=== PATIENT | female | born 1965 | race African-American/Black ===

== ENCOUNTER 2020-03-11 16:15 | Emergency (ER) | payer MEDICAID, SELFPAY ==
--- NOTE | 2020-03-11 | ECG_ITS ---
Test Reason : SEIZURE Blood Pressure : / mmHG Vent. Rate : 116 BPM Atrial Rate : 116 BPM P-R Int : 186 ms QRS Dur : 074 ms QT Int : 324 ms P-R-T Axes : 053 032 042 degrees QTc Int : 450 ms Sinus tachycardia Otherwise normal ECG No previous ECGs available Referred By: Sowmya Ahuja Electronically Signed By:Benjamin Connolly
[2020-03-11 16:01] VITALS: BP 124/98; BP 175/96; PULSE 110; PULSE 124; RESP 16; TEMP 36.9; O2SAT 94; O2SAT 98; BMI 19.6
--- NOTE | 2020-03-11 16:06 | ED_ITS ---
HPI - General Adult General Chief complaint: Seizure Stated complaint: SAKINA NICOLE,POST ICTAL @ THIS TIME Time Seen by Provider: 03/11/20 17:17 Source: EMS Mode of arrival: EMS Limitations: other History of Present Illness HPI narrative: Patient comes to the emergency room via EMS. Patient is a resident at [facility], this afternoon patient had an appointment with her neurologist at [facility]. Patient was returning home via ambulance when she had a seizure in the ambulance, patient was brought to the ER. This occurred in the ambulance, it was a witnessed seizure, according to EMS the patient is postictal. At this time, patient is awake and alert, unclear what the patient's baseline is, possibly postictal. Patient states she has no medical problems, denies ever having seizures, although it is documented that she has history of seizures and is on 2 medications for this. Patient states that she feels well, no pain, has no complaints. MD complaint: Seizure Related Data Allergies Allergy/AdvReac Type Severity Reaction Status Date / Time No Known Allergies Allergy Verified 03/11/20 16:03 Review of Systems Review of Systems: Constitutional : No Weight loss, No Fever, No Chills, No Night Sweats, No Fatigue, No Malaise ENT/Mouth : No Hearing loss, No Ear Pain, No Nasal Congestion, No Sinus Pain, No Hoarseness, No sore throat, No Rhinorrhea, No Swallowing Difficulty Eyes: No Eye Pain, No Swelling, No Redness, No Foreign Body, No Discharge, No Vision Changes Cardiovascular : No Chest Pain, No SOB, No Dyspnea on Exertion, No Orthopnea, No Edema, No Palpitations Respiratory : No Cough, No Sputum, No Wheezing, No Smoke Exposure, No Dyspnea Gastrointestinal : No Nausea, No Vomiting, No Diarrhea, No Constipation, No abdominal Pain, No Hematochezia, No Melena Genitourinary : no irregular bleeding, No Dysuria, No Urinary Frequency, No Hematuria, No Urinary Incontinence, No Urgency, No Flank Pain, No Urinary Flow Changes, No Hesitancy Musculoskeletal : No joint pain, No Myalgias, No Joint Swelling Skin : No Skin Lesions, No rash Neuro : No Weakness, No Numbness, No Paresthesias, No Loss of Consciousness, No Dizziness, No Headache, patient had a witnessed seizure Psych : No Anxiety/Panic, No Depression, No SI/HI/AH/VH, No Social Issues, Heme/Lymph: No Bruising, No Bleeding,No Lymphadenopathy Endocrine : No Polyuria, No Polydipsia, No Temperature Intolerance [facility] Past Medical History Medical History CVA (cerebral vascular accident) Seizure Social History Social History Alcohol intake: never Smoked in Last 30 Days: No Use of substances other than those prescribed or required for medical reasons: No Advance Directives: No Advance Directives Information Provided: No Physical Exam Vital Signs: Vital Signs: Last Vital Signs Temp 98.5 F 03/11/20 16:01 Pulse 107 H 03/11/20 16:29 Resp 16 03/11/20 16:01 BP 124/98 H 03/11/20 16:01 Pulse Ox 98 03/11/20 16:01 Body Mass Index 19.6 Constitutional : No Weight loss, No Fever, No Chills, No Night Sweats, No Fati walter, No Malaise ENT/Mouth : No Hearing loss, No Ear Pain, No Nasal Congestion, No Sinus Pain, No Hoarseness, No sore throat, No Rhinorrhea, No Swallowing Difficulty Eyes: No Eye Pain, No Swelling, No Redness, No Foreign Body, No Discharge, No Vision Changes Cardiovascular : No Chest Pain, No SOB, No Dyspnea on Exertion, No Orthopnea, No Edema, No Palpitations Respiratory : No Cough, No Sputum, No Wheezing, No Smoke Exposure, No Dyspnea Gastrointestinal : No Nausea, No Vomiting, No Diarrhea, No Constipation, No abdominal Pain, No Hematochezia, No Melena Genitourinary : no irregular bleeding, No Dysuria, No Urinary Frequency, No Hematuria, No Urinary Incontinence, No Urgency, No Flank Pain, No Urinary Flow Changes, No Hesitancy Musculoskeletal : No joint pain, No Myalgias, No Joint Swelling, seems weak, having trouble sitting up by herself Skin : No Skin Lesions, No rash Neuro : No Weakness, No Numbness, No Paresthesias, No Loss of Consciousness, No Dizziness, No Headache. Patient unable to move right arm on right leg, which is residual from a previous CVA Psych : No Anxiety/Panic, No Depression, No SI/HI/AH/VH, No Social Issues, Heme/Lymph: No Bruising, No Bleeding,No Lymphadenopathy Endocrine : No Polyuria, No Polydipsia, No Temperature Intolerance Course Course Course Narrative: I discussed with the patient that her labs are within normal limits, valproic acid within normal limits, therapeutic. Keppra will be pending. Patient was given an additional dose of Keppra. Patient instructed to call her neurologist tomorrow. Patient has not had any seizures since she has been in the emergency room. Medical Decision Making Lab Data Result diagrams: 03/11/20 16:40 03/11/20 16:40 Labs: Lab Results 03/11/20 03/11/20 03/11/20 Range/Units 16:40 16:40 16:40 WBC 7.0 (4.8-10.8) X10*3/uL RBC 4.92 (4.20-5.50) X10*6/uL Hgb 13.1 (12.0-16.0) g/dl Hct 42.5 (37-47) % MCV 86.4 (80-98) fL MCH 26.6 L (27.0-33.0) pg MCHC 30.8 L (31.0-35.0) g/dl RDW 20.6 H (11.0-16.0) % Plt Count 258 (160-400) X10*3/uL MPV 10.1 (9.4-12.3) fL Immature Gran % (Auto) 0.3 (0.0-0.4) % Neut % (Auto) 75.3 H (45-73) % Lymph % (Auto) 14.7 L (20-40) % [place] % (Auto) 8.0 (2-11) % Eos % (Auto) 1.4 (0-4) % Baso % (Auto) 0.3 (0-2) % Lymph # (Auto) 1.0 L (1.2-4.9) X10*3/uL [place] # (Auto) 0.6 (0.1-1.2) X10*3/uL Eos # (Auto) 0.1 (0.0-0.4) X10*3/uL Baso # (Auto) 0.0 (0.0-0.2) X10*3/uL Abs Immat Gran (auto) 0.02 (0.00-0.03) X10*3/uL Absolute Neuts (auto) 5.3 (2.0-8.3) X10*3/uL Absolute Nucleated RBC 0.000 (0.0-0.012) X10*3/uL Nucleated RBC % (auto) 0.0 (0.0-0.2) /100WBC Sodium 142 (135-145) mmol/L Potassium 4.3 (3.3-5.1) mmol/l Chloride 105 (96-108) mmol/L Carbon Dioxide 23 (22-29) mmol/L Anion Gap 18 (12-20) BUN 15 (9-16) mg/dL Creatinine 0.72 (0.5-1.4) mg/dL Estim Creat Clear Calc 75.0 Estimated GFR > 60 Random Glucose 92 (60-115) mg/dL Lactic Acid 1.7 (0.5-2.0) mmol/L Calcium 9.1 (8.4-10.2) mg/dL Total Bilirubin 0.2 (0.0-1.0) mg/dL Direct Bilirubin < 0.2 (0.0-0.5) mg/dL AST 12 (5-31) U/L ALT < 6 (0-31) U/L Alkaline Phosphatase 66 (39-117) U/L Total Protein 7.6 (6.5-8.0) g/dL Albumin 3.3 L (3.5-5.0) g/dL Urine Color Urine Appearance Urine pH (5.0-8.0) Ur Specific Sp[place] (1.005-1.025) Urine Protein (NEG-TRACE) MG/DL Urine Glucose (UA) (NEG) MG/DL Urine Ketones (NEG) MG/DL Urine Blood (NEG) Urine Nitrite (NEG) Ur Leukocyte Esterase (NEG) Valproic Acid (50.0-100.0) mcg/mL 03/11/20 03/11/20 Range/Units 16:40 17:46 WBC (4.8-10.8) X10*3/uL RBC (4.20-5.50) X10*6/uL Hgb (12.0-16.0) g/dl Hct (37-47) % MCV (80-98) fL MCH (27.0-33.0) pg MCHC (31.0-35.0) g/dl RDW (11.0-16.0) % Plt Count (160-400) X10*3/uL MPV (9.4-12.3) fL Immature Gran % (Auto) (0.0-0.4) % Neut % (Auto) (45-73) % Lymph % (Auto) (20-40) % [place] % (Auto) (2-11) % Eos % (Auto) (0-4) % Baso % (Auto) (0-2) % Lymph # (Auto) (1.2-4.9) X10*3/uL [place] # (Auto) (0.1-1.2) X10*3/uL Eos # (Auto) (0.0-0.4) X10*3/uL Baso # (Auto) (0.0-0.2) X10*3/uL Abs Immat Gran (auto) (0.00-0.03) X10*3/uL Absolute Neuts (auto) (2.0-8.3) X10*3/uL Absolute Nucleated RBC (0.0-0.012) X10*3/uL Nucleated RBC % (auto) (0.0-0.2) /100WBC Sodium (135-145) mmol/L Potassium (3.3-5.1) mmol/l Chloride (96-108) mmol/L Carbon Dioxide (22-29) mmol/L Anion Gap (12-20) BUN (9-16) mg/dL Creatinine (0.5-1.4) mg/dL Estim Creat Clear Calc Estimated GFR Random Glucose (60-115) mg/dL Lactic Acid (0.5-2.0) mmol/L Calcium (8.4-10.2) mg/dL Total Bilirubin (0.0-1.0) mg/dL Direct Bilirubin (0.0-0.5) mg/dL AST (5-31) U/L ALT (0-31) U/L Alkaline Phosphatase (39-117) U/L Total Protein (6.5-8.0) g/dL Albumin (3.5-5.0) g/dL Urine Color YELLOW Urine Appearance CLOUDY Urine pH 6.0 (5.0-8.0) Ur Specific [place] 1.025 (1.005-1.025) Urine Protein TRACE (NEG-TRACE) MG/DL Urine Glucose (UA) NEG (NEG) MG/DL Urine Ketones >=80 (NEG) MG/DL Urine Blood 3+ H (NEG) Urine Nitrite NEG (NEG) Ur Leukocyte Esterase 2+ H (NEG) Valproic Acid 54.3 (50.0-100.0) mcg/mL ECG Data Attestation: I personally reviewed and interpreted this ECG as follows: (Sinus tachycardia, heart rate 116, this segment depressions or elevations, no T-wave inversions) Discharge Plan Discharge Clinical Impression: Generalized seizure Patient Disposition: Xfer Other Instructions: Recurrent Seizures in Adults (ED) Additional Instructions: Please call your neurologist tomorrow. Please follow-up with your primary care physician tomorrow. If you have any worsening or new symptoms, please return to the emergency room or call 911
[2020-03-11 16:29] VITALS: PULSE 107
[2020-03-11 16:48] LABS: Basophils Percent Auto 0.3 % (0-2); Eosinophils Absolute Auto 0.1 X10*3/uL (0.0-0.4); Eosinophils Percent Auto 1.4 % (0-4); Hematocrit 42.5 % (37-47); Hemoglobin 13.1 g/dl (12.0-16.0); Imm Gran Abs Auto 0.02 X10*3/uL (0.00-0.03); Imm Gran Pct Auto 0.3 % (0.0-0.4); Lymphocytes Percent Auto 14.7 % (20-40); MANUAL DIFF FLAG NO; Mean Corpuscular HGB Conc 30.8 g/dl (31.0-35.0); Mean Corpuscular Hemoglobin 26.6 pg (27.0-33.0); Mean Corpuscular Volume 86.4 fL (80-98); Mean Platelet Volume 10.1 fL (9.4-12.3); Monocytes Absolute Auto 0.6 X10*3/uL (0.1-1.2); Neutrophils Absolute Auto 5.3 X10*3/uL (2.0-8.3); Neutrophils Percent Auto 75.3 % (45-73); Platelet Count 258 X10*3/uL (160-400); Red Blood Count 4.92 X10*6/uL (4.20-5.50); Red Cell Distribution Width 20.6 % (11.0-16.0)
[2020-03-11 17:21] LABS: Lactic Acid 1.7 mmol/L (0.5-2.0)
[2020-03-11 17:31] LABS: Alanine Aminotransferase < 6 U/L (0-31); Albumin Level 3.3 g/dL (3.5-5.0); Alkaline Phosphatase 66 U/L (39-117); Anion Gap 18 (12-20); Aspartate Amino Transferase 12 U/L (5-31); Bilirubin Direct < 0.2 mg/dL (0.0-0.5); Bilirubin Total 0.2 mg/dL (0.0-1.0); Blood Urea Nitrogen 15 mg/dL (9-16); Calcium 9.1 mg/dL (8.4-10.2); Carbon Dioxide 23 mmol/L (22-29); Chloride 105 mmol/L (96-108); Estimated Glomerular Filt Rate > 60; Glucose Random 92 mg/dL (60-115); Potassium 4.3 mmol/l (3.3-5.1); Sodium 142 mmol/L (135-145); Total Protein 7.6 g/dL (6.5-8.0)
[2020-03-11 17:34] LABS: Valproate 54.3 mcg/mL (50.0-100.0)
[2020-03-11 17:56] LABS: Glucose Urine UA NEG (NEG); Leukocyte Esterase Urine 2+ (NEG); Nitrite Urine NEG (NEG); Specific Gravity - Urine 1.025 (1.005-1.025); Urine Blood 3+ (NEG); Urine Ketones >=80 MG/DL (NEG); Urine Protein TRACE MG/DL (NEG-TRACE)
[2020-03-11 17:58] LABS: Appearance Urine CLOUDY; Color Urine YELLOW
[2020-03-11 18:04] LABS: Bacteria Urine 3+ /LPF; Mucus Urine 2+ /LPF; RBC Urine 50-75 /HPF (0); Squamous Epithelial Cell Urine 1+ /LPF
[2020-03-11 18:12] VITALS: BP 115/81; PULSE 97; RESP 18; TEMP 37.2; O2SAT 97
--- NOTE | 2020-03-11 18:16 | PC.NURSE ---
Awaiting transport at this time
--- NOTE | 2020-03-11 19:05 | PC.NURSE ---
Report given to LAYTON at [facility].
[2020-03-11] MEDS: Acetaminophen 325 MG TABLET 650 MG PO (20:27)
--- NOTE | 2020-03-11 20:34 | PC.NURSE ---
pt still is refusing her keppra due to the taste of the pill. pt chews her meds. multiple drinks and food offered to help with the taste and pt still refusing, dr. berry is aware.
[2020-03-16 15:46] LABS: Levetiracetam Keppra <1.0 mcg/mL (12.0-46.0)
== END 2020-03-11 20:55 | disposition other institution (70) ==
PROVIDERS: Emergency Provider Emergency Medicine
DX: G40.409 Other generalized epilepsy and epileptic syndromes, not intractable, without status epilepticus (principal); Z86.73 Personal history of transient ischemic attack (TIA), and cerebral infarction without residual deficits
CPT/HCPCS: 36415; 80048; 80076; 80164; 80177; 81001; 83605; 85025; 87086; 87088; 87186; 93005; 99283; 99284

== ENCOUNTER 2020-04-26 22:31 | Inpatient (IN) | payer MEDICAID, SELFPAY ==
[2020-04-26] VITALS (7 sets, daily range): BP systolic 43–151; BP diastolic 30–120; PULSE 115–160; RESP 20–52; O2SAT 65–100; BMI 23.4
--- NOTE | ~2020-04-26 | XR_ITS ---
EXAMINATION: XR CHEST CLINICAL INFORMATION: Tube placement. Central line placement. COMPARISON: None TECHNIQUE: Frontal view of the chest was obtained. FINDINGS: The endotracheal tube terminates approximately 3.5 cm above the marylou. Enteric tube extends into the stomach. Left internal jugular central venous catheter terminates over the mid SVC. Shunt tubing overlies the right hemithorax. Cardiac leads overlie the chest. The lungs are well expanded. Small right pleural effusion. Airspace opacity throughout the right lung, greatest at the base. The left lung is clear. No pneumothorax. The cardiomediastinal silhouette is not well assessed on this study due to patient rotation. Degenerative changes of the spine. XR/XR chest 1V IMPRESSION: Small right pleural effusion. Associated airspace opacity of the right lung, greatest at the base. This could represent atelectasis or pneumonia. Endotracheal tube terminates 3.5 cm above the marylou.
--- NOTE | ~2020-04-26 | XR_ITS ---
EXAMINATION: XR CHEST CLINICAL INFORMATION: Endotracheal tube placement. TLC and orogastric tube. COMPARISON: 04/28/2020 TECHNIQUE: Frontal view of the chest was obtained. FINDINGS: Endotracheal tube terminates. This is near the lateral and. Right internal jugular central venous catheter terminates over the lower SVC. Cardiac leads overlie the chest. Shunt tubing overlies the right hemithorax. Elevated left hemidiaphragm. Underlying gas filled stomach. Left basilar hazy opacity. No pneumothorax. No dense consolidation. The cardiomediastinal silhouette is within normal limits. Degenerative changes of the spine. XR/XR chest 1V IMPRESSION: Hazy opacity at the left lung base. This could represent a combination of small pleural effusion with airspace opacity. This could be atelectasis or pneumonia.
--- NOTE | ~2020-04-26 | XR_ITS ---
EXAMINATION: XR CHEST CLINICAL INFORMATION: Hypoxia. COMPARISON: 05/06/2020 TECHNIQUE: Frontal view of the chest was obtained. FINDINGS: Compared with yesterday's study there has been little significant interval change. Once again noted are bilateral pleural effusions, right greater than left and bibasilar atelectasis. A Lap-Band remains in place as does shunt tubing. XR/XR chest 1V IMPRESSION: No interval change from yesterday's study. Bilateral small effusions and bibasilar atelectasis.
--- NOTE | ~2020-04-26 | XR_ITS ---
EXAMINATION: XR CHEST CLINICAL INFORMATION: Dyspnea COMPARISON: 05/04/2020 TECHNIQUE: Frontal view of the chest was obtained. FINDINGS: Redemonstrated catheter tubing overlying the medial right chest. The lungs are hypoinflated, with persistent bibasilar haziness and likely small pleural effusions, similar to prior. Upper lungs remain well-aerated. No evidence of pneumothorax or overt pulmonary edema. The cardiomediastinal contour is unremarkable. No acute osseous findings are seen. Gastric band overlies the upper abdomen. XR/XR chest 1V IMPRESSION: Persistent small pleural effusions and bibasilar haziness, similar to 05/04/2020.
--- NOTE | ~2020-04-26 | XR_ITS ---
EXAMINATION: XR CHEST CLINICAL INFORMATION: Orogastric tube placement COMPARISON: 04/29/2020 at 12:58 AM TECHNIQUE: Frontal view of the chest was obtained 1:29 PM. FINDINGS: Endotracheal tube seen with tip 4 cm above the marylou. Orogastric tube descends the esophagus into the stomach. A ventriculoperitoneal shunt catheter descends the right medial chest. Lung volumes are low. There is hazy opacity at the right lung base, likely atelectasis. No focal consolidation or mass.. No definite pleural effusion. No pneumothorax. XR/XR chest 1V IMPRESSION: Orogastric tube has been advanced with the tip in the body of the stomach. Proximal side-port is in the proximal stomach as well. Endotracheal tube seen with tip 4 cm above the marylou. Lung volumes are low but improved in the left chest.
--- NOTE | ~2020-04-26 | CT_ITS ---
EXAMINATION: CT ANGIOGRAM OF THE CHEST WITH AND WITHOUT CONTRAST (CT PULMONARY ANGIOGRAM FOR PE) CLINICAL INFORMATION: Reason for Exam r/o PE COMPARISON: Chest CT from earlier today. TECHNIQUE: Prior to contrast administration, noncontrast localization images were obtained. Subsequently, multidetector volumetric imaging was performed from the thoracic inlet to below the diaphragms following the administration of 65 mL Omnipaque 350 intravenous contrast. No contrast reaction reported Sagittal, coronal, and MIP oblique sagittal reformatted images were obtained on the CT workstation, uploaded to PACS, and reviewed. This CT examination was performed using dose optimization techniques as appropriate, variously including the following: *Automated exposure control *Adjustment of mA and/or kV according to patient size (this includes techniques or standardized protocols for targeted exams where dose is matched to indication/reason for exam; i.e. extremities or head) *Use of iterative reconstruction technique Total exam dose-length product 159 mGy-cm FINDINGS: QUALITY OF STUDY/CONTRAST BOLUS: Satisfactory. PULMONARY ARTERIES: No central or segmental pulmonary emboli. THORACIC AORTA: No aneurysm or dissection. LUNG: The endotracheal tube terminates 2.5 cm above the marylou. Persistent occlusion of the right lower lobe and right middle lobe bronchi with associated dense consolidation suggestive of atelectasis of both lobes. Patchy groundglass opacities of the right upper lobe with mild septal thickening. The left lung is clear. PLEURA: No pleural effusion or pneumothorax. MEDIASTINUM: Normal heart size. Small anterior pericardial effusion. No hilar or mediastinal lymphadenopathy. No evidence of septal bowing or right heart strain. CHEST WALL/AXILLA: No axillary or internal mammary lymphadenopathy. OSSEOUS STRUCTURES: No acute or suspicious osseous abnormality. Degenerative changes noted in the spine. UPPER ABDOMEN: There is a lap band noted. Enteric tube extends into the stomach. No reflux of contrast into the hepatic veins to suggest elevated right heart pressures. CT/CT angio chest PE protocol IMPRESSION: No pulmonary embolism. Persistent occlusion of the right lower lobe and right middle lobe bronchi with associated atelectasis, unchanged from recent prior. Groundglass opacities with septal thickening in the right upper lobe may be associated with edema or infectious process. VTE: negative
--- NOTE | ~2020-04-26 | XR_ITS ---
EXAMINATION: PORTABLE CHEST 1 VIEW CLINICAL INFORMATION: sob . COMPARISON: 04/26/2020. TECHNIQUE: Portable frontal view of the chest was obtained. FINDINGS: Lungs are hypoexpanded. Blunting of the costophrenic angles could represent tiny layering effusions with associated bibasilar consolidation/atelectasis. Basilar markings have worsened from the prior study. No overt edema or pneumothorax. Cardiac silhouette within normal limits for size. Right-sided MANAGER PRODUCT MANAGEMENT shunt tubing noted. Lap band partially visualized in the upper abdomen. XR/XR chest 1V IMPRESSION: Hypoexpanded with increased bibasilar markings likely reflecting a component of layering effusions and associated basilar consolidation/atelectasis. These have increased on the left from the 04/26/2020 study
--- NOTE | ~2020-04-26 | CT_ITS ---
EXAMINATION: CT CHEST WITHOUT CONTRAST CLINICAL INFORMATION: Severe hypoxia COMPARISON: Chest radiograph from today TECHNIQUE: Multidetector volumetric CT imaging of the chest was done. Axial MIP volume rendering provided. Sagittal and coronal reformatted images were obtained. This CT examination was performed using dose optimization techniques as appropriate, variously including the following: *Automated exposure control *Adjustment of mA and/or kV according to patient size (this includes techniques or standardized protocols for targeted exams where dose is matched to indication/reason for exam; i.e. extremities or head) *Use of iterative reconstruction technique DLP: 194 mGy-cm FINDINGS: INSPECTION ENGINEER: Opacity at the right base. LUNGS: Endotracheal tube terminates approximately 2.5 cm above the marylou. There is occlusion of the right lower lobe bronchus. There is also occlusion of the right middle lobe bronchus. Dense consolidation of the right lower lobe and right middle lobe. Ground glass opacities of the right upper lobe with dependent opacity. Septal thickening. The left lung is clear. No pleural effusion. No pneumothorax. MEDIASTINUM: Left internal jugular central venous catheter terminates at the mid SVC. Normal heart size. No mediastinal lymphadenopathy. Small anterior pericardial effusion. AXILLA: No lymphadenopathy. UPPER ABDOMEN: Gastric lap band noted. Enteric tube extends into the stomach. Prominent cyst at the upper pole of the left kidney. NUTRITION SPECIALIST shunt tubing extends into the abdomen. OSSEOUS STRUCTURES: No acute osseous abnormality. Degenerative changes in the spine. CT/CT chest wo con IMPRESSION: Endotracheal tube terminating 2.5 cm above the marylou. Occlusion of the right lower lobe and right middle lobe bronchi, possibly mucous plugging. Associated dense consolidation of the right middle lobe and right lower lobe. Groundglass opacities with septal thickening in the right upper lobe. This could represent asymmetric edema.
--- NOTE | ~2020-04-26 | XR_ITS ---
EXAMINATION: XR CHEST CLINICAL INFORMATION: Rule out pneumonia. COMPARISON: 04/30/2020. TECHNIQUE: Frontal view of the chest was obtained. FINDINGS: Right IJ CVC, tip projected over the cavoatrial junction. There is tubing projecting along the right side of the chest and abdomen. Monitoring leads overlie the chest. Rotated positioning. Stable cardiac and mediastinal silhouette allowing for positioning. Opacification in bilateral mid to lower lungs, more confluent in the lower lungs. Suspected effusions, right greater than left. No pneumothorax. XR/XR chest 1V IMPRESSION: Bibasilar opacities, could be related to atelectasis, pneumonia or aspiration. Suspected small bilateral effusions.
--- NOTE | 2020-04-26 22:45 | PC.NURSE ---
Dr. urban at bedside w/ RT, this rn and Ivett RN. Plan to intubate pt r/t poor respiratory status.
--- NOTE | 2020-04-26 22:46 | PC.NURSE ---
20mg etomidate, 80 mg rocuronium given ivp.
--- NOTE | 2020-04-26 22:49 | PC.NURSE ---
7.5 ET tube placed, 25 cm at lip, + color change
--- NOTE | 2020-04-26 23:03 | PC.NURSE ---
v/o per Dr. urban levophed started at 0.05mcg/kg/min
[2020-04-26] MEDS: fentaNYL citrate/NS 1,000 MCG/100 ML PLAST..BAG 2.5 MCG IVCONT (23:11)
--- NOTE | 2020-04-26 23:12 | PC.NURSE ---
Dr. urban at bedside to place central line
--- NOTE | 2020-04-26 23:19 | PC.NURSE ---
Per Dr. Leigha lovell to admin levophed and fent. through peripheral IV.
--- NOTE | 2020-04-26 23:36 | ED_ITS ---
HPI - General Adult General Chief complaint: Dyspnea Stated complaint: pulmonary edema Time Seen by Provider: 04/26/20 23:36 Source: EMS Mode of arrival: EMS Limitations: altered mental status History of Present Illness HPI narrative: Patient is brought by EMS from the [facility]. EMS called reporting that the patient was in pulmonary edema, 40 mg of Lasix were given prior to arrival. Patient does not have history of CHF. However, patient was discharged on April 22 from [facility] for pneumonia. The staff reports that the patient was doing well, within an hour she decompensated. Patient had significant shortness of breath, severe respiratory distress. When EMS arrived, the patient had frothy sputum, oxygen saturation 60% on room air. Patient was started on CPAP. On arrival, patient's oxygen saturation remained at 70% on BiPAP, patient was intubated. MD complaint: Dyspnea, respiratory failure Related Data Allergies Allergy/AdvReac Type Severity Reaction Status Date / Time No Known Allergies Allergy Verified 03/11/20 16:03 Review of Systems Review of Systems: Yes all other systems are reviewed and are negative [facility] Past Medical History Medical History CVA (cerebral vascular accident) Diabetes Dysphagia Hypernatremia Hypokalemia Metabolic encephalopathy Nephrolithiasis Pneumonia Seizure Sepsis Subarachnoid hemorrhage VRE (vancomycin-resistant Enterococci) Surgical History S/P clamping of cerebral aneurysm Social History Social History Alcohol intake: unknown Smoking Status: Unknown if ever smoked Use of substances other than those prescribed or required for medical reasons: Unknown Advance Directives: No Advance Directives Information Provided: No Physical Exam Vital Signs: Vital Signs: Last Vital Signs Temp 99.5 F 04/27/20 01:20 Pulse 136 H 04/27/20 01:20 Resp 20 04/27/20 01:20 BP 97/68 04/27/20 01:20 Pulse Ox 87 L 04/27/20 01:20 Body Mass Index 23.4 Appearance: Alert. In severe distress Eyes: Pupils equal, round and reactive to light. ENT: Pharynx normal. Neck: Normal inspection. Neck supple. No lymph nodes noted. No crepitus CVS: Normal heart rate and rhythm. Tachycardic Respiratory: Severe respiratory distress, now intubated, no wheezing, bilateral crackles Abdomen: Soft and nontender. No rigidity. No distention. good BS x4 Skin: Skin warm and dry. Extremities: No lower extremity edema. Neuro: Prior to intubation no deficit, now patient is sedated Course Course Course Narrative: Patient was intubated within a few minutes of arrival. Patient has now a central line. At this time, all the labs and imaging are pending. Patient's troponin is 60.6, likely secondary to demand ischemia Dr. Hines accepted the patient to the ICU Patient remained tachycardic, patient already had a chest CT, however, the patient may have a pulmonary embolism. Patient will get as chest CTA on the way from her room to the intensive care unit, I discussed the above mention with nurse practitioner Ronal from the ICU Procedures Central Line Placement Left IJ: Time Out Performed: Yes Patient Placed on Monitor/Pulse Ox: Yes MD Prep: mask, gown and gloves Central Line Prep: Chlorhexidine scrub Ultrasound Used for Placement: Yes Central Line Lumen Inserted: triple Post Procedure: sutured in place, good blood return, all ports aspirated, flushed, capped and sterile dressing applied Post Procedure X-Ray: no pneumothorax seen Patient Tolerated Procedure: well Complications: none Intubation sedative: Etomidate Mg Given: 20 paralytic: Rocuronium Mg Given: 80 Assist Device Used: other (GlideScope) ET Tube Size: 7.5 Tube Secured Depth (cm): 25 Tube Secured Location: lips Tube Placement Confirmation: visualized tube passing through cords, equal breath sounds bilaterally and no breath sounds over epigastrium Patient Tolerated Procedure: well Intubation Complications: none Medical Decision Making Lab Data Result diagrams: 04/27/20 Unknown 04/27/20 Unknown Labs: Lab Results 04/26/20 04/27/20 04/27/20 Range/Units Unknown 01:00 01:00 VBG pH 7.47 H (7.32-7.43) VBG pCO2 31 mmHg VBG pO2 61 mmHg VBG HCO3 23 mmol/L VBG O2 Saturation 89.0 % VBG Base Excess 0.3 mmol/L Urine Color YELLOW Urine Appearance HAZY Urine pH 6.5 (5.0-8.0) Ur Specific [place] 1.015 (1.005-1.025) Urine Protein NEG (NEG-TRACE) MG/DL Urine Glucose (UA) NEG (NEG) MG/DL Urine Ketones NEG (NEG) MG/DL Urine Blood 1+ H (NEG) Urine Nitrite NEG (NEG) Ur Leukocyte Esterase 2+ H (NEG) Urine RBC 10-14 H (0) /HPF Urine WBC 30-49 H (0-4) /HPF Ur Squamous Epith Cells 2+ /LPF Urine Bacteria 2+ /LPF Urine Mucus 2+ /LPF Coronavirus (PCR) NEGATIVE (Negative) Influenza Type A (PCR) NEGATIVE (Negative) Influenza Type B (PCR) NEGATIVE (Negative) RSV RNA Qual (PCR) NEGATIVE (Negative) Imaging Data CT scan - chest: Radiologist's impression: LUNGS: Endotracheal tube terminates approximately 2.5 cm above the marylou. There is occlusion of the right lower lobe bronchus. There is also occlusion of the right middle lobe bronchus. Dense consolidation of the right lower lobe and right middle lobe. Ground glass opacities of the right upper lobe with dependent opacity. Septal thickening. The left lung is clear. No pleural effusion. No pneumothorax. MEDIASTINUM: Left internal jugular central venous catheter terminates at the mid SVC. Normal heart size. No mediastinal lymphadenopathy. Small anterior pericardial effusion. AXILLA: No lymphadenopathy. UPPER ABDOMEN: Gastric lap band noted. Enteric tube extends into the stomach. Prominent cyst at the upper pole of the left kidney. [employer] shunt tubing extends into the abdomen. OSSEOUS STRUCTURES: No acute osseous abnormality. Degenerative changes in the spine. CT/CT chest wo con IMPRESSION: Endotracheal tube terminating 2.5 cm above the marylou. Occlusion of the right lower lobe and right middle lobe bronchi, possibly mucous plugging. Associated dense consolidation of the right middle lobe and right lower lobe. Groundglass opacities with septal thickening in the right upper lobe. This could represent asymmetric edema. ECG Data Attestation: I personally reviewed and interpreted this ECG as follows: (Sinus tachycardia, heart rate 140, no ST segment depressions or elevations, no T-wave inversions) Discharge Plan Discharge Clinical Impression: Demand ischemia Respiratory failure Qualifiers: Chronicity: acute Respiratory failure complication: unspecified whether with hypoxia or hypercapnia Qualified Code(s): J96.00 - Acute respiratory failure, unspecified whether with hypoxia or hypercapnia Pneumonia Qualifiers: Pneumonia type: due to unspecified organism Laterality: unspecified laterality Lung location: unspecified part of lung Qualified Code(s): J18.9 - Pneumonia, unspecified organism Patient Disposition: Admitted As Inpatient
--- NOTE | 2020-04-26 23:42 | ECG_ITS ---
Test Reason : TACHYCARDIA Blood Pressure : / mmHG Vent. Rate : 140 BPM Atrial Rate : 140 BPM P-R Int : 134 ms QRS Dur : 054 ms QT Int : 286 ms P-R-T Axes : 058 064 076 degrees QTc Int : 436 ms Sinus tachycardia Otherwise normal ECG When compared with ECG of 11-MAR-2020 16:12, No significant change was found Referred By: Sowmya Ahuja Electronically Signed By:Benjamin Connolly
[2020-04-27] VITALS (31 sets, daily range): BP systolic 61–162; BP diastolic 37–104; PULSE 63–158; RESP 12–26; TEMP 37.3–38.5; O2SAT 84–100; BMI 22.8
[2020-04-27 00:43] LABS: Basophils Percent Auto 0.2 % (0-2); Eosinophils Percent Auto 0.2 % (0-4); Hematocrit 40.3 % (37-47); Hemoglobin 12.9 g/dl (12.0-16.0); Imm Gran Abs Auto 0.74 X10*3/uL (0.00-0.03); Imm Gran Pct Auto 5.9 % (0.0-0.4); Lymphocytes Absolute Auto 0.8 X10*3/uL (1.2-4.9); Lymphocytes Percent Auto 6.4 % (20-40); Mean Corpuscular Hemoglobin 28.4 pg (27.0-33.0); Mean Corpuscular Volume 88.8 fL (80-98); Mean Platelet Volume 9.6 fL (9.4-12.3); Monocytes Absolute Auto 0.8 X10*3/uL (0.1-1.2); Monocytes Percent Auto 6.2 % (2-11); NRBC Pct Auto 0.2 /100WBC (0.0-0.2); Neutrophils Absolute Auto 10.3 X10*3/uL (2.0-8.3); Neutrophils Percent Auto 81.1 % (45-73); Platelet Count 419 X10*3/uL (160-400); Red Blood Count 4.54 X10*6/uL (4.20-5.50); Red Cell Distribution Width 19.9 % (11.0-16.0); SCAN SMEAR FLAG 1; White Blood Count 12.6 X10*3/uL (4.8-10.8)
[2020-04-27 00:57] LABS: Glucose Urine UA NEG (NEG); Leukocyte Esterase Urine 2+ (NEG); Nitrite Urine NEG (NEG); PH 6.5 (5.0-8.0); Specific Gravity - Urine 1.015 (1.005-1.025); UACC Culture Trigger YES; Urine Blood 1+ (NEG); Urine Ketones NEG (NEG); Urine Protein NEG (NEG-TRACE)
[2020-04-27 01:03] LABS: Appearance Urine HAZY; Bacteria Urine 2+ /LPF; Color Urine YELLOW; Mucus Urine 2+ /LPF; Squamous Epithelial Cell Urine 2+ /LPF; WBC Urine 30-49 /HPF (0-4)
[2020-04-27 01:08] LABS: Lipase 16 U/L (8-78)
[2020-04-27 01:12] LABS: Alanine Aminotransferase < 6 U/L (0-31); Albumin Level 2.7 g/dL (3.5-5.0); Alkaline Phosphatase 59 U/L (39-117); Anion Gap 16 (12-20); Aspartate Amino Transferase 13 U/L (5-31); Bilirubin Direct 0.2 mg/dL (0.0-0.5); Bilirubin Total 0.6 mg/dL (0.0-1.0); Blood Urea Nitrogen 10 mg/dL (9-16); Calcium 8.5 mg/dL (8.4-10.2); Carbon Dioxide 25 mmol/L (22-29); Chloride 106 mmol/L (96-108); Creatinine Clr Calc Pharmacy 81.4; Estimated Glomerular Filt Rate > 60; Glucose Random 184 mg/dL (60-115); Lactic Acid 3.4 mmol/L (0.5-2.0); Sodium 144 mmol/L (135-145); Total Protein 6.5 g/dL (6.5-8.0)
[2020-04-27 01:13] LABS: HCO3 VBG 23 mmol/L; PCO2 VBG 31 mmHg; PO2 VBG 61 mmHg; pH VBG 7.47 (7.32-7.43)
[2020-04-27 01:14] LABS: Base Excess VBG 0.3 mmol/L
[2020-04-27 01:18] LABS: B Type Natriuretic Peptide 145 pg/mL (<100); Troponin-I High Sensitivity 60.6 ng/L (<3.5-17.0)
[2020-04-27 01:20] LABS: MANUAL DIFF FLAG NO
[2020-04-27] MEDS: 0.9 % Sodium Chloride 1,000 ML 999 ML IVCONT (01:44)
[2020-04-27 01:53] LABS: Influenza A PCR NEGATIVE (Negative); Influenza B PCR NEGATIVE (Negative); Resp Syncy Virus RNA Qual PCR NEGATIVE (Negative); SARS COV2 PCR INHOUSE NEGATIVE (Negative)
--- NOTE | 2020-04-27 01:58 | PM.CCHP ---
History of Present Illness Date of Service: 04/27/20 Chief Complaint: Dyspnea Review of Systems Review of Systems: Unable to do, patient on a ventilator PMFSH Past Medical History Medical History CVA (cerebral vascular accident) Diabetes Dysphagia Hypernatremia Hypokalemia Metabolic encephalopathy Nephrolithiasis Pneumonia Seizure Sepsis Subarachnoid hemorrhage VRE (vancomycin-resistant Enterococci) Surgical History Surgical History S/P clamping of cerebral aneurysm Social History Social History (Updated 04/27/20 @ 03:24 by Gale Olvera) Housing: [facility] Alcohol intake: unknown Smoking Status: Unknown if ever smoked Use of substances other than those prescribed or required for medical reasons: Unknown Advance Directives: No Advance Directives Information Provided: No Meds Allergies Allergy/AdvReac Type Severity Reaction Status Date / Time No Known Allergies Allergy Verified 03/11/20 16:03 Active Medications: Current Medications Generic Name Dose Route Start Last Admin Trade Name Freq PRN Reason Stop Dose Admin Chlorhexidine Gluconate 15 ml 04/27/20 01:30 Chlorhexidine Gluc Oral Rinse 15 Ml Mouthwash BUCCAL Q8H ROSALINE Enoxaparin Sodium 40 mg 04/27/20 02:00 Enoxaparin Sodium 40 Mg/0.4 Ml Syringe SUBCUT BEDTIME ROSALINE Norepinephrine Bitartrate 8 mg in 250 mls @ 0 mls/hr 04/26/20 23:15 04/26/20 23:14 Levophed IVCONT 0 mcg/kg/min .Q0M ROSALINE 0 mls/hr Titration Protocol Per Protocol Fentanyl 1,000 mcg in 100 mls @ 0 mls/hr 04/26/20 23:15 04/26/20 23:11 Sublimaze/Ns IVCONT 25 mcg/hr .Q0M ROSALINE 2.5 mls/hr Administration Protocol Per Protocol Ampicillin Sodium/Sulbactam 100 mls @ 200 mls/hr 04/27/20 02:00 Sodium 1.5 gm/ Sodium Chloride IV Q6H ROSALINE Naloxone HCl 0.2 mg 04/26/20 23:07 Naloxone Hcl 0.4 Mg/Ml Vial IVPUSH Q2M PRN Excessive sedation or RR < 8 Pantoprazole Sodium 40 mg 04/27/20 06:30 Pantoprazole Sodium 40 Mg/10 Ml Vial IVPUSH DAILY@0630 [facility] Physical Exam Vital Signs: Vital Signs: Last Vital Signs Pulse 144 H 04/27/20 00:00 Resp 20 04/27/20 00:00 BP 111/84 04/27/20 00:00 Pulse Ox 85 L 04/27/20 00:00 Body Mass Index 23.4 Constitutional: Patient sedated on ventilator, in no apparent distress HEENT: Normocephalic, atraumatic, PERRLA, oropharynx clear, dry mucus membranes Respiratory: Lungs with rhonchi primarily on the right, no wheezes. On AC settings: 20/450/5/100% Cardiac: Tachycardic to 140s. RRR, +S1/S2, no murmurs/rubs, pulses palpable and equal in all extremities, no extremity edema. Gastrointestinal: +BS, non-tender to palpation, non-distended Neurologic: Sedated move them spontaneously Musculoskeletal: No gross deformities, back non-tender to palpation Skin: Skin very dry throughout, coccyx wound present Psych: Mood appropriate to situation Results Labs CBC and Chem 7: 04/27/20 Unknown 04/27/20 Unknown Labs: Laboratory Results - last 24 hr 04/26/20 04/27/20 04/27/20 Unknown 01:00 01:00 MCV MCH MCHC RDW Plt Count MPV Immature Gran % (Auto) Neut % (Auto) Lymph % (Auto) [place] % (Auto) Eos % (Auto) Baso % (Auto) Lymph # (Auto) [place] # (Auto) Eos # (Auto) Baso # (Auto) Abs Immat Gran (auto) Absolute Neuts (auto) Absolute Nucleated RBC Nucleated RBC % (auto) VBG pH 7.47 H VBG pCO2 31 VBG pO2 61 VBG HCO3 23 VBG O2 Saturation 89.0 VBG Base Excess 0.3 Anion Gap Estim Creat Clear Calc Estimated GFR Random Glucose Lactic Acid Calcium Total Bilirubin Direct Bilirubin AST ALT Alkaline Phosphatase Troponin I High Sens B-Natriuretic Peptide Total Protein Albumin Lipase Urine Color YELLOW Urine Appearance HAZY Urine pH 6.5 Ur Specific [place] 1.015 Urine Protein NEG Urine Glucose (UA) NEG Urine Ketones NEG Urine Blood 1+ H Urine Nitrite NEG Ur Leukocyte Esterase 2+ H Urine RBC 10-14 H Urine WBC 30-49 H Ur Squamous Epith Cells 2+ Urine Bacteria 2+ Urine Mucus 2+ Coronavirus (PCR) NEGATIVE Influenza Type A (PCR) NEGATIVE Influenza Type B (PCR) NEGATIVE RSV RNA Qual (PCR) NEGATIVE 04/27/20 04/27/20 04/27/20 Unknown Unknown Unknown MCV 88.8 MCH 28.4 MCHC 32.0 RDW 19.9 H Plt Count 419 H D MPV 9.6 Immature Gran % (Auto) 5.9 H Neut % (Auto) 81.1 H Lymph % (Auto) 6.4 L [place] % (Auto) 6.2 Eos % (Auto) 0.2 Baso % (Auto) 0.2 Lymph # (Auto) 0.8 L [place] # (Auto) 0.8 Eos # (Auto) 0.0 Baso # (Auto) 0.0 Abs Immat Gran (auto) 0.74 H Absolute Neuts (auto) 10.3 H Absolute Nucleated RBC 0.020 H Nucleated RBC % (auto) 0.2 VBG pH VBG pCO2 VBG pO2 VBG HCO3 VBG O2 Saturation VBG Base Excess Anion Gap 16 Estim Creat Clear Calc 81.4 Estimated GFR > 60 Random Glucose 184 H D Lactic Acid 3.4 H* Calcium 8.5 D Total Bilirubin 0.6 Direct Bilirubin 0.2 AST 13 ALT < 6 Alkaline Phosphatase 59 Troponin I High Sens B-Natriuretic Peptide Total Protein 6.5 Albumin 2.7 L Lipase Urine Color Urine Appearance Urine pH Ur Specific [place] Urine Protein Urine Glucose (UA) Urine Ketones Urine Blood Urine Nitrite Ur Leukocyte Esterase Urine RBC Urine WBC Ur Squamous Epith Cells Urine Bacteria Urine Mucus Coronavirus (PCR) Influenza Type A (PCR) Influenza Type B (PCR) RSV RNA Qual (PCR) 04/27/20 04/27/20 Unknown Unknown MCV MCH MCHC RDW Plt Count MPV Immature Gran % (Auto) Neut % (Auto) Lymph % (Auto) [place] % (Auto) Eos % (Auto) Baso % (Auto) Lymph # (Auto) [place] # (Auto) Eos # (Auto) Baso # (Auto) Abs Immat Gran (auto) Absolute Neuts (auto) Absolute Nucleated RBC Nucleated RBC % (auto) VBG pH VBG pCO2 VBG pO2 VBG HCO3 VBG O2 Saturation VBG Base Excess Anion Gap Estim Creat Clear Calc Estimated GFR Random Glucose Lactic Acid Calcium Total Bilirubin Direct Bilirubin AST ALT Alkaline Phosphatase Troponin I High Sens 60.6 H B-Natriuretic Peptide 145 H Total Protein Albumin Lipase 16 Urine Color Urine Appearance Urine pH Ur Specific [place] Urine Protein Urine Glucose (UA) Urine Ketones Urine Blood Urine Nitrite Ur Leukocyte Esterase Urine RBC Urine WBC Ur Squamous Epith Cells Urine Bacteria Urine Mucus Coronavirus (PCR) Influenza Type A (PCR) Influenza Type B (PCR) RSV RNA Qual (PCR) Imaging Radiologist's Impressions: Impressions Chest X-Ray 04/27/20 00:07 IMPRESSION: Small right pleural effusion. Associated airspace opacity of the right lung, greatest at the base. This could represent atelectasis or pneumonia. Endotracheal tube terminates 3.5 cm above the marylou. Chest CT 04/27/20 00:08 IMPRESSION: Endotracheal tube terminating 2.5 cm above the marylou. Occlusion of the right lower lobe and right middle lobe bronchi, possibly mucous plugging. Associated dense consolidation of the right middle lobe and right lower lobe. Groundglass opacities with septal thickening in the right upper lobe. This could represent asymmetric edema. Assessment and Plan (1) Septic shock: Status: Acute Neuro: no acute issues Cardiac: Septic shock- elevated lactic acid, tachycardia, fever, source likely from aspiration pneumonia source. Received fluids in the ED. Continue antibiotic Treat with Unasyn. Hypotension: this is likely due to sedation for intubation. Currently on Levophed. Will wean off pressors when appropriate Pulmonary: Acute hypoxic respiratory failure requiring endotracheal intubation- due to the sudden and acute decompensation in patient condition this is a likely aspiration event. She has negative COVID. Imaging also concurrent with symptoms. Due to tachycardia, will rule out PE. Awaiting for CTA. cont antibiotics. Will wean off vent when appropriate. Renal: No acute issues GI: Hypokalemia- will replace with IV K Endo: No acute issues ID: Aspiration pneumonia- Cont unasyn. Heme/Onc: No acute issues. Psych: No acute issues. Miscellaneous: No acute issues Prophylaxis: lovenox, PPI Diet: NPO CODE: FULL Critical care time: X90 Minutes of critical care time Case review with attending Dr Hines (2) Acute respiratory failure with hypoxia: Status: Acute (3) Aspiration pneumonia: Status: Acute (4) Hypotension: Status: Acute (5) Elevated lactic acid level: Status: Acute (6) Demand ischemia: Status: Acute
[2020-04-27] MEDS: Piperacillin Sodium/Tazobactam 3.375 GM in 0.9 % Sodium Chloride 50 ML IV (02:01)
[2020-04-27] MEDS: iohexoL 350 MG/ML 100 ML INFUS..BTL 65 ML IV (02:32)
[2020-04-27 02:34] LABS: Reflex Lactate? Lactic Acid Added
--- NOTE | 2020-04-27 03:34 | PC.NURSE ---
Addendum entered by Ivett Chinchilla 05/10/20 03:04: LATE ENTRY- PATIENT WAS MEDICATED AT 2355 WITH 750 OF NORMAL SALINE IN ER NOTED ON EMAR Addendum entered by Ivett Chinchilla 05/02/20 02:24: LATE ENTRY- PATIENT RECEIVED 750 OR NORMAL SALINE WHILE IN THE ER PER EMAR NOTED. Original Note: Patient was medicated with 20 mg of Etomidate injection and Rocuronium [place] 80 mg prior to intubation.
[2020-04-27 03:41] LABS: ~Lactic Acid-LAB USE ONLY 5.9 mmol/L (0.5-2.0)
[2020-04-27] MEDS: propofoL 1,000 MG/100 ML VIAL 3.27 MG IVCONT ×2 (03:48→16:15)
[2020-04-27] MEDS: Ampicillin Sodium/Sulbactam Na 1.5 GM in 0.9 % Sodium Chloride 100 ML IV ×4 (04:05→19:48)
[2020-04-27] MEDS: Potassium Chloride/H20 40 MEQ/100 ML PIGGYBACK 100 MEQ IV (04:16)
[2020-04-27] MEDS: Albumin Human 25 % 100 ML IV (04:19)
[2020-04-27] MEDS: Enoxaparin Sodium 40 MG/0.4 ML SYRINGE SUBCUT ×2 (04:22→19:48)
[2020-04-27 05:20] LABS: Reflex Lactate? 2 Y
[2020-04-27 05:30] LABS: Base Excess VBG -0.7 mmol/L; HCO3 VBG 22 mmol/L; PCO2 VBG 33 mmHg; PO2 VBG 42 mmHg; pH VBG 7.44 (7.32-7.43)
[2020-04-27 05:32] LABS: Hematocrit 29.7 % (37-47); Hemoglobin 9.5 g/dl (12.0-16.0); Mean Corpuscular Hemoglobin 28.6 pg (27.0-33.0); Mean Corpuscular Volume 89.5 fL (80-98); Mean Platelet Volume 9.7 fL (9.4-12.3); Platelet Count 279 X10*3/uL (160-400); Red Blood Count 3.32 X10*6/uL (4.20-5.50); Red Cell Distribution Width 19.4 % (11.0-16.0); White Blood Count 12.6 X10*3/uL (4.8-10.8)
[2020-04-27 05:55] LABS: ~Lactic Acid-LAB USE ONLY 2.6 mmol/L (0.5-2.0)
[2020-04-27 05:58] LABS: Albumin Level 2.9 g/dL (3.5-5.0); Anion Gap 12 (12-20); Blood Urea Nitrogen 9 mg/dL (9-16); Calcium 7.5 mg/dL (8.4-10.2); Carbon Dioxide 25 mmol/L (22-29); Chloride 112 mmol/L (96-108); Creatinine Clr Calc Pharmacy 87.5; Estimated Glomerular Filt Rate > 60; Glucose Random 99 mg/dL (60-115); Magnesium 1.6 mg/dL (1.6-2.6); Phosphorus 1.8 mg/dL (2.7-4.5); Potassium 4.4 mmol/L (3.3-5.1); Sodium 145 mmol/L (135-145)
[2020-04-27 05:59] LABS: Troponin-I High Sensitivity 137.6 ng/L (<3.5-17.0)
[2020-04-27 06:03] LABS: Band Neutrophils Percent 12 % (3-5); Lymphocytes Absolute Manual 1.1 X10*3/uL (0.6-4.8); Lymphocytes Percent Manual 9 % (20-40); Monocytes Absolute Manual 1.3 X10*3/uL (0.0-1.2); Monocytes Percent Manual 10 % (2-11); Neutrophils Absolute Manual 10.2 X10*3/uL (2.2-7.9); Neutrophils Percent Manual 69 % (45-73)
[2020-04-27 06:05] LABS: Macrocytosis 1+; Ovalocytes 1+; Polychromasia 1+; RBC Morphology NOTED; Toxic Vacuolation PRESENT
[2020-04-27 06:06] LABS: Platelet Estimate NORMAL (NORMAL); Platelet Morphology Comment NORMAL
[2020-04-27] MEDS: Pantoprazole Sodium 40 MG/10 ML VIAL IVPUSH (06:15)
[2020-04-27] MEDS: Chlorhexidine Gluc Oral Rinse 15 ML MOUTHWASH BUCCAL ×2 (09:15→16:15)
[2020-04-27] MEDS: Acetaminophen Oral Liquid 650 MG/20.3 ML SOLUTION PO (13:18)
[2020-04-27 14:24] LABS: Base Excess VBG 1.3 mmol/L; HCO3 VBG 23 mmol/L; PCO2 VBG 30 mmHg; PO2 VBG 48 mmHg
--- NOTE | 2020-04-27 14:47 | MHC.CM.PN ---
pt is in the icu; sedated, intubated and on mech. vent. dc planning deferred to a future time. cm to cont. to follow.
--- NOTE | 2020-04-27 15:40 | PM.CCPN ---
Subjective Subjective Date of Service: 04/27/20 Interval History: Mrs. Medina was admitted to ICU this morning with acute respiratory failure and septic shock 2? to what appears to be straighfwd aspiration pneumonia. Full chart reviewed. D/W GUZMAN Olvera. CT shows her RLL socked in with pneumonia. No evidence of pulmonary edema. Albumin 2.7. Been hypotensive in the ICU. BP 120/80 on Levophed 0.2ug. ECHOCARDIOGRAM: My bedside echo for hemodynamic monitoring: Image quality: Good. Findings: 1. At least mild, more likely moderate LVH. 2. LV cavity size is normal, with hyperdynamic LV fxn, EF 70+%, no RWMA. 3. RV size normal or small. 4. Both atria prob normal sized. 5. AoV morphologically normal. Unable to Doppler. 6. MV morphologically normal with trace MR by color chris. 7. TV morphologically normal with 1+ TR by color chris, with CWD jet measuring 1.2 m/sec, or calculated gradient 6mm. 8. IVC normal size (1.4 cm). Minimally inspiratory collapse on PPV. Estimated CVP 5-8cm. IMPRESSION: 1. Acute resp failure 2? aspiration pneumonia. 2. Septic shock. 3. Possibly still mildly hypovolemic, altho renal indices OK. No imperative to get her off the Levophed. We?ll gently hydrate with albumin and hypotonic crystalloid. Critical care time: 40 min. Physical Exam Vital Signs: Vital Signs: Last Vital Signs Temp 100 F 04/27/20 15:00 Pulse 105 H 04/27/20 15:00 Resp 14 04/27/20 15:00 BP 118/85 04/27/20 15:00 Pulse Ox 99 04/27/20 15:00 Body Mass Index 22.8 Objective Data Labs CBC & Chem 7: 04/27/20 Unknown 04/27/20 Unknown Labs: Laboratory Results - last 24 hr 04/26/20 04/27/20 04/27/20 Unknown 01:00 01:00 WBC RBC Hgb Hct MCV MCH MCHC RDW Plt Count MPV Immature Gran % (Auto) Neut % (Auto) Lymph % (Auto) [place] % (Auto) Eos % (Auto) Baso % (Auto) Lymph # (Auto) [place] # (Auto) Eos # (Auto) Baso # (Auto) Abs Immat Gran (auto) Absolute Neuts (auto) Absolute Nucleated RBC Nucleated RBC % (auto) Neutrophils % (Manual) Band Neutrophils % Lymphocytes % (Manual) Monocytes % (Manual) Abs Neuts (Manual) Lymphocytes # (Manual) Monocytes # (Manual) Toxic Vacuolation Platelet Estimate Plt Morphology Comment RBC Morphology Polychromasia Macrocytosis Ovalocytes VBG pH 7.47 H VBG pCO2 31 VBG pO2 61 VBG HCO3 23 VBG O2 Saturation 89.0 VBG Base Excess 0.3 Sodium Potassium Chloride Carbon Dioxide Anion Gap BUN Creatinine Estim Creat Clear Calc Estimated GFR Random Glucose Lactic Acid Lactic Acid Fup @ 2Hr Lactic Acid Fup @ 4Hr Calcium Phosphorus Magnesium Total Bilirubin Direct Bilirubin AST ALT Alkaline Phosphatase Troponin I High Sens B-Natriuretic Peptide Total Protein Albumin Lipase Urine Color YELLOW Urine Appearance HAZY Urine pH 6.5 Ur Specific [place] 1.015 Urine Protein NEG Urine Glucose (UA) NEG Urine Ketones NEG Urine Blood 1+ H Urine Nitrite NEG Ur Leukocyte Esterase 2+ H Urine RBC 10-14 H Urine WBC 30-49 H Ur Squamous Epith Cells 2+ Urine Bacteria 2+ Urine Mucus 2+ Coronavirus (PCR) NEGATIVE Influenza Type A (PCR) NEGATIVE Influenza Type B (PCR) NEGATIVE RSV RNA Qual (PCR) NEGATIVE 04/27/20 04/27/20 04/27/20 03:15 05:14 05:14 WBC 12.6 H RBC 3.32 L D Hgb 9.5 L D Hct 29.7 L D MCV 89.5 MCH 28.6 MCHC 32.0 RDW 19.4 H Plt Count 279 D MPV 9.7 Immature Gran % (Auto) Cancelled Neut % (Auto) Cancelled Lymph % (Auto) Cancelled [place] % (Auto) Cancelled Eos % (Auto) Cancelled Baso % (Auto) Cancelled Lymph # (Auto) Cancelled [place] # (Auto) Cancelled Eos # (Auto) Cancelled Baso # (Auto) Cancelled Abs Immat Gran (auto) Cancelled Absolute Neuts (auto) Cancelled Absolute Nucleated RBC 0.000 Nucleated RBC % (auto) 0.0 Neutrophils % (Manual) 69 Band Neutrophils % 12 H Lymphocytes % (Manual) 9 L Monocytes % (Manual) 10 Abs Neuts (Manual) 10.2 H Lymphocytes # (Manual) 1.1 Monocytes # (Manual) 1.3 H Toxic Vacuolation PRESENT Platelet Estimate NORMAL Plt Morphology Comment NORMAL RBC Morphology NOTED Polychromasia 1+ Macrocytosis 1+ Ovalocytes 1+ VBG pH VBG pCO2 VBG pO2 VBG HCO3 VBG O2 Saturation VBG Base Excess Sodium 145 Potassium 4.4 D Chloride 112 H Carbon Dioxide 25 Anion Gap 12 BUN 9 Creatinine 0.54 Estim Creat Clear Calc 87.5 Estimated GFR > 60 Random Glucose 99 D Lactic Acid Lactic Acid Fup @ 2Hr 5.9 H* Lactic Acid Fup @ 4Hr Calcium 7.5 L D Phosphorus 1.8 L Magnesium 1.6 Total Bilirubin Direct Bilirubin AST ALT Alkaline Phosphatase Troponin I High Sens B-Natriuretic Peptide Total Protein Albumin 2.9 L Lipase Urine Color Urine Appearance Urine pH Ur Specific [place] Urine Protein Urine Glucose (UA) Urine Ketones Urine Blood Urine Nitrite Ur Leukocyte Esterase Urine RBC Urine WBC Ur Squamous Epith Cells Urine Bacteria Urine Mucus Coronavirus (PCR) Influenza Type A (PCR) Influenza Type B (PCR) RSV RNA Qual (PCR) 04/27/20 04/27/20 04/27/20 05:14 05:14 05:14 WBC RBC Hgb Hct MCV MCH MCHC RDW Plt Count MPV Immature Gran % (Auto) Neut % (Auto) Lymph % (Auto) [place] % (Auto) Eos % (Auto) Baso % (Auto) Lymph # (Auto) [place] # (Auto) Eos # (Auto) Baso # (Auto) Abs Immat Gran (auto) Absolute Neuts (auto) Absolute Nucleated RBC Nucleated RBC % (auto) Neutrophils % (Manual) Band Neutrophils % Lymphocytes % (Manual) Monocytes % (Manual) Abs Neuts (Manual) Lymphocytes # (Manual) Monocytes # (Manual) Toxic Vacuolation Platelet Estimate Plt Morphology Comment RBC Morphology Polychromasia Macrocytosis Ovalocytes VBG pH 7.44 H VBG pCO2 33 VBG pO2 42 VBG HCO3 22 VBG O2 Saturation 70.0 VBG Base Excess -0.7 Sodium Potassium Chloride Carbon Dioxide Anion Gap BUN Creatinine Estim Creat Clear Calc Estimated GFR Random Glucose Lactic Acid Lactic Acid Fup @ 2Hr Lactic Acid Fup @ 4Hr 2.6 H* Calcium Phosphorus Magnesium Total Bilirubin Direct Bilirubin AST ALT Alkaline Phosphatase Troponin I High Sens 137.6 H D B-Natriuretic Peptide Total Protein Albumin Lipase Urine Color Urine Appearance Urine pH Ur Specific [place] Urine Protein Urine Glucose (UA) Urine Ketones Urine Blood Urine Nitrite Ur Leukocyte Esterase Urine RBC Urine WBC Ur Squamous Epith Cells Urine Bacteria Urine Mucus Coronavirus (PCR) Influenza Type A (PCR) Influenza Type B (PCR) RSV RNA Qual (PCR) 04/27/20 04/27/20 04/27/20 14:15 Unknown Unknown WBC 12.6 H RBC 4.54 Hgb 12.9 Hct 40.3 MCV 88.8 MCH 28.4 MCHC 32.0 RDW 19.9 H Plt Count 419 H D MPV 9.6 Immature Gran % (Auto) 5.9 H Neut % (Auto) 81.1 H Lymph % (Auto) 6.4 L [place] % (Auto) 6.2 Eos % (Auto) 0.2 Baso % (Auto) 0.2 Lymph # (Auto) 0.8 L [place] # (Auto) 0.8 Eos # (Auto) 0.0 Baso # (Auto) 0.0 Abs Immat Gran (auto) 0.74 H Absolute Neuts (auto) 10.3 H Absolute Nucleated RBC 0.020 H Nucleated RBC % (auto) 0.2 Neutrophils % (Manual) Band Neutrophils % Lymphocytes % (Manual) Monocytes % (Manual) Abs Neuts (Manual) Lymphocytes # (Manual) Monocytes # (Manual) Toxic Vacuolation Platelet Estimate Plt Morphology Comment RBC Morphology Polychromasia Macrocytosis Ovalocytes VBG pH 7.50 H VBG pCO2 30 VBG pO2 48 VBG HCO3 23 VBG O2 Saturation 80.0 VBG Base Excess 1.3 Sodium 144 Potassium 3.0 L Chloride 106 Carbon Dioxide 25 Anion Gap 16 BUN 10 Creatinine 0.58 Estim Creat Clear Calc 81.4 Estimated GFR > 60 Random Glucose 184 H D Lactic Acid Lactic Acid Fup @ 2Hr Lactic Acid Fup @ 4Hr Calcium 8.5 D Phosphorus Magnesium Total Bilirubin 0.6 Direct Bilirubin 0.2 AST 13 ALT < 6 Alkaline Phosphatase 59 Troponin I High Sens B-Natriuretic Peptide Total Protein 6.5 Albumin 2.7 L Lipase Urine Color Urine Appearance Urine pH Ur Specific [place] Urine Protein Urine Glucose (UA) Urine Ketones Urine Blood Urine Nitrite Ur Leukocyte Esterase Urine RBC Urine WBC Ur Squamous Epith Cells Urine Bacteria Urine Mucus Coronavirus (PCR) Influenza Type A (PCR) Influenza Type B (PCR) RSV RNA Qual (PCR) 04/27/20 04/27/20 04/27/20 Unknown Unknown Unknown WBC RBC Hgb Hct MCV MCH MCHC RDW Plt Count MPV Immature Gran % (Auto) Neut % (Auto) Lymph % (Auto) [place] % (Auto) Eos % (Auto) Baso % (Auto) Lymph # (Auto) [place] # (Auto) Eos # (Auto) Baso # (Auto) Abs Immat Gran (auto) Absolute Neuts (auto) Absolute Nucleated RBC Nucleated RBC % (auto) Neutrophils % (Manual) Band Neutrophils % Lymphocytes % (Manual) Monocytes % (Manual) Abs Neuts (Manual) Lymphocytes # (Manual) Monocytes # (Manual) Toxic Vacuolation Platelet Estimate Plt Morphology Comment RBC Morphology Polychromasia Macrocytosis Ovalocytes VBG pH VBG pCO2 VBG pO2 VBG HCO3 VBG O2 Saturation VBG Base Excess Sodium Potassium Chloride Carbon Dioxide Anion Gap BUN Creatinine Estim Creat Clear Calc Estimated GFR Random Glucose Lactic Acid 3.4 H* Lactic Acid Fup @ 2Hr Lactic Acid Fup @ 4Hr Calcium Phosphorus Magnesium Total Bilirubin Direct Bilirubin AST ALT Alkaline Phosphatase Troponin I High Sens 60.6 H B-Natriuretic Peptide 145 H Total Protein Albumin Lipase 16 Urine Color Urine Appearance Urine pH Ur Specific [place] Urine Protein Urine Glucose (UA) Urine Ketones Urine Blood Urine Nitrite Ur Leukocyte Esterase Urine RBC Urine WBC Ur Squamous Epith Cells Urine Bacteria Urine Mucus Coronavirus (PCR) Influenza Type A (PCR) Influenza Type B (PCR) RSV RNA Qual (PCR) Microbiology Microbiology Results: Microbiology 04/27/20 05:52 Sputum - Suctioned Gram Stain - Final Progress Note: A&P Time Spent With Patient Time: Total time spent is greater than 50% in coordination of care (as documented) at patient's floor/unit and/or counseling patient: Total time spent with greater than 50% in coordination of care (as documented) at patient's floor/unit and/or counseling patient:: 0 Critical Care Time Critical Care Time (minutes): 30 40 minutes [id number]
[2020-04-27] MEDS: Albumin Human 25 % 100 ML 200 ML IV ×2 (16:14→16:52)
--- NOTE | 2020-04-27 17:52 | PC.NURSE ---
S/E Temp max 101.1 - PRN Tylenol administered - temp down to 99.7 Sedated on Propofol gtt - Fentanyl turned off on prior shift Positive cough & gag, positive pain response Pupils 3mm, PERRLA Hx seizures - on Valporic acid TID SR HR 70's ? Twave inversions - Dr Brown notified Continuing to require pressor support Bedside Echo done by Dr Brown Albumin 100cc x2 & 500cc 1/2NS @ 250cc/hr ordered and administered Exp rhonchi upper bases, dim lower bases End tidal high 20's - Dr Brown notified Vent setting changed by Dr Brown -AC /08/03 Post vent change VBGs obtained - 7.08/03/ Clear inline secretions OGT clamped, NPO, no BM Urine output 25-40cc/hr, yellow Old healed pressure injury to coccyx, barrier cream, air loss mattress Bathed, repo q2hr [place] updated
[2020-04-28] VITALS (29 sets, daily range): BP systolic 90–166; BP diastolic 61–107; PULSE 55–116; RESP 10–35; TEMP 37.1–37.6; O2SAT 87–100; BMI 22.8
[2020-04-28] MEDS: Chlorhexidine Gluc Oral Rinse 15 ML MOUTHWASH BUCCAL ×3 (02:55→18:03)
[2020-04-28] MEDS: Ampicillin Sodium/Sulbactam Na 1.5 GM in 0.9 % Sodium Chloride 100 ML IV ×4 (02:58→21:36)
[2020-04-28 05:46] LABS: Base Excess VBG 5.8 mmol/L; HCO3 VBG 27 mmol/L; PCO2 VBG 28 mmHg; PO2 VBG 137 mmHg; pH VBG 7.58 (7.32-7.43)
[2020-04-28 05:53] LABS: D Dimer 522 NG/ML
[2020-04-28 06:02] LABS: Lactic Acid 1.1 mmol/L (0.5-2.0)
[2020-04-28] MEDS: Pantoprazole Sodium 40 MG/10 ML VIAL IVPUSH (06:04)
[2020-04-28 06:09] LABS: Anion Gap 11 (12-20); Blood Urea Nitrogen 6 mg/dL (9-16); Calcium 7.8 mg/dL (8.4-10.2); Carbon Dioxide 24 mmol/L (22-29); Chloride 113 mmol/L (96-108); Creatinine Clr Calc Pharmacy 109.9; Estimated Glomerular Filt Rate > 60; Glucose Random 67 mg/dL (60-115); Magnesium 1.9 mg/dL (1.6-2.6); Phosphorus 1.7 mg/dL (2.7-4.5); Potassium 3.4 mmol/L (3.3-5.1); Sodium 145 mmol/L (135-145)
[2020-04-28 06:10] LABS: MANUAL DIFF FLAG NO
[2020-04-28 06:38] LABS: Basophils Absolute Auto 0.1 X10*3/uL (0.0-0.2); Basophils Percent Auto 0.9 % (0-2); Eosinophils Absolute Auto 0.1 X10*3/uL (0.0-0.4); Eosinophils Percent Auto 1.2 % (0-4); Hematocrit 25.3 % (37-47); Hemoglobin 8.3 g/dl (12.0-16.0); Imm Gran Abs Auto 0.18 X10*3/uL (0.00-0.03); Imm Gran Pct Auto 2.1 % (0.0-0.4); Lymphocytes Absolute Auto 1.4 X10*3/uL (1.2-4.9); Lymphocytes Percent Auto 15.8 % (20-40); Mean Corpuscular HGB Conc 32.8 g/dl (31.0-35.0); Mean Corpuscular Volume 88.5 fL (80-98); Mean Platelet Volume 10.3 fL (9.4-12.3); Monocytes Absolute Auto 0.8 X10*3/uL (0.1-1.2); Monocytes Percent Auto 9.7 % (2-11); NRBC Pct Auto 0.8 /100WBC (0.0-0.2); Neutrophils Percent Auto 70.3 % (45-73); Platelet Count 191 X10*3/uL (160-400); Red Blood Count 2.86 X10*6/uL (4.20-5.50); Red Cell Distribution Width 20.1 % (11.0-16.0); White Blood Count 8.6 X10*3/uL (4.8-10.8)
[2020-04-28 07:12] LABS: Ferritin 106 ng/mL (10-250)
--- NOTE | 2020-04-28 07:45 | CA_ITS ---
Transthoracic Echocardiogram Patient (Last, First, Middle): Asha Medina, Gender: Female Date of : 1965 Age: 54 Procedure Date: 04/28/2020 Procedure Type: Transthoracic Echocardiogram Location: ICU Height: 152.4 cm Weight: 53.07 kg BSA: 1.49 m2 Heart Rate: bpm BP: 108 / 71 mmHg Elementary Librarian: Referring MD: Gale Olvera [employer] Teacher: Good Henderson MD Symptoms: acute resp failure Study Quality: Technically Difficult ECG Rhythm: Sinus Conclusions: - 1. Technically limited study with only subcostal views could be obtained 2. Normal biventricular function on this study 3. Limited evaluation of cardiac valves with normal cardiac valvular Doppler 4. No gross pericardial effusion Findings Left Ventricle Normal left ventricular cavity size. The left ventricular systolic function is normal. The visually estimated ejection fraction is between 60-65%. Diastolic function is indeterminate on the basis of available data. Right Ventricle Normal right ventricular cavity size and systolic function. Atria The left atrium was not well visualized. Interatrial shunt cannot be excluded. The right atrium was not well visualized. Aortic Valve The aortic valve was not well visualized. There is no aortic valve stenosis. Mitral Valve The mitral valve was not well visualized. There is no mitral valve regurgitation. Pulmonic Valve The pulmonic valve was not well visualized. Tricuspid Valve The tricuspid valve was not well visualized. Great Vessels The aorta was not well visualized. The pulmonary artery was not well visualized. Venous The inferior vena cava was not well visualized. Pericardium/Pleural There is no evidence of pericardial effusion. Prior Study Comparison No prior study available for comparison. Measurements 2D Linear Measurements IVSd: 1.23 0.6-0.9/0.6-1.0 cm LVIDd: 3.21 3.9-5.3/4.2-5.9 cm LVIDd Index: 2.15 2.4-3.2/2.2-3.1 cm/m2 LVIDs: 2.24 2.0-3.6 cm LVPWd: 1.27 0.7-1.1 cm Ao Root: 3.10 2.1-3.5 cm LA Diam: 2.70 2.7-3.8/3.0-4.0 cm LAIDs Index: 1.81 1.5-2.3 cm/m2 LV Mass: 159.22 67-162/88-224 g LV Mass Index: 106.86 43-95/49-115 g/m2 LVOT Diam: 2.20 3.0+(-)1.3 cm Mitral Valve MV Pk E: 0.39 MV PK A: 0.53 MV Decel Time: 141.00 E/A: 0.70 E'Lateral: 4.35 E'Medial: 4.35 E/E' Med: 9.00 E/E' Lat: 9.00 PHT: 41.00 MVA PHT: 5.37 Decel [place]: 2.79 Aortic Valve AoV Pk Juma: 1.49 AoV Mn Juma: 0.92 AoV VTI: 0.29 AoV Pk Grad: 9.00 Aov Mn Grad: 4.00 KATHRIN Cont.VTI: 3.01 LVOT LVOT Pk Juma: 1.21 LVOT Mn Juma: 0.76 LVOT VTI: 0.23 LVOT Pk Grad: 6.00 LVOT Mn Grad: 3.00 LVOT Diam: 2.20 LVOT Area: 3.80 Diastolic Function MV Pk E: 0.39 MV Pk A: 0.53 E/A: 0.70 E'Medial: 4.35 E/E' Med: 9.00 E' Laterial: 4.35 E/E' Lat: 9.00 Tricuspid Valve TR Pk Juma: 1.45 TR Pk Grad: 8.00 Great Vessels Aorta Ao Root-2D: 3.10 2.0-3.7 cm Pulmonary Valve PV Pk Juma: 1.07 Peak PV Grad: 5.00 Updated in Other Vendor System with Status of Final Good Henderson MD electronically signed on 04/28/2020 12:27:12 PM with status of Final
[2020-04-28 07:52] LABS: Delay - Chemistry DELAY
--- NOTE | 2020-04-28 10:06 | MHC.CM.PN ---
Pt remains in ICU unable to participate in d/c planning: Call placed to pt's dtr Yvrose Yvrose states she is her mother's conservator and legal guardian. Pt has been at [facility] since November 2019 and dtr would like to move pt to another facility that can offer a higher star rating, better room, updated and renovated facility, and more staff availability Informed Yvrose that I would place broad referrals to better her mother's chances of finding a LTC bed and that she could research the ones that are able to follow her mother for placement and make her final selection at that time. Yvrose states her mother requires assistance for all ADL's but isn't certain to the extent of her limitations. Will request copies of pt's legal guardian/conservator forms from [facility] and will refer to other SNF's as well as [facility] where pt has bed hold. Dtr aware of plan. CM to follow.
[2020-04-28] MEDS: Sodium,Potassium Phosphates POWD.PACK 2 PACKET G-TUBE (11:12)
[2020-04-28] MEDS: Potassium Chloride Packet 20 MEQ PACKET 40 MEQ G-TUBE (11:13)
--- NOTE | 2020-04-28 14:01 | PM.CCPN ---
Subjective Subjective Date of Service: 04/28/20 Interval History: Mrs. Medina was admitted to ICU yesterday morning Apr 27 with acute respiratory failure and septic shock 2? to what appears to be straighfwd aspiration pneumonia. The patient is a 54 yo woman who is a resident of [facility]. 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 Her PMHx, by report, is as follows: Subarachnoid hemorrhage Metabolic encephalopathy Seizure Dysphagia Pneumonia Sepsis VRE (vancomycin-resistant Enterococci) Diabetes Hypernatremia Hypokalemia Nephrolithiasis s/p Lap band surgery (for morbid obesity) about ten years ago (? at [facility]) I spoke with the patient's daughter at length this afternoon - Yvrose Medina ([phone]). She told me that in December of 2018, the patient suffered a ruptured aneurysm. She was taken to [facility]. Because the aneurysm was too big, she was flown to [facility] that same day, where she underwent what sounds like a decompressive craniectomy. She was in [facility] from December to February,, and had a tracheostomy and PEG during that time. From [facility] she went to [facility] in [place] [facility]. She was decannulated after approximately 1 month and her PEG was pulled at some point. She was at [facility] until Jul, 2019. When she left [facility], she went home and was walking and talking. According to the daughter, the part of her skull that was removed got spoiled so was unable to be replaced, and she was wearing a helmet. In October, she went back to [facility] for an implant to replace the cranial portion removed. Unfortunately she bled postoperatively and suffered neurologic deterioration. Ultimately she was discharged to rehab for a month, and then from there to [facility]. Since that surgery, she has not been able to walk, and her speech has been significantly impaired. The staff at [facility] says that she talks a little, but gets winded from long conversation. The patient?s daughter says that she has full conversations with her mother on the telephone. From what the daughter tells me, it also sounds like since the surgery, the patient exhibits echolalia. (The patient grew up speaking Cambodian. She?ll respond to an Cambodian speaker in Finnish, and respond to a Finnish speaker in Cambodian.) The daughter also indicated to me that her mother has lost about 30 lbs since October. HISTORY OF PRESENT ILLNESS: The patient was reportedly recently hospitalized at [facility] for pneumonia and was just discharged back to [facility] on Tuesday, Apr 26. The patient was BIBA from [facility] yest morning (04/27) bec of fairly rapid onset of resp distress. On EMS arrival there, the patient had frothy sputum, Sat 60% on room air. She was thought to be in pulmon edema. She was given Lasix and CPAP and tx to the ED. On arrival to the ED, Saturation was still low on BiPAP and she was therefore intubated. She required pressors (? 2? intubation) so a CVL was placed and she was started on Levophed, along with abx. CT scan showed that her right lower lobe was socked in with pneumonia. There was no evidence of pulmonary edema. She was admitted to ICU, where she was put on Unasyn. In the ICU she was initially hypotensive, despite for fluids. Echo showed: 1. At least mild, if not moderate LVH. 2. LV cavity size is normal, with hyperdynamic LV fxn, EF 70+%, no RWMA. 3. RV size normal or small. 4. Both atria prob normal sized. 5. AoV morphologically normal. Unable to Doppler. 6. MV morphologically normal with trace MR by color chris. 7. TV morphologically normal with 1+ TR by color chris, with CWD jet measuring 1.2 m/sec, or calculated gradient 6mm. 8. IVC normal size (1.4 cm). Minimally inspiratory collapse on PPV. Estimated CVP 5-8cm. She was given more colloid and crystalloid and her BP came up. She came off the Levophed. Early this morning, her central venous line somehow got pulled out. Intravenous access was established in her left hand. The propofol was discontinued at 05:00. She was awake all morning, but not really interactive. By 11am, she was clearly fully awake and starting to be more interactive and exhibit consistent tracking. She responded to simple commands. She was therefore extubated without incident. On room air, she?s been maintaining a Sat in the mid 90s. Over the subsequent hours, she?s gotten to the point where she can verbally answer simple questions with a yes or no. On exam, her airway is clear. She?s breathing easy. See vital signs below. She?s been afebrile since yesterday. Tracheal sounds are clear. She has no jugular venous distention at 30-40?. Chest is clear to auscultation on the left; she is rhonchorous on the right. Heart rate and rhythm are regular, with normal-sounding S1 and S2, with no murmur or gallops. Her abdomen is benign. She has no peripheral edema. Her right hand is somewhat clawed. She does not move her right side at all to command; she appears to be hemiplegic. LABORATORY DATA: As below. Notably, her hemoglobin dropped to 8.6 (not clear what the baseline is); I?m assuming that is dilutional, given that there?s been no evidence or suggestion of GI bleeding. IMPRESSION: 1. Acute resp failure 2? aspiration pneumonia. 2. Septic shock. Resolved. 3. Hypovolemia. Resolved. 4. ID: Continue w Unasyn. WBC and fever responded nicely. Continue or 5- or 7-day course of abx. 5. Hypophosphatemia. Replaced. 6. S/p massive aneurysmal bleed. Made a miraculous recovery, but then had catastrophic complications from the attempt to close her craniectomy. 7. Wt loss 30 lbs. My suspicion is that she has dysphagia and is unable to swallow the food bulk necessary to get enough calories. She may well need a PEG. 7. S/p lap band surgery ten years ago. Since she has no further need for this, and it may impact her caloric ingestion. The band should be reversed (fully deflated). I discussed this at length with Dr. Jones. She suggested that after the patient is discharged, she can come and see her in the obesity clinic and Dr. Jones will then evaluate the situation and take the appropriate action. Furthermore, if she needs a PEG, the lap band will complicate the procedure. Dr. Jones can address this too. My suspicion is that she?s having dysphagia to the point that she will need a group home/permanent PEG. We will do a swallow eval tomorrow. If she passes, she could be discharged back to [facility] and see Dr. Jones as an outpatient. If she fails, I would try again the next day or 2 days later. If she fails a second time, she?d need a PEG prior to discharge back to [facility]. In that case, Dr. Jones should be consulted while she?s here. Time (including two extended conversations with the patient?s daughter, and extended telephone consultations w Dr. Jones and with Sharifayolanda Carrillo from case management: 120 min. ([phone]) Physical Exam Vital Signs: Vital Signs: Last Vital Signs Temp 99.0 F 04/28/20 12:00 Pulse 94 04/28/20 13:00 Resp 20 04/28/20 13:00 BP 142/91 H 04/28/20 13:00 Pulse Ox 96 04/28/20 13:00 Body Mass Index 22.8 Objective Data Labs CBC & Chem 7: 04/28/20 06:05 04/28/20 05:35 Labs: Laboratory Results - last 24 hr 04/27/20 04/28/20 04/28/20 14:15 05:35 05:35 WBC Cancelled RBC Cancelled Hgb Cancelled Hct Cancelled MCV Cancelled MCH Cancelled MCHC Cancelled RDW Cancelled Plt Count Cancelled MPV Cancelled Immature Gran % (Auto) Neut % (Auto) Lymph % (Auto) Kaufman % (Auto) Eos % (Auto) Baso % (Auto) Lymph # (Auto) Kaufman # (Auto) Eos # (Auto) Baso # (Auto) Abs Immat Gran (auto) Absolute Neuts (auto) Absolute Nucleated RBC Cancelled Nucleated RBC % (auto) Cancelled D-Dimer VBG pH 7.50 H VBG pCO2 30 VBG pO2 48 VBG HCO3 23 VBG O2 Saturation 80.0 VBG Base Excess 1.3 Sodium 145 Potassium 3.4 D Chloride 113 H Carbon Dioxide 24 Anion Gap 11 L BUN 6 L Creatinine 0.43 L Estim Creat Clear Calc 109.9 Estimated GFR > 60 Random Glucose 67 Lactic Acid Calcium 7.8 L Phosphorus 1.7 L Magnesium 1.9 Ferritin Specimen Comment 04/28/20 04/28/20 04/28/20 05:35 05:35 05:35 WBC RBC Hgb Hct MCV MCH MCHC RDW Plt Count MPV Immature Gran % (Auto) Neut % (Auto) Lymph % (Auto) Kaufman % (Auto) Eos % (Auto) Baso % (Auto) Lymph # (Auto) Kaufman # (Auto) Eos # (Auto) Baso # (Auto) Abs Immat Gran (auto) Absolute Neuts (auto) Absolute Nucleated RBC Nucleated RBC % (auto) D-Dimer 522 VBG pH VBG pCO2 VBG pO2 VBG HCO3 VBG O2 Saturation VBG Base Excess Sodium Potassium Chloride Carbon Dioxide Anion Gap BUN Creatinine Estim Creat Clear Calc Estimated GFR Random Glucose Lactic Acid 1.1 Calcium Phosphorus Magnesium Ferritin 106 Specimen Comment 04/28/20 04/28/20 04/28/20 05:35 05:35 06:05 WBC 8.6 RBC 2.86 L Hgb 8.3 L Hct 25.3 L MCV 88.5 MCH 29.0 MCHC 32.8 RDW 20.1 H Plt Count 191 D MPV 10.3 Immature Gran % (Auto) 2.1 H Neut % (Auto) 70.3 Lymph % (Auto) 15.8 L Kaufman % (Auto) 9.7 Eos % (Auto) 1.2 Baso % (Auto) 0.9 Lymph # (Auto) 1.4 Kaufman # (Auto) 0.8 Eos # (Auto) 0.1 Baso # (Auto) 0.1 Abs Immat Gran (auto) 0.18 H Absolute Neuts (auto) 6.0 Absolute Nucleated RBC 0.070 H Nucleated RBC % (auto) 0.8 H D-Dimer VBG pH 7.58 H VBG pCO2 28 VBG pO2 137 VBG HCO3 27 VBG O2 Saturation 99.0 VBG Base Excess 5.8 Sodium Potassium Chloride Carbon Dioxide Anion Gap BUN Creatinine Estim Creat Clear Calc Estimated GFR Random Glucose Lactic Acid Calcium Phosphorus Magnesium Ferritin Specimen Comment DELAY Microbiology Microbiology Results: Microbiology 04/27/20 Unknown Urine Catheterized - Straight Catheter Urine Culture - Preliminary Culture in progress. 04/27/20 Unknown Blood - Venous Blood Culture - Preliminary 04/27/20 Unknown Blood - Venous Blood Culture - Preliminary 04/27/20 05:52 Sputum - Suctioned Gram Stain - Final 04/27/20 05:52 Sputum - Suctioned Sputum Culture - Preliminary Normal so far. Progress Note: A&P Time Spent With Patient Time: Total time spent is greater than 50% in coordination of care (as documented) at patient's floor/unit and/or counseling patient: Total time spent with greater than 50% in coordination of care (as documented) at patient's floor/unit and/or counseling patient:: 0
[2020-04-28 14:20] LABS: Procalcitonin 1.92 ng/mL
--- NOTE | 2020-04-28 15:22 | PC.NURSE ---
Pt remains off propofol, drowsy but opens eyes with stimulation, able to squeeze left hand on command, no movement with right hand, nodding with encouragement to yes/no questions/ md at bedside along with interpretor, remains drowsy but opens eyes with encouragement, order received to extubate patient/ rt at bedside along with this RN, pt extubated at 1200 to nasal cannula, o2 sats trending 95-96%, restraints released pt remains drowsy throughout shift, remains npo, unable to give afternoon md galina aware daughter (teresa) updated by this RN
--- NOTE | 2020-04-28 16:51 | MHC.SLORD ---
Order for bedside dysphagia evaluation received. Patient was extubated at 12pm today per MD notes. Per speech policy/best practice, bedside dysphagia evaluation pending 24-48 hours post-extubation. Plan for evaluation tomorrow. Name: Asha Medina Date of : 1965 Age: 54 Date of Registration: 04/27/20 Speech Language Pathology Order Status:
[2020-04-28] MEDS: Valproic Acid (as Sodium Salt) 250 MG in Dextrose 5 % 50 ML 52.5 MG IV (18:03)
--- NOTE | 2020-04-28 18:20 | PC.NURSE ---
S/E [id number]: ELVIRA. BM X 1. FAMILY UPDATED. Q2H REPO.
[2020-04-28] MEDS: Enoxaparin Sodium 40 MG/0.4 ML SYRINGE SUBCUT (21:38)
[2020-04-28 23:05] LABS: Pt Ventilation O2% 100%
[2020-04-28 23:10] LABS: ABG PCO2 35 mmHg (32-45)
[2020-04-28 23:11] LABS: Base Excess ABG 5.1; HCO3 ABG 28 mmol/L (22-26); PO2 ABG 75 mmHg (83-108)
[2020-04-28 23:39] LABS: B Type Natriuretic Peptide 335 pg/mL (<100)
[2020-04-29] VITALS (32 sets, daily range): BP systolic 71–150; BP diastolic 46–112; PULSE 56–142; RESP 10–36; TEMP 36.7–37.7; O2SAT 63–100; BMI 23.3
--- NOTE | 2020-04-29 00:37 | PC.NURSE ---
Summary of deterioration of resp status-pt found to be listless at 1999 with decreased sao2 in the 80's on RA. she has immediately placed on supplemental o2 at 3lpm with sao2 rising into to low 90s. dr garcia called notified 1. decreased loc 2. lungs congested with rhonchi 3. supplemental o2 added with sao2 rising into the low 90s 4. pt demonstrates ineffective cough and nasopharyngeal suctioning performed with cream colored sputum cleared from upper airway 5. pt tachycardic with hr increased to 120-130 bpm. 6. tachypneic rr 26-30 bpm. 7. pt has received septic protocol with initial boluses of 2000 ml ns given ? volume overload. 8. she has been placed in high fowlers position-plan 1. stat pcxr 2. stat abgs. 3. stat bnp
--- NOTE | 2020-04-29 01:00 | W.PM.CCHP ---
Procedures Date of Service Date of Service: 04/29/20 Central Line Placement Right IJ: Central Line Comments: IV access needed Consent for Procedure: Emergent-no informed consent obtained Time out performed: Yes Sterile Technique Used: Yes Patient placed on monitor/pulse ox: Yes MD prep: mask, gown and gloves Central line prep: Chlorhexidine scrub Ultrasound used for placement: Yes Central line lumen inserted: triple Post procedure: sutured in place, good blood return, all ports aspirated, flushed, capped and sterile dressing applied Post procedure x-ray: tip of catheter in good position and no pneumothorax seen Patient tolerated procedure: well and no complications Complications: none
--- NOTE | 2020-04-29 01:01 | W.PM.CCHP ---
Procedures Date of Service Date of Service: 04/29/20 Intubation Intubation Comments: Pt desatting to 60-70's, unable to handle her secretions, emergent intubation performed with Dr. Parekh (ED doc) at the bedside. Sedative: etomidate Mg given: 20 Paralytic: rocuronium Mg given: 50 Laryngoscope: fiber optic video scope Assist device used: Bougie ET tube size: 7.5 Tube placement confirmation: visualized tube passing through cords, equal breath sounds bilaterally, no breath sounds over epigastrium and confirmation by capnometry Patient tolerated procedure: well and no complications Intubation complications: none
[2020-04-29] MEDS: Furosemide 40 MG/4 ML VIAL IVPUSH (01:16)
[2020-04-29] MEDS: Rocuronium Bromide 50 MG/5 ML VIAL IVPUSH (01:27)
[2020-04-29] MEDS: Etomidate 20 MG/10 ML VIAL IVPUSH (01:27)
[2020-04-29] MEDS: Esmolol HCl/NaCl Iso 2,500 MG/250 ML IV.SOLN 7.97 MG IVCONT (01:28)
[2020-04-29] MEDS: fentaNYL citrate/NS 1,000 MCG/100 ML PLAST..BAG 10 MCG IVCONT (01:44)
[2020-04-29 02:07] LABS: Base Excess VBG 4.8 mmol/L; HCO3 VBG 28 mmol/L; PCO2 VBG 39 mmHg; PO2 VBG 38 mmHg; pH VBG 7.46 (7.32-7.43)
[2020-04-29 02:12] LABS: Pt Ventilation O2% 100%
[2020-04-29 02:17] LABS: ABG PCO2 29 mmHg (32-45); Base Excess ABG 1.2; HCO3 ABG 23 mmol/L (22-26); PO2 ABG > 450 mmHg (83-108)
[2020-04-29 02:31] LABS: Lactic Acid 3.3 mmol/L (0.5-2.0)
[2020-04-29] MEDS: propofoL 1,000 MG/100 ML VIAL 15.93 MG IVCONT (02:33)
[2020-04-29] MEDS: Albuterol Sulfate (0.083%) 2.5 MG/3 ML VIAL.NEB 10 MG INHALE (02:45)
[2020-04-29] MEDS: Albumin Human 25 % 100 ML IV ×2 (02:51→07:40)
[2020-04-29] MEDS: Lactated Ringers 1,000 ML 999 ML IVCONT ×2 (02:52→04:04)
[2020-04-29] MEDS: Ampicillin Sodium/Sulbactam Na 1.5 GM in 0.9 % Sodium Chloride 100 ML IV ×2 (02:55→07:39)
[2020-04-29] MEDS: Chlorhexidine Gluc Oral Rinse 15 ML MOUTHWASH BUCCAL ×3 (02:56→18:04)
--- NOTE | 2020-04-29 03:20 | PM.CCN ---
Critical Care Event Note Summary Date of Service: 04/29/20 Code activated: No Narrative: This case had a high probability of a clinically significant, sudden, or life threatening deterioration of this patient's condition which required my full and direct attention, intervention and personal management. Pt was satting in the 90's on room air early in the evening after being extubated earlier in the day. From 7pm-9pm, she had multiple episode of desaturation into the 70s and 80s. The nurse spoke with the hospitalist, Dr Heller, who instructed him to start giving oxygen and eventually the pt was on a non-rebreather at 100% 15L. The hospitalist also instructed the nurse to give 40 mg of Lasix as the patient was under the care of the hospitalist during this time. Patient put out about 1L of urine after the Lasix but still continued to desaturate. The patient was then transferred back to ICU care. The patient was tachycardic in the 150s so an esmolol drip was started but we stopped it shortly after as her heart rate came down nicely. The patient was unable to cough, could not handle her secretions, was desatting in to 60s. I spoke with Dr. Brown, he agreed we needed to emergently intubate the patient. Dr. Parekh from the emergency room was at the bedside for the intubation. I then placed a central line for venous access. The patient was on AC settings TV 400, respiratory rate of 18, FiO2 starting at 100% and PEEP 5. The patient was stable and saturating fine for short while. But again, the patient had multiple episodes of desaturation, going from the 90s to 60s. We were having difficulty oxygenating the patient, she was also tachycardic and hypertensive. Respiratory therapist Paradise Lara bagged the patient, lavaged and suctioned the pt and we were able to get her oxygen saturation up to the 90s. At the same time, the patient suddenly became hypotensive. We started Levophed and gave 1L LR. At this time we were unable to get a reading on the O2 sat. The RT bagged the patient again, we went through several rounds of bagging the patient then gaining and O2 sat reading, then losing it. ABG and VBG were ordered. I then called on the phone, he suggested giving a total of 2L LR, 100mg albumin and getting a lactic acid level. Vent settings were changed to PC RR16, FiO2 100%, PEEP 10, patient satting 100% and VSS. Lactic acid was elevated at 3.3 however this is probably due to the low O2 saturation and hypovolemia and is not due to sepsis. I will repeat a lactic acid at the 2 hour earline and if it is still elevated, I will get blood cultures and give the antibiotic. Critical Care Time (minutes): 120
[2020-04-29 03:37] LABS: Base Excess VBG 0.4 mmol/L; HCO3 VBG 25 mmol/L; PCO2 VBG 42 mmHg; PO2 VBG 69 mmHg; pH VBG 7.38 (7.32-7.43)
[2020-04-29 04:11] LABS: Reflex Lactate? Lactic Acid Added
[2020-04-29 04:44] LABS: ~Lactic Acid-LAB USE ONLY 3.7 mmol/L (0.5-2.0)
[2020-04-29] MEDS: Valproic Acid (as Sodium Salt) 250 MG in Dextrose 5 % 50 ML 52.5 MG IV (05:10)
[2020-04-29] MEDS: Lactated Ringers 1,000 ML 100 ML IVCONT (05:14)
[2020-04-29] MEDS: propofoL 1,000 MG/100 ML VIAL 7.97 MG IVCONT (05:16)
[2020-04-29] MEDS: levoFLOXacin/D5W 750 MG/150 ML PIGGYBACK 100 MG IV (05:46)
[2020-04-29 06:02] LABS: PCO2 VBG 45 mmHg; pH VBG 7.37 (7.32-7.43)
[2020-04-29 06:03] LABS: HCO3 VBG 26 mmol/L; PO2 VBG 35 mmHg
[2020-04-29 06:05] LABS: Baso%MD 0.2 %; Eos%MD 0.3 %; Hematocrit 27.1 % (37-47); Hemoglobin 8.7 g/dl (12.0-16.0); IG%MD 0.9 %; Lymph%MD 8.5 %; Mean Corpuscular HGB Conc 32.1 g/dl (31.0-35.0); Mean Corpuscular Hemoglobin 28.8 pg (27.0-33.0); Mean Corpuscular Volume 89.7 fL (80-98); Mean Platelet Volume 9.3 fL (9.4-12.3); Mono%MD 9.2 %; NRBC Pct Auto 0.3 /100WBC (0.0-0.2); Neut%MD 80.9 %; Platelet Count 404 X10*3/uL (160-400); Red Blood Count 3.02 X10*6/uL (4.20-5.50); Red Cell Distribution Width 20.5 % (11.0-16.0); White Blood Count 17.6 X10*3/uL (4.8-10.8)
[2020-04-29 06:22] LABS: Reflex Lactate? 2 Y
--- NOTE | 2020-04-29 06:32 | PC.NURSE ---
CARE ASSUMED 23:15...PATIENT SOMNOLENT AT HS..AROUSES TO VERBAL STIMULI..WEAKLY NODS YES/NO TO SIMPLE QUESTIONS...100% NRB MASK IN PLACE..SAO2 DECLINING TO 91-93%...RR 36-38...LUNGS WITH SCATTERED RHONCHI AND CRACKLES...SBP 140'S-150'S...S.TACH HR 120'S -140'S...DR AVERY UPDATED...LASIX 40MG IV GIVEN PER MD...HOSPITALIST PAGED TO BEDSIDE....ICU PA AT BEDSIDE...DIURESING PALE YELLOW URINE W/O IMPROVEMENT IN STATUS...ER MD AND ICU PA PRESENT..INTUBATED #7.5 ETT 24-25CM...INITIALLY PLACED ON VCV/AC SETTINGS WITH IMPROVED SAO2 SAO2 96-97% ON 100% FIO2...TLC PLACED BY PA TO RIGHT IJ SITE..OG-TUBE PLACED...CXR DONE....PROPOFOL DRIP FOLLOWED BY FENTANYL DRIP FOR VENT SYNCHRONY...ESMOLOL DRIP BRIEFLY 25 MCG/KG/MIN FOR HTN/TACHYCARDIA...HYPOTENSIVE...ESMOLOL D/C'D....DECREASED SAO2 AND BP....SAO2 50'S-60'S...RT PRESENT...BAGGED/LAVAGED FOR CREAN SECRETIONS...LEVOPHED 0.3 MCG/KG/MIN WITHOUT IMPROVED BP...LR 2000ml BOLUS INFUSED WITH IMPROVED BP AND SAO2...VENT TO PCV/AV MODE...LR 100 CC/HR...LACTIC REMAINS ELEVATED...BLOOD CULTURES DRAWN...LEVOQUIN 750MG IV INFUSING....PROPOFOL WEANED FROM 50 MCG TO 25 MCG/KG/MIN & FENTANYL 100 MCG TO 25 MCG/HR..LEVOPHED REMAINS 0.3 MCG/KG/MIN...CURRENTLY S.MELECIO-NSR HR 56-68....FLUID BALANCE APPROX NEUTRAL THIS 8 HOUR SHIFT AFTER LASIX/IV FLUIDS
[2020-04-29 06:38] LABS: Albumin Level 3.5 g/dL (3.5-5.0); Anion Gap 18 (12-20); Blood Urea Nitrogen 5 mg/dL (9-16); Calcium 8.6 mg/dL (8.4-10.2); Carbon Dioxide 24 mmol/L (22-29); Chloride 104 mmol/L (96-108); Creatinine Clr Calc Pharmacy 81.4; Estimated Glomerular Filt Rate > 60; Glucose Random 108 mg/dL (60-115); Sodium 143 mmol/L (135-145)
[2020-04-29 06:55] LABS: Band Neutrophils Percent 6 % (3-5); Lymphocytes Absolute Manual 1.1 X10*3/uL (0.6-4.8); Lymphocytes Percent Manual 6 % (20-40); Microcytosis 1+; Monocytes Absolute Manual 2.3 X10*3/uL (0.0-1.2); Monocytes Percent Manual 13 % (2-11); Neutrophils Absolute Manual 14.3 X10*3/uL (2.2-7.9); Neutrophils Percent Manual 75 % (45-73); RBC Morphology NOTED
[2020-04-29 06:56] LABS: Large Platelet PRESENT; Ovalocytes 1+; Platelet Estimate SLIGHTLY INCREASED (NORMAL); Platelet Morphology Comment NOTED; Polychromasia 1+; Target Cells 1+
[2020-04-29 06:57] LABS: Toxic Granulation PRESENT; Toxic Vacuolation PRESENT
--- NOTE | 2020-04-29 07:29 | EEG_ITS ---
The waking background activity consists of moderate voltage 3 to 4 hertz diffuse delta with slower 2 to 3 hertz delta in the frontal region and sharp and slow wave discharges seen from the frontal region with the left-sided predominance. Photic stimulation is without activation. Hyperventilation was omitted. IMPRESSION: This EEG is considered markedly abnormal due to severe diffuse background slowing as well as bifrontal, left greater than right sharp and slow wave discharges that may be indicative of a seizure focus in the frontal region. Clinical correlation is suggested. MD PRACHI Ocampo/CIPRIANO / [id number]
--- NOTE | 2020-04-29 07:32 | MHC.SLORD ---
Order received for bedside swallow evaluation yesterday. Pt was extubated around 12pm on 04/28 and required emergent reintubation. Per speech policy/best practice bedside dysphagia evaluation to be completed 24-48 hours post extubation. HEAVY EQUIPMENT MECHANIC will continue to follow. Name: Asha Medina Date of : 1965 Age: 54 Date of Registration: 04/27/20 Speech Language Pathology Order Status:
[2020-04-29] MEDS: Potassium Chloride Packet 20 MEQ PACKET 40 MEQ OG-TUBE (07:39)
[2020-04-29 10:00] LABS: Cancel Lactic Acid Canceled
--- NOTE | 2020-04-29 10:15 | MHC.CM.PN ---
Per discussion with MD in ICU rounds: pt was extubated yesterday but overnight developed respiratory decompensation necessitating re-intubation. MD states pt will now need a Peg and trach to prevents recurrent aspiration pna. MD to call pts dtr/guardianYvrose to explain above. Pt will need to have gastric band removed prior to Peg. Unsure of time frame for surgical procedures. Pt will now need an LTAC level of care or will need to remain at [facility] until her trach is matured 30 days which would not be in pt's best interests medically. Will refer to CHARLE[facility]E in anticipation of Peg/Trach placement this week. CM to update dtr on 04/30 once a surgical date has been decided upon.
[2020-04-29 11:01] LABS: Base Excess VBG 4.4 mmol/L; HCO3 VBG 28 mmol/L; PCO2 VBG 37 mmHg; PO2 VBG 69 mmHg; pH VBG 7.48 (7.32-7.43)
[2020-04-29] MEDS: Potassium Chloride Packet 20 MEQ PACKET 40 MEQ G-TUBE (11:18)
[2020-04-29] MEDS: Dextrose 5 % and 0.45 % NaCl 1,000 ML 50 ML IVCONT (11:19)
--- NOTE | 2020-04-29 11:28 | MHC.CLN ---
F/U PT CURRENTLY INTUBATED RECOMMEND TF GLUCERNA AT MAX GOAL RATE 55CC/HR WITH 120CC FREE WATER FLUSHES Q 4 HRS TO PROVIDE 1320KCALS (1404KCALS WITH SEDATION), 55G PROTEIN, 1606CC TOTAL WATER FROM FORMULA AND FLUSHES (30CC/KG) MONITOR TOLERANCE, RESIDUALS AND LYTES
[2020-04-29] MEDS: Ampicillin Sodium/Sulbactam Na 3 GM in 0.9 % Sodium Chloride 100 ML IV ×2 (14:34→20:26)
--- NOTE | 2020-04-29 14:35 | P.PNCC_ITS ---
Subjective Subjective Date of Service: 04/29/20 Interval History: Mrs. Medina was admitted to ICU Apr 27 with acute respiratory failure and septic shock 2? to what appears to be straighfwd aspiration pneumonia. The patient is a 54 yo woman who is a resident of [facility]. 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 Her PMHx, by report, is as follows: Subarachnoid hemorrhage Metabolic encephalopathy Seizure Dysphagia Pneumonia Sepsis VRE (vancomycin-resistant Enterococci) Diabetes Hypernatremia Hypokalemia Nephrolithiasis s/p Lap band surgery (for morbid obesity) about ten years ago (? at [facility]) I spoke with the patient's daughter at length this afternoon - Yvrose Medina ([phone]). Altho I don?t have the medical records, from what the daughter told me, it sounds like in December,, the patient suffered a ruptured cerebral aneurysm. She was taken to [facility] and then transferred to [facility] that same day, where she underwent what sounds like a decompressive craniectomy. She was in [facility] from December to February,, and during that stay had a tracheostomy, PEG, and SECTION HAND HELPER shunt placed. The daughter was also told that she has a second aneurysm that was not addressed. (Again, this all what I surmise from my conversation with the daughter, I can?t be certain without the medical records.) From [facility] she went to [facility] in [facility]. She was decannulated after approximately 1 month, and her PEG was pulled at some point. She was at [facility] until Jul, 2019, at which time she was discharged home, and was walking and talking. According to the daughter, the part of her skull that was removed got spoiled so was unable to be replaced, and she was wearing a helmet. In October, she went back to [facility] for an implant to replace the cranial portion removed. Unfortunately she bled postoperatively and suffered neurologic deterioration. Ultimately she was discharged to rehab for a month, and then from there to [facility]. Since that surgery, she has not been able to walk, and her speech has been significantly impaired. The staff at [facility] says that she talks a little, but gets winded from long conversation. The patient?s daughter says that she has full conversations with her mother on the telephone. From what the daughter tells me, it also sounds like since the surgery, the patient exhibits echolalia. (The patient grew up speaking Bolivian. She?ll respond to an Bolivian speaker in Congolese, and respond to a Congolese speaker in [place]ian.) The daughter also indicated to me that her mother has lost about 30 lbs since October. HISTORY OF PRESENT ILLNESS: The patient was reportedly recently hospitalized at [facility] for pneumonia and was just discharged back to [facility] on Tuesday, Apr 26. The patient was BIBA from [facility] yest morning (04/27) bec of fairly rapid onset of resp distress. On EMS arrival there, the patient had frothy sputum, Sat 60% on room air. She was thought to be in pulmon edema. She was given Lasix and CPAP and tx to the ED. On arrival to the ED, Saturation was still low on BiPAP and she was therefore intubated. She required pressors (? 2? intubation) so a CVL was placed and she was started on Levophed, along with abx. CT scan showed that her right lower lobe was socked in with pneumonia. There was no evidence of pulmonary edema. She was admitted to ICU, where she was put on Unasyn. In the ICU she was initially hypotensive, despite for fluids. My bedside echo showed: 1. At least mild, if not moderate LVH. 2. LV cavity size is normal, with hyperdynamic LV fxn, EF 70+%, no RWMA. 3. RV size normal or small. 4. Both atria prob normal sized. 5. AoV morphologically normal. Unable to Doppler. 6. MV morphologically normal with trace MR by color chris. 7. TV morphologically normal with 1+ TR by color chris, with CWD jet measuring 1.2 m/sec, or calculated gradient 6mm. 8. IVC normal size (1.4 cm). Minimally inspiratory collapse on PPV. Estimated CVP 5-8cm. She was given more colloid and crystalloid, her BP came up, and she came off the Levophed. The propofol was turned off early yesterday morning and it took a few hours for her to come around but by about 11am she was clearly fully awake and starting to be more interactive and exhibit consistent tracking. She responded to simple commands. She was therefore extubated without incident. On room air, she was maintaining a Sat in the mid 90s all day into the early evening. Over the day, she got to the point where she was able to verbally answer simple questions with a yes or no. About 21:00 last night, she had what appears to have been sudden on set of tachypnea, hypoxemia, and tachycardia and hypertension, the significance of which seems to have been missed. She was treated for acute pulmonary edema, but undoubtedly, probably had recurrent aspiration. Ultimately just past midnight, she required re-intubation. Post intubation, she dropped her blood pressure, same thing that happened originally in the emergency department, and had to go back on Levophed. Her blood pressure came back up following volume resuscitation. On exam this morning, she?s lightly sedated on propofol. She awakens easily. She tracks, but does not respond to questions or commands. See Vital Signs below . She?s breathing easy on the ventilator on AC 10/360/25%/+5, with RR 14, Ve 4.5L, PIP 21cm, Sat 100%. CVBG on that setting showed 7.48/37/+4. With Levophed off, BP is 97/70. She remaniins afebrile. She has no jugular venous distention at 30-40?. Chest auscultation shows bilat light dry rhonchi. Heart rate and rhythm are regular, with normal-sounding S1 and S2, with no murmur or gallops. Her abdomen is benign. She has no peripheral edema. Her right hand is somewhat clawed. She does not move her right side at all to command; she appears to be hemiplegic. 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 It sounds to me like she was shivering. I saw her doing that Tuesday morning 04/27. She does have a h/o seizures, however. She?s on valproate 375mg tid. LABORATORY DATA: As below. CXR: New RLL opacity? The stomach bubble is high, I wonder if she has a HH, or whether that?s related to her lap band. MICROBIOLOGY: 06/08 blood culture bottles drawn in the ED on admission are growing coag-negative staph. Urine is growing 2 organisms in insufficient numbers. IMPRESSION: 1. Acute resp failure 2? recurrent aspiration. It?s clear now, as I surmised yesterday, that she is unable to control her airway. She?ll need a tracheostomy and a PEG. 2. Septic shock. Resolved. Hypotension and hyperlactatemia overnite were likel y acute phase reactants with hypovolemia. 3. Hypovolemia (again). Resolved (again). 4. ID: I am guessing that the blood cultures are contaminant. There is no clinical indication to reason that she was bacteremic. Furthermore, she had an excellent antibiotic response of her fever and white count to the Unasyn. Nonetheless, the Unasyn that she is on might well cover coagulase negative Staph, especially if we increased the dose to 3 g, which we?ve done. The leukocytosis this morning is probably acute phase response. Continue the Unasyn another 2 days. 5. Hypokalemia. Replaced. 6. S/p massive aneurysmal bleed. Made a miraculous recovery, but then had catastrophic complications from the attempt to close her craniectomy. 7. Wt loss 30 lbs. My suspicion is that she has dysphagia and is unable to swallow the food bulk necessary to get enough calories. Overnite events prove that she needs a PEG. 8. S/p lap band surgery ten years ago. Since she has no further need for the lap band, and it may impact her caloric ingestion, the band should be reversed (fully deflated), if not removed. 9. ?Seizures. We?ll get an EEG. I discussed her situation again at length with Dr. Jones today. We?ll first assess if she needs deflation or removal of her lap band. That will be assessed via EGD tomorrow. If she needs removal, that can be done in the OR laparoscopically, immediately prior to her trach and PEG. If she doesn?t need the lap band removed, it could be just deflated. After speaking with Dr. Ordonez, I then called the patient?s daughter Yvrose, and we had another long telephone conversation. I told her that her mother was going to need a tracheostomy and PEG, which might well be permanent. Much to my surprise, she expressed that her mother might not want to have that. So we then had a long discussion about her mother?s end of life wishes. It sounds to me like Yvrose and her mother never had explicit conversations about this. I expressed to Yvrose that she will have to make substituted decisions for her mother, and I explained what that is and how to do that. I suggested she talk with trusted friends or her chief engineer about whether her mother might wish to proceed with comfort measures. I indicated to her that given her mother's condition, we would feel that comfort measures would be eminently justified, and that many, if not most people, would choose that route for themselves if they were in her mother's condition. Yvrose agreed to let us proceed with the EGD tomorrow and then we will talk further about the end of life issues. Also discussed at length with Sharifa Carrillo from [facility]. Critical care time: 110+ min. Physical Exam Vital Signs: Vital Signs: Last Vital Signs Temp 99.7 F 04/29/20 14:00 Pulse 94 04/29/20 14:00 Resp 12 04/29/20 14:00 BP 113/81 04/29/20 14:00 Pulse Ox 100 04/29/20 14:00 Body Mass Index 22.1 Objective Data Labs CBC & Chem 7: 04/29/20 05:52 04/29/20 05:52 Labs: Laboratory Results - last 24 hr 04/28/20 04/28/20 04/29/20 22:58 23:06 01:58 WBC RBC Hgb Hct MCV MCH MCHC RDW Plt Count MPV Absolute Nucleated RBC Nucleated RBC % (auto) Neutrophils % (Manual) Band Neutrophils % Lymphocytes % (Manual) Monocytes % (Manual) Abs Neuts (Manual) Lymphocytes # (Manual) Monocytes # (Manual) Toxic Granulation Toxic Vacuolation Platelet Estimate Large Platelets Plt Morphology Comment RBC Morphology Polychromasia Microcytosis Target Cells Ovalocytes ABG pH 7.50 H ABG pCO2 35 ABG pO2 75 L ABG HCO3 28 H ABG O2 Saturation 96.0 ABG Base Excess 5.1 VBG pH 7.46 H VBG pCO2 39 VBG pO2 38 VBG HCO3 28 VBG O2 Saturation 62.0 VBG Base Excess 4.8 Oxygen Given 100% Sodium Potassium Chloride Carbon Dioxide Anion Gap BUN Creatinine Estim Creat Clear Calc Estimated GFR Random Glucose Lactic Acid Lactic Acid Fup @ 2Hr Calcium B-Natriuretic Peptide 335 H Albumin 04/29/20 04/29/20 04/29/20 02:07 02:08 03:27 WBC RBC Hgb Hct MCV MCH MCHC RDW Plt Count MPV Absolute Nucleated RBC Nucleated RBC % (auto) Neutrophils % (Manual) Band Neutrophils % Lymphocytes % (Manual) Monocytes % (Manual) Abs Neuts (Manual) Lymphocytes # (Manual) Monocytes # (Manual) Toxic Granulation Toxic Vacuolation Platelet Estimate Large Platelets Plt Morphology Comment RBC Morphology Polychromasia Microcytosis Target Cells Ovalocytes ABG pH 7.50 H ABG pCO2 29 L ABG pO2 > 450 H ABG HCO3 23 ABG O2 Saturation 99.0 ABG Base Excess 1.2 VBG pH 7.38 VBG pCO2 42 VBG pO2 69 VBG HCO3 25 VBG O2 Saturation 92.0 VBG Base Excess 0.4 Oxygen Given 100% Sodium Potassium Chloride Carbon Dioxide Anion Gap BUN Creatinine Estim Creat Clear Calc Estimated GFR Random Glucose Lactic Acid 3.3 H* Lactic Acid Fup @ 2Hr Calcium B-Natriuretic Peptide Albumin 04/29/20 04/29/20 04/29/20 04:17 05:52 05:52 WBC 17.6 H RBC 3.02 L Hgb 8.7 L Hct 27.1 L MCV 89.7 MCH 28.8 MCHC 32.1 RDW 20.5 H Plt Count 404 H D MPV 9.3 L Absolute Nucleated RBC 0.050 H Nucleated RBC % (auto) 0.3 H Neutrophils % (Manual) 75 H Band Neutrophils % 6 H Lymphocytes % (Manual) 6 L Monocytes % (Manual) 13 H Abs Neuts (Manual) 14.3 H Lymphocytes # (Manual) 1.1 Monocytes # (Manual) 2.3 H Toxic Granulation PRESENT Toxic Vacuolation PRESENT Platelet Estimate SLIGHTLY INCREASED Large Platelets PRESENT Plt Morphology Comment NOTED RBC Morphology NOTED Polychromasia 1+ Microcytosis 1+ Target Cells 1+ Ovalocytes 1+ ABG pH ABG pCO2 ABG pO2 ABG HCO3 ABG O2 Saturation ABG Base Excess VBG pH VBG pCO2 VBG pO2 VBG HCO3 VBG O2 Saturation VBG Base Excess Oxygen Given Sodium 143 Potassium 3.0 L Chloride 104 Carbon Dioxide 24 Anion Gap 18 BUN 5 L Creatinine 0.58 Estim Creat Clear Calc 81.4 Estimated GFR > 60 Random Glucose 108 D Lactic Acid Lactic Acid Fup @ 2Hr 3.7 H* Calcium 8.6 D B-Natriuretic Peptide Albumin 3.5 D 04/29/20 04/29/20 05:52 10:47 WBC RBC Hgb Hct MCV MCH MCHC RDW Plt Count MPV Absolute Nucleated RBC Nucleated RBC % (auto) Neutrophils % (Manual) Band Neutrophils % Lymphocytes % (Manual) Monocytes % (Manual) Abs Neuts (Manual) Lymphocytes # (Manual) Monocytes # (Manual) Toxic Granulation Toxic Vacuolation Platelet Estimate Large Platelets Plt Morphology Comment RBC Morphology Polychromasia Microcytosis Target Cells Ovalocytes ABG pH ABG pCO2 ABG pO2 ABG HCO3 ABG O2 Saturation ABG Base Excess VBG pH 7.37 7.48 H VBG pCO2 45 37 VBG pO2 35 69 VBG HCO3 26 28 VBG O2 Saturation 53.0 94.0 VBG Base Excess 1.0 4.4 Oxygen Given Sodium Potassium Chloride Carbon Dioxide Anion Gap BUN Creatinine Estim Creat Clear Calc Estimated GFR Random Glucose Lactic Acid Lactic Acid Fup @ 2Hr Calcium B-Natriuretic Peptide Albumin Microbiology Microbiology Results: Microbiology 04/27/20 Unknown Blood - Venous Blood Culture - Preliminary Coag negative Staphylococcus 04/27/20 Unknown Blood - Venous Blood Culture - Preliminary Coag negative Staphylococcus 04/27/20 Unknown Urine Catheterized - Straight Catheter Urine Culture - Preliminary Enterococcus/Streptococcus sp Gram negative carlos 04/27/20 05:52 Sputum - Suctioned Gram Stain - Final 04/27/20 05:52 Sputum - Suctioned Sputum Culture - Final Progress Note: A&P Time Spent With Patient Time: Total time spent is greater than 50% in coordination of care (as documented) at patient's floor/unit and/or counseling patient: Total time spent with greater than 50% in coordination of care (as documented) at patient's floor/unit and/or counseling patient:: 0 Critical Care Time Critical Care Time (minutes): 120
--- NOTE | 2020-04-29 18:37 | PC.NURSE ---
Pt intubated/sedated, propfol decreased to 10mcg/kg/min, pt arouses to light pain/verbal stim, makes breif eye contact. Follows command to squeeze fingers, left hand only, right hemiplegia. Intermittently throughout shift found to have left sided shakiness/spasticity MD aware, pt able to still follow hand grasp command during these episodes. Pupils PERRLA 4mm. Positive cough. Propofol was turned off from 2153-2334 for EEG without issue. At 1000 vent settings changed to AC rate 10 Tv 360, PEEP 5, FiO2 25%, #7.5 ET tube 25cm lip. VBG repeated 1100. Breathing over the vent at times, occasional cough, fine crackles bases, thick white secretions from inline ET tube. Fluids switched to D51/2NS at 50ml/hr. Pt sbrad 50s, stach 120 when shaking, mostly NSR 80-90, LEVOphed titrated off since 1130 BP low of 89-66 MAP 75. No JVD or edema. BS positive, no BM this shift, LLQ hard, mid epigastric area hard. ECHO done today. K+ serum 3.0, 80mEq replaced OG tube. OG tube advanced 3 inches per EMILIA ROJAS. Restraints in place, bed locked and in lowest position, semi fowlers.
[2020-04-29] MEDS: Enoxaparin Sodium 40 MG/0.4 ML SYRINGE SUBCUT (20:31)
[2020-04-29] MEDS: propofoL 1,000 MG/100 ML VIAL 3.19 MG IVCONT (20:42)
[2020-04-30] VITALS (28 sets, daily range): BP systolic 81–135; BP diastolic 50–90; PULSE 59–106; RESP 10–18; TEMP 36.5–37.6; O2SAT 91–100; BMI 23.3
[2020-04-30] MEDS: Ampicillin Sodium/Sulbactam Na 3 GM in 0.9 % Sodium Chloride 100 ML IV ×4 (03:01→20:56)
[2020-04-30] MEDS: Chlorhexidine Gluc Oral Rinse 15 ML MOUTHWASH BUCCAL ×3 (03:08→18:19)
[2020-04-30 05:43] LABS: Base Excess VBG 6.5 mmol/L; HCO3 VBG 30 mmol/L; MANUAL DIFF FLAG NO; PCO2 VBG 40 mmHg; PO2 VBG 48 mmHg; pH VBG 7.48 (7.32-7.43)
[2020-04-30 05:46] LABS: Basophils Percent Auto 0.1 % (0-2); Eosinophils Absolute Auto 0.2 X10*3/uL (0.0-0.4); Eosinophils Percent Auto 2.6 % (0-4); Hematocrit 22.8 % (37-47); Hemoglobin 7.2 g/dl (12.0-16.0); Imm Gran Abs Auto 0.05 X10*3/uL (0.00-0.03); Imm Gran Pct Auto 0.6 % (0.0-0.4); Lymphocytes Absolute Auto 1.5 X10*3/uL (1.2-4.9); Lymphocytes Percent Auto 16.7 % (20-40); Mean Corpuscular HGB Conc 31.6 g/dl (31.0-35.0); Mean Corpuscular Hemoglobin 28.2 pg (27.0-33.0); Mean Corpuscular Volume 89.4 fL (80-98); Mean Platelet Volume 9.2 fL (9.4-12.3); Monocytes Absolute Auto 0.5 X10*3/uL (0.1-1.2); Monocytes Percent Auto 5.1 % (2-11); Neutrophils Absolute Auto 6.6 X10*3/uL (2.0-8.3); Neutrophils Percent Auto 74.9 % (45-73); Platelet Count 220 X10*3/uL (160-400); Red Blood Count 2.55 X10*6/uL (4.20-5.50); White Blood Count 8.8 X10*3/uL (4.8-10.8)
[2020-04-30 06:38] LABS: Anion Gap 9 (12-20); Blood Urea Nitrogen 4 mg/dL (9-16); Calcium 8.3 mg/dL (8.4-10.2); Carbon Dioxide 31 mmol/L (22-29); Chloride 105 mmol/L (96-108); Estimated Glomerular Filt Rate > 60; Glucose Random 73 mg/dL (60-115); Magnesium 1.5 mg/dL (1.6-2.6); Phosphorus 1.9 mg/dL (2.7-4.5); Potassium 3.5 mmol/L (3.3-5.1); Sodium 141 mmol/L (135-145)
[2020-04-30 06:43] LABS: Procalcitonin 2.03 ng/mL
[2020-04-30] MEDS: Dextrose 5 % and 0.45 % NaCl 1,000 ML 50 ML IVCONT (07:53)
[2020-04-30] MEDS: propofoL 1,000 MG/100 ML VIAL 4.78 MG IVCONT (08:44)
[2020-04-30] MEDS: Sodium,Potassium Phosphates POWD.PACK 2 PACKET PO (08:48)
--- NOTE | 2020-04-30 09:53 | PM.CNGS ---
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 Patient had the cranium removed for about 7 months and went back for surgery to have the cranium replaced October of 2019. Patient had significant seizures postoperatively and had of very significant decline in her function as well as her mentation inability to speak. Patient became bed-bound after that last procedure. Patient has been in a nursing facility since that time. About a week ago she was admitted to [facility] for aspiration pneumonia to the right lung and then was discharged back to the alf facility called [facility]. The alf noted that she still had significant shortness of breath and center back to the hospital here at [facility] about 4 days ago where she was evaluated and found to have a left-sided pneumonia likely from aspiration as well. Patient has been admitted to the ICU and required intubation over the past couple of days secondary to aspiration pneumonia. The plan is to perform a tracheostomy and a percutaneous endoscopic gastrostomy 2 placement for feedings. Of note the patient did have a laparoscopic gastric band placed in about 2008 for weight loss. Her daughter notes that she has lost about 40 lb since September of 2019 while she has been in this alf. Patient has at least 2 episodes of aspiration pneumonia in the past couple of weeks and the flooring professional is concerned that the gastric band may be contributing to the aspiration. The flooring professional consulted me regarding possibly removing her gastric band at the time of the tracheostomy and gastrostomy tube placement. All history was given to me by the patient's daughter Yvrose Medina by phone. Review of Systems Review of Systems: Yes unobtainable due to endotracheal tube PMFSH Past Medical History Medical History (Updated 04/30/20 @ 09:59 by Emma Jones MD) Asthma CVA (cerebral vascular accident) Diabetes Dysphagia History of gastrostomy tube placement Hypernatremia Hypokalemia Metabolic encephalopathy Nephrolithiasis Pneumonia Seizure Sepsis Subarachnoid hemorrhage VRE (vancomycin-resistant Enterococci) Family History Family History (Updated 04/30/20 @ 09:59 by Emma Jones MD) Mother Stroke Father No problems noted. Brother No problems noted. Sister No problems noted. Daughter No problems noted. Daughter No problems noted. Surgical History Surgical History (Updated 04/30/20 @ 10:03 by Emma Jones MD) History of bunionectomy of both great toes History of hysterectomy History of laparoscopic adjustable gastric banding History of tracheostomy S/P clamping of cerebral aneurysm Social History Social History Household Members: Unknown / Unable to assess Housing: Long-Term Unable to assess alcohol history related to: Unable to respond Alcohol intake: unknown Smoking Status: Unknown if ever smoked Use of substances other than those prescribed or required for medical reasons: Unable to respond Currently Displaying Signs/Symptoms of Drug Intoxication Withdrawal: No Advance Directives: No Advance Directives Information Provided: No Do you have thoughts of harming others: None Do you have a plan to hurt others: No Plan service: No Current occupational status: employed Meds Allergies Allergy/AdvReac Type Severity Reaction Status Date / Time No Known Allergies Allergy Verified 04/30/20 10:00 Active Medications: Current Medications Generic Name Dose Route Start Last Admin Trade Name Michael PRN Reason Stop Dose Admin Chlorhexidine Gluconate 15 ml 04/27/20 01:30 04/30/20 07:53 Chlorhexidine Gluc Oral Rinse 15 Ml Mouthwash BUCCAL 15 ml Q8H ROSALINE Administration Enoxaparin Sodium 40 mg 04/27/20 02:00 04/29/20 20:31 Enoxaparin Sodium 40 Mg/0.4 Ml Syringe SUBCUT 40 mg BEDTIME ROSALINE Administration Propofol 1,000 mg in 100 mls @ 0 mls/hr 04/29/20 01:00 04/30/20 08:44 Diprivan IVCONT 15 mcg/kg/min .Q0M ROSALINE 4.78 mls/hr Administration Protocol Per Protocol Norepinephrine Bitartrate 8 mg in 250 mls @ 0 mls/hr 04/29/20 01:15 04/30/20 08:56 Levophed IVCONT 0.07 mcg/kg/min .Q0M ROSALINE 6.97 mls/hr Titration Protocol Per Protocol Dextrose/Sodium Chloride 1,000 mls @ 50 mls/hr 04/29/20 10:45 04/30/20 07:53 D51/2ns IVCONT 50 mls/hr .Q20H ROSALINE Administration Ampicillin Sodium/Sulbactam 100 mls @ 200 mls/hr 04/29/20 14:00 04/30/20 08:28 Sodium 3 gm/ Sodium Chloride IV Infused Q6H [facility] Infusion Potassium Chloride 40 meq 04/30/20 12:00 Potassium Chloride Packet 20 Meq Packet PO ONCE ROSALINE Valproic Acid 375 mg 04/29/20 15:00 04/30/20 07:53 Valproic Acid (As Sodium Salt) 250 Mg/5 Ml Solution G-TUBE 375 mg TID [facility] Administration Home Medications Medication Instructions Recorded Confirmed Last Taken Type albuterol sulfate [ProAir HFA] 2 puff INHALATION Q4H PRN 04/28/20 04/28/20 Unknown History amlodipine 5 mg PO DAILY 04/28/20 04/28/20 Unknown History carboxymethylcellulose sodium 1 drp OPHTHALMIC (EYE) TID PRN 04/28/20 04/28/20 Unknown History [Refresh Celluvisc] divalproex [Depakote Sprinkles] 375 mg PO TID 04/28/20 04/28/20 Unknown History dronabinol [Marinol] 2.5 mg PO BIDAC 04/28/20 04/28/20 Unknown History heparin (porcine) 5,000 unit SUBCUT Q8H 04/28/20 04/28/20 Unknown History hypromellose [Gonak] 1 drp OPHTHALMIC (EYE) BID 04/28/20 04/28/20 Unknown History mirtazapine 15 mg PO BEDTIME 04/28/20 04/28/20 Unknown History multivitamin 1 tab PO DAILY 04/28/20 04/28/20 Unknown History polyvinyl alcohol-povidone 1 drp OPHTHALMIC (EYE) TID PRN 04/28/20 04/28/20 Unknown History Physical Exam Vital Signs: Vital Signs: Last Vital Signs Temp 98.8 F 04/30/20 08:55 Pulse 72 04/30/20 08:55 Resp 10 L 04/30/20 08:55 BP 88/60 L 04/30/20 08:55 Pulse Ox 95 04/30/20 08:55 Body Mass Index 23.3 Const: Other: Intubated but awake and comfortable. Patient is moving the right upper extremity but does not follow any commands. She is blinking her eyes. HENMT: Head: Yes normal to inspection Eyes: General: appearance normal, both eyes and all related structures EOM: EOMs intact bilaterally Neck: Other: Well-healed anterior transverse surgical scar consistent with previous tracheostomy Neck: Yes lymphadenopathy Thyroid: Thyroid normal Resp: Other: Diffuse rhonchi bilaterally Cardio: Other: Tachycardic to 119 Heart sounds: S1 normal heart sound present and S2 normal heart sound present GI: Other: Soft nondistended nontender. Well-healed midline surgical scar without evidence of hernia. Subcutaneous gastric band port palpated to the right of the umbilicus and superior to the umbilicus. Extrem: Other: Bilateral lower extremities flaccid. No edema. There appears to be footdrop bilaterally. Results Labs Result diagrams: 04/30/20 05:30 04/30/20 05:30 Labs: Abnormal lab results 04/29/20 04/30/20 04/30/20 Range/Units 10:47 05:30 05:30 RBC 2.55 L (4.20-5.50) X10*6/uL Hgb 7.2 L (12.0-16.0) g/dl Hct 22.8 L (37-47) % RDW 21.0 H (11.0-16.0) % MPV 9.2 L (9.4-12.3) fL Immature Gran % (Auto) 0.6 H (0.0-0.4) % Neut % (Auto) 74.9 H (45-73) % Lymph % (Auto) 16.7 L (20-40) % Abs Immat Gran (auto) 0.05 H (0.00-0.03) X10*3/uL VBG pH 7.48 H (7.32-7.43) Carbon Dioxide 31 H (22-29) mmol/L Anion Gap 9 L (12-20) BUN 4 L (9-16) mg/dL Creatinine 0.45 L (0.5-1.4) mg/dL Calcium 8.3 L (8.4-10.2) mg/dL Phosphorus 1.9 L (2.7-4.5) mg/dL Magnesium 1.5 L (1.6-2.6) mg/dL 04/30/20 Range/Units 05:30 RBC (4.20-5.50) X10*6/uL Hgb (12.0-16.0) g/dl Hct (37-47) % RDW (11.0-16.0) % MPV (9.4-12.3) fL Immature Gran % (Auto) (0.0-0.4) % Neut % (Auto) (45-73) % Lymph % (Auto) (20-40) % Abs Immat Gran (auto) (0.00-0.03) X10*3/uL VBG pH 7.48 H (7.32-7.43) Carbon Dioxide (22-29) mmol/L Anion Gap (12-20) BUN (9-16) mg/dL Creatinine (0.5-1.4) mg/dL Calcium (8.4-10.2) mg/dL Phosphorus (2.7-4.5) mg/dL Magnesium (1.6-2.6) mg/dL Short CBC 04/30/20 Range/Units 05:30 WBC 8.8 (4.8-10.8) X10*3/uL Hgb 7.2 L (12.0-16.0) g/dl Hct 22.8 L (37-47) % Plt Count 220 D (160-400) X10*3/uL BMP 04/30/20 05:30 Sodium 141 Potassium 3.5 Chloride 105 Carbon Dioxide 31 H BUN 4 L Creatinine 0.45 L Calcium 8.3 L Urine 04/26/20 Range/Units Unknown Urine Color YELLOW Urine Appearance HAZY Urine pH 6.5 (5.0-8.0) Ur Specific [place] 1.015 (1.005-1.025) Urine Protein NEG (NEG-TRACE) MG/DL Urine Glucose (UA) NEG (NEG) MG/DL All other labs normal. 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 Patient has been admitted recently 2 times in the past couple of weeks for aspiration pneumonia 1st of the right long and now of the left long. This has required recent intubation. The patient will likely need to undergo tracheostomy and percutaneous endoscopic gastrostomy tube placement for feedings. Given the patient's history of previous laparoscopic gastric banding there is a high likelihood that aspiration pneumonia may have been incited from the presence of gastric band. We are planning to remove the gastric band at the time of the tracheostomy and percutaneous endoscopic gastrostomy tube placement. Prior to removing the gastric band we have to evaluate the stomach to rule make sure that there is no evidence of gastric band erosion. If there is erosion the gastric band must be removed and drains must be left in placed. I have discussed all the risks benefits and alternatives with the patient's daughter in detail. I do believe the patient would benefit from removal of her gastric band as I do believe that there is a possibility that the aspiration pneumonia has been incited by the presence of the gastric band. There is also a possibility the patient may have had gastric band slippage which means that the proximal portion of the stomach has slipped above the gastric band and access as a reservoir for extra fluid from the stomach and food which may definitely increase the risk of aspiration. Today we plan to evaluate the stomach with an endoscopy. The patient's daughter has consented to endoscopy and to the eventual removal of the gastric band. All questions were answered satisfactorily to the patient. This entire history was witnessed by the nurse and it was documented on the consent form for the endoscopy. (2) History of laparoscopic adjustable gastric banding: Status: Acute Procedures Date of Service Date of Service: 04/30/20
[2020-04-30] MEDS: Atropine Sulfate 1 MG/ML VIAL 0.5 MG IVPUSH (10:02)
--- NOTE | 2020-04-30 10:07 | MHC.SHP ---
Pre-Procedural Eval Section B Chief Complaint: aspiration pneumonia Allergies: Allergies Allergy/AdvReac Type Severity Reaction Status Date / Time No Known Allergies Allergy Verified 04/30/20 10:00 Plan I have reviewed the history and physical and performed a pertinent physical examination on my patient. No changes have occurred unless specified.
--- NOTE | 2020-04-30 11:09 | MHC.CLN ---
F/U PT POSSIBLY PENDING CHIEF ACCOUNTING OFFICER IF TF NEEDED; RECOMMEND TF GLUCERNA AT MAX GOAL RATE 55CC/HR WITH 120CC FREE WATER FLUSHES Q 4 HRS TO PROVIDE 1320KCALS (1404KCALS WITH SEDATION), 55G PROTEIN, 1606CC TOTAL WATER FROM FORMULA AND FLUSHES (30CC/KG) WILL FOLLOW WITH CARE TEAM AND PROVIDE SUPPORT NEEDED
--- NOTE | 2020-04-30 11:51 | P.CONAN_ITS ---
HPI - Anesthesia Eval Consult details Narrative: 54 yo female patient for EGD PMFSH Active Problems Active Problems: All Active Problems (Updated 04/30/20 @ 09:59 by Emma Jones MD) History of laparoscopic adjustable gastric banding (Acute) Septic shock (Acute) Elevated lactic acid level (Acute) Hypotension (Acute) Aspiration pneumonia (Acute) Acute respiratory failure with hypoxia (Acute) Respiratory failure (Acute) Pneumonia (Acute) Demand ischemia (Acute) Past Medical History Medical History Asthma CVA (cerebral vascular accident) Diabetes Dysphagia History of gastrostomy tube placement Hypernatremia Hypokalemia Metabolic encephalopathy Nephrolithiasis Pneumonia Seizure Sepsis Subarachnoid hemorrhage VRE (vancomycin-resistant Enterococci) Family History Family History Mother Stroke Father No problems noted. Brother No problems noted. Sister No problems noted. Daughter No problems noted. Daughter No problems noted. Surgical History Surgical History (Updated 04/30/20 @ 12:05 by Stefany Hinojosa) History of bunionectomy of both great toes History of hysterectomy History of laparoscopic adjustable gastric banding History of tracheostomy S/P clamping of cerebral aneurysm Social History Social History Household Members: Unknown / Unable to assess Housing: [place]way Unable to assess alcohol history related to: Unable to respond Alcohol intake: unknown Smoking Status: Unknown if ever smoked Use of substances other than those prescribed or required for medical reasons: Unable to respond Currently Displaying Signs/Symptoms of Drug Intoxication Withdrawal: No Advance Directives: No Advance Directives Information Provided: No Do you have thoughts of harming others: None Do you have a plan to hurt others: No Plan service: No Current occupational status: employed Meds Allergies Allergy/AdvReac Type Severity Reaction Status Date / Time No Known Allergies Allergy Verified 04/30/20 10:00 Active Medications: Current Medications Generic Name Dose Route Start Last Admin Trade Name Freq PRN Reason Stop Dose Admin Chlorhexidine Gluconate 15 ml 04/27/20 01:30 04/30/20 07:53 Chlorhexidine Gluc Oral Rinse 15 Ml Mouthwash BUCCAL 15 ml Q8H ROSALINE Administration Enoxaparin Sodium 40 mg 04/27/20 02:00 04/29/20 20:31 Enoxaparin Sodium 40 Mg/0.4 Ml Syringe SUBCUT 40 mg BEDTIME ROSALINE Administration Propofol 1,000 mg in 100 mls @ 0 mls/hr 04/29/20 01:00 04/30/20 10:31 Diprivan IVCONT 25 mcg/kg/min .Q0M ROSALINE 7.97 mls/hr Titration Protocol Per Protocol Norepinephrine Bitartrate 8 mg in 250 mls @ 0 mls/hr 04/29/20 01:15 04/30/20 11:33 Levophed IVCONT 0.07 mcg/kg/min .Q0M ROSALINE 6.97 mls/hr Titration Protocol Per Protocol Dextrose/Sodium Chloride 1,000 mls @ 50 mls/hr 04/29/20 10:45 04/30/20 07:53 D51/2ns IVCONT 50 mls/hr .Q20H ROSALINE Administration Ampicillin Sodium/Sulbactam 100 mls @ 200 mls/hr 04/29/20 14:00 04/30/20 08:28 Sodium 3 gm/ Sodium Chloride IV Infused Q6H ROSALINE Infusion Potassium Chloride 40 meq 04/30/20 12:00 Potassium Chloride Packet 20 Meq Packet PO ONCE ROSALINE Valproic Acid 375 mg 04/29/20 15:00 04/30/20 07:53 Valproic Acid (As Sodium Salt) 250 Mg/5 Ml Solution G-TUBE 375 mg TID ROSALINE Administration Home Medications Medication Instructions Recorded Confirmed Last Taken Type albuterol sulfate [ProAir HFA] 2 puff INHALATION Q4H PRN 04/28/20 04/28/20 Unknown History amlodipine 5 mg PO DAILY 04/28/20 04/28/20 Unknown History carboxymethylcellulose sodium 1 drp OPHTHALMIC (EYE) TID PRN 04/28/20 04/28/20 Unknown History [Refresh Celluvisc] divalproex [Depakote Sprinkles] 375 mg PO TID 04/28/20 04/28/20 Unknown History dronabinol [Marinol] 2.5 mg PO BIDAC 04/28/20 04/28/20 Unknown History heparin (porcine) 5,000 unit SUBCUT Q8H 04/28/20 04/28/20 Unknown History hypromellose [Gonak] 1 drp OPHTHALMIC (EYE) BID 04/28/20 04/28/20 Unknown History mirtazapine 15 mg PO BEDTIME 04/28/20 04/28/20 Unknown History multivitamin 1 tab PO DAILY 04/28/20 04/28/20 Unknown History polyvinyl alcohol-povidone 1 drp OPHTHALMIC (EYE) TID PRN 04/28/20 04/28/20 Unkn own History Exam Exam Date and Time: April 30, 2020 1151 Height,Weight and Vital Signs: Height 5 ft Weight 54.2 kg Last Vital Signs Temp 97.7 F 04/30/20 11:00 Pulse 83 04/30/20 11:00 Resp 10 L 04/30/20 11:00 BP 83/54 L 04/30/20 11:00 Pulse Ox 96 04/30/20 11:00 Pertinent Lab Results Pertinent Lab Results: Lab Results 04/26/20 04/27/20 04/27/20 Range/Units Unknown 01:00 01:00 WBC (4.8-10.8) X10*3/uL RBC (4.20-5.50) X10*6/uL Hgb (12.0-16.0) g/dl Hct (37-47) % MCV (80-98) fL MCH (27.0-33.0) pg MCHC (31.0-35.0) g/dl RDW (11.0-16.0) % Plt Count (160-400) X10*3/uL MPV (9.4-12.3) fL Immature Gran % (Auto) Neut % (Auto) Lymph % (Auto) Patrick % (Auto) Eos % (Auto) Baso % (Auto) Lymph # (Auto) Patrick # (Auto) Eos # (Auto) Baso # (Auto) Abs Immat Gran (auto) Absolute Neuts (auto) Absolute Nucleated RBC (0.0-0.012) X10*3/uL Nucleated RBC % (auto) (0.0-0.2) /100WBC Neutrophils % (Manual) (45-73) % Band Neutrophils % (3-5) % Lymphocytes % (Manual) (20-40) % Monocytes % (Manual) (2-11) % Abs Neuts (Manual) (2.2-7.9) X10*3/uL Lymphocytes # (Manual) (0.6-4.8) X10*3/uL Monocytes # (Manual) (0.0-1.2) X10*3/uL Toxic Granulation Toxic Vacuolation Platelet Estimate (NORMAL) Large Platelets Plt Morphology Comment RBC Morphology Polychromasia Microcytosis Macrocytosis Target Cells Ovalocytes D-Dimer NG/ML ABG pH (7.35-7.45) ABG pCO2 (32-45) mmHg ABG pO2 (83-108) mmHg ABG HCO3 (22-26) mmol/L ABG O2 Saturation % ABG Base Excess VBG pH 7.47 H (7.32-7.43) VBG pCO2 31 mmHg VBG pO2 61 mmHg VBG HCO3 23 mmol/L VBG O2 Saturation 89.0 % VBG Base Excess 0.3 mmol/L Oxygen Given Sodium (135-145) mmol/L Potassium (3.3-5.1) mmol/L Chloride (96-108) mmol/L Carbon Dioxide (22-29) mmol/L Anion Gap (12-20) BUN (9-16) mg/dL Creatinine (0.5-1.4) mg/dL Estim Creat Clear Calc Estimated GFR Random Glucose (60-115) mg/dL Lactic Acid (0.5-2.0) mmol/L Lactic Acid Fup @ 2Hr (0.5-2.0) mmol/L Lactic Acid Fup @ 4Hr (0.5-2.0) mmol/L Calcium (8.4-10.2) mg/dL Phosphorus (2.7-4.5) mg/dL Magnesium (1.6-2.6) mg/dL Ferritin (10-250) ng/mL Total Bilirubin (0.0-1.0) mg/dL Direct Bilirubin (0.0-0.5) mg/dL AST (5-31) U/L ALT (0-31) U/L Alkaline Phosphatase (39-117) U/L Troponin I High Sens (<3.5-17.0) ng/L B-Natriuretic Peptide (<100) pg/mL Total Protein (6.5-8.0) g/dL Albumin (3.5-5.0) g/dL Lipase (8-78) U/L Procalcitonin ng/mL Specimen Comment Urine Color YELLOW Urine Appearance HAZY Urine pH 6.5 (5.0-8.0) Ur Specific [place] 1.015 (1.005-1.025) Urine Protein NEG (NEG-TRACE) MG/DL Urine Glucose (UA) NEG (NEG) MG/DL Urine Ketones NEG (NEG) MG/DL Urine Blood 1+ H (NEG) Urine Nitrite NEG (NEG) Ur Leukocyte Esterase 2+ H (NEG) Urine RBC 10-14 H (0) /HPF Urine WBC 30-49 H (0-4) /HPF Ur Squamous Epith Cells 2+ /LPF Urine Bacteria 2+ /LPF Urine Mucus 2+ /LPF Ur Random Sodium mmol/L Coronavirus (PCR) NEGATIVE (Negative) Influenza Type A (PCR) NEGATIVE (Negative) Influenza Type B (PCR) NEGATIVE (Negative) RSV RNA Qual (PCR) NEGATIVE (Negative) 04/27/20 04/27/20 04/27/20 Range/Units 03:15 05:14 05:14 WBC 12.6 H (4.8-10.8) X10*3/uL RBC 3.32 L D (4.20-5.50) X10*6/uL Hgb 9.5 L D (12.0-16.0) g/dl Hct 29.7 L D (37-47) % MCV 89.5 (80-98) fL MCH 28.6 (27.0-33.0) pg MCHC 32.0 (31.0-35.0) g/dl RDW 19.4 H (11.0-16.0) % Plt Count 279 D (160-400) X10*3/uL MPV 9.7 (9.4-12.3) fL Immature Gran % (Auto) Cancelled Neut % (Auto) Cancelled Lymph % (Auto) Cancelled Patrick % (Auto) Cancelled Eos % (Auto) Cancelled Baso % (Auto) Cancelled Lymph # (Auto) Cancelled Patrick # (Auto) Cancelled Eos # (Auto) Cancelled Baso # (Auto) Cancelled Abs Immat Gran (auto) Cancelled Absolute Neuts (auto) Cancelled Absolute Nucleated RBC 0.000 (0.0-0.012) X10*3/uL Nucleated RBC % (auto) 0.0 (0.0-0.2) /100WBC Neutrophils % (Manual) 69 (45-73) % Band Neutrophils % 12 H (3-5) % Lymphocytes % (Manual) 9 L (20-40) % Monocytes % (Manual) 10 (2-11) % Abs Neuts (Manual) 10.2 H (2.2-7.9) X10*3/uL Lymphocytes # (Manual) 1.1 (0.6-4.8) X10*3/uL Monocytes # (Manual) 1.3 H (0.0-1.2) X10*3/uL Toxic Granulation Toxic Vacuolation PRESENT Platelet Estimate NORMAL (NORMAL) Large Platelets Plt Morphology Comment NORMAL RBC Morphology NOTED Polychromasia 1+ Microcytosis Macrocytosis 1+ Target Cells Ovalocytes 1+ D-Dimer NG/ML ABG pH (7.35-7.45) ABG pCO2 (32-45) mmHg ABG pO2 (83-108) mmHg ABG HCO3 (22-26) mmol/L ABG O2 Saturation % ABG Base Excess VBG pH (7.32-7.43) VBG pCO2 mmHg VBG pO2 mmHg VBG HCO3 mmol/L VBG O2 Saturation % VBG Base Excess mmol/L Oxygen Given Sodium 145 (135-145) mmol/L Potassium 4.4 D (3.3-5.1) mmol/L Chloride 112 H (96-108) mmol/L Carbon Dioxide 25 (22-29) mmol/L Anion Gap 12 (12-20) BUN 9 (9-16) mg/dL Creatinine 0.54 (0.5-1.4) mg/dL Estim Creat Clear Calc 87.5 Estimated GFR > 60 Random Glucose 99 D (60-115) mg/dL Lactic Acid (0.5-2.0) mmol/L Lactic Acid Fup @ 2Hr 5.9 H* (0.5-2.0) mmol/L Lactic Acid Fup @ 4Hr (0.5-2.0) mmol/L Calcium 7.5 L D (8.4-10.2) mg/dL Phosphorus 1.8 L (2.7-4.5) mg/dL Magnesium 1.6 (1.6-2.6) mg/dL Ferritin (10-250) ng/mL Total Bilirubin (0.0-1.0) mg/dL Direct Bilirubin (0.0-0.5) mg/dL AST (5-31) U/L ALT (0-31) U/L Alkaline Phosphatase (39-117) U/L Troponin I High Sens (<3.5-17.0) ng/L B-Natriuretic Peptide (<100) pg/mL Total Protein (6.5-8.0) g/dL Albumin 2.9 L (3.5-5.0) g/dL Lipase (8-78) U/L Procalcitonin ng/mL Specimen Comment Urine Color Urine Appearance Urine pH (5.0-8.0) Ur Specific [place] (1.005-1.025) Urine Protein (NEG-TRACE) MG/DL Urine Glucose (UA) (NEG) MG/DL Urine Ketones (NEG) MG/DL Urine Blood (NEG) Urine Nitrite (NEG) Ur Leukocyte Esterase (NEG) Urine RBC (0) /HPF Urine WBC (0-4) /HPF Ur Squamous Epith Cells /LPF Urine Bacteria /LPF Urine Mucus /LPF Ur Random Sodium mmol/L Coronavirus (PCR) (Negative) Influenza Type A (PCR) (Negative) Influenza Type B (PCR) (Negative) RSV RNA Qual (PCR) (Negative) 04/27/20 04/27/20 04/27/20 Range/Units 05:14 05:14 05:14 WBC (4.8-10.8) X10*3/uL RBC (4.20-5.50) X10*6/uL Hgb (12.0-16.0) g/dl Hct (37-47) % MCV (80-98) fL MCH (27.0-33.0) pg MCHC (31.0-35.0) g/dl RDW (11.0-16.0) % Plt Count (160-400) X10*3/uL MPV (9.4-12.3) fL Immature Gran % (Auto) Neut % (Auto) Lymph % (Auto) Patrick % (Auto) Eos % (Auto) Baso % (Auto) Lymph # (Auto) Patrick # (Auto) Eos # (Auto) Baso # (Auto) Abs Immat Gran (auto) Absolute Neuts (auto) Absolute Nucleated RBC (0.0-0.012) X10*3/uL Nucleated RBC % (auto) (0.0-0.2) /100WBC Neutrophils % (Manual) (45-73) % Band Neutrophils % (3-5) % Lymphocytes % (Manual) (20-40) % Monocytes % (Manual) (2-11) % Abs Neuts (Manual) (2.2-7.9) X10*3/uL Lymphocytes # (Manual) (0.6-4.8) X10*3/uL Monocytes # (Manual) (0.0-1.2) X10*3/uL Toxic Granulation Toxic Vacuolation Platelet Estimate (NORMAL) Large Platelets Plt Morphology Comment RBC Morphology Polychromasia Microcytosis Macrocytosis Target Cells Ovalocytes D-Dimer NG/ML ABG pH (7.35-7.45) ABG pCO2 (32-45) mmHg ABG pO2 (83-108) mmHg ABG HCO3 (22-26) mmol/L ABG O2 Saturation % ABG Base Excess VBG pH 7.44 H (7.32-7.43) VBG pCO2 33 mmHg VBG pO2 42 mmHg VBG HCO3 22 mmol/L VBG O2 Saturation 70.0 % VBG Base Excess -0.7 mmol/L Oxygen Given Sodium (135-145) mmol/L Potassium (3.3-5.1) mmol/L Chloride (96-108) mmol/L Carbon Dioxide (22-29) mmol/L Anion Gap (12-20) BUN (9-16) mg/dL Creatinine (0.5-1.4) mg/dL Estim Creat Clear Calc Estimated GFR Random Glucose (60-115) mg/dL Lactic Acid (0.5-2.0) mmol/L Lactic Acid Fup @ 2Hr (0.5-2.0) mmol/L Lactic Acid Fup @ 4Hr 2.6 H* (0.5-2.0) mmol/L Calcium (8.4-10.2) mg/dL Phosphorus (2.7-4.5) mg/dL Magnesium (1.6-2.6) mg/dL Ferritin (10-250) ng/mL Total Bilirubin (0.0-1.0) mg/dL Direct Bilirubin (0.0-0.5) mg/dL AST (5-31) U/L ALT (0-31) U/L Alkaline Phosphatase (39-117) U/L Troponin I High Sens 137.6 H D (<3.5-17.0) ng/L B-Natriuretic Peptide (<100) pg/mL Total Protein (6.5-8.0) g/dL Albumin (3.5-5.0) g/dL Lipase (8-78) U/L Procalcitonin ng/mL Specimen Comment Urine Color Urine Appearance Urine pH (5.0-8.0) Ur Specific [place] (1.005-1.025) Urine Protein (NEG-TRACE) MG/DL Urine Glucose (UA) (NEG) MG/DL Urine Ketones (NEG) MG/DL Urine Blood (NEG) Urine Nitrite (NEG) Ur Leukocyte Esterase (NEG) Urine RBC (0) /HPF Urine WBC (0-4) /HPF Ur Squamous Epith Cells /LPF Urine Bacteria /LPF Urine Mucus /LPF Ur Random Sodium mmol/L Coronavirus (PCR) (Negative) Influenza Type A (PCR) (Negative) Influenza Type B (PCR) (Negative) RSV RNA Qual (PCR) (Negative) 04/27/20 04/27/20 04/27/20 Range/Units 14:15 Unknown Unknown WBC 12.6 H (4.8-10.8) X10*3/uL RBC 4.54 (4.20-5.50) X10*6/uL Hgb 12.9 (12.0-16.0) g/dl Hct 40.3 (37-47) % MCV 88.8 (80-98) fL MCH 28.4 (27.0-33.0) pg MCHC 32.0 (31.0-35.0) g/dl RDW 19.9 H (11.0-16.0) % Plt Count 419 H D (160-400) X10*3/uL MPV 9.6 (9.4-12.3) fL Immature Gran % (Auto) 5.9 H Neut % (Auto) 81.1 H Lymph % (Auto) 6.4 L Patrick % (Auto) 6.2 Eos % (Auto) 0.2 Baso % (Auto) 0.2 Lymph # (Auto) 0.8 L Patrick # (Auto) 0.8 Eos # (Auto) 0.0 Baso # (Auto) 0.0 Abs Immat Gran (auto) 0.74 H Absolute Neuts (auto) 10.3 H Absolute Nucleated RBC 0.020 H (0.0-0.012) X10*3/uL Nucleated RBC % (auto) 0.2 (0.0-0.2) /100WBC Neutrophils % (Manual) (45-73) % Band Neutrophils % (3-5) % Lymphocytes % (Manual) (20-40) % Monocytes % (Manual) (2-11) % Abs Neuts (Manual) (2.2-7.9) X10*3/uL Lymphocytes # (Manual) (0.6-4.8) X10*3/uL Monocytes # (Manual) (0.0-1.2) X10*3/uL Toxic Granulation Toxic Vacuolation Platelet Estimate (NORMAL) Large Platelets Plt Morphology Comment RBC Morphology Polychromasia Microcytosis Macrocytosis Target Cells Ovalocytes D-Dimer NG/ML ABG pH (7.35-7.45) ABG pCO2 (32-45) mmHg ABG pO2 (83-108) mmHg ABG HCO3 (22-26) mmol/L ABG O2 Saturation % ABG Base Excess VBG pH 7.50 H (7.32-7.43) VBG pCO2 30 mmHg VBG pO2 48 mmHg VBG HCO3 23 mmol/L VBG O2 Saturation 80.0 % VBG Base Excess 1.3 mmol/L Oxygen Given Sodium 144 (135-145) mmol/L Potassium 3.0 L (3.3-5.1) mmol/L Chloride 106 (96-108) mmol/L Carbon Dioxide 25 (22-29) mmol/L Anion Gap 16 (12-20) BUN 10 (9-16) mg/dL Creatinine 0.58 (0.5-1.4) mg/dL Estim Creat Clear Calc 81.4 Estimated GFR > 60 Random Glucose 184 H D (60-115) mg/dL Lactic Acid (0.5-2.0) mmol/L Lactic Acid Fup @ 2Hr (0.5-2.0) mmol/L Lactic Acid Fup @ 4Hr (0.5-2.0) mmol/L Calcium 8.5 D (8.4-10.2) mg/dL Phosphorus (2.7-4.5) mg/dL Magnesium (1.6-2.6) mg/dL Ferritin (10-250) ng/mL Total Bilirubin 0.6 (0.0-1.0) mg/dL Direct Bilirubin 0.2 (0.0-0.5) mg/dL AST 13 (5-31) U/L ALT < 6 (0-31) U/L Alkaline Phosphatase 59 (39-117) U/L Troponin I High Sens (<3.5-17.0) ng/L B-Natriuretic Peptide (<100) pg/mL Total Protein 6.5 (6.5-8.0) g/dL Albumin 2.7 L (3.5-5.0) g/dL Lipase (8-78) U/L Procalcitonin ng/mL Specimen Comment Urine Color Urine Appearance Urine pH (5.0-8.0) Ur Specific [place] (1.005-1.025) Urine Protein (NEG-TRACE) MG/DL Urine Glucose (UA) (NEG) MG/DL Urine Ketones (NEG) MG/DL Urine Blood (NEG) Urine Nitrite (NEG) Ur Leukocyte Esterase (NEG) Urine RBC (0) /HPF Urine WBC (0-4) /HPF Ur Squamous Epith Cells /LPF Urine Bacteria /LPF Urine Mucus /LPF Ur Random Sodium mmol/L Coronavirus (PCR) (Negative) Influenza Type A (PCR) (Negative) Influenza Type B (PCR) (Negative) RSV RNA Qual (PCR) (Negative) 04/27/20 04/27/20 04/27/20 Range/Units Unknown Unknown Unknown WBC (4.8-10.8) X10*3/uL RBC (4.20-5.50) X10*6/uL Hgb (12.0-16.0) g/dl Hct (37-47) % MCV (80-98) fL MCH (27.0-33.0) pg MCHC (31.0-35.0) g/dl RDW (11.0-16.0) % Plt Count (160-400) X10*3/uL MPV (9.4-12.3) fL Immature Gran % (Auto) Neut % (Auto) Lymph % (Auto) Patrick % (Auto) Eos % (Auto) Baso % (Auto) Lymph # (Auto) Patrick # (Auto) Eos # (Auto) Baso # (Auto) Abs Immat Gran (auto) Absolute Neuts (auto) Absolute Nucleated RBC (0.0-0.012) X10*3/uL Nucleated RBC % (auto) (0.0-0.2) /100WBC Neutrophils % (Manual) (45-73) % Band Neutrophils % (3-5) % Lymphocytes % (Manual) (20-40) % Monocytes % (Manual) (2-11) % Abs Neuts (Manual) (2.2-7.9) X10*3/uL Lymphocytes # (Manual) (0.6-4.8) X10*3/uL Monocytes # (Manual) (0.0-1.2) X10*3/uL Toxic Granulation Toxic Vacuolation Platelet Estimate (NORMAL) Large Platelets Plt Morphology Comment RBC Morphology Polychromasia Microcytosis Macrocytosis Target Cells Ovalocytes D-Dimer NG/ML ABG pH (7.35-7.45) ABG pCO2 (32-45) mmHg ABG pO2 (83-108) mmHg ABG HCO3 (22-26) mmol/L ABG O2 Saturation % ABG Base Excess VBG pH (7.32-7.43) VBG pCO2 mmHg VBG pO2 mmHg VBG HCO3 mmol/L VBG O2 Saturation % VBG Base Excess mmol/L Oxygen Given Sodium (135-145) mmol/L Potassium (3.3-5.1) mmol/L Chloride (96-108) mmol/L Carbon Dioxide (22-29) mmol/L Anion Gap (12-20) BUN (9-16) mg/dL Creatinine (0.5-1.4) mg/dL Estim Creat Clear Calc Estimated GFR Random Glucose (60-115) mg/dL Lactic Acid 3.4 H* (0.5-2.0) mmol/L Lactic Acid Fup @ 2Hr (0.5-2.0) mmol/L Lactic Acid Fup @ 4Hr (0.5-2.0) mmol/L Calcium (8.4-10.2) mg/dL Phosphorus (2.7-4.5) mg/dL Magnesium (1.6-2.6) mg/dL Ferritin (10-250) ng/mL Total Bilirubin (0.0-1.0) mg/dL Direct Bilirubin (0.0-0.5) mg/dL AST (5-31) U/L ALT (0-31) U/L Alkaline Phosphatase (39-117) U/L Troponin I High Sens 60.6 H (<3.5-17.0) ng/L B-Natriuretic Peptide 145 H (<100) pg/mL Total Protein (6.5-8.0) g/dL Albumin (3.5-5.0) g/dL Lipase 16 (8-78) U/L Procalcitonin ng/mL Specimen Comment Urine Color Urine Appearance Urine pH (5.0-8.0) Ur Specific [place] (1.005-1.025) Urine Protein (NEG-TRACE) MG/DL Urine Glucose (UA) (NEG) MG/DL Urine Ketones (NEG) MG/DL Urine Blood (NEG) Urine Nitrite (NEG) Ur Leukocyte Esterase (NEG) Urine RBC (0) /HPF Urine WBC (0-4) /HPF Ur Squamous Epith Cells /LPF Urine Bacteria /LPF Urine Mucus /LPF Ur Random Sodium mmol/L Coronavirus (PCR) (Negative) Influenza Type A (PCR) (Negative) Influenza Type B (PCR) (Negative) RSV RNA Qual (PCR) (Negative) 04/28/20 04/28/20 04/28/20 Range/Units 05:35 05:35 05:35 WBC Cancelled (4.8-10.8) X10*3/uL RBC Cancelled (4.20-5.50) X10*6/uL Hgb Cancelled (12.0-16.0) g/dl Hct Cancelled (37-47) % MCV Cancelled (80-98) fL MCH Cancelled (27.0-33.0) pg MCHC Cancelled (31.0-35.0) g/dl RDW Cancelled (11.0-16.0) % Plt Count Cancelled (160-400) X10*3/uL MPV Cancelled (9.4-12.3) fL Immature Gran % (Auto) Neut % (Auto) Lymph % (Auto) Patrick % (Auto) Eos % (Auto) Baso % (Auto) Lymph # (Auto) Patrick # (Auto) Eos # (Auto) Baso # (Auto) Abs Immat Gran (auto) Absolute Neuts (auto) Absolute Nucleated RBC Cancelled (0.0-0.012) X10*3/uL Nucleated RBC % (auto) Cancelled (0.0-0.2) /100WBC Neutrophils % (Manual) (45-73) % Band Neutrophils % (3-5) % Lymphocytes % (Manual) (20-40) % Monocytes % (Manual) (2-11) % Abs Neuts (Manual) (2.2-7.9) X10*3/uL Lymphocytes # (Manual) (0.6-4.8) X10*3/uL Monocytes # (Manual) (0.0-1.2) X10*3/uL Toxic Granulation Toxic Vacuolation Platelet Estimate (NORMAL) Large Platelets Plt Morphology Comment RBC Morphology Polychromasia Microcytosis Macrocytosis Target Cells Ovalocytes D-Dimer NG/ML ABG pH (7.35-7.45) ABG pCO2 (32-45) mmHg ABG pO2 (83-108) mmHg ABG HCO3 (22-26) mmol/L ABG O2 Saturation % ABG Base Excess VBG pH (7.32-7.43) VBG pCO2 mmHg VBG pO2 mmHg VBG HCO3 mmol/L VBG O2 Saturation % VBG Base Excess mmol/L Oxygen Given Sodium 145 (135-145) mmol/L Potassium 3.4 D (3.3-5.1) mmol/L Chloride 113 H (96-108) mmol/L Carbon Dioxide 24 (22-29) mmol/L Anion Gap 11 L (12-20) BUN 6 L (9-16) mg/dL Creatinine 0.43 L (0.5-1.4) mg/dL Estim Creat Clear Calc 109.9 Estimated GFR > 60 Random Glucose 67 (60-115) mg/dL Lactic Acid 1.1 (0.5-2.0) mmol/L Lactic Acid Fup @ 2Hr (0.5-2.0) mmol/L Lactic Acid Fup @ 4Hr (0.5-2.0) mmol/L Calcium 7.8 L (8.4-10.2) mg/dL Phosphorus 1.7 L (2.7-4.5) mg/dL Magnesium 1.9 (1.6-2.6) mg/dL Ferritin (10-250) ng/mL Total Bilirubin (0.0-1.0) mg/dL Direct Bilirubin (0.0-0.5) mg/dL AST (5-31) U/L ALT (0-31) U/L Alkaline Phosphatase (39-117) U/L Troponin I High Sens (<3.5-17.0) ng/L B-Natriuretic Peptide (<100) pg/mL Total Protein (6.5-8.0) g/dL Albumin (3.5-5.0) g/dL Lipase (8-78) U/L Procalcitonin ng/mL Specimen Comment Urine Color Urine Appearance Urine pH (5.0-8.0) Ur Specific [place] (1.005-1.025) Urine Protein (NEG-TRACE) MG/DL Urine Glucose (UA) (NEG) MG/DL Urine Ketones (NEG) MG/DL Urine Blood (NEG) Urine Nitrite (NEG) Ur Leukocyte Esterase (NEG) Urine RBC (0) /HPF Urine WBC (0-4) /HPF Ur Squamous Epith Cells /LPF Urine Bacteria /LPF Urine Mucus /LPF Ur Random Sodium mmol/L Coronavirus (PCR) (Negative) Influenza Type A (PCR) (Negative) Influenza Type B (PCR) (Negative) RSV RNA Qual (PCR) (Negative) 04/28/20 04/28/20 04/28/20 Range/Units 05:35 05:35 05:35 WBC (4.8-10.8) X10*3/uL RBC (4.20-5.50) X10*6/uL Hgb (12.0-16.0) g/dl Hct (37-47) % MCV (80-98) fL MCH (27.0-33.0) pg MCHC (31.0-35.0) g/dl RDW (11.0-16.0) % Plt Count (160-400) X10*3/uL MPV (9.4-12.3) fL Immature Gran % (Auto) Neut % (Auto) Lymph % (Auto) Patrick % (Auto) Eos % (Auto) Baso % (Auto) Lymph # (Auto) Patrick # (Auto) Eos # (Auto) Baso # (Auto) Abs Immat Gran (auto) Absolute Neuts (auto) Absolute Nucleated RBC (0.0-0.012) X10*3/uL Nucleated RBC % (auto) (0.0-0.2) /100WBC Neutrophils % (Manual) (45-73) % Band Neutrophils % (3-5) % Lymphocytes % (Manual) (20-40) % Monocytes % (Manual) (2-11) % Abs Neuts (Manual) (2.2-7.9) X10*3/uL Lymphocytes # (Manual) (0.6-4.8) X10*3/uL Monocytes # (Manual) (0.0-1.2) X10*3/uL Toxic Granulation Toxic Vacuolation Platelet Estimate (NORMAL) Large Platelets Plt Morphology Comment RBC Morphology Polychromasia Microcytosis Macrocytosis Target Cells Ovalocytes D-Dimer 522 NG/ML ABG pH (7.35-7.45) ABG pCO2 (32-45) mmHg ABG pO2 (83-108) mmHg ABG HCO3 (22-26) mmol/L ABG O2 Saturation % ABG Base Excess VBG pH (7.32-7.43) VBG pCO2 mmHg VBG pO2 mmHg VBG HCO3 mmol/L VBG O2 Saturation % VBG Base Excess mmol/L Oxygen Given Sodium (135-145) mmol/L Potassium (3.3-5.1) mmol/L Chloride (96-108) mmol/L Carbon Dioxide (22-29) mmol/L Anion Gap (12-20) BUN (9-16) mg/dL Creatinine (0.5-1.4) mg/dL Estim Creat Clear Calc Estimated GFR Random Glucose (60-115) mg/dL Lactic Acid (0.5-2.0) mmol/L Lactic Acid Fup @ 2Hr (0.5-2.0) mmol/L Lactic Acid Fup @ 4Hr (0.5-2.0) mmol/L Calcium (8.4-10.2) mg/dL Phosphorus (2.7-4.5) mg/dL Magnesium (1.6-2.6) mg/dL Ferritin 106 (10-250) ng/mL Total Bilirubin (0.0-1.0) mg/dL Direct Bilirubin (0.0-0.5) mg/dL AST (5-31) U/L ALT (0-31) U/L Alkaline Phosphatase (39-117) U/L Troponin I High Sens (<3.5-17.0) ng/L B-Natriuretic Peptide (<100) pg/mL Total Protein (6.5-8.0) g/dL Albumin (3.5-5.0) g/dL Lipase (8-78) U/L Procalcitonin 1.92 ng/mL Specimen Comment Urine Color Urine Appearance Urine pH (5.0-8.0) Ur Specific [place] (1.005-1.025) Urine Protein (NEG-TRACE) MG/DL Urine Glucose (UA) (NEG) MG/DL Urine Ketones (NEG) MG/DL Urine Blood (NEG) Urine Nitrite (NEG) Ur Leukocyte Esterase (NEG) Urine RBC (0) /HPF Urine WBC (0-4) /HPF Ur Squamous Epith Cells /LPF Urine Bacteria /LPF Urine Mucus /LPF Ur Random Sodium mmol/L Coronavirus (PCR) (Negative) Influenza Type A (PCR) (Negative) Influenza Type B (PCR) (Negative) RSV RNA Qual (PCR) (Negative) 04/28/20 04/28/20 04/28/20 Range/Units 05:35 05:35 06:05 WBC 8.6 (4.8-10.8) X10*3/uL RBC 2.86 L (4.20-5.50) X10*6/uL Hgb 8.3 L (12.0-16.0) g/dl Hct 25.3 L (37-47) % MCV 88.5 (80-98) fL MCH 29.0 (27.0-33.0) pg MCHC 32.8 (31.0-35.0) g/dl RDW 20.1 H (11.0-16.0) % Plt Count 191 D (160-400) X10*3/uL MPV 10.3 (9.4-12.3) fL Immature Gran % (Auto) 2.1 H Neut % (Auto) 70.3 Lymph % (Auto) 15.8 L Patrick % (Auto) 9.7 Eos % (Auto) 1.2 Baso % (Auto) 0.9 Lymph # (Auto) 1.4 Patrick # (Auto) 0.8 Eos # (Auto) 0.1 Baso # (Auto) 0.1 Abs Immat Gran (auto) 0.18 H Absolute Neuts (auto) 6.0 Absolute Nucleated RBC 0.070 H (0.0-0.012) X10*3/uL Nucleated RBC % (auto) 0.8 H (0.0-0.2) /100WBC Neutrophils % (Manual) (45-73) % Band Neutrophils % (3-5) % Lymphocytes % (Manual) (20-40) % Monocytes % (Manual) (2-11) % Abs Neuts (Manual) (2.2-7.9) X10*3/uL Lymphocytes # (Manual) (0.6-4.8) X10*3/uL Monocytes # (Manual) (0.0-1.2) X10*3/uL Toxic Granulation Toxic Vacuolation Platelet Estimate (NORMAL) Large Platelets Plt Morphology Comment RBC Morphology Polychromasia Microcytosis Macrocytosis Target Cells Ovalocytes D-Dimer NG/ML ABG pH (7.35-7.45) ABG pCO2 (32-45) mmHg ABG pO2 (83-108) mmHg ABG HCO3 (22-26) mmol/L ABG O2 Saturation % ABG Base Excess VBG pH 7.58 H (7.32-7.43) VBG pCO2 28 mmHg VBG pO2 137 mmHg VBG HCO3 27 mmol/L VBG O2 Saturation 99.0 % VBG Base Excess 5.8 mmol/L Oxygen Given Sodium (135-145) mmol/L Potassium (3.3-5.1) mmol/L Chloride (96-108) mmol/L Carbon Dioxide (22-29) mmol/L Anion Gap (12-20) BUN (9-16) mg/dL Creatinine (0.5-1.4) mg/dL Estim Creat Clear Calc Estimated GFR Random Glucose (60-115) mg/dL Lactic Acid (0.5-2.0) mmol/L Lactic Acid Fup @ 2Hr (0.5-2.0) mmol/L Lactic Acid Fup @ 4Hr (0.5-2.0) mmol/L Calcium (8.4-10.2) mg/dL Phosphorus (2.7-4.5) mg/dL Magnesium (1.6-2.6) mg/dL Ferritin (10-250) ng/mL Total Bilirubin (0.0-1.0) mg/dL Direct Bilirubin (0.0-0.5) mg/dL AST (5-31) U/L ALT (0-31) U/L Alkaline Phosphatase (39-117) U/L Troponin I High Sens (<3.5-17.0) ng/L B-Natriuretic Peptide (<100) pg/mL Total Protein (6.5-8.0) g/dL Albumin (3.5-5.0) g/dL Lipase (8-78) U/L Procalcitonin ng/mL Specimen Comment DELAY Urine Color Urine Appearance Urine pH (5.0-8.0) Ur Specific [place] (1.005-1.025) Urine Protein (NEG-TRACE) MG/DL Urine Glucose (UA) (NEG) MG/DL Urine Ketones (NEG) MG/DL Urine Blood (NEG) Urine Nitrite (NEG) Ur Leukocyte Esterase (NEG) Urine RBC (0) /HPF Urine WBC (0-4) /HPF Ur Squamous Epith Cells /LPF Urine Bacteria /LPF Urine Mucus /LPF Ur Random Sodium mmol/L Coronavirus (PCR) (Negative) Influenza Type A (PCR) (Negative) Influenza Type B (PCR) (Negative) RSV RNA Qual (PCR) (Negative) 04/28/20 04/28/20 04/29/20 Range/Units 22:58 23:06 01:58 WBC (4.8-10.8) X10*3/uL RBC (4.20-5.50) X10*6/uL Hgb (12.0-16.0) g/dl Hct (37-47) % MCV (80-98) fL MCH (27.0-33.0) pg MCHC (31.0-35.0) g/dl RDW (11.0-16.0) % Plt Count (160-400) X10*3/uL MPV (9.4-12.3) fL Immature Gran % (Auto) Neut % (Auto) Lymph % (Auto) Patrick % (Auto) Eos % (Auto) Baso % (Auto) Lymph # (Auto) Patrick # (Auto) Eos # (Auto) Baso # (Auto) Abs Immat Gran (auto) Absolute Neuts (auto) Absolute Nucleated RBC (0.0-0.012) X10*3/uL Nucleated RBC % (auto) (0.0-0.2) /100WBC Neutrophils % (Manual) (45-73) % Band Neutrophils % (3-5) % Lymphocytes % (Manual) (20-40) % Monocytes % (Manual) (2-11) % Abs Neuts (Manual) (2.2-7.9) X10*3/uL Lymphocytes # (Manual) (0.6-4.8) X10*3/uL Monocytes # (Manual) (0.0-1.2) X10*3/uL Toxic Granulation Toxic Vacuolation Platelet Estimate (NORMAL) Large Platelets Plt Morphology Comment RBC Morphology Polychromasia Microcytosis Macrocytosis Target Cells Ovalocytes D-Dimer NG/ML ABG pH 7.50 H (7.35-7.45) ABG pCO2 35 (32-45) mmHg ABG pO2 75 L (83-108) mmHg ABG HCO3 28 H (22-26) mmol/L ABG O2 Saturation 96.0 % ABG Base Excess 5.1 VBG pH 7.46 H (7.32-7.43) VBG pCO2 39 mmHg VBG pO2 38 mmHg VBG HCO3 28 mmol/L VBG O2 Saturation 62.0 % VBG Base Excess 4.8 mmol/L Oxygen Given 100% Sodium (135-145) mmol/L Potassium (3.3-5.1) mmol/L Chloride (96-108) mmol/L Carbon Dioxide (22-29) mmol/L Anion Gap (12-20) BUN (9-16) mg/dL Creatinine (0.5-1.4) mg/dL Estim Creat Clear Calc Estimated GFR Random Glucose (60-115) mg/dL Lactic Acid (0.5-2.0) mmol/L Lactic Acid Fup @ 2Hr (0.5-2.0) mmol/L Lactic Acid Fup @ 4Hr (0.5-2.0) mmol/L Calcium (8.4-10.2) mg/dL Phosphorus (2.7-4.5) mg/dL Magnesium (1.6-2.6) mg/dL Ferritin (10-250) ng/mL Total Bilirubin (0.0-1.0) mg/dL Direct Bilirubin (0.0-0.5) mg/dL AST (5-31) U/L ALT (0-31) U/L Alkaline Phosphatase (39-117) U/L Troponin I High Sens (<3.5-17.0) ng/L B-Natriuretic Peptide 335 H (<100) pg/mL Total Protein (6.5-8.0) g/dL Albumin (3.5-5.0) g/dL Lipase (8-78) U/L Procalcitonin ng/mL Specimen Comment Urine Color Urine Appearance Urine pH (5.0-8.0) Ur Specific [place] (1.005-1.025) Urine Protein (NEG-TRACE) MG/DL Urine Glucose (UA) (NEG) MG/DL Urine Ketones (NEG) MG/DL Urine Blood (NEG) Urine Nitrite (NEG) Ur Leukocyte Esterase (NEG) Urine RBC (0) /HPF Urine WBC (0-4) /HPF Ur Squamous Epith Cells /LPF Urine Bacteria /LPF Urine Mucus /LPF Ur Random Sodium mmol/L Coronavirus (PCR) (Negative) Influenza Type A (PCR) (Negative) Influenza Type B (PCR) (Negative) RSV RNA Qual (PCR) (Negative) 04/29/20 04/29/20 04/29/20 Range/Units 02:07 02:08 03:27 WBC (4.8-10.8) X10*3/uL RBC (4.20-5.50) X10*6/uL Hgb (12.0-16.0) g/dl Hct (37-47) % MCV (80-98) fL MCH (27.0-33.0) pg MCHC (31.0-35.0) g/dl RDW (11.0-16.0) % Plt Count (160-400) X10*3/uL MPV (9.4-12.3) fL Immature Gran % (Auto) Neut % (Auto) Lymph % (Auto) Patrick % (Auto) Eos % (Auto) Baso % (Auto) Lymph # (Auto) Patrick # (Auto) Eos # (Auto) Baso # (Auto) Abs Immat Gran (auto) Absolute Neuts (auto) Absolute Nucleated RBC (0.0-0.012) X10*3/uL Nucleated RBC % (auto) (0.0-0.2) /100WBC Neutrophils % (Manual) (45-73) % Band Neutrophils % (3-5) % Lymphocytes % (Manual) (20-40) % Monocytes % (Manual) (2-11) % Abs Neuts (Manual) (2.2-7.9) X10*3/uL Lymphocytes # (Manual) (0.6-4.8) X10*3/uL Monocytes # (Manual) (0.0-1.2) X10*3/uL Toxic Granulation Toxic Vacuolation Platelet Estimate (NORMAL) Large Platelets Plt Morphology Comment RBC Morphology Polychromasia Microcytosis Macrocytosis Target Cells Ovalocytes D-Dimer NG/ML ABG pH 7.50 H (7.35-7.45) ABG pCO2 29 L (32-45) mmHg ABG pO2 > 450 H (83-108) mmHg ABG HCO3 23 (22-26) mmol/L ABG O2 Saturation 99.0 % ABG Base Excess 1.2 VBG pH 7.38 (7.32-7.43) VBG pCO2 42 mmHg VBG pO2 69 mmHg VBG HCO3 25 mmol/L VBG O2 Saturation 92.0 % VBG Base Excess 0.4 mmol/L Oxygen Given 100% Sodium (135-145) mmol/L Potassium (3.3-5.1) mmol/L Chloride (96-108) mmol/L Carbon Dioxide (22-29) mmol/L Anion Gap (12-20) BUN (9-16) mg/dL Creatinine (0.5-1.4) mg/dL Estim Creat Clear Calc Estimated GFR Random Glucose (60-115) mg/dL Lactic Acid 3.3 H* (0.5-2.0) mmol/L Lactic Acid Fup @ 2Hr (0.5-2.0) mmol/L Lactic Acid Fup @ 4Hr (0.5-2.0) mmol/L Calcium (8.4-10.2) mg/dL Phosphorus (2.7-4.5) mg/dL Magnesium (1.6-2.6) mg/dL Ferritin (10-250) ng/mL Total Bilirubin (0.0-1.0) mg/dL Direct Bilirubin (0.0-0.5) mg/dL AST (5-31) U/L ALT (0-31) U/L Alkaline Phosphatase (39-117) U/L Troponin I High Sens (<3.5-17.0) ng/L B-Natriuretic Peptide (<100) pg/mL Total Protein (6.5-8.0) g/dL Albumin (3.5-5.0) g/dL Lipase (8-78) U/L Procalcitonin ng/mL Specimen Comment Urine Color Urine Appearance Urine pH (5.0-8.0) Ur Specific [place] (1.005-1.025) Urine Protein (NEG-TRACE) MG/DL Urine Glucose (UA) (NEG) MG/DL Urine Ketones (NEG) MG/DL Urine Blood (NEG) Urine Nitrite (NEG) Ur Leukocyte Esterase (NEG) Urine RBC (0) /HPF Urine WBC (0-4) /HPF Ur Squamous Epith Cells /LPF Urine Bacteria /LPF Urine Mucus /LPF Ur Random Sodium mmol/L Coronavirus (PCR) (Negative) Influenza Type A (PCR) (Negative) Influenza Type B (PCR) (Negative) RSV RNA Qual (PCR) (Negative) 04/29/20 04/29/20 04/29/20 Range/Units 04:17 05:52 05:52 WBC 17.6 H (4.8-10.8) X10*3/uL RBC 3.02 L (4.20-5.50) X10*6/uL Hgb 8.7 L (12.0-16.0) g/dl Hct 27.1 L (37-47) % MCV 89.7 (80-98) fL MCH 28.8 (27.0-33.0) pg MCHC 32.1 (31.0-35.0) g/dl RDW 20.5 H (11.0-16.0) % Plt Count 404 H D (160-400) X10*3/uL MPV 9.3 L (9.4-12.3) fL Immature Gran % (Auto) Neut % (Auto) Lymph % (Auto) Patrick % (Auto) Eos % (Auto) Baso % (Auto) Lymph # (Auto) Patrick # (Auto) Eos # (Auto) Baso # (Auto) Abs Immat Gran (auto) Absolute Neuts (auto) Absolute Nucleated RBC 0.050 H (0.0-0.012) X10*3/uL Nucleated RBC % (auto) 0.3 H (0.0-0.2) /100WBC Neutrophils % (Manual) 75 H (45-73) % Band Neutrophils % 6 H (3-5) % Lymphocytes % (Manual) 6 L (20-40) % Monocytes % (Manual) 13 H (2-11) % Abs Neuts (Manual) 14.3 H (2.2-7.9) X10*3/uL Lymphocytes # (Manual) 1.1 (0.6-4.8) X10*3/uL Monocytes # (Manual) 2.3 H (0.0-1.2) X10*3/uL Toxic Granulation PRESENT Toxic Vacuolation PRESENT Platelet Estimate SLIGHTLY INCREASED (NORMAL) Large Platelets PRESENT Plt Morphology Comment NOTED RBC Morphology NOTED Polychromasia 1+ Microcytosis 1+ Macrocytosis Target Cells 1+ Ovalocytes 1+ D-Dimer NG/ML ABG pH (7.35-7.45) ABG pCO2 (32-45) mmHg ABG pO2 (83-108) mmHg ABG HCO3 (22-26) mmol/L ABG O2 Saturation % ABG Base Excess VBG pH (7.32-7.43) VBG pCO2 mmHg VBG pO2 mmHg VBG HCO3 mmol/L VBG O2 Saturation % VBG Base Excess mmol/L Oxygen Given Sodium 143 (135-145) mmol/L Potassium 3.0 L (3.3-5.1) mmol/L Chloride 104 (96-108) mmol/L Carbon Dioxide 24 (22-29) mmol/L Anion Gap 18 (12-20) BUN 5 L (9-16) mg/dL Creatinine 0.58 (0.5-1.4) mg/dL Estim Creat Clear Calc 81.4 Estimated GFR > 60 Random Glucose 108 D (60-115) mg/dL Lactic Acid (0.5-2.0) mmol/L Lactic Acid Fup @ 2Hr 3.7 H* (0.5-2.0) mmol/L Lactic Acid Fup @ 4Hr (0.5-2.0) mmol/L Calcium 8.6 D (8.4-10.2) mg/dL Phosphorus (2.7-4.5) mg/dL Magnesium (1.6-2.6) mg/dL Ferritin (10-250) ng/mL Total Bilirubin (0.0-1.0) mg/dL Direct Bilirubin (0.0-0.5) mg/dL AST (5-31) U/L ALT (0-31) U/L Alkaline Phosphatase (39-117) U/L Troponin I High Sens (<3.5-17.0) ng/L B-Natriuretic Peptide (<100) pg/mL Total Protein (6.5-8.0) g/dL Albumin 3.5 D (3.5-5.0) g/dL Lipase (8-78) U/L Procalcitonin ng/mL Specimen Comment Urine Color Urine Appearance Urine pH (5.0-8.0) Ur Specific [place] (1.005-1.025) Urine Protein (NEG-TRACE) MG/DL Urine Glucose (UA) (NEG) MG/DL Urine Ketones (NEG) MG/DL Urine Blood (NEG) Urine Nitrite (NEG) Ur Leukocyte Esterase (NEG) Urine RBC (0) /HPF Urine WBC (0-4) /HPF Ur Squamous Epith Cells /LPF Urine Bacteria /LPF Urine Mucus /LPF Ur Random Sodium mmol/L Coronavirus (PCR) (Negative) Influenza Type A (PCR) (Negative) Influenza Type B (PCR) (Negative) RSV RNA Qual (PCR) (Negative) 04/29/20 04/29/20 04/30/20 Range/Units 05:52 10:47 05:30 WBC 8.8 (4.8-10.8) X10*3/uL RBC 2.55 L (4.20-5.50) X10*6/uL Hgb 7.2 L (12.0-16.0) g/dl Hct 22.8 L (37-47) % MCV 89.4 (80-98) fL MCH 28.2 (27.0-33.0) pg MCHC 31.6 (31.0-35.0) g/dl RDW 21.0 H (11.0-16.0) % Plt Count 220 D (160-400) X10*3/uL MPV 9.2 L (9.4-12.3) fL Immature Gran % (Auto) 0.6 H Neut % (Auto) 74.9 H Lymph % (Auto) 16.7 L Patrick % (Auto) 5.1 Eos % (Auto) 2.6 Baso % (Auto) 0.1 Lymph # (Auto) 1.5 Patrick # (Auto) 0.5 Eos # (Auto) 0.2 Baso # (Auto) 0.0 Abs Immat Gran (auto) 0.05 H Absolute Neuts (auto) 6.6 Absolute Nucleated RBC 0.000 (0.0-0.012) X10*3/uL Nucleated RBC % (auto) 0.0 (0.0-0.2) /100WBC Neutrophils % (Manual) (45-73) % Band Neutrophils % (3-5) % Lymphocytes % (Manual) (20-40) % Monocytes % (Manual) (2-11) % Abs Neuts (Manual) (2.2-7.9) X10*3/uL Lymphocytes # (Manual) (0.6-4.8) X10*3/uL Monocytes # (Manual) (0.0-1.2) X10*3/uL Toxic Granulation Toxic Vacuolation Platelet Estimate (NORMAL) Large Platelets Plt Morphology Comment RBC Morphology Polychromasia Microcytosis Macrocytosis Target Cells Ovalocytes D-Dimer NG/ML ABG pH (7.35-7.45) ABG pCO2 (32-45) mmHg ABG pO2 (83-108) mmHg ABG HCO3 (22-26) mmol/L ABG O2 Saturation % ABG Base Excess VBG pH 7.37 7.48 H (7.32-7.43) VBG pCO2 45 37 mmHg VBG pO2 35 69 mmHg VBG HCO3 26 28 mmol/L VBG O2 Saturation 53.0 94.0 % VBG Base Excess 1.0 4.4 mmol/L Oxygen Given Sodium (135-145) mmol/L Potassium (3.3-5.1) mmol/L Chloride (96-108) mmol/L Carbon Dioxide (22-29) mmol/L Anion Gap (12-20) BUN (9-16) mg/dL Creatinine (0.5-1.4) mg/dL Estim Creat Clear Calc Estimated GFR Random Glucose (60-115) mg/dL Lactic Acid (0.5-2.0) mmol/L Lactic Acid Fup @ 2Hr (0.5-2.0) mmol/L Lactic Acid Fup @ 4Hr (0.5-2.0) mmol/L Calcium (8.4-10.2) mg/dL Phosphorus (2.7-4.5) mg/dL Magnesium (1.6-2.6) mg/dL Ferritin (10-250) ng/mL Total Bilirubin (0.0-1.0) mg/dL Direct Bilirubin (0.0-0.5) mg/dL AST (5-31) U/L ALT (0-31) U/L Alkaline Phosphatase (39-117) U/L Troponin I High Sens (<3.5-17.0) ng/L B-Natriuretic Peptide (<100) pg/mL Total Protein (6.5-8.0) g/dL Albumin (3.5-5.0) g/dL Lipase (8-78) U/L Procalcitonin ng/mL Specimen Comment Urine Color Urine Appearance Urine pH (5.0-8.0) Ur Specific [place] (1.005-1.025) Urine Protein (NEG-TRACE) MG/DL Urine Glucose (UA) (NEG) MG/DL Urine Ketones (NEG) MG/DL Urine Blood (NEG) Urine Nitrite (NEG) Ur Leukocyte Esterase (NEG) Urine RBC (0) /HPF Urine WBC (0-4) /HPF Ur Squamous Epith Cells /LPF Urine Bacteria /LPF Urine Mucus /LPF Ur Random Sodium mmol/L Coronavirus (PCR) (Negative) Influenza Type A (PCR) (Negative) Influenza Type B (PCR) (Negative) RSV RNA Qual (PCR) (Negative) 04/30/20 04/30/20 04/30/20 Range/Units 05:30 05:30 05:30 WBC (4.8-10.8) X10*3/uL RBC (4.20-5.50) X10*6/uL Hgb (12.0-16.0) g/dl Hct (37-47) % MCV (80-98) fL MCH (27.0-33.0) pg MCHC (31.0-35.0) g/dl RDW (11.0-16.0) % Plt Count (160-400) X10*3/uL MPV (9.4-12.3) fL Immature Gran % (Auto) Neut % (Auto) Lymph % (Auto) Patrick % (Auto) Eos % (Auto) Baso % (Auto) Lymph # (Auto) Patrick # (Auto) Eos # (Auto) Baso # (Auto) Abs Immat Gran (auto) Absolute Neuts (auto) Absolute Nucleated RBC (0.0-0.012) X10*3/uL Nucleated RBC % (auto) (0.0-0.2) /100WBC Neutrophils % (Manual) (45-73) % Band Neutrophils % (3-5) % Lymphocytes % (Manual) (20-40) % Monocytes % (Manual) (2-11) % Abs Neuts (Manual) (2.2-7.9) X10*3/uL Lymphocytes # (Manual) (0.6-4.8) X10*3/uL Monocytes # (Manual) (0.0-1.2) X10*3/uL Toxic Granulation Toxic Vacuolation Platelet Estimate (NORMAL) Large Platelets Plt Morphology Comment RBC Morphology Polychromasia Microcytosis Macrocytosis Target Cells Ovalocytes D-Dimer NG/ML ABG pH (7.35-7.45) ABG pCO2 (32-45) mmHg ABG pO2 (83-108) mmHg ABG HCO3 (22-26) mmol/L ABG O2 Saturation % ABG Base Excess VBG pH (7.32-7.43) VBG pCO2 mmHg VBG pO2 mmHg VBG HCO3 mmol/L VBG O2 Saturation % VBG Base Excess mmol/L Oxygen Given Sodium 141 (135-145) mmol/L Potassium 3.5 (3.3-5.1) mmol/L Chloride 105 (96-108) mmol/L Carbon Dioxide 31 H (22-29) mmol/L Anion Gap 9 L (12-20) BUN 4 L (9-16) mg/dL Creatinine 0.45 L (0.5-1.4) mg/dL Estim Creat Clear Calc 105.0 Estimated GFR > 60 Random Glucose 73 (60-115) mg/dL Lactic Acid 1.0 (0.5-2.0) mmol/L Lactic Acid Fup @ 2Hr (0.5-2.0) mmol/L Lactic Acid Fup @ 4Hr (0.5-2.0) mmol/L Calcium 8.3 L (8.4-10.2) mg/dL Phosphorus 1.9 L (2.7-4.5) mg/dL Magnesium 1.5 L (1.6-2.6) mg/dL Ferritin (10-250) ng/mL Total Bilirubin (0.0-1.0) mg/dL Direct Bilirubin (0.0-0.5) mg/dL AST (5-31) U/L ALT (0-31) U/L Alkaline Phosphatase (39-117) U/L Troponin I High Sens (<3.5-17.0) ng/L B-Natriuretic Peptide (<100) pg/mL Total Protein (6.5-8.0) g/dL Albumin (3.5-5.0) g/dL Lipase (8-78) U/L Procalcitonin 2.03 ng/mL Specimen Comment Urine Color Urine Appearance Urine pH (5.0-8.0) Ur Specific [place] (1.005-1.025) Urine Protein (NEG-TRACE) MG/DL Urine Glucose (UA) (NEG) MG/DL Urine Ketones (NEG) MG/DL Urine Blood (NEG) Urine Nitrite (NEG) Ur Leukocyte Esterase (NEG) Urine RBC (0) /HPF Urine WBC (0-4) /HPF Ur Squamous Epith Cells /LPF Urine Bacteria /LPF Urine Mucus /LPF Ur Random Sodium mmol/L Coronavirus (PCR) (Negative) Influenza Type A (PCR) (Negative) Influenza Type B (PCR) (Negative) RSV RNA Qual (PCR) (Negative) 04/30/20 04/30/20 Range/Units 05:30 10:21 WBC (4.8-10.8) X10*3/uL RBC (4.20-5.50) X10*6/uL Hgb (12.0-16.0) g/dl Hct (37-47) % MCV (80-98) fL MCH (27.0-33.0) pg MCHC (31.0-35.0) g/dl RDW (11.0-16.0) % Plt Count (160-400) X10*3/uL MPV (9.4-12.3) fL Immature Gran % (Auto) Neut % (Auto) Lymph % (Auto) Patrick % (Auto) Eos % (Auto) Baso % (Auto) Lymph # (Auto) Patrick # (Auto) Eos # (Auto) Baso # (Auto) Abs Immat Gran (auto) Absolute Neuts (auto) Absolute Nucleated RBC (0.0-0.012) X10*3/uL Nucleated RBC % (auto) (0.0-0.2) /100WBC Neutrophils % (Manual) (45-73) % Band Neutrophils % (3-5) % Lymphocytes % (Manual) (20-40) % Monocytes % (Manual) (2-11) % Abs Neuts (Manual) (2.2-7.9) X10*3/uL Lymphocytes # (Manual) (0.6-4.8) X10*3/uL Monocytes # (Manual) (0.0-1.2) X10*3/uL Toxic Granulation Toxic Vacuolation Platelet Estimate (NORMAL) Large Platelets Plt Morphology Comment RBC Morphology Polychromasia Microcytosis Macrocytosis Target Cells Ovalocytes D-Dimer NG/ML ABG pH (7.35-7.45) ABG pCO2 (32-45) mmHg ABG pO2 (83-108) mmHg ABG HCO3 (22-26) mmol/L ABG O2 Saturation % ABG Base Excess VBG pH 7.48 H (7.32-7.43) VBG pCO2 40 mmHg VBG pO2 48 mmHg VBG HCO3 30 mmol/L VBG O2 Saturation 80.0 % VBG Base Excess 6.5 mmol/L Oxygen Given Sodium (135-145) mmol/L Potassium (3.3-5.1) mmol/L Chloride (96-108) mmol/L Carbon Dioxide (22-29) mmol/L Anion Gap (12-20) BUN (9-16) mg/dL Creatinine (0.5-1.4) mg/dL Estim Creat Clear Calc Estimated GFR Random Glucose (60-115) mg/dL Lactic Acid (0.5-2.0) mmol/L Lactic Acid Fup @ 2Hr (0.5-2.0) mmol/L Lactic Acid Fup @ 4Hr (0.5-2.0) mmol/L Calcium (8.4-10.2) mg/dL Phosphorus (2.7-4.5) mg/dL Magnesium (1.6-2.6) mg/dL Ferritin (10-250) ng/mL Total Bilirubin (0.0-1.0) mg/dL Direct Bilirubin (0.0-0.5) mg/dL AST (5-31) U/L ALT (0-31) U/L Alkaline Phosphatase (39-117) U/L Troponin I High Sens (<3.5-17.0) ng/L B-Natriuretic Peptide (<100) pg/mL Total Protein (6.5-8.0) g/dL Albumin (3.5-5.0) g/dL Lipase (8-78) U/L Procalcitonin ng/mL Specimen Comment Urine Color Urine Appearance Urine pH (5.0-8.0) Ur Specific [place] (1.005-1.025) Urine Protein (NEG-TRACE) MG/DL Urine Glucose (UA) (NEG) MG/DL Urine Ketones (NEG) MG/DL Urine Blood (NEG) Urine Nitrite (NEG) Ur Leukocyte Esterase (NEG) Urine RBC (0) /HPF Urine WBC (0-4) /HPF Ur Squamous Epith Cells /LPF Urine Bacteria /LPF Urine Mucus /LPF Ur Random Sodium 77.0 mmol/L Coronavirus (PCR) (Negative) Influenza Type A (PCR) (Negative) Influenza Type B (PCR) (Negative) RSV RNA Qual (PCR) (Negative) Narrative Narrative: Intubated. Ventilated. On pressors Airway Other: Intubated Assessment and Plan Assessment Anesthesia Assessment: Anesthesia Plan Discussed (Plan discussed with patient's daughter(guardian)) and Chart Reviewed Final Anesthetic Review NPO: Yes ASA Class: IV Final Preanesthetic Review: No Changes in Pt Med Stat, Meds/Allgs Chart Reviewed, Consent Obtained/Reviewed and Anes Risks/Benef Reviewed Patient Risk: High Procedure Risk: Low Anesthetic Plan Anesthetic Plan: GA Disposition: Inp. Admit - ICU
[2020-04-30] MEDS: DOPamine HCL/D5W 400 MG/250 ML PLAST..BAG 6.1 MG IVCONT (12:00)
--- NOTE | 2020-04-30 12:28 | HO.ANESPROP2 ---
[facility] Active Problems Active Problems: All Active Problems (Updated 04/30/20 @ 09:59 by Emma Jones MD) History of laparoscopic adjustable gastric banding (Acute) Septic shock (Acute) Elevated lactic acid level (Acute) Hypotension (Acute) Aspiration pneumonia (Acute) Acute respiratory failure with hypoxia (Acute) Respiratory failure (Acute) Pneumonia (Acute) Demand ischemia (Acute) Past Medical History Medical History Asthma CVA (cerebral vascular accident) Diabetes Dysphagia History of gastrostomy tube placement Hypernatremia Hypokalemia Metabolic encephalopathy Nephrolithiasis Pneumonia Seizure Sepsis Subarachnoid hemorrhage VRE (vancomycin-resistant Enterococci) Family History Family History Mother Stroke Father No problems noted. Brother No problems noted. Sister No problems noted. Daughter No problems noted. Daughter No problems noted. Surgical History Surgical History History of bunionectomy of both great toes History of hysterectomy History of laparoscopic adjustable gastric banding History of tracheostomy S/P clamping of cerebral aneurysm Social History Social History Household Members: Unknown / Unable to assess Housing: [facility] Unable to assess alcohol history related to: Unable to respond Alcohol intake: unknown Smoking Status: Unknown if ever smoked Use of substances other than those prescribed or required for medical reasons: Unable to respond Currently Displaying Signs/Symptoms of Drug Intoxication Withdrawal: No Advance Directives: No Advance Directives Information Provided: No Do you have thoughts of harming others: None Do you have a plan to hurt others: No Plan service: No Current occupational status: employed Meds Allergies Allergy/AdvReac Type Severity Reaction Status Date / Time No Known Allergies Allergy Verified 04/30/20 10:00 Active Medications: Current Medications Generic Name Dose Route Start Last Admin Trade Name Freq PRN Reason Stop Dose Admin Chlorhexidine Gluconate 15 ml 04/27/20 01:30 04/30/20 07:53 Chlorhexidine Gluc Oral Rinse 15 Ml Mouthwash BUCCAL 15 ml Q8H ROSALINE Administration Enoxaparin Sodium 40 mg 04/27/20 02:00 04/29/20 20:31 Enoxaparin Sodium 40 Mg/0.4 Ml Syringe SUBCUT 40 mg BEDTIME ROSALINE Administration Propofol 1,000 mg in 100 mls @ 0 mls/hr 04/29/20 01:00 04/30/20 10:31 Diprivan IVCONT 25 mcg/kg/min .Q0M ROSALINE 7.97 mls/hr Titration Protocol Per Protocol Norepinephrine Bitartrate 8 mg in 250 mls @ 0 mls/hr 04/29/20 01:15 04/30/20 11:33 Levophed IVCONT 0.07 mcg/kg/min .Q0M ROSALINE 6.97 mls/hr Titration Protocol Per Protocol Dextrose/Sodium Chloride 1,000 mls @ 50 mls/hr 04/29/20 10:45 04/30/20 07:53 D51/2ns IVCONT 50 mls/hr .Q20H ROSALINE Administration Ampicillin Sodium/Sulbactam 100 mls @ 200 mls/hr 04/29/20 14:00 04/30/20 08:28 Sodium 3 gm/ Sodium Chloride IV Infused Q6H ROSALINE Infusion Potassium Chloride 40 meq 04/30/20 12:00 Potassium Chloride Packet 20 Meq Packet PO ONCE ROSALINE Valproic Acid 375 mg 04/29/20 15:00 04/30/20 07:53 Valproic Acid (As Sodium Salt) 250 Mg/5 Ml Solution G-TUBE 375 mg TID ROSALINE Administration Home Medications Medication Instructions Recorded Confirmed Last Taken Type albuterol sulfate [ProAir HFA] 2 puff INHALATION Q4H PRN 04/28/20 04/28/20 Unknown History amlodipine 5 mg PO DAILY 04/28/20 04/28/20 Unknown History carboxymethylcellulose sodium 1 drp OPHTHALMIC (EYE) TID PRN 04/28/20 04/28/20 Unknown History [Refresh Celluvisc] divalproex [Depakote Sprinkles] 375 mg PO TID 04/28/20 04/28/20 Unknown History dronabinol [Marinol] 2.5 mg PO BIDAC 04/28/20 04/28/20 Unknown History heparin (porcine) 5,000 unit SUBCUT Q8H 04/28/20 04/28/20 Unknown History hypromellose [[place]] 1 drp OPHTHALMIC (EYE) BID 04/28/20 04/28/20 Unknown History mirtazapine 15 mg PO BEDTIME 04/28/20 04/28/20 Unknown History multivitamin 1 tab PO DAILY 04/28/20 04/28/20 Unknown History polyvinyl alcohol-povidone 1 drp OPHTHALMIC (EYE) TID PRN 04/28/20 04/28/20 Unknown History Exam Exam Date and Time: April 30, 2020 1228 Height,Weight and Vital Signs: Height 5 ft Weight 54.2 kg Last Vital Signs Temp 97.7 F 04/30/20 11:00 Pulse 59 04/30/20 12:00 Resp 10 L 04/30/20 12:00 BP 108/65 04/30/20 12:00 Pulse Ox 98 04/30/20 12:00 Pertinent Lab Results Pertinent Lab Results: Laboratory Tests 04/26/20 04/27/20 04/27/20 Unknown 01:00 01:00 WBC RBC Hgb Hct MCV MCH MCHC RDW Plt Count MPV Immature Gran % (Auto) Neut % (Auto) Lymph % (Auto) [place] % (Auto) Eos % (Auto) Baso % (Auto) Lymph # (Auto) [place] # (Auto) Eos # (Auto) Baso # (Auto) Abs Immat Gran (auto) Absolute Neuts (auto) Absolute Nucleated RBC Nucleated RBC % (auto) Neutrophils % (Manual) Band Neutrophils % Lymphocytes % (Manual) Monocytes % (Manual) Abs Neuts (Manual) Lymphocytes # (Manual) Monocytes # (Manual) Toxic Granulation Toxic Vacuolation Platelet Estimate Large Platelets Plt Morphology Comment RBC Morphology Polychromasia Microcytosis Macrocytosis Target Cells Ovalocytes D-Dimer ABG pH ABG pCO2 ABG pO2 ABG HCO3 ABG O2 Saturation ABG Base Excess VBG pH 7.47 H VBG pCO2 31 VBG pO2 61 VBG HCO3 23 VBG O2 Saturation 89.0 VBG Base Excess 0.3 Oxygen Given Sodium Potassium Chloride Carbon Dioxide Anion Gap BUN Creatinine Estim Creat Clear Calc Estimated GFR Random Glucose Lactic Acid Lactic Acid Fup @ 2Hr Lactic Acid Fup @ 4Hr Calcium Phosphorus Magnesium Ferritin Total Bilirubin Direct Bilirubin AST ALT Alkaline Phosphatase Troponin I High Sens B-Natriuretic Peptide Total Protein Albumin Lipase Procalcitonin Specimen Comment Urine Color YELLOW Urine Appearance HAZY Urine pH 6.5 Ur Specific [place] 1.015 Urine Protein NEG Urine Glucose (UA) NEG Urine Ketones NEG Urine Blood 1+ H Urine Nitrite NEG Ur Leukocyte Esterase 2+ H Urine RBC 10-14 H Urine WBC 30-49 H Ur Squamous Epith Cells 2+ Urine Bacteria 2+ Urine Mucus 2+ Ur Random Sodium Coronavirus (PCR) NEGATIVE Influenza Type A (PCR) NEGATIVE Influenza Type B (PCR) NEGATIVE RSV RNA Qual (PCR) NEGATIVE 04/27/20 04/27/20 04/27/20 03:15 05:14 05:14 WBC 12.6 H RBC 3.32 L D Hgb 9.5 L D Hct 29.7 L D MCV 89.5 MCH 28.6 MCHC 32.0 RDW 19.4 H Plt Count 279 D MPV 9.7 Immature Gran % (Auto) Cancelled Neut % (Auto) Cancelled Lymph % (Auto) Cancelled [place] % (Auto) Cancelled Eos % (Auto) Cancelled Baso % (Auto) Cancelled Lymph # (Auto) Cancelled [place] # (Auto) Cancelled Eos # (Auto) Cancelled Baso # (Auto) Cancelled Abs Immat Gran (auto) Cancelled Absolute Neuts (auto) Cancelled Absolute Nucleated RBC 0.000 Nucleated RBC % (auto) 0.0 Neutrophils % (Manual) 69 Band Neutrophils % 12 H Lymphocytes % (Manual) 9 L Monocytes % (Manual) 10 Abs Neuts (Manual) 10.2 H Lymphocytes # (Manual) 1.1 Monocytes # (Manual) 1.3 H Toxic Granulation Toxic Vacuolation PRESENT Platelet Estimate NORMAL Large Platelets Plt Morphology Comment NORMAL RBC Morphology NOTED Polychromasia 1+ Microcytosis Macrocytosis 1+ Target Cells Ovalocytes 1+ D-Dimer ABG pH ABG pCO2 ABG pO2 ABG HCO3 ABG O2 Saturation ABG Base Excess VBG pH VBG pCO2 VBG pO2 VBG HCO3 VBG O2 Saturation VBG Base Excess Oxygen Given Sodium 145 Potassium 4.4 D Chloride 112 H Carbon Dioxide 25 Anion Gap 12 BUN 9 Creatinine 0.54 Estim Creat Clear Calc 87.5 Estimated GFR > 60 Random Glucose 99 D Lactic Acid Lactic Acid Fup @ 2Hr 5.9 H* Lactic Acid Fup @ 4Hr Calcium 7.5 L D Phosphorus 1.8 L Magnesium 1.6 Ferritin Total Bilirubin Direct Bilirubin AST ALT Alkaline Phosphatase Troponin I High Sens B-Natriuretic Peptide Total Protein Albumin 2.9 L Lipase Procalcitonin Specimen Comment Urine Color Urine Appearance Urine pH Ur Specific [place] Urine Protein Urine Glucose (UA) Urine Ketones Urine Blood Urine Nitrite Ur Leukocyte Esterase Urine RBC Urine WBC Ur Squamous Epith Cells Urine Bacteria Urine Mucus Ur Random Sodium Coronavirus (PCR) Influenza Type A (PCR) Influenza Type B (PCR) RSV RNA Qual (PCR) 04/27/20 04/27/20 04/27/20 05:14 05:14 05:14 WBC RBC Hgb Hct MCV MCH MCHC RDW Plt Count MPV Immature Gran % (Auto) Neut % (Auto) Lymph % (Auto) [place] % (Auto) Eos % (Auto) Baso % (Auto) Lymph # (Auto) [place] # (Auto) Eos # (Auto) Baso # (Auto) Abs Immat Gran (auto) Absolute Neuts (auto) Absolute Nucleated RBC Nucleated RBC % (auto) Neutrophils % (Manual) Band Neutrophils % Lymphocytes % (Manual) Monocytes % (Manual) Abs Neuts (Manual) Lymphocytes # (Manual) Monocytes # (Manual) Toxic Granulation Toxic Vacuolation Platelet Estimate Large Platelets Plt Morphology Comment RBC Morphology Polychromasia Microcytosis Macrocytosis Target Cells Ovalocytes D-Dimer ABG pH ABG pCO2 ABG pO2 ABG HCO3 ABG O2 Saturation ABG Base Excess VBG pH 7.44 H VBG pCO2 33 VBG pO2 42 VBG HCO3 22 VBG O2 Saturation 70.0 VBG Base Excess -0.7 Oxygen Given Sodium Potassium Chloride Carbon Dioxide Anion Gap BUN Creatinine Estim Creat Clear Calc Estimated GFR Random Glucose Lactic Acid Lactic Acid Fup @ 2Hr Lactic Acid Fup @ 4Hr 2.6 H* Calcium Phosphorus Magnesium Ferritin Total Bilirubin Direct Bilirubin AST ALT Alkaline Phosphatase Troponin I High Sens 137.6 H D B-Natriuretic Peptide Total Protein Albumin Lipase Procalcitonin Specimen Comment Urine Color Urine Appearance Urine pH Ur Specific [place] Urine Protein Urine Glucose (UA) Urine Ketones Urine Blood Urine Nitrite Ur Leukocyte Esterase Urine RBC Urine WBC Ur Squamous Epith Cells Urine Bacteria Urine Mucus Ur Random Sodium Coronavirus (PCR) Influenza Type A (PCR) Influenza Type B (PCR) RSV RNA Qual (PCR) 04/27/20 04/27/20 04/27/20 14:15 Unknown Unknown WBC 12.6 H RBC 4.54 Hgb 12.9 Hct 40.3 MCV 88.8 MCH 28.4 MCHC 32.0 RDW 19.9 H Plt Count 419 H D MPV 9.6 Immature Gran % (Auto) 5.9 H Neut % (Auto) 81.1 H Lymph % (Auto) 6.4 L [place] % (Auto) 6.2 Eos % (Auto) 0.2 Baso % (Auto) 0.2 Lymph # (Auto) 0.8 L [place] # (Auto) 0.8 Eos # (Auto) 0.0 Baso # (Auto) 0.0 Abs Immat Gran (auto) 0.74 H Absolute Neuts (auto) 10.3 H Absolute Nucleated RBC 0.020 H Nucleated RBC % (auto) 0.2 Neutrophils % (Manual) Band Neutrophils % Lymphocytes % (Manual) Monocytes % (Manual) Abs Neuts (Manual) Lymphocytes # (Manual) Monocytes # (Manual) Toxic Granulation Toxic Vacuolation Platelet Estimate Large Platelets Plt Morphology Comment RBC Morphology Polychromasia Microcytosis Macrocytosis Target Cells Ovalocytes D-Dimer ABG pH ABG pCO2 ABG pO2 ABG HCO3 ABG O2 Saturation ABG Base Excess VBG pH 7.50 H VBG pCO2 30 VBG pO2 48 VBG HCO3 23 VBG O2 Saturation 80.0 VBG Base Excess 1.3 Oxygen Given Sodium 144 Potassium 3.0 L Chloride 106 Carbon Dioxide 25 Anion Gap 16 BUN 10 Creatinine 0.58 Estim Creat Clear Calc 81.4 Estimated GFR > 60 Random Glucose 184 H D Lactic Acid Lactic Acid Fup @ 2Hr Lactic Acid Fup @ 4Hr Calcium 8.5 D Phosphorus Magnesium Ferritin Total Bilirubin 0.6 Direct Bilirubin 0.2 AST 13 ALT < 6 Alkaline Phosphatase 59 Troponin I High Sens B-Natriuretic Peptide Total Protein 6.5 Albumin 2.7 L Lipase Procalcitonin Specimen Comment Urine Color Urine Appearance Urine pH Ur Specific [place] Urine Protein Urine Glucose (UA) Urine Ketones Urine Blood Urine Nitrite Ur Leukocyte Esterase Urine RBC Urine WBC Ur Squamous Epith Cells Urine Bacteria Urine Mucus Ur Random Sodium Coronavirus (PCR) Influenza Type A (PCR) Influenza Type B (PCR) RSV RNA Qual (PCR) 04/27/20 04/27/20 04/27/20 Unknown Unknown Unknown WBC RBC Hgb Hct MCV MCH MCHC RDW Plt Count MPV Immature Gran % (Auto) Neut % (Auto) Lymph % (Auto) [place] % (Auto) Eos % (Auto) Baso % (Auto) Lymph # (Auto) [place] # (Auto) Eos # (Auto) Baso # (Auto) Abs Immat Gran (auto) Absolute Neuts (auto) Absolute Nucleated RBC Nucleated RBC % (auto) Neutrophils % (Manual) Band Neutrophils % Lymphocytes % (Manual) Monocytes % (Manual) Abs Neuts (Manual) Lymphocytes # (Manual) Monocytes # (Manual) Toxic Granulation Toxic Vacuolation Platelet Estimate Large Platelets Plt Morphology Comment RBC Morphology Polychromasia Microcytosis Macrocytosis Target Cells Ovalocytes D-Dimer ABG pH ABG pCO2 ABG pO2 ABG HCO3 ABG O2 Saturation ABG Base Excess VBG pH VBG pCO2 VBG pO2 VBG HCO3 VBG O2 Saturation VBG Base Excess Oxygen Given Sodium Potassium Chloride Carbon Dioxide Anion Gap BUN Creatinine Estim Creat Clear Calc Estimated GFR Random Glucose Lactic Acid 3.4 H* Lactic Acid Fup @ 2Hr Lactic Acid Fup @ 4Hr Calcium Phosphorus Magnesium Ferritin Total Bilirubin Direct Bilirubin AST ALT Alkaline Phosphatase Troponin I High Sens 60.6 H B-Natriuretic Peptide 145 H Total Protein Albumin Lipase 16 Procalcitonin Specimen Comment Urine Color Urine Appearance Urine pH Ur Specific [place] Urine Protein Urine Glucose (UA) Urine Ketones Urine Blood Urine Nitrite Ur Leukocyte Esterase Urine RBC Urine WBC Ur Squamous Epith Cells Urine Bacteria Urine Mucus Ur Random Sodium Coronavirus (PCR) Influenza Type A (PCR) Influenza Type B (PCR) RSV RNA Qual (PCR) 04/28/20 04/28/20 04/28/20 05:35 05:35 05:35 WBC Cancelled RBC Cancelled Hgb Cancelled Hct Cancelled MCV Cancelled MCH Cancelled MCHC Cancelled RDW Cancelled Plt Count Cancelled MPV Cancelled Immature Gran % (Auto) Neut % (Auto) Lymph % (Auto) [place] % (Auto) Eos % (Auto) Baso % (Auto) Lymph # (Auto) [place] # (Auto) Eos # (Auto) Baso # (Auto) Abs Immat Gran (auto) Absolute Neuts (auto) Absolute Nucleated RBC Cancelled Nucleated RBC % (auto) Cancelled Neutrophils % (Manual) Band Neutrophils % Lymphocytes % (Manual) Monocytes % (Manual) Abs Neuts (Manual) Lymphocytes # (Manual) Monocytes # (Manual) Toxic Granulation Toxic Vacuolation Platelet Estimate Large Platelets Plt Morphology Comment RBC Morphology Polychromasia Microcytosis Macrocytosis Target Cells Ovalocytes D-Dimer ABG pH ABG pCO2 ABG pO2 ABG HCO3 ABG O2 Saturation ABG Base Excess VBG pH VBG pCO2 VBG pO2 VBG HCO3 VBG O2 Saturation VBG Base Excess Oxygen Given Sodium 145 Potassium 3.4 D Chloride 113 H Carbon Dioxide 24 Anion Gap 11 L BUN 6 L Creatinine 0.43 L Estim Creat Clear Calc 109.9 Estimated GFR > 60 Random Glucose 67 Lactic Acid 1.1 Lactic Acid Fup @ 2Hr Lactic Acid Fup @ 4Hr Calcium 7.8 L Phosphorus 1.7 L Magnesium 1.9 Ferritin Total Bilirubin Direct Bilirubin AST ALT Alkaline Phosphatase Troponin I High Sens B-Natriuretic Peptide Total Protein Albumin Lipase Procalcitonin Specimen Comment Urine Color Urine Appearance Urine pH Ur Specific [place] Urine Protein Urine Glucose (UA) Urine Ketones Urine Blood Urine Nitrite Ur Leukocyte Esterase Urine RBC Urine WBC Ur Squamous Epith Cells Urine Bacteria Urine Mucus Ur Random Sodium Coronavirus (PCR) Influenza Type A (PCR) Influenza Type B (PCR) RSV RNA Qual (PCR) 04/28/20 04/28/20 04/28/20 05:35 05:35 05:35 WBC RBC Hgb Hct MCV MCH MCHC RDW Plt Count MPV Immature Gran % (Auto) Neut % (Auto) Lymph % (Auto) [place] % (Auto) Eos % (Auto) Baso % (Auto) Lymph # (Auto) [place] # (Auto) Eos # (Auto) Baso # (Auto) Abs Immat Gran (auto) Absolute Neuts (auto) Absolute Nucleated RBC Nucleated RBC % (auto) Neutrophils % (Manual) Band Neutrophils % Lymphocytes % (Manual) Monocytes % (Manual) Abs Neuts (Manual) Lymphocytes # (Manual) Monocytes # (Manual) Toxic Granulation Toxic Vacuolation Platelet Estimate Large Platelets Plt Morphology Comment RBC Morphology Polychromasia Microcytosis Macrocytosis Target Cells Ovalocytes D-Dimer 522 ABG pH ABG pCO2 ABG pO2 ABG HCO3 ABG O2 Saturation ABG Base Excess VBG pH VBG pCO2 VBG pO2 VBG HCO3 VBG O2 Saturation VBG Base Excess Oxygen Given Sodium Potassium Chloride Carbon Dioxide Anion Gap BUN Creatinine Estim Creat Clear Calc Estimated GFR Random Glucose Lactic Acid Lactic Acid Fup @ 2Hr Lactic Acid Fup @ 4Hr Calcium Phosphorus Magnesium Ferritin 106 Total Bilirubin Direct Bilirubin AST ALT Alkaline Phosphatase Troponin I High Sens B-Natriuretic Peptide Total Protein Albumin Lipase Procalcitonin 1.92 Specimen Comment Urine Color Urine Appearance Urine pH Ur Specific [place] Urine Protein Urine Glucose (UA) Urine Ketones Urine Blood Urine Nitrite Ur Leukocyte Esterase Urine RBC Urine WBC Ur Squamous Epith Cells Urine Bacteria Urine Mucus Ur Random Sodium Coronavirus (PCR) Influenza Type A (PCR) Influenza Type B (PCR) RSV RNA Qual (PCR) 04/28/20 04/28/20 04/28/20 05:35 05:35 06:05 WBC 8.6 RBC 2.86 L Hgb 8.3 L Hct 25.3 L MCV 88.5 MCH 29.0 MCHC 32.8 RDW 20.1 H Plt Count 191 D MPV 10.3 Immature Gran % (Auto) 2.1 H Neut % (Auto) 70.3 Lymph % (Auto) 15.8 L [place] % (Auto) 9.7 Eos % (Auto) 1.2 Baso % (Auto) 0.9 Lymph # (Auto) 1.4 [place] # (Auto) 0.8 Eos # (Auto) 0.1 Baso # (Auto) 0.1 Abs Immat Gran (auto) 0.18 H Absolute Neuts (auto) 6.0 Absolute Nucleated RBC 0.070 H Nucleated RBC % (auto) 0.8 H Neutrophils % (Manual) Band Neutrophils % Lymphocytes % (Manual) Monocytes % (Manual) Abs Neuts (Manual) Lymphocytes # (Manual) Monocytes # (Manual) Toxic Granulation Toxic Vacuolation Platelet Estimate Large Platelets Plt Morphology Comment RBC Morphology Polychromasia Microcytosis Macrocytosis Target Cells Ovalocytes D-Dimer ABG pH ABG pCO2 ABG pO2 ABG HCO3 ABG O2 Saturation ABG Base Excess VBG pH 7.58 H VBG pCO2 28 VBG pO2 137 VBG HCO3 27 VBG O2 Saturation 99.0 VBG Base Excess 5.8 Oxygen Given Sodium Potassium Chloride Carbon Dioxide Anion Gap BUN Creatinine Estim Creat Clear Calc Estimated GFR Random Glucose Lactic Acid Lactic Acid Fup @ 2Hr Lactic Acid Fup @ 4Hr Calcium Phosphorus Magnesium Ferritin Total Bilirubin Direct Bilirubin AST ALT Alkaline Phosphatase Troponin I High Sens B-Natriuretic Peptide Total Protein Albumin Lipase Procalcitonin Specimen Comment DELAY Urine Color Urine Appearance Urine pH Ur Specific [place] Urine Protein Urine Glucose (UA) Urine Ketones Urine Blood Urine Nitrite Ur Leukocyte Esterase Urine RBC Urine WBC Ur Squamous Epith Cells Urine Bacteria Urine Mucus Ur Random Sodium Coronavirus (PCR) Influenza Type A (PCR) Influenza Type B (PCR) RSV RNA Qual (PCR) 04/28/20 04/28/20 04/29/20 22:58 23:06 01:58 WBC RBC Hgb Hct MCV MCH MCHC RDW Plt Count MPV Immature Gran % (Auto) Neut % (Auto) Lymph % (Auto) [place] % (Auto) Eos % (Auto) Baso % (Auto) Lymph # (Auto) [place] # (Auto) Eos # (Auto) Baso # (Auto) Abs Immat Gran (auto) Absolute Neuts (auto) Absolute Nucleated RBC Nucleated RBC % (auto) Neutrophils % (Manual) Band Neutrophils % Lymphocytes % (Manual) Monocytes % (Manual) Abs Neuts (Manual) Lymphocytes # (Manual) Monocytes # (Manual) Toxic Granulation Toxic Vacuolation Platelet Estimate Large Platelets Plt Morphology Comment RBC Morphology Polychromasia Microcytosis Macrocytosis Target Cells Ovalocytes D-Dimer ABG pH 7.50 H ABG pCO2 35 ABG pO2 75 L ABG HCO3 28 H ABG O2 Saturation 96.0 ABG Base Excess 5.1 VBG pH 7.46 H VBG pCO2 39 VBG pO2 38 VBG HCO3 28 VBG O2 Saturation 62.0 VBG Base Excess 4.8 Oxygen Given 100% Sodium Potassium Chloride Carbon Dioxide Anion Gap BUN Creatinine Estim Creat Clear Calc Estimated GFR Random Glucose Lactic Acid Lactic Acid Fup @ 2Hr Lactic Acid Fup @ 4Hr Calcium Phosphorus Magnesium Ferritin Total Bilirubin Direct Bilirubin AST ALT Alkaline Phosphatase Troponin I High Sens B-Natriuretic Peptide 335 H Total Protein Albumin Lipase Procalcitonin Specimen Comment Urine Color Urine Appearance Urine pH Ur Specific [place] Urine Protein Urine Glucose (UA) Urine Ketones Urine Blood Urine Nitrite Ur Leukocyte Esterase Urine RBC Urine WBC Ur Squamous Epith Cells Urine Bacteria Urine Mucus Ur Random Sodium Coronavirus (PCR) Influenza Type A (PCR) Influenza Type B (PCR) RSV RNA Qual (PCR) 04/29/20 04/29/20 04/29/20 02:07 02:08 03:27 WBC RBC Hgb Hct MCV MCH MCHC RDW Plt Count MPV Immature Gran % (Auto) Neut % (Auto) Lymph % (Auto) [place] % (Auto) Eos % (Auto) Baso % (Auto) Lymph # (Auto) [place] # (Auto) Eos # (Auto) Baso # (Auto) Abs Immat Gran (auto) Absolute Neuts (auto) Absolute Nucleated RBC Nucleated RBC % (auto) Neutrophils % (Manual) Band Neutrophils % Lymphocytes % (Manual) Monocytes % (Manual) Abs Neuts (Manual) Lymphocytes # (Manual) Monocytes # (Manual) Toxic Granulation Toxic Vacuolation Platelet Estimate Large Platelets Plt Morphology Comment RBC Morphology Polychromasia Microcytosis Macrocytosis Target Cells Ovalocytes D-Dimer ABG pH 7.50 H ABG pCO2 29 L ABG pO2 > 450 H ABG HCO3 23 ABG O2 Saturation 99.0 ABG Base Excess 1.2 VBG pH 7.38 VBG pCO2 42 VBG pO2 69 VBG HCO3 25 VBG O2 Saturation 92.0 VBG Base Excess 0.4 Oxygen Given 100% Sodium Potassium Chloride Carbon Dioxide Anion Gap BUN Creatinine Estim Creat Clear Calc Estimated GFR Random Glucose Lactic Acid 3.3 H* Lactic Acid Fup @ 2Hr Lactic Acid Fup @ 4Hr Calcium Phosphorus Magnesium Ferritin Total Bilirubin Direct Bilirubin AST ALT Alkaline Phosphatase Troponin I High Sens B-Natriuretic Peptide Total Protein Albumin Lipase Procalcitonin Specimen Comment Urine Color Urine Appearance Urine pH Ur Specific [place] Urine Protein Urine Glucose (UA) Urine Ketones Urine Blood Urine Nitrite Ur Leukocyte Esterase Urine RBC Urine WBC Ur Squamous Epith Cells Urine Bacteria Urine Mucus Ur Random Sodium Coronavirus (PCR) Influenza Type A (PCR) Influenza Type B (PCR) RSV RNA Qual (PCR) 04/29/20 04/29/20 04/29/20 04:17 05:52 05:52 WBC 17.6 H RBC 3.02 L Hgb 8.7 L Hct 27.1 L MCV 89.7 MCH 28.8 MCHC 32.1 RDW 20.5 H Plt Count 404 H D MPV 9.3 L Immature Gran % (Auto) Neut % (Auto) Lymph % (Auto) [place] % (Auto) Eos % (Auto) Baso % (Auto) Lymph # (Auto) [place] # (Auto) Eos # (Auto) Baso # (Auto) Abs Immat Gran (auto) Absolute Neuts (auto) Absolute Nucleated RBC 0.050 H Nucleated RBC % (auto) 0.3 H Neutrophils % (Manual) 75 H Band Neutrophils % 6 H Lymphocytes % (Manual) 6 L Monocytes % (Manual) 13 H Abs Neuts (Manual) 14.3 H Lymphocytes # (Manual) 1.1 Monocytes # (Manual) 2.3 H Toxic Granulation PRESENT Toxic Vacuolation PRESENT Platelet Estimate SLIGHTLY INCREASED Large Platelets PRESENT Plt Morphology Comment NOTED RBC Morphology NOTED Polychromasia 1+ Microcytosis 1+ Macrocytosis Target Cells 1+ Ovalocytes 1+ D-Dimer ABG pH ABG pCO2 ABG pO2 ABG HCO3 ABG O2 Saturation ABG Base Excess VBG pH VBG pCO2 VBG pO2 VBG HCO3 VBG O2 Saturation VBG Base Excess Oxygen Given Sodium 143 Potassium 3.0 L Chloride 104 Carbon Dioxide 24 Anion Gap 18 BUN 5 L Creatinine 0.58 Estim Creat Clear Calc 81.4 Estimated GFR > 60 Random Glucose 108 D Lactic Acid Lactic Acid Fup @ 2Hr 3.7 H* Lactic Acid Fup @ 4Hr Calcium 8.6 D Phosphorus Magnesium Ferritin Total Bilirubin Direct Bilirubin AST ALT Alkaline Phosphatase Troponin I High Sens B-Natriuretic Peptide Total Protein Albumin 3.5 D Lipase Procalcitonin Specimen Comment Urine Color Urine Appearance Urine pH Ur Specific [place] Urine Protein Urine Glucose (UA) Urine Ketones Urine Blood Urine Nitrite Ur Leukocyte Esterase Urine RBC Urine WBC Ur Squamous Epith Cells Urine Bacteria Urine Mucus Ur Random Sodium Coronavirus (PCR) Influenza Type A (PCR) Influenza Type B (PCR) RSV RNA Qual (PCR) 04/29/20 04/29/20 04/30/20 05:52 10:47 05:30 WBC 8.8 RBC 2.55 L Hgb 7.2 L Hct 22.8 L MCV 89.4 MCH 28.2 MCHC 31.6 RDW 21.0 H Plt Count 220 D MPV 9.2 L Immature Gran % (Auto) 0.6 H Neut % (Auto) 74.9 H Lymph % (Auto) 16.7 L [place] % (Auto) 5.1 Eos % (Auto) 2.6 Baso % (Auto) 0.1 Lymph # (Auto) 1.5 [place] # (Auto) 0.5 Eos # (Auto) 0.2 Baso # (Auto) 0.0 Abs Immat Gran (auto) 0.05 H Absolute Neuts (auto) 6.6 Absolute Nucleated RBC 0.000 Nucleated RBC % (auto) 0.0 Neutrophils % (Manual) Band Neutrophils % Lymphocytes % (Manual) Monocytes % (Manual) Abs Neuts (Manual) Lymphocytes # (Manual) Monocytes # (Manual) Toxic Granulation Toxic Vacuolation Platelet Estimate Large Platelets Plt Morphology Comment RBC Morphology Polychromasia Microcytosis Macrocytosis Target Cells Ovalocytes D-Dimer ABG pH ABG pCO2 ABG pO2 ABG HCO3 ABG O2 Saturation ABG Base Excess VBG pH 7.37 7.48 H VBG pCO2 45 37 VBG pO2 35 69 VBG HCO3 26 28 VBG O2 Saturation 53.0 94.0 VBG Base Excess 1.0 4.4 Oxygen Given Sodium Potassium Chloride Carbon Dioxide Anion Gap BUN Creatinine Estim Creat Clear Calc Estimated GFR Random Glucose Lactic Acid Lactic Acid Fup @ 2Hr Lactic Acid Fup @ 4Hr Calcium Phosphorus Magnesium Ferritin Total Bilirubin Direct Bilirubin AST ALT Alkaline Phosphatase Troponin I High Sens B-Natriuretic Peptide Total Protein Albumin Lipase Procalcitonin Specimen Comment Urine Color Urine Appearance Urine pH Ur Specific [place] Urine Protein Urine Glucose (UA) Urine Ketones Urine Blood Urine Nitrite Ur Leukocyte Esterase Urine RBC Urine WBC Ur Squamous Epith Cells Urine Bacteria Urine Mucus Ur Random Sodium Coronavirus (PCR) Influenza Type A (PCR) Influenza Type B (PCR) RSV RNA Qual (PCR) 04/30/20 04/30/20 04/30/20 05:30 05:30 05:30 WBC RBC Hgb Hct MCV MCH MCHC RDW Plt Count MPV Immature Gran % (Auto) Neut % (Auto) Lymph % (Auto) [place] % (Auto) Eos % (Auto) Baso % (Auto) Lymph # (Auto) [place] # (Auto) Eos # (Auto) Baso # (Auto) Abs Immat Gran (auto) Absolute Neuts (auto) Absolute Nucleated RBC Nucleated RBC % (auto) Neutrophils % (Manual) Band Neutrophils % Lymphocytes % (Manual) Monocytes % (Manual) Abs Neuts (Manual) Lymphocytes # (Manual) Monocytes # (Manual) Toxic Granulation Toxic Vacuolation Platelet Estimate Large Platelets Plt Morphology Comment RBC Morphology Polychromasia Microcytosis Macrocytosis Target Cells Ovalocytes D-Dimer ABG pH ABG pCO2 ABG pO2 ABG HCO3 ABG O2 Saturation ABG Base Excess VBG pH VBG pCO2 VBG pO2 VBG HCO3 VBG O2 Saturation VBG Base Excess Oxygen Given Sodium 141 Potassium 3.5 Chloride 105 Carbon Dioxide 31 H Anion Gap 9 L BUN 4 L Creatinine 0.45 L Estim Creat Clear Calc 105.0 Estimated GFR > 60 Random Glucose 73 Lactic Acid 1.0 Lactic Acid Fup @ 2Hr Lactic Acid Fup @ 4Hr Calcium 8.3 L Phosphorus 1.9 L Magnesium 1.5 L Ferritin Total Bilirubin Direct Bilirubin AST ALT Alkaline Phosphatase Troponin I High Sens B-Natriuretic Peptide Total Protein Albumin Lipase Procalcitonin 2.03 Specimen Comment Urine Color Urine Appearance Urine pH Ur Specific [place] Urine Protein Urine Glucose (UA) Urine Ketones Urine Blood Urine Nitrite Ur Leukocyte Esterase Urine RBC Urine WBC Ur Squamous Epith Cells Urine Bacteria Urine Mucus Ur Random Sodium Coronavirus (PCR) Influenza Type A (PCR) Influenza Type B (PCR) RSV RNA Qual (PCR) 04/30/20 04/30/20 05:30 10:21 WBC RBC Hgb Hct MCV MCH MCHC RDW Plt Count MPV Immature Gran % (Auto) Neut % (Auto) Lymph % (Auto) [place] % (Auto) Eos % (Auto) Baso % (Auto) Lymph # (Auto) [place] # (Auto) Eos # (Auto) Baso # (Auto) Abs Immat Gran (auto) Absolute Neuts (auto) Absolute Nucleated RBC Nucleated RBC % (auto) Neutrophils % (Manual) Band Neutrophils % Lymphocytes % (Manual) Monocytes % (Manual) Abs Neuts (Manual) Lymphocytes # (Manual) Monocytes # (Manual) Toxic Granulation Toxic Vacuolation Platelet Estimate Large Platelets Plt Morphology Comment RBC Morphology Polychromasia Microcytosis Macrocytosis Target Cells Ovalocytes D-Dimer ABG pH ABG pCO2 ABG pO2 ABG HCO3 ABG O2 Saturation ABG Base Excess VBG pH 7.48 H VBG pCO2 40 VBG pO2 48 VBG HCO3 30 VBG O2 Saturation 80.0 VBG Base Excess 6.5 Oxygen Given Sodium Potassium Chloride Carbon Dioxide Anion Gap BUN Creatinine Estim Creat Clear Calc Estimated GFR Random Glucose Lactic Acid Lactic Acid Fup @ 2Hr Lactic Acid Fup @ 4Hr Calcium Phosphorus Magnesium Ferritin Total Bilirubin Direct Bilirubin AST ALT Alkaline Phosphatase Troponin I High Sens B-Natriuretic Peptide Total Protein Albumin Lipase Procalcitonin Specimen Comment Urine Color Urine Appearance Urine pH Ur Specific [place] Urine Protein Urine Glucose (UA) Urine Ketones Urine Blood Urine Nitrite Ur Leukocyte Esterase Urine RBC Urine WBC Ur Squamous Epith Cells Urine Bacteria Urine Mucus Ur Random Sodium 77.0 Coronavirus (PCR) Influenza Type A (PCR) Influenza Type B (PCR) RSV RNA Qual (PCR) Airway Other: intubated from ICU.
--- NOTE | 2020-04-30 13:04 | PM.OP ---
Brief Operative Note Date of Service: 04/30/20 Pre-op diagnosis: Aspiration pneumonia and history of laparoscopic gastric band a Post-op diagnosis: other (Small sliding hiatal hernia, normal gastric band, midbody gastritis) Procedure: 1. Esophagogastroduodenoscopy, 2. Mid body gastric biopsy x2, 3. deflation of gastric band Implants: None Surgeon: Emma Jones MD Anesthesia: GETA Estimated blood loss (mL): 0 Pathology: other (Mid body gastric biopsies) Condition: critical Disposition: ICU
--- NOTE | 2020-04-30 13:06 | P.OP_ITS ---
Operative Note Operative Note Date of Service: 04/30/20 Narrative: Patient was transferred from the ICU to the operating room on the ICU bed intubated and sedated. General anesthesia was induced. A safety time-out was performed. The subcutaneous port from the gastric band was palpated in the epigastrium on the patient's abdomen. An alcohol swab was used to clean the skin overlying the subcutaneous port. A Lyle needle along with a 10 mL syringe was used to access the subcutaneous port and a total of 13 mL of clear saline were removed from the lap band completely emptying it. Next we turned our attention to doing the endoscopy. A gastroscope was placed into the patient's mouth and passed into the posterior oropharynx down the esophagus evaluating the esophageal mucosa which was normal. There was some clear fluid within the esophagus which was suctioned. The GE junction was located at 41 cm from the incisors. The gastroscope was easily passed into the stomach. The gastric band which was widely patent was located at 43 cm from incisors. There was a small sliding hiatal hernia. The gastroscope was then retroflexed there was no evidence of gastric band erosion or gastric band slippage. The proximal stomach mucosa was normal. There was some granularity and cobblestoning of the mid body of the stomach on the greater curvature which had some erythema. This area was biopsied x2. The gastroscope was then passed to the pre-pyloric region through the pylorus down to the 3rd portion of duodenum all of which was normal. All of these portions of the upper endoscopy were document using photo documentation. The gastroscope was then retracted back into the stomach and the stomach was desufflated. The gastroscope was removed without difficulty. Patient tolerated procedure without complication. Patient was transferred back to the intensive care unit with the senior branch manager.
--- NOTE | 2020-04-30 14:29 | PC.NURSE ---
S/E Afebrile Sedated on Propofol - positive cough and gag, positive pain response Pupils 4mm, PERRLA SBP 70's - Levophed gtt restarted HR down to lowest 46 - Atropine 0.5mg IVP administered with effectiveness HR back down to high 40's - Levophed gtt stopped and started on Dopamine gtt HR 80's MAP >65 Dressing to R IJ TLC changed Phos 1.9 - NA phosphates ordered and administered On lovenox 40mg for DVT LS dim to coarse crackles RLB Vent settings unchanged - ETT 7.5 @ 25 cm AC10/360/5/25% Patient underwent upper endo in OR - new OGT placed and verified by XRay Faint bowel sounds - MD aware Last BM 04/29 Urine output increasing 200cc/hr, pale yellow - MD aware Stage II buttocks/coccyx - barrier cream applied Bathed, repo Q2hr Family to update Epic Ambulatory Analysts on decision of placing trach & peg
--- NOTE | 2020-04-30 14:44 | PM.CCPN ---
Subjective Subjective Date of Service: 04/30/20 Interval History: Mrs. Medina was admitted to ICU Apr 27 with acute respiratory failure and septic shock 2? to what appears to be straighfwd aspiration pneumonia. The patient is a 54 yo woman who is a resident of [facility]. 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 Her PMHx, by report, is as follows: Subarachnoid hemorrhage Metabolic encephalopathy Seizure Dysphagia Pneumonia Sepsis VRE (vancomycin-resistant Enterococci) Diabetes Hypernatremia Hypokalemia Nephrolithiasis s/p Lap band surgery (for morbid obesity) about ten years ago (? at [facility]) I spoke with the patient's daughter at length this afternoon - Yvrose Medina ([phone]). Altho I don?t have the medical records, from what the daughter told me, it sounds like in December,, the patient suffered a ruptured cerebral aneurysm. She was taken to [facility] and then transferred to [facility] that same day, where she underwent what sounds like a decompressive craniectomy. She was in [facility] from December to February,, and during that stay had a tracheostomy, PEG, and IT TRAINER shunt placed. The daughter was also told that she has a second aneurysm that was not addressed. (Again, this all what I surmise from my conversation with the daughter, I can?t be certain without the medical records.) From [facility] she went to [facility] in [facility]. She was decannulated after approximately 1 month, and her PEG was pulled at some point. She was at [facility] until Jul, 2019, at which time she was discharged home, and was walking and talking. According to the daughter, the part of her skull that was removed got spoiled so was unable to be replaced, and she was wearing a helmet. In October, she went back to [facility] for an implant to replace the cranial portion removed. Unfortunately she bled postoperatively and suffered neurologic deterioration. Ultimately she was discharged to rehab for a month, and then from there to [facility]. Since that surgery, she has not been able to walk, and her speech has been significantly impaired. The staff at [facility] says that she talks a little, but gets winded from long conversation. The patient?s daughter says that she has full conversations with her mother on the telephone. From what the daughter tells me, it also sounds like since the surgery, the patient exhibits echolalia. (The patient grew up speaking [place]. She?ll respond to an [place] African speaker in Russian, and respond to a Russian speaker in [place].) The daughter also indicated to me that her mother has lost about 30 lbs since October. HISTORY OF PRESENT ILLNESS: The patient was reportedly recently hospitalized at [facility] for pneumonia and was just discharged back to [facility] on Tuesday, Apr 26. The patient was BIBA from [facility] yest morning (04/27) bec of fairly rapid onset of resp distress. On EMS arrival there, the patient had frothy sputum, Sat 60% on room air. She was thought to be in pulmon edema. She was given Lasix and CPAP and tx to the ED. On arrival to the ED, Saturation was still low on BiPAP and she was therefore intubated. She required pressors (? 2? intubation) so a CVL was placed and she was started on Levophed, along with abx. CT scan showed that her right lower lobe was socked in with pneumonia. There was no evidence of pulmonary edema. She was admitted to ICU early Apr 27, where she was put on Unasyn. In the ICU she was initially hypotensive, despite for fluids. My bedside echo showed: 1. At least mild, if not moderate LVH. 2. LV cavity size is normal, with hyperdynamic LV fxn, EF 70+%, no RWMA. 3. RV size normal or small. 4. Both atria prob normal sized. 5. AoV morphologically normal. Unable to Doppler. 6. MV morphologically normal with trace MR by color chris. 7. TV morphologically normal with 1+ TR by color chris, with CWD jet measuring 1.2 m/sec, or calculated gradient 6mm. 8. IVC normal size (1.4 cm). Minimally inspiratory collapse on PPV. Estimated CVP 5-8cm. She was given more colloid and crystalloid, her BP came up, and she came off the Levophed. The propofol was turned off the next morning (Apr 28) and it took a few hours for her to come around but by about 11am she was clearly fully awake and starting to be more interactive and exhibit consistent tracking. She responded to simple commands. She was therefore extubated without incident. On room air, she was maintaining a Sat in the mid 90s all day into the early evening. Over the day, she got to the point where she was able to verbally answer simple questions with a yes or no. About 21:00 that night, she had what appears to have been sudden onset of tachypnea, hypoxemia, and tachycardia and hypertension. She was treated with Lasix, but undoubtedly, had recurrent aspiration. Ultimately just past midnight, she required re-intubation. Post intubation, she dropped her blood pressure, same thing that happened originally in the emergency department, and had to go back on Levophed. Her blood pressure came back up following volume resuscitation. On exam that (Apr 29) morning, she was lightly sedated on propofol. She awakened easily and was tracking, but did not respond to questions or commands. I spoke to Yvrose, her daughter, and told her of the events, and my opinion that it was now certain that her mother needed a tracheostomy and PEG. I also discussed that with Dr. Jones and we concluded that we should do an EGD to check the lap band before the tracheostomy and PEG. Yvrose agreed to let us do the EGD. We also did an EEG yesterday afternoon (Apr 29) bec of shivering, ? seizure activity. Today, she?s sedated lightly on propofol at 20ug. She opens her eyes to stimulation but is non interactive. Breathing easy on the ventilator on AC 10/360/25%/+5, with RR about 14, Sat 97% 100%. CVBG this morning on that setting showed 7.48/40/+6. She remains afebrile. HR dropped into the 60?s and she became hypotensive to the 80?s. A dose of atropine brought her HR into the 70?s and corrected the hypotension, so we started her on dopamine. She has no venous distention at 30-40?. Chest auscultation is clear on the left and shows tubular sounds on the right. Heart rate and rhythm are regular, with normal-sounding S1 and S2, with no murmur or gallops. Her abdomen is benign. She has no peripheral edema. Her right hand is somewhat clawed. She does not move her right side at all to command; she appears to be hemiplegic. There was a question by the nurses whether the patient had some seizures in the community services manager hours yesterday. Sounded to me like she was shivering. I saw her doing that Tuesday morning 04/27. She does have a h/o seizures, however. She?s on valproate 375mg tid. EEG done yesterday (while she was off propofol) and read by Dr. Rayo as follows: EEG is considered markedly abnormal due to severe diffuse background slowing as well as bifrontal, left greater than right sharp and slow wave discharges that may be indicative of a seizure focus in the frontal region. Clinical correlation is suggested. LABORATORY DATA: As below. WBC is back down. CXR today: Left side is clear. Right basilar opacity. MICROBIOLOGY: 06/08 blood culture bottles drawn in the ED on admission are growing staph epi. Urine is growing 2 organisms in insufficient numbers. EGD today in the OR by Dr. Jones: The position of the band was OK. She had a HH and gastritis. The lap band was deflated by Dr. Jones. IMPRESSION: 1. Acute resp failure 2? recurrent aspiration. It?s clear now that she is unable to control her airway. She?ll need a tracheostomy and a PEG. We?ve scheduled the procedure tomorrow with Dr. Merritt. 2. Septic shock. Resolved. 3. Hypotension today. 2? bradycardia. Resolved with atropine. Now on dopamine. 4. ID: I am guessing that the blood cultures are contaminant. There is no clinical reason to think that she was bacteremic. Furthermore, she had an excellent antibiotic response of her fever and white count to the Unasyn. Nonetheless, we bumped the Unasyn to 3G. Given that the WBC is down, her FiO2 is way down, and she?s afebrile, I will d/c the abx tonight. 5. Hypokalemia. Replaced. 6. S/p massive aneurysmal bleed. Made a miraculous recovery, but then had catastrophic complications from the attempt to close her craniectomy. 7. Wt loss 30 lbs. My suspicion is that she has dysphagia and is unable to swallow the food bulk necessary to get enough calories. Subsequent events reported above prove that she needs a PEG. 8. S/p lap band surgery ten years ago. She has no further need for the lap band. Dr. Robert deflated it today. It may be removed in the future if her situation warrants. 9. ?Seizures. Discussed with Dr. Rayo. In his opinion, the EEG does not show seizure activity. For now, she continues on valproate. We?ll check a level and make sure she?s therapeutic. I called the patient?s daughter Yvrose after the EGD. We had a discussion about her mother?s condition and end-of-life wishes. She?s decided to go ahead with the tracheostomy and PEG, with the option to d/c supportive care if her mother?s condition hasn?t improved within a few months. Critical care time (excluding procedures): 75+ min. Physical Exam Vital Signs: Vital Signs: Last Vital Signs Temp 98.2 F 04/30/20 14:00 Pulse 76 04/30/20 14:00 Resp 10 L 04/30/20 14:00 BP 93/62 04/30/20 14:00 Pulse Ox 100 04/30/20 14:00 Body Mass Index 23.3 Objective Data Labs CBC & Chem 7: 04/30/20 05:30 04/30/20 05:30 Labs: Laboratory Results - last 24 hr 04/30/20 04/30/20 04/30/20 05:30 05:30 05:30 WBC 8.8 RBC 2.55 L Hgb 7.2 L Hct 22.8 L MCV 89.4 MCH 28.2 MCHC 31.6 RDW 21.0 H Plt Count 220 D MPV 9.2 L Immature Gran % (Auto) 0.6 H Neut % (Auto) 74.9 H Lymph % (Auto) 16.7 L [place] % (Auto) 5.1 Eos % (Auto) 2.6 Baso % (Auto) 0.1 Lymph # (Auto) 1.5 [place] # (Auto) 0.5 Eos # (Auto) 0.2 Baso # (Auto) 0.0 Abs Immat Gran (auto) 0.05 H Absolute Neuts (auto) 6.6 Absolute Nucleated RBC 0.000 Nucleated RBC % (auto) 0.0 VBG pH VBG pCO2 VBG pO2 VBG HCO3 VBG O2 Saturation VBG Base Excess Sodium 141 Potassium 3.5 Chloride 105 Carbon Dioxide 31 H Anion Gap 9 L BUN 4 L Creatinine 0.45 L Estim Creat Clear Calc 105.0 Estimated GFR > 60 Random Glucose 73 Lactic Acid 1.0 Calcium 8.3 L Phosphorus 1.9 L Magnesium 1.5 L Procalcitonin Ur Random Sodium 04/30/20 04/30/20 04/30/20 05:30 05:30 10:21 WBC RBC Hgb Hct MCV MCH MCHC RDW Plt Count MPV Immature Gran % (Auto) Neut % (Auto) Lymph % (Auto) [place] % (Auto) Eos % (Auto) Baso % (Auto) Lymph # (Auto) [place] # (Auto) Eos # (Auto) Baso # (Auto) Abs Immat Gran (auto) Absolute Neuts (auto) Absolute Nucleated RBC Nucleated RBC % (auto) VBG pH 7.48 H VBG pCO2 40 VBG pO2 48 VBG HCO3 30 VBG O2 Saturation 80.0 VBG Base Excess 6.5 Sodium Potassium Chloride Carbon Dioxide Anion Gap BUN Creatinine Estim Creat Clear Calc Estimated GFR Random Glucose Lactic Acid Calcium Phosphorus Magnesium Procalcitonin 2.03 Ur Random Sodium 77.0 Microbiology Microbiology Results: Microbiology 04/27/20 Unknown Blood - Venous Blood Culture - Preliminary Staphylococcus epidermidis 04/27/20 Unknown Blood - Venous Blood Culture - Preliminary Staphylococcus epidermidis 04/29/20 06:07 Blood - Venous Blood Culture - Preliminary No growth after 24 hours. 04/29/20 05:52 Blood - Venous Blood Culture - Preliminary No growth after 24 hours. 04/27/20 Unknown Urine Catheterized - Straight Catheter Urine Culture - Final Enterococcus faecalis Pseudomonas aeruginosa 04/27/20 05:52 Sputum - Suctioned Gram Stain - Final 04/27/20 05:52 Sputum - Suctioned Sputum Culture - Final Progress Note: A&P Time Spent With Patient Time: Total time spent is greater than 50% in coordination of care (as documented) at patient's floor/unit and/or counseling patient: Total time spent with greater than 50% in coordination of care (as documented) at patient's floor/unit and/or counseling patient:: 0 Critical Care Time Critical Care Time (minutes): 90
--- NOTE | 2020-04-30 15:03 | MHC.SLORD ---
Pt remains intubated. Per MD note, pt's family to discuss LEARNING AND DEVELOPMENT ANALYST or peg/trach placement. CHIEF TELEPHONE OPERATOR will continue to follow. Name: Asha Medina Date of : 1965 Age: 54 Date of Registration: 04/27/20 Speech Language Pathology Order Status:
[2020-04-30] MEDS: propofoL 1,000 MG/100 ML VIAL 7.97 MG IVCONT (18:19)
--- NOTE | 2020-04-30 18:43 | PC.NURSE ---
Patient noted to have teixeira output between 250-350 ml/hr of pale yellow urine. notified. Urine study ordered.
[2020-04-30 20:33] LABS: Glucose Urine UA NEG (NEG); Leukocyte Esterase Urine NEG (NEG); Nitrite Urine NEG (NEG); PH 7.5 (5.0-8.0); Urine Blood NEG (NEG); Urine Ketones NEG (NEG); Urine Protein NEG (NEG-TRACE)
[2020-04-30 20:34] LABS: Appearance Urine CLEAR; Color Urine YELLOW
[2020-04-30 20:41] LABS: Valproate 90.4 mcg/mL (50.0-100.0)
[2020-04-30] MEDS: Enoxaparin Sodium 40 MG/0.4 ML SYRINGE SUBCUT (20:58)
[2020-05-01] VITALS (33 sets, daily range): BP systolic 75–137; BP diastolic 46–92; PULSE 50–114; RESP 10–14; TEMP 35.2–37.5; O2SAT 95–100; BMI 22.6
[2020-05-01] MEDS: propofoL 1,000 MG/100 ML VIAL 7.97 MG IVCONT ×2 (00:18→10:50)
[2020-05-01] MEDS: Chlorhexidine Gluc Oral Rinse 15 ML MOUTHWASH BUCCAL ×2 (00:19→08:11)
[2020-05-01] MEDS: Magnesium Sulfate/H2O 2 GM/50 ML PIGGYBACK IV (02:05)
[2020-05-01] MEDS: Sodium,Potassium Phosphates POWD.PACK 2 PACKET PO (02:05)
--- NOTE | 2020-05-01 03:29 | PC.NURSE ---
Dopamine gtt titrated as needed for heart rate and blood pressure, PA notified. PA also notified of patient's output throughout shift.
[2020-05-01] MEDS: DOPamine HCL/D5W 400 MG/250 ML PLAST..BAG 15.24 MG IVCONT (03:59)
[2020-05-01 05:47] LABS: Base Excess VBG 9.2 mmol/L; HCO3 VBG 33 mmol/L; PCO2 VBG 43 mmHg; PO2 VBG 50 mmHg; pH VBG 7.48 (7.32-7.43)
[2020-05-01 06:05] LABS: MANUAL DIFF FLAG NO
[2020-05-01 06:07] LABS: Basophils Percent Auto 0.5 % (0-2); Eosinophils Absolute Auto 0.2 X10*3/uL (0.0-0.4); Eosinophils Percent Auto 2.8 % (0-4); Hematocrit 25.2 % (37-47); Imm Gran Abs Auto 0.07 X10*3/uL (0.00-0.03); Imm Gran Pct Auto 1.1 % (0.0-0.4); Lymphocytes Absolute Auto 1.4 X10*3/uL (1.2-4.9); Lymphocytes Percent Auto 22.7 % (20-40); Mean Corpuscular HGB Conc 31.7 g/dl (31.0-35.0); Mean Corpuscular Hemoglobin 28.3 pg (27.0-33.0); Mean Platelet Volume 9.2 fL (9.4-12.3); Monocytes Absolute Auto 0.4 X10*3/uL (0.1-1.2); Neutrophils Absolute Auto 4.1 X10*3/uL (2.0-8.3); Neutrophils Percent Auto 66.9 % (45-73); Platelet Count 366 X10*3/uL (160-400); Red Blood Count 2.83 X10*6/uL (4.20-5.50); Red Cell Distribution Width 20.9 % (11.0-16.0); White Blood Count 6.2 X10*3/uL (4.8-10.8)
[2020-05-01 06:41] LABS: Anion Gap 11 (12-20); Blood Urea Nitrogen 3 mg/dL (9-16); Calcium 8.6 mg/dL (8.4-10.2); Carbon Dioxide 31 mmol/L (22-29); Chloride 108 mmol/L (96-108); Creatinine Clr Calc Pharmacy 112.5; Estimated Glomerular Filt Rate > 60; Glucose Random 97 mg/dL (60-115); Magnesium 2.5 mg/dL (1.6-2.6); Phosphorus 3.7 mg/dL (2.7-4.5); Potassium 3.4 mmol/L (3.3-5.1); Sodium 147 mmol/L (135-145)
--- NOTE | 2020-05-01 07:25 | ECG_ITS ---
Test Reason : ? RHYTHM Blood Pressure : / mmHG Vent. Rate : 134 BPM Atrial Rate : 134 BPM P-R Int : 124 ms QRS Dur : 062 ms QT Int : 314 ms P-R-T Axes : 090 064 064 degrees QTc Int : 468 ms Sinus tachycardia Otherwise normal ECG When compared with ECG of 27-APR-2020 01:35, Nonspecific T wave abnormality now evident in Inferior leads Referred By: Michael Brown Electronically Signed By:DELORIS HARRIS MD
--- NOTE | 2020-05-01 08:49 | HO.POSTANES ---
Post Anesthesia Evaluation Post Anesthesia Evaluation Vital Signs: Vital Signs Temp Pulse Resp BP Pulse Ox 05/01/20 07:54 97.5 F 114 H 14 90/67 96 05/01/20 07:00 97.9 F 61 10 L 99/60 98 05/01/20 06:16 65 10 L 87/52 L 97 05/01/20 04:58 68 10 L 90/53 L 97 05/01/20 04:06 98.8 F 74 10 L 108/63 96 05/01/20 03:12 99.0 F 75 11 L 97/63 95 05/01/20 01:52 99.5 F 110 H 12 99/70 98 05/01/20 00:58 99.5 F 97 12 91/59 L 99 05/01/20 00:00 99.5 F 64 11 L 87/57 L 97 04/30/20 23:10 99.7 F 86 11 L 81/50 L 98 04/30/20 22:00 99.1 F 106 H 12 88/61 L 100 04/30/20 21:00 99 F 70 12 104/65 97 Anesthesia: General Endotracheal-GETA Mental Status: Sedated (Intubated) Pain Control: Satisfactory (Unknown) Nausea/Vomiting: None Hydration: Adequate Anesthesia-Related Issues: No Anes. Related Issues
[2020-05-01] MEDS: Midodrine HCl 10 MG TABLET G-TUBE ×3 (10:50→22:05)
--- NOTE | 2020-05-01 12:25 | P.PNCC_ITS ---
Subjective Subjective Date of Service: 05/02/20 Interval History: Mrs. Medina was admitted to ICU Apr 27 with acute respiratory failure and septic shock 2? to what appears to be straighfwd aspiration pneumonia. The patient is a 54 yo woman who is a resident of [facility]. 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 Her PMHx, by report, is as follows: Subarachnoid hemorrhage Metabolic encephalopathy Seizure Dysphagia Pneumonia Sepsis VRE (vancomycin-resistant Enterococci) Diabetes Hypernatremia Hypokalemia Nephrolithiasis s/p Lap band surgery (for morbid obesity) about ten years ago (? at [facility]) I spoke with the patient's daughter at length this afternoon - Yvrose Medina ([phone]). Altho I don?t have the medical records, from what the daughter told me, it sounds like in December,, the patient suffered a ruptured cerebral aneurysm. She was taken to [facility] and then transferred to [facility] that same day, where she underwent what sounds like a decompressive craniectomy. She was in [facility] from December to February,, and during that stay had a tracheostomy, PEG, and INCIDENT RESPONSE ENGINEER shunt placed. The daughter was also told that she has a second aneurysm that was not addressed. (Again, this all what I surmise from my conversation with the daughter, I can?t be certain without the medical records.) From [facility] she went to [facility] in [facility]. She was decannulated after approximately 1 month, and her PEG was pulled at some point. She was at [facility] until Jul, 2019, at which time she was discharged home, and was walking and talking. According to the daughter, the part of her skull that was removed got spoiled so was unable to be replaced, and she was wearing a helmet. In October, she went back to [facility] for an implant to replace the cranial portion removed. Unfortunately she bled postoperatively and suffered neurologic deterioration. Ultimately she was discharged to rehab for a month, and then from there to [facility]. Since that surgery, she has not been able to walk, and her speech has been significantly impaired. The staff at [facility] says that she talks a little, but gets winded from long conversation. The patient?s daughter says that she has full conversations with her mother on the telephone. From what the daughter tells me, it also sounds like since the surgery, the patient exhibits echolalia. (The patient grew up speaking [place]. She?ll respond to an [place] speaker in [place], and respond to a [place] speaker in [place].) The daughter also indicated to me that her mother has lost about 30 lbs since October. HISTORY OF PRESENT ILLNESS: The patient was reportedly recently hospitalized at [facility] for pneumonia and was just discharged back to [facility] on Tuesday, Apr 26. The patient was BIBA from [facility] yest morning (04/27) bec of fairly rapid onset of resp distress. On EMS arrival there, the patient had frothy sputum, Sat 60% on room air. She was thought to be in pulmon edema. She was given Lasix and CPAP and tx to the ED. On arrival to the ED, Saturation was still low on BiPAP and she was therefore intubated. She required pressors (? 2? intubation) so a CVL was placed and she was started on Levophed, along with abx. CT scan showed that her right lower lobe was socked in with pneumonia. There was no evidence of pulmonary edema. She was admitted to ICU early Apr 27, where she was put on Unasyn. In the ICU she was initially hypotensive, despite for fluids. My bedside echo on Apr 27 showed: 1. At least mild, if not moderate LVH. 2. LV cavity size is normal, with hyperdynamic LV fxn, EF 70+%, no RWMA. 3. RV size normal or small. 4. Both atria prob normal sized. 5. AoV morphologically normal. Unable to Doppler. 6. MV morphologically normal with trace MR by color chris. 7. TV morphologically normal with 1+ TR by color chris, with CWD jet measuring 1.2 m/sec, or calculated gradient 6mm. 8. IVC normal size (1.4 cm). Minimally inspiratory collapse on PPV. Estimated CVP 5-8cm. She was given more colloid and crystalloid, her BP came up, and she came off the Levophed. The propofol was turned off the next morning (Apr 28) and it took a few hours for her to come around but by about 11am she was clearly fully awake and starting to be more interactive and exhibit consistent tracking. She responded to simple commands. She was therefore extubated without incident. On room air, she was maintaining a Sat in the mid 90s all day into the early evening. Over that day, she got to the point where she was able to verbally answer simple questions with a yes or no. About 21:00 that night, she had what appears to have been sudden onset of tachypnea, hypoxemia, and tachycardia and hypertension. She was treated with Lasix, but undoubtedly, had recurrent aspiration. Ultimately just past midnight, she required re-intubation. Post intubation, she dropped her blood pressure, same thing that happened originally in the emergency department, and had to go back on Levophed. Her blood pressure came back up following volume resuscitation. I spoke eric Frances, her daughter ([phone]) and we discussed that IMO it was now certain that her mother needed a tracheostomy and PEG. I also discussed that with Dr. Jones and we concluded that we should do an EGD to check the lap band before the tracheostomy and PEG. Yvrose agreed. We also did an EEG on Apr 29 bec of shivering/?seizures. The EEG was markedly abnormal due to severe diffuse background slowing as well as bifrontal, left greater than right sharp and slow wave discharges, that could be indicative of a seizure focus in the frontal region. Dr. Rayo said that there were no seizures, but we should optimize her valproate level. Yesterday (Apr 30) we did the EGD which showed the Lap band in good position. Dr. Jones deflated the lap band and indicated that there should be no problem doing the PEG. Today, she?s sedated lightly on propofol at 20ug. She opens her eyes to stimulation but is non interactive. Breathing easy on the ventilator on AC 10/360/25%/+5, with RR about 10, Ve 3.4L, PIP 23, Sat 100%. CVBG this morning on that setting showed 7.48/43/+9. She remains afebrile. HR is dropping into the 50?s, requiring dopamine. I discussed this with Dr. Henderson, it?s probably vagal tone. We added midodrine to keep her BP up. At HR 53, on dopamine at 3ug, BP is 93/58. She has no venous distention at 30?. Chest is clear to auscultation on both sides. Heart rate and rhythm are regular, with normal- sounding S1 and S2, with no murmur or gallops. Her abdomen is benign. She has no peripheral edema. Her right hand is somewhat clawed. She does not move her right side at all to command; she appears to be hemiplegic. LABORATORY DATA: As below. Na up to 147. Valproic acid level is 90. IMPRESSION: 1. Acute resp failure 2? recurrent aspiration. It?s clear now that she is unable to control her airway. She?ll need a tracheostomy and a PEG. The proced ure is sched for later today with Dr. Merritt. 2. Septic shock. Resolved. 3. Hypotension. 2? bradycardia. Resolved with dopamine and midodrine. The question is why she has increased vagal tone. If the problem persists, we?ll do a head CT. 4. ID: I am guessing that the blood cultures are contaminant. There is no clinical reason to think that she was bacteremic. Furthermore, she had an excellent antibiotic response of her fever and white count to the Unasyn, and f/u BCs were negative. I d/c?d the Unasyn last night. 5. Hypokalemia. Replaced. 6. S/p massive aneurysmal bleed in Dec, 2018. Made a miraculous recovery, but then had catastrophic complications from the attempt to close her craniectomy in Oct, 2019. 7. Wt loss 30 lbs. My suspicion is that she has dysphagia and is unable to swallow the food bulk necessary to get enough calories. Subsequent events reported above prove that she needs a PEG. 8. S/p lap band surgery ten years ago. She has no further need for the lap band. Dr. Jones deflated it yesterday. It may be removed in the future if her situation warrants. 9. ?Seizures. Discussed with Dr. Rayo. In his opinion, the EEG does not show seizure activity. For now, she continues on valproate at a good therapeutic level. 10. Hypernatremia. I will start D5W today, and add free water to her tube feeds tomorrow. 11. Metabolic alkalosis. We?ll give her a few doses of Diamox. I had a discussion yesterday with the patient's daughter Yvrose about her mothe r?s condition and end-of-life wishes. She?s decided to go ahead with the tracheostomy and PEG, with the option to d/c supportive care if her mother?s condition hasn?t improved within a few months. Critical care time: 50+ min. Physical Exam Vital Signs: Vital Signs: Last Vital Signs Temp 98.4 F 05/01/20 11:52 Pulse 53 05/01/20 11:52 Resp 10 L 05/01/20 11:52 BP 98/61 05/01/20 11:52 Pulse Ox 100 05/01/20 11:52 Body Mass Index 22.6 Objective Data Labs CBC & Chem 7: 05/02/20 05:25 05/02/20 05:25 Labs: Laboratory Results - last 24 hr 04/30/20 04/30/20 05/01/20 19:55 20:02 05:39 WBC 6.2 RBC 2.83 L Hgb 8.0 L Hct 25.2 L MCV 89.0 MCH 28.3 MCHC 31.7 RDW 20.9 H Plt Count 366 D MPV 9.2 L Immature Gran % (Auto) 1.1 H Neut % (Auto) 66.9 Lymph % (Auto) 22.7 [place] % (Auto) 6.0 Eos % (Auto) 2.8 Baso % (Auto) 0.5 Lymph # (Auto) 1.4 [place] # (Auto) 0.4 Eos # (Auto) 0.2 Baso # (Auto) 0.0 Abs Immat Gran (auto) 0.07 H Absolute Neuts (auto) 4.1 Absolute Nucleated RBC 0.000 Nucleated RBC % (auto) 0.0 VBG pH VBG pCO2 VBG pO2 VBG HCO3 VBG O2 Saturation VBG Base Excess Sodium Potassium Chloride Carbon Dioxide Anion Gap BUN Creatinine Estim Creat Clear Calc Estimated GFR Random Glucose Calcium Phosphorus Magnesium Urine Color YELLOW Urine Appearance CLEAR Urine pH 7.5 Ur Specific [place] 1.020 Urine Protein NEG Urine Glucose (UA) NEG Urine Ketones NEG Urine Blood NEG Urine Nitrite NEG Ur Leukocyte Esterase NEG Valproic Acid 90.4 05/01/20 05/01/20 05:39 05:39 WBC RBC Hgb Hct MCV MCH MCHC RDW Plt Count MPV Immature Gran % (Auto) Neut % (Auto) Lymph % (Auto) [place] % (Auto) Eos % (Auto) Baso % (Auto) Lymph # (Auto) [place] # (Auto) Eos # (Auto) Baso # (Auto) Abs Immat Gran (auto) Absolute Neuts (auto) Absolute Nucleated RBC Nucleated RBC % (auto) VBG pH 7.48 H VBG pCO2 43 VBG pO2 50 VBG HCO3 33 VBG O2 Saturation 81.0 VBG Base Excess 9.2 Sodium 147 H Potassium 3.4 Chloride 108 Carbon Dioxide 31 H Anion Gap 11 L BUN 3 L Creatinine 0.42 L Estim Creat Clear Calc 112.5 Estimated GFR > 60 Random Glucose 97 Calcium 8.6 Phosphorus 3.7 Magnesium 2.5 Urine Color Urine Appearance Urine pH Ur Specific [place] Urine Protein Urine Glucose (UA) Urine Ketones Urine Blood Urine Nitrite Ur Leukocyte Esterase Valproic Acid Microbiology Microbiology Results: Microbiology 04/27/20 Unknown Blood - Venous Blood Culture - Final Staphylococcus epidermidis Coag negative Staphylococcus 04/27/20 Unknown Blood - Venous Blood Culture - Final Staphylococcus epidermidis Staphylococcus hominis ssp enrique 04/29/20 06:07 Blood - Venous Blood Culture - Preliminary No growth after 48 hours. 04/29/20 05:52 Blood - Venous Blood Culture - Preliminary No growth after 48 hours. 04/27/20 Unknown Urine Catheterized - Straight Catheter Urine Culture - Final Enterococcus faecalis Pseudomonas aeruginosa 04/27/20 05:52 Sputum - Suctioned Gram Stain - Final 04/27/20 05:52 Sputum - Suctioned Sputum Culture - Final Progress Note: A&P Time Spent With Patient Time: Total time spent is greater than 50% in coordination of care (as documented) at patient's floor/unit and/or counseling patient: Total time spent with greater than 50% in coordination of care (as documented) at patient's floor/unit and/or counseling patient:: 0 Critical Care Time Critical Care Time (minutes): 60
--- NOTE | 2020-05-01 13:27 | MHC.CM.PN ---
Pt is presently in the OR having a peg and trach placed in anticipation of LTAC transfer Call placed to dtr/HCP/Guardian Yvrose to inform her of LTAC referral: Yvrose is in support of facility and of continued care. Awaiting OP notes to upload and send to [employer]. Will update SNF referrals of pt's need for LTAC level of care.
[2020-05-01] MEDS: acetaZOLAMIDE 250 MG TABLET 500 MG G-TUBE ×2 (13:47→22:05)
[2020-05-01] MEDS: Dextrose 5 % 1,000 ML 50 ML IVCONT (13:58)
--- NOTE | 2020-05-01 16:03 | PM.OP ---
Brief Operative Note Date of Service: 05/01/20 Pre-op diagnosis: Acute resp failure secondary to recurrent aspiration Post-op diagnosis: same Procedure: Percutaneous tracheostomy and percutaneous PEG tube placement. See Operative note by Dr. Merritt Surgeon: Sg Merritt MD Anesthesia: GETA Administrative Clerk: Mini Morton Estimated blood loss (mL): 0 Pathology: none sent Condition: critical Disposition: ICU
--- NOTE | 2020-05-01 17:22 | PC.NURSE ---
S/E Afebrile Sedated on Propofol Pupils 3-4mm, PERRLA Sinus, HR down to 40's - Dopamine titrated per MD Jorge to maintain HR in 40's per Dr Brown Started on Midodrine TID - BP stable Lovenox for DVT R IJ TLC patent LS dim throughout Scant thin white inline secretions Underwent trach & peg in OR #8 Cortex cuffed, disposable inner cannula Vent settings changed postop - 12/400/5/25% Okay to administer meds and flush PEG tube per thoracic Plan to start tube feeds 05/02 @ 1600 per thoracic Bowel sounds faint throughout Last BM 04/29 Urine output increasing - approx 250cc/hr, pale yellow Started on D5 @ 50cc/hr Stage 2 bilat buttocks - air loss bed applied Wound consulted and at bedside Barrier cream, repo q2hr, bathed
--- NOTE | 2020-05-01 17:56 | P.CONWO_ITS ---
History of Present Illness Data of Consult Service Date: 05/01/20 Requesting physician: Michael Brown Primary Care Provider: Unknown Physician HPI Reason for consult: Buttock wound Patient is a 54-year-old female unfortunately with deconditioning and has had multiple issues with respiratory failure requiring intubation and extubation over several weeks since March. Based on this she has been bed bound for while and has developed a superficial injury to her buttock area. The patient has just gotten back from the OR where she underwent treat and PEG placement and is being recovered in the ICU on the ventilator with the fresh tracheostomy Review of Systems Review of Systems: Unable to do, patient on a ventilator Yes all other systems are reviewed and are negative and unobtainable due to endotracheal tube PMFSH Medical History Asthma CVA (cerebral vascular accident) Diabetes Dysphagia History of gastrostomy tube placement Hypernatremia Hypokalemia Metabolic encephalopathy Nephrolithiasis Pneumonia Seizure Sepsis Subarachnoid hemorrhage VRE (vancomycin-resistant Enterococci) Family History Mother Stroke Father No problems noted. Brother No problems noted. Sister No problems noted. Daughter No problems noted. Daughter No problems noted. Surgical History History of bunionectomy of both great toes History of hysterectomy History of laparoscopic adjustable gastric banding History of tracheostomy S/P clamping of cerebral aneurysm Social History Household Members: Unknown / Unable to assess Housing: [facility] Unable to assess alcohol history related to: Unable to respond Alcohol intake: unknown Smoking Status: Unknown if ever smoked Use of substances other than those prescribed or required for medical reasons: Unable to respond Currently Displaying Signs/Symptoms of Drug Intoxication Withdrawal: No Advance Directives: No Advance Directives Information Provided: No Do you have thoughts of harming others: None Do you have a plan to hurt others: No Plan service: No Current occupational status: employed Meds Allergies Allergy/AdvReac Type Severity Reaction Status Date / Time No Known Allergies Allergy Verified 04/30/20 10:00 Active Medications: Current Medications Generic Name Dose Route Start Last Admin Trade Name Freq PRN Reason Stop Dose Admin Acetazolamide 500 mg 05/01/20 13:45 05/01/20 13:47 Acetazolamide 250 Mg Tablet G-TUBE 500 mg BID ROSALINE Administration Chlorhexidine Gluconate 15 ml 04/27/20 01:30 05/01/20 16:52 Chlorhexidine Gluc Oral Rinse 15 Ml Mouthwash BUCCAL Not Given Q8H ROSALINE Enoxaparin Sodium 40 mg 04/27/20 02:00 04/30/20 20:58 Enoxaparin Sodium 40 Mg/0.4 Ml Syringe SUBCUT 40 mg BEDTIME ROSALINE Administration Propofol 1,000 mg in 100 mls @ 0 mls/hr 04/29/20 01:00 05/01/20 17:48 Diprivan IVCONT 30 mcg/kg/min .Q0M ROSALINE 9.56 mls/hr Titration Protocol Per Protocol Dopamine HCl/Dextrose 400 mg in 250 mls @ 0 mls/hr 04/30/20 14:15 05/01/20 12:29 IVCONT 3 mcg/kg/min .Q0M ROSALINE 6.1 mls/hr Titration Protocol Per Protocol Dextrose 1,000 mls @ 50 mls/hr 05/01/20 14:00 05/01/20 13:58 D5w IVCONT 50 mls/hr .Q20H ROSALINE Administration Midodrine 10 mg 05/01/20 08:39 05/01/20 13:48 Midodrine Hcl 10 Mg Tablet G-TUBE 10 mg TID ROSALINE Administration Potassium Chloride 40 meq 04/30/20 12:00 Potassium Chloride Packet 20 Meq Packet PO ONCE ROSALINE Valproic Acid 375 mg 04/29/20 15:00 05/01/20 13:47 Valproic Acid (As Sodium Salt) 250 Mg/5 Ml Solution G-TUBE 375 mg TID ROSALINE Administration Home Medications Medication Instructions Recorded Confirmed Last Taken Type albuterol sulfate [ProAir HFA] 2 puff INHALATION Q4H PRN 04/28/20 04/28/20 Unknown History amlodipine 5 mg PO DAILY 04/28/20 04/28/20 Unknown History carboxymethylcellulose sodium 1 drp OPHTHALMIC (EYE) TID PRN 04/28/20 04/28/20 Unknown History [Refresh Celluvisc] divalproex [Depakote Sprinkles] 375 mg PO TID 04/28/20 04/28/20 Unknown History dronabinol [Marinol] 2.5 mg PO BIDAC 04/28/20 04/28/20 Unknown History heparin (porcine) 5,000 unit SUBCUT Q8H 04/28/20 04/28/20 Unknown History hypromellose [Gonak] 1 drp OPHTHALMIC (EYE) BID 04/28/20 04/28/20 Unknown H istory mirtazapine 15 mg PO BEDTIME 04/28/20 04/28/20 Unknown History multivitamin 1 tab PO DAILY 04/28/20 04/28/20 Unknown History polyvinyl alcohol-povidone 1 drp OPHTHALMIC (EYE) TID PRN 04/28/20 04/28/20 Unknown History Physical Exam Vital Signs and Narrative: Vital Signs: Last Vital Signs Temp 95.4 F L 05/01/20 17:50 Pulse 661 H 05/01/20 17:50 Resp 12 05/01/20 17:50 BP 107/75 05/01/20 17:50 Pulse Ox 100 05/01/20 17:50 Body Mass Index 22.6 Skin: Other: The patient is intubated by tracheostomy on a ventilator and has just returned to the ICU from the OR and after discussing her care with her ICU nurse we have decided that consultation of her wound will be by imaging on the chart as there feeling a little uncomfortable about turning her to look at her buttock area with the fresh tracheostomy in place and with her just returning from having this tracheostomy and PEG tube placed 10 minutes ago. Her nurse describes the wound is being superficial on the right buttock she mainly consisting of some superficial skin breakdown may be a pressure wound around stage I to stage two in a small area Results Labs CBC and Chem 7: 05/01/20 05:39 05/01/20 05:39 Labs: Laboratory Results - last 24 hr 04/30/20 04/30/20 05/01/20 19:55 20:02 05:39 MCV 89.0 MCH 28.3 MCHC 31.7 RDW 20.9 H Plt Count 366 D MPV 9.2 L Immature Gran % (Auto) 1.1 H Neut % (Auto) 66.9 Lymph % (Auto) 22.7 [place] % (Auto) 6.0 Eos % (Auto) 2.8 Baso % (Auto) 0.5 Lymph # (Auto) 1.4 [place] # (Auto) 0.4 Eos # (Auto) 0.2 Baso # (Auto) 0.0 Abs Immat Gran (auto) 0.07 H Absolute Neuts (auto) 4.1 Absolute Nucleated RBC 0.000 Nucleated RBC % (auto) 0.0 VBG pH VBG pCO2 VBG pO2 VBG HCO3 VBG O2 Saturation VBG Base Excess Anion Gap Estim Creat Clear Calc Estimated GFR Random Glucose Calcium Phosphorus Magnesium Urine Color YELLOW Urine Appearance CLEAR Urine pH 7.5 Ur Specific [place] 1.020 Urine Protein NEG Urine Glucose (UA) NEG Urine Ketones NEG Urine Blood NEG Urine Nitrite NEG Ur Leukocyte Esterase NEG Valproic Acid 90.4 05/01/20 05/01/20 05:39 05:39 MCV MCH MCHC RDW Plt Count MPV Immature Gran % (Auto) Neut % (Auto) Lymph % (Auto) [place] % (Auto) Eos % (Auto) Baso % (Auto) Lymph # (Auto) [place] # (Auto) Eos # (Auto) Baso # (Auto) Abs Immat Gran (auto) Absolute Neuts (auto) Absolute Nucleated RBC Nucleated RBC % (auto) VBG pH 7.48 H VBG pCO2 43 VBG pO2 50 VBG HCO3 33 VBG O2 Saturation 81.0 VBG Base Excess 9.2 Anion Gap 11 L Estim Creat Clear Calc 112.5 Estimated GFR > 60 Random Glucose 97 Calcium 8.6 Phosphorus 3.7 Magnesium 2.5 Urine Color Urine Appearance Urine pH Ur Specific [place] Urine Protein Urine Glucose (UA) Urine Ketones Urine Blood Urine Nitrite Ur Leukocyte Esterase Valproic Acid Assessment and Plan (1) Aspiration pneumonia: Status: Acute This is an unfortunate 54-year-old lady who has a history of gastric banding about 12 years ago who had a cottage traffic cerebrovascular event that 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 Patient has been admitted recently 2 times in the past couple of weeks for aspiration pneumonia 1st of the right long and now of the left long. This has required recent intubation. The patient will likely need to undergo tracheostomy and percutaneous endoscopic gastrostomy tube placement for feedings. Given the patient's history of previous laparoscopic gastric banding there is a high likelihood that aspiration pneumonia may have been incited from the presence of gastric band. We are planning to remove the gastric band at the time of the tracheostomy and percutaneous endoscopic gastrostomy tube placement. Prior to removing the gastric band we have to evaluate the stomach to rule make sure that there is no evidence of gastric band erosion. If there is erosion the gastric band must be removed and drains must be left in placed. I have discussed all the risks benefits and alternatives with the patient's daughter in detail. I do believe the patient would benefit from removal of her gastric band as I do believe that there is a possibility that the aspiration pneumonia has been incited by the presence of the gastric band. There is also a possibility the patient may have had gastric band slippage which means that the proximal portion of the stomach has slipped above the gastric band and access as a reservoir for extra fluid from the stomach and food which may definitely increase the risk of aspiration. Today we plan to evaluate the stomach with an endoscopy. The patient's daughter has consented to endoscopy and to the eventual removal of the gastric band. All questions were answered satisfactorily to the patient. This entire history was witnessed by the nurse and it was documented on the consent form for the endoscopy. (2) Buttock wound: Problem details: Buttock wound is very superficial and 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 Apparently she also has had several neurological events in the past and was treat and PEG did so we know that she has multiple comorbidities to put her at risk for further pressure ulcers. Status: Acute
[2020-05-01] MEDS: propofoL 1,000 MG/100 ML VIAL 9.56 MG IVCONT (18:23)
--- NOTE | 2020-05-01 19:37 | OP_ITS ---
SURGEON: Sg Merritt MD PREOPERATIVE DIAGNOSIS: Respiratory failure. POSTOPERATIVE DIAGNOSIS: Respiratory failure. PROCEDURE PERFORMED: ESTIMATED BLOOD LOSS: Minimal. COMPLICATIONS: ANESTHESIA: General. ASSISTANTS: AZALIA Davila. SPECIMENS: None. PROCEDURES PERFORMED: Bronchoscopy, EGD, tracheostomy, and percutaneous gastrostomy. DESCRIPTION OF PROCEDURE: On the day of the operation, the patient was brought from the ICU into the operating room on the ICU bed and the head and neck were extended. The neck was then widely prepped and draped in standard sterile fashion. The time-out was performed confirming the correct patient, site and procedure. First, the bronchoscope was inserted through the endotracheal tube and the airways were visualized out to the subsegmental level. There was moderate secretions especially in the proximal airways and the endotracheal tube itself. These were suctioned. There were no endobronchial lesions. The secretions were suctioned completely for therapeutic effects. The cuff on the ET tube was then taken down and the ET tube was brought back to just below the cords with the scope still in place. The bedside training program assistant then made an incision in the neck approximately 2 cm and dissected down to the trachea. The needle was then placed into the trachea under vision with the bronchoscope and the needle was removed leaving the catheter in place. Under vision again, the wire was inserted through the catheter, visualizing it going down towards the trachea. The catheter was then removed and the first dilator was placed over the wire without difficulty. The second smaller dilator was then placed and then a black tip came through and visualized with the bronchoscope. This was again pulled back. Now, the Rhino dilator was placed over that wire and dilator and the trachea was dilated down to the 36-Palestinian line again under direct vision. The Rhino dilator was then removed and again over the wire, the tracheostomy was placed under vision without difficulty. The cuff was inflated and the inner dilator and wire were removed. The scope was then placed from the endotracheal tube directly into the tracheostomy and the tip of the tracheostomy was visualized about 3 cm above the marylou in excellent position. There was no bleeding. The bronchoscope was then removed and the patient was hooked up through the tracheostomy to the ventilator with excellent volumes. The tracheostomy was then secured with nylon sutures. A dressing was applied and trach ties were applied. The patient tolerated this portion of the procedure very well. The gastroscope was then inserted through the oropharynx and into the esophagus and down into the stomach. The stomach was explored. There was no mucosal lesions. First portion of the duodenum explored. No mucosal lesions either. With the stomach inflated, the abdominal wall was transilluminated and the bedside training program assistant made a earline on the abdominal wall at this point. The snare was then placed through the gastroscope and an incision was made on the abdominal wall by the bedside training program assistant and the needle and catheter were inserted into the stomach, removing the needle once the catheter was inserted into the stomach and visualized. The wire was then placed through the catheter and the wire was grasped with the snare, and the scope with the wire and snare were pulled up and out of the oropharynx. The wire was then looped through the gastrostomy tube and the wire was pulled from the abdomen, pulling the gastrostomy tube down into the esophagus and stomach. This was again followed with the gastroscope and these PEG tube was visualized and snug up against the inside of the stomach wall. The PEG tube was secured. Dressing was applied and it was connected to a bile bag. The gastroscope was then slowly removed as to removing all the air and the esophagus was visualized in its entirety on the way out without any mucosal lesions. The patient tolerated this portion of the procedure quite well. She was brought back to the intensive care unit in stable condition. MD KARINA Lopez/CIPRIANO / [id number]
--- NOTE | 2020-05-01 20:36 | PC.RT ---
upon my arrival pt is on current settings tolerating well. all vitals good pt is warm to touch and stable. sx bloody secretions.
[2020-05-01] MEDS: Enoxaparin Sodium 40 MG/0.4 ML SYRINGE SUBCUT (22:05)
[2020-05-02] VITALS (31 sets, daily range): BP systolic 80–121; BP diastolic 51–80; PULSE 56–98; RESP 10–74; TEMP 36.5–36.9; O2SAT 92–100; BMI 23.2
[2020-05-02] MEDS: Chlorhexidine Gluc Oral Rinse 15 ML MOUTHWASH BUCCAL ×3 (00:05→15:07)
[2020-05-02] MEDS: propofoL 1,000 MG/100 ML VIAL 6.37 MG IVCONT (00:05)
[2020-05-02] MEDS: DOPamine HCL/D5W 400 MG/250 ML PLAST..BAG 6.1 MG IVCONT (03:48)
--- NOTE | 2020-05-02 04:37 | PC.RT ---
pt remains on the current settings, no changes at this time. pts vitals are stable. will continue to monitor
[2020-05-02 05:30] LABS: MANUAL DIFF FLAG NO
[2020-05-02 05:32] LABS: Basophils Percent Auto 0.3 % (0-2); Eosinophils Absolute Auto 0.2 X10*3/uL (0.0-0.4); Eosinophils Percent Auto 2.9 % (0-4); Hematocrit 25.8 % (37-47); Hemoglobin 8.3 g/dl (12.0-16.0); Imm Gran Abs Auto 0.08 X10*3/uL (0.00-0.03); Imm Gran Pct Auto 1.1 % (0.0-0.4); Lymphocytes Absolute Auto 1.5 X10*3/uL (1.2-4.9); Mean Corpuscular HGB Conc 32.2 g/dl (31.0-35.0); Mean Corpuscular Volume 90.2 fL (80-98); Mean Platelet Volume 8.6 fL (9.4-12.3); Monocytes Absolute Auto 0.4 X10*3/uL (0.1-1.2); Monocytes Percent Auto 5.3 % (2-11); Neutrophils Absolute Auto 5.1 X10*3/uL (2.0-8.3); Neutrophils Percent Auto 70.4 % (45-73); Platelet Count 397 X10*3/uL (160-400); Red Blood Count 2.86 X10*6/uL (4.20-5.50); Red Cell Distribution Width 20.7 % (11.0-16.0); White Blood Count 7.3 X10*3/uL (4.8-10.8)
[2020-05-02 05:34] LABS: Base Excess VBG 3.1 mmol/L; HCO3 VBG 27 mmol/L; PCO2 VBG 39 mmHg; PO2 VBG 88 mmHg; pH VBG 7.44 (7.32-7.43)
[2020-05-02 06:02] LABS: Anion Gap 10 (12-20); Blood Urea Nitrogen 6 mg/dL (9-16); Calcium 8.3 mg/dL (8.4-10.2); Carbon Dioxide 28 mmol/L (22-29); Chloride 108 mmol/L (96-108); Creatinine Clr Calc Pharmacy 100.6; Estimated Glomerular Filt Rate > 60; Glucose Random 79 mg/dL (60-115); Potassium 2.7 mmol/L (3.3-5.1); Sodium 143 mmol/L (135-145)
[2020-05-02] MEDS: Midodrine HCl 10 MG TABLET G-TUBE ×3 (07:28→20:04)
[2020-05-02] MEDS: acetaZOLAMIDE 250 MG TABLET 500 MG G-TUBE ×2 (07:28→20:05)
[2020-05-02] MEDS: Dextrose 5 % 1,000 ML 50 ML IVCONT (09:51)
[2020-05-02] MEDS: Potassium Chloride Packet 20 MEQ PACKET 40 MEQ PO ×2 (09:51→12:19)
--- NOTE | 2020-05-02 10:52 | MHC.SLORD ---
Per chart review, patient was placed with trach and PEG tube yesterday. Patient has been switching from trach collar to vent. Please re-refer as needed for bedside dysphagia evaluation. Name: Asha Medina Date of : 1965 Age: 54 Date of Registration: 04/27/20 Speech Language Pathology Order Status:
--- NOTE | 2020-05-02 12:40 | MHC.CLN ---
F/U PT WITH PEG TUBE PLACED TODAY RECOMMEND TF GLUCERNA AT MAX GOAL RATE 55CC/HR WITH 120CC FREE WATER FLUSHES Q 4 HRS TO PROVIDE 1320KCALS, 55G PROTEIN, 1606CC TOTAL WATER FROM FORMULA AND FLUSHES (30CC/KG) MONITOR TOLERANCE, RESIDUALS AND LYTES
--- NOTE | 2020-05-02 12:57 | PM.CCPN ---
Subjective Subjective Date of Service: 05/02/20 Interval History: Mrs. Medina was admitted to ICU Apr 27 with acute respiratory failure and septic shock 2? to what appears to be straighfwd aspiration pneumonia. The patient is a 54 yo woman who is a resident of [facility]. 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 Her PMHx, by report, is as follows: Subarachnoid hemorrhage Metabolic encephalopathy Seizure Dysphagia Pneumonia Sepsis VRE (vancomycin-resistant Enterococci) Diabetes Hypernatremia Hypokalemia Nephrolithiasis s/p Lap band surgery (for morbid obesity) about ten years ago (? at [facility]) I spoke with the patient's daughter at length this afternoon - Yvrose Medina ([phone]). Altho I don?t have the medical records, from what the daughter told me, it sounds like in December,, the patient suffered a ruptured cerebral aneurysm. She was taken to [facility] and then transferred to [facility] that same day, where she underwent what sounds like a decompressive craniectomy. She was in [facility] from December to February,, and during that stay had a tracheostomy, PEG, and SCROLL SHEAR OPERATOR shunt placed. The daughter was also told that she has a second aneurysm that was not addressed. (Again, this all what I surmise from my conversation with the daughter, I can?t be certain without the medical records.) From [facility] she went to [facility] in [facility] [place]. She was decannulated after approximately 1 month, and her PEG was pulled at some point. She was at [facility] until Jul, 2019, at which time she was discharged home, and was walking and talking. According to the daughter, the part of her skull that was removed got spoiled so was unable to be replaced, and she was wearing a helmet. In October, she went back to [facility] for an implant to replace the cranial portion removed. Unfortunately she bled postoperatively and suffered neurologic deterioration. Ultimately she was discharged to rehab for a month, and then from there to [facility]. Since that surgery, she has not been able to walk, and her speech has been significantly impaired. The staff at [facility] says that she talks a little, but gets winded from long conversation. The patient?s daughter says that she has full conversations with her mother on the telephone. From what the daughter tells me, it also sounds like since the surgery, the patient exhibits echolalia. (The patient grew up speaking Czech. She?ll respond to an Czech speaker in Malawian, and respond to a Malawian speaker in Czech.) The daughter also indicated to me that her mother has lost about 30 lbs since October. HISTORY OF PRESENT ILLNESS: The patient was reportedly recently hospitalized at [facility] for pneumonia and was just discharged back to [facility] on Tuesday, Apr 26. The patient was BIBA from [facility] yest morning (04/27) bec of fairly rapid onset of resp distress. On EMS arrival there, the patient had frothy sputum, Sat 60% on room air. She was thought to be in pulmon edema. She was given Lasix and CPAP and tx to the ED. On arrival to the ED, Saturation was still low on BiPAP and she was therefore intubated. She required pressors (? 2? intubation) so a CVL was placed and she was started on Levophed, along with abx. CT scan showed that her right lower lobe was socked in with pneumonia. There was no evidence of pulmonary edema. She was admitted to ICU early Apr 27, where she was put on Unasyn. In the ICU she was initially hypotensive, despite for fluids. My bedside echo on Apr 27 showed: 1. At least mild, if not moderate LVH. 2. LV cavity size is normal, with hyperdynamic LV fxn, EF 70+%, no RWMA. 3. RV size normal or small. 4. Both atria prob normal sized. 5. AoV morphologically normal. Unable to Doppler. 6. MV morphologically normal with trace MR by color chris. 7. TV morphologically normal with 1+ TR by color chris, with CWD jet measuring 1.2 m/sec, or calculated gradient 6mm. 8. IVC normal size (1.4 cm). Minimally inspiratory collapse on PPV. Estimated CVP 5-8cm. She was given more colloid and crystalloid, her BP came up, and she came off the Levophed. The propofol was turned off the next morning (Apr 28) and it took a few hours for her to come around but by about 11am she was clearly fully awake and starting to be more interactive and exhibit consistent tracking. She responded to simple commands. She was therefore extubated without incident. On room air, she was maintaining a Sat in the mid 90s all day into the early evening. Over that day, she got to the point where she was able to verbally answer simple questions with a yes or no. About 21:00 that night, she had what appears to have been sudden onset of tachypnea, hypoxemia, and tachycardia and hypertension. She was treated with Lasix, but undoubtedly, had recurrent aspiration. Ultimately just past midnight, she required re-intubation. Post intubation, she dropped her blood pressure, same thing that happened originally in the emergency department, and had to go back on Levophed. Her blood pressure came back up following volume resuscitation. I spoke eric Frances, her daughter ([phone]) and we discussed that it was now certain that her mother needed a tracheostomy and PEG. I also discussed that with Dr. Jones from Bariatrics and we concluded that we should do an EGD to check the lap band before the tracheostomy and PEG. We also did an EEG on Apr 29 bec of shivering/?seizures. The EEG was markedly abnormal due to severe diffuse background slowing as well as bifrontal, left greater than right sharp and slow wave discharges, that Dr. Rayo said could be indicative of a seizure focus in the frontal region. Dr. Rayo said that there were no actual seizures, but we should optimize her valproate level, which came back at 90. The EGD was done Apr 30 and showed the Lap band in good position. Dr. Jones deflated the lap band and indicated that there would be no problem doing the PEG. The percutaneous tracheostomy and PEG were done yesterday (May 01), without incident. The overnight was uneventful. We turned the propofol off this morning and switched her over to pressure support ventilation. See vital signs below. Her eyes are open and she?s tracking and she looks at me when I talk to her, but she?s not interactive. Her affect is completely flat. Breathing easy on the ventilator on PSV 5/25%/+5, with RR 20-24, Vt avg 230cc, Ve 4.5L, Sat 100%. CVBG this morning on AC 10 showed 7.44/39/+3 (on Diamox). She remains afebrile. HR is dropping into the 50?s; we had her on dopamine for her HR over last two days, and started her on midodrine. Off the dopamine, BP is 96/57. She has no venous distention at 30?. Chest is clear to auscultation on both sides. Heart rate and rhythm are regular, with normal-sounding S1 and S2, with no murmur or gallops. Her abdomen is benign. She has no peripheral edema. Her right hand is somewhat clawed. She does not move her right side at all to command; she appears to be hemiplegic. LABORATORY DATA: As below. IMPRESSION: 1. S/p massive aneurysmal bleed in Dec, 2018. Made a miraculous recovery, but then had catastrophic complications from the attempt to close her craniectomy in Oct, 2019. 2. Wt loss 30 lbs. My suspicion is that she had dysphagia and was unable to swallow the food bulk necessary to get enough calories. Subsequent events reported above prove that she needs a PEG. 3. Acute resp failure 2? recurrent aspiration. It?s clear that she is unable to control her airway and needed the tracheostomy and a PEG. Her daughter Yvrose made the decision to proceed. She?s doing well on PSV. Should transition to trach collar today. 4. Septic shock. Resolved. 5. Hypotension. 2? bradycardia. Resolved with dopamine and midodrine. 6. Bradycardia. Likely 2? increased vagal tone. The question is why. No evidence of any new neurologic problem. If the problem persists though, I would do a head CT. 7. ID: Positive blood cultures from admission were a contaminant. She had an excellent response to the Unasyn we gave her in terms of her fever, white count, and clinical pneumonia. Abx were d/c?d two days ago after a four-day course. 8. Hypokalemia. Replaced. 9. S/p lap band surgery ten years ago. She has no further need for the lap band. Dr. Jones deflated it on Apr 30. It may be removed in the future if her situation warrants. 10. ?Seizures. Discussed with Dr. Rayo. In his opinion, the EEG does not show seizure activity. For now, she continues on valproate at a good therapeutic level. 11. Hypernatremia. Resolved with D5W. 12. Metabolic alkalosis. Resolving w Diamox. I?ll stop that tonight. 13. Nutrition. Starting tube feeds today. I had a discussion on the with the patient's daughter Yvrose about her mother?s condition and end-of-life wishes. She made the decision to go ahead with the tracheostomy and PEG, with the option to d/c supportive care if her mother?s condition hasn?t improved within a few months. The patient?s situation was futher d/w case mgmnt. She?ll go to [facility] once she?s stable from a resp and HR/BP standpoint. Critical care time: 50 min. Physical Exam Vital Signs: Vital Signs: Last Vital Signs Temp 97.7 F 05/02/20 11:53 Pulse 67 05/02/20 11:53 Resp 22 H 05/02/20 11:53 BP 118/80 05/02/20 11:53 Pulse Ox 100 05/02/20 11:53 Body Mass Index 23.2 Objective Data Labs CBC & Chem 7: 05/02/20 05:25 05/02/20 05:25 Labs: Laboratory Results - last 24 hr 05/02/20 05/02/20 05/02/20 05:25 05:25 05:25 WBC 7.3 RBC 2.86 L Hgb 8.3 L Hct 25.8 L MCV 90.2 MCH 29.0 MCHC 32.2 RDW 20.7 H Plt Count 397 MPV 8.6 L Immature Gran % (Auto) 1.1 H Neut % (Auto) 70.4 Lymph % (Auto) 20.0 Hartley % (Auto) 5.3 Eos % (Auto) 2.9 Baso % (Auto) 0.3 Lymph # (Auto) 1.5 Hartley # (Auto) 0.4 Eos # (Auto) 0.2 Baso # (Auto) 0.0 Abs Immat Gran (auto) 0.08 H Absolute Neuts (auto) 5.1 Absolute Nucleated RBC 0.000 Nucleated RBC % (auto) 0.0 VBG pH 7.44 H VBG pCO2 39 VBG pO2 88 VBG HCO3 27 VBG O2 Saturation 96.0 VBG Base Excess 3.1 Sodium 143 Potassium 2.7 L D Chloride 108 Carbon Dioxide 28 Anion Gap 10 L BUN 6 L D Creatinine 0.47 L Estim Creat Clear Calc 100.6 Estimated GFR > 60 Random Glucose 79 Calcium 8.3 L Microbiology Microbiology Results: Microbiology 04/27/20 Unknown Blood - Venous Blood Culture - Final Staphylococcus epidermidis Coag negative Staphylococcus 04/27/20 Unknown Blood - Venous Blood Culture - Final Staphylococcus epidermidis Staphylococcus hominis ssp enrique 04/29/20 06:07 Blood - Venous Blood Culture - Preliminary No growth after 48 hours. 04/29/20 05:52 Blood - Venous Blood Culture - Preliminary No growth after 48 hours. 04/27/20 Unknown Urine Catheterized - Straight Catheter Urine Culture - Final Enterococcus faecalis Pseudomonas aeruginosa 04/27/20 05:52 Sputum - Suctioned Gram Stain - Final 04/27/20 05:52 Sputum - Suctioned Sputum Culture - Final Progress Note: A&P Time Spent With Patient Time: Total time spent is greater than 50% in coordination of care (as documented) at patient's floor/unit and/or counseling patient: Total time spent with greater than 50% in coordination of care (as documented) at patient's floor/unit and/or counseling patient:: 0 Critical Care Time Critical Care Time (minutes): 60
--- NOTE | 2020-05-02 13:21 | HO.POSTANES ---
Post Anesthesia Evaluation Post Anesthesia Evaluation Vital Signs: Vital Signs Temp Pulse Resp BP Pulse Ox 05/02/20 13:00 75 27 H 94/65 100 05/02/20 11:53 97.7 F 67 22 H 118/80 100 05/02/20 10:04 98.1 F 73 20 99/74 100 05/02/20 09:52 58 17 88/58 L 100 05/02/20 09:00 67 11 L 83/53 L 100 05/02/20 07:49 98.4 F 64 10 L 106/69 100 05/02/20 07:28 64 81/52 L 05/02/20 07:00 98.4 F 68 10 L 98/64 100 05/02/20 06:00 98.2 F 69 10 L 113/76 100 05/02/20 05:00 69 74 H 99/68 100 05/02/20 04:00 59 10 L 116/72 100 05/02/20 02:53 62 10 L 80/51 L 100 05/02/20 01:58 69 12 115/80 100 Anesthesia: General Endotracheal-GETA Mental Status: Sedated Pain Control: Satisfactory Nausea/Vomiting: None Hydration: Adequate Anesthesia-Related Issues: No Anes. Related Issues
[2020-05-02 13:34] LABS: Base Excess VBG 2.3 mmol/L; HCO3 VBG 26 mmol/L; PCO2 VBG 39 mmHg; PO2 VBG 54 mmHg; pH VBG 7.43 (7.32-7.43)
--- NOTE | 2020-05-02 13:37 | MHC.CM.PN ---
Clinical updates sent to [facility] including peg and trach OR notes: per [facility], they do not have bed availability this weekend as they didn't get the discharges they had hoped for. They suggest we f/u on Tuesday, 05/05 This information was relayed to ICU MD and RN. JULIO to follow for d/c planning
[2020-05-02] MEDS: Enoxaparin Sodium 40 MG/0.4 ML SYRINGE SUBCUT (20:05)
[2020-05-03] VITALS (33 sets, daily range): BP systolic 85–118; BP diastolic 52–80; PULSE 73–103; RESP 26–42; TEMP 36.7–37.6; O2SAT 85–100; BMI 22.8
[2020-05-03] MEDS: Dextrose 5 % 1,000 ML 50 ML IVCONT (05:15)
[2020-05-03 05:28] LABS: MANUAL DIFF FLAG NO
[2020-05-03 05:30] LABS: Basophils Percent Auto 0.5 % (0-2); Eosinophils Absolute Auto 0.1 X10*3/uL (0.0-0.4); Eosinophils Percent Auto 1.6 % (0-4); Hematocrit 25.6 % (37-47); Hemoglobin 8.1 g/dl (12.0-16.0); Imm Gran Abs Auto 0.19 X10*3/uL (0.00-0.03); Imm Gran Pct Auto 2.1 % (0.0-0.4); Lymphocytes Absolute Auto 1.9 X10*3/uL (1.2-4.9); Lymphocytes Percent Auto 21.8 % (20-40); Mean Corpuscular HGB Conc 31.6 g/dl (31.0-35.0); Mean Corpuscular Hemoglobin 28.6 pg (27.0-33.0); Mean Corpuscular Volume 90.5 fL (80-98); Monocytes Absolute Auto 0.5 X10*3/uL (0.1-1.2); Monocytes Percent Auto 6.1 % (2-11); Neutrophils Percent Auto 67.9 % (45-73); Platelet Count 423 X10*3/uL (160-400); Red Blood Count 2.83 X10*6/uL (4.20-5.50); Red Cell Distribution Width 21.1 % (11.0-16.0); White Blood Count 8.9 X10*3/uL (4.8-10.8)
[2020-05-03 05:35] LABS: Base Excess VBG -1.2 mmol/L; HCO3 VBG 22 mmol/L; PCO2 VBG 35 mmHg; PO2 VBG 54 mmHg; pH VBG 7.41 (7.32-7.43)
[2020-05-03 05:59] LABS: Anion Gap 10 (12-20); Blood Urea Nitrogen 9 mg/dL (9-16); Calcium 7.6 mg/dL (8.4-10.2); Carbon Dioxide 24 mmol/L (22-29); Chloride 104 mmol/L (96-108); Creatinine Clr Calc Pharmacy 84.4; Estimated Glomerular Filt Rate > 60; Glucose Random 85 mg/dL (60-115); Potassium 3.2 mmol/L (3.3-5.1); Sodium 135 mmol/L (135-145)
[2020-05-03] MEDS: Chlorhexidine Gluc Oral Rinse 15 ML MOUTHWASH BUCCAL (08:02)
[2020-05-03] MEDS: Midodrine HCl 10 MG TABLET G-TUBE ×3 (08:02→20:59)
[2020-05-03] MEDS: Potassium Chloride/H20 40 MEQ/100 ML PIGGYBACK 100 MEQ IV (08:44)
--- NOTE | 2020-05-03 10:17 | PM.CCPN ---
Subjective Subjective Date of Service: 05/03/20 Interval History: 54-year-old lady with underlying history of CVA, subarachnoid hemorrhage, seizure disorder, recent aspiration pneumonia requiring hospitalization admitted on 04/26/2020 with an acute respiratory failure requiring intubation and emergency room secondary to an aspiration event resulting aspiration pneumonia. She was treated with Unasyn. Patient has had an EGD performed on 04/30/2020 secondary to prior history of a gastric lap band in preparation for tracheostomy and parenteral gastrostomy placed on 05/01/2020. She is tolerating tracheal call at this time, however still with high FiO2 requirements. No events overnight. Physical Exam Vital Signs: Vital Signs: Last Vital Signs Temp 99.1 F 05/03/20 10:00 Pulse 77 05/03/20 10:00 Resp 33 H 05/03/20 10:00 BP 91/59 L 05/03/20 10:00 Pulse Ox 100 05/03/20 10:00 Body Mass Index 23.2 Const: General: no acute distress and lethargic Orientation/consciousness: lethargic Eyes: Sclerae: sclerae normal Neck: Neck: Yes no lymphadenopathy, Yes trachea midline (Tracheostomy on tracheal collar) and Yes supple Resp: Effort & Inspection: normal respiratory effort and no respiratory distress Auscultation: crackles (Bibasilar) Cardio: Rate: regular rate Rhythm: regular rhythm Heart sounds: no gallops, no murmurs and no rubs GI: Inspection: Yes other (Parenteral gastrostomy) Palpation (GI): Soft to palpation and Other GI palpation findings present ( Nontender) Auscultation: normal bowel sounds Extrem: General: No clubbing, No cyanosis and Yes edema (Trace bilateral) Objective Data Labs CBC & Chem 7: 05/03/20 05:15 05/03/20 05:15 Labs: Laboratory Results - last 24 hr 05/02/20 05/03/20 05/03/20 13:22 05:15 05:15 WBC 8.9 RBC 2.83 L Hgb 8.1 L Hct 25.6 L MCV 90.5 MCH 28.6 MCHC 31.6 RDW 21.1 H Plt Count 423 H MPV 9.0 L Immature Gran % (Auto) 2.1 H Neut % (Auto) 67.9 Lymph % (Auto) 21.8 Roberts % (Auto) 6.1 Eos % (Auto) 1.6 Baso % (Auto) 0.5 Lymph # (Auto) 1.9 Roberts # (Auto) 0.5 Eos # (Auto) 0.1 Baso # (Auto) 0.0 Abs Immat Gran (auto) 0.19 H Absolute Neuts (auto) 6.0 Absolute Nucleated RBC 0.000 Nucleated RBC % (auto) 0.0 VBG pH 7.43 7.41 VBG pCO2 39 35 VBG pO2 54 54 VBG HCO3 26 22 VBG O2 Saturation 84.0 83.0 VBG Base Excess 2.3 -1.2 Sodium Potassium Chloride Carbon Dioxide Anion Gap BUN Creatinine Estim Creat Clear Calc Estimated GFR Random Glucose Calcium 05/03/20 05:15 WBC RBC Hgb Hct MCV MCH MCHC RDW Plt Count MPV Immature Gran % (Auto) Neut % (Auto) Lymph % (Auto) Roberts % (Auto) Eos % (Auto) Baso % (Auto) Lymph # (Auto) Roberts # (Auto) Eos # (Auto) Baso # (Auto) Abs Immat Gran (auto) Absolute Neuts (auto) Absolute Nucleated RBC Nucleated RBC % (auto) VBG pH VBG pCO2 VBG pO2 VBG HCO3 VBG O2 Saturation VBG Base Excess Sodium 135 Potassium 3.2 L Chloride 104 Carbon Dioxide 24 Anion Gap 10 L BUN 9 Creatinine 0.56 Estim Creat Clear Calc 84.4 Estimated GFR > 60 Random Glucose 85 Calcium 7.6 L D Microbiology Microbiology Results: Microbiology 04/27/20 Unknown Blood - Venous Blood Culture - Final Staphylococcus epidermidis Coag negative Staphylococcus 04/27/20 Unknown Blood - Venous Blood Culture - Final Staphylococcus epidermidis Staphylococcus hominis ssp enrique 04/29/20 06:07 Blood - Venous Blood Culture - Preliminary No growth after 48 hours. 04/29/20 05:52 Blood - Venous Blood Culture - Preliminary No growth after 48 hours. 04/27/20 Unknown Urine Catheterized - Straight Catheter Urine Culture - Final Enterococcus faecalis Pseudomonas aeruginosa 04/27/20 05:52 Sputum - Suctioned Gram Stain - Final 04/27/20 05:52 Sputum - Suctioned Sputum Culture - Final Progress Note: A&P Assessment and plan (1) Aspiration pneumonia: Status: Acute Assessment and Plan: Assessment: 54-year-old lady with underlying history of CVA, subarachnoid hemorrhage, seizure disorder, prior aspiration pneumonia, admitted on 04/26/2020 with acute hypoxic respiratory failure secondary to recurrent aspiration Plan: Neuro: Continue on valproate for underlying seizure disorder. No acute issues. Cardiac: No acute issues. Pulmonary: Acute hypoxic respiratory failure secondary to aspiration pneumonia/pneumonitis initially requiring intubation, now status post placement of tracheostomy and parenteral gastrostomy on 05/01/2020. Continue to titrate down FiO2 on tracheal collar. Renal: No acute issues. Endo: No acute issues. GI: No acute issues. ID: Aspiration pneumonia versus pneumonitis, status post Unasyn course. Heme/Onc: No acute issues. Psych: No acute issues. Miscellaneous: No acute issues. Prophylaxis: Lovenox Diet: Tube feeds Critical care time spent: 45 minutes (2) Acute respiratory failure with hypoxia: Status: Acute (3) Dysphagia: Status: Acute (4) CVA (cerebral vascular accident): Status: Acute (5) Seizure: Status: Acute Time Spent With Patient Total time spent with greater than 50% in coordination of care (as documented) at patient's floor/unit and/or counseling patient:: 0 Critical Care Time 45
[2020-05-03 10:21] LABS: Leukocytes Stool Qualitative NEGATIVE (NEGATIVE)
[2020-05-03 11:17] LABS: CDIFF Ag Negative (Negative); CDIFF Internal ctrl Dots and bkg OK (V); CDiff Toxin Negative (Negative)
[2020-05-03 12:09] LABS: Glucose, Whole Blood 70 mg/dL (60-115)
[2020-05-03 13:30] LABS: Glucose, Whole Blood 64 mg/dL (60-115)
[2020-05-03 16:12] LABS: Glucose, Whole Blood 107 mg/dL (60-115)
--- NOTE | 2020-05-03 16:12 | PC.NURSE ---
This morning patient on D5W at 50 ml/hr and Glucerna at max of 40 ml/hr. At 11:00 D5W paused per and VO POC to be drawn in one hour. 12:00 POC 70, reported to MD. SAN to recheck POC in one hour. 1300 POC 64. Reported to MD. SCHROEDER to restart D5W at 25 ml/hr per . POC recheck at 1600 107.
[2020-05-03] MEDS: Enoxaparin Sodium 40 MG/0.4 ML SYRINGE SUBCUT (20:59)
[2020-05-04] VITALS (32 sets, daily range): BP systolic 80–133; BP diastolic 52–95; PULSE 69–116; RESP 18–38; TEMP 37.2–37.6; O2SAT 88–100; BMI 22.6
[2020-05-04 05:57] LABS: MANUAL DIFF FLAG NO
[2020-05-04 06:02] LABS: Base Excess VBG 1.6 mmol/L; HCO3 VBG 25 mmol/L; PCO2 VBG 36 mmHg; PO2 VBG 62 mmHg; pH VBG 7.45 (7.32-7.43)
[2020-05-04 06:06] LABS: Basophils Percent Auto 0.5 % (0-2); Eosinophils Absolute Auto 0.1 X10*3/uL (0.0-0.4); Eosinophils Percent Auto 1.6 % (0-4); Hematocrit 24.6 % (37-47); Hemoglobin 7.8 g/dl (12.0-16.0); Imm Gran Abs Auto 0.28 X10*3/uL (0.00-0.03); Imm Gran Pct Auto 4.5 % (0.0-0.4); Lymphocytes Absolute Auto 1.5 X10*3/uL (1.2-4.9); Lymphocytes Percent Auto 24.6 % (20-40); Mean Corpuscular HGB Conc 31.7 g/dl (31.0-35.0); Mean Corpuscular Hemoglobin 28.4 pg (27.0-33.0); Mean Corpuscular Volume 89.5 fL (80-98); Monocytes Absolute Auto 0.4 X10*3/uL (0.1-1.2); Monocytes Percent Auto 6.1 % (2-11); Neutrophils Absolute Auto 3.9 X10*3/uL (2.0-8.3); Neutrophils Percent Auto 62.7 % (45-73); Platelet Count 430 X10*3/uL (160-400); Red Blood Count 2.75 X10*6/uL (4.20-5.50); Red Cell Distribution Width 21.5 % (11.0-16.0); White Blood Count 6.3 X10*3/uL (4.8-10.8)
[2020-05-04 06:34] LABS: Albumin Level 2.6 g/dL (3.5-5.0); Anion Gap 11 (12-20); Blood Urea Nitrogen 8 mg/dL (9-16); Calcium 7.9 mg/dL (8.4-10.2); Carbon Dioxide 25 mmol/L (22-29); Chloride 108 mmol/L (96-108); Creatinine Clr Calc Pharmacy 100.4; Estimated Glomerular Filt Rate > 60; Glucose Random 95 mg/dL (60-115); Magnesium 2.4 mg/dL (1.6-2.6); Phosphorus 2.7 mg/dL (2.7-4.5); Potassium 3.8 mmol/L (3.3-5.1); Sodium 140 mmol/L (135-145)
[2020-05-04] MEDS: Midodrine HCl 10 MG TABLET G-TUBE ×3 (07:12→21:17)
--- NOTE | 2020-05-04 10:41 | MHC.CM.PN ---
Patient remains vented via trach in ICU. [facility] is not expected to have a bed before Tuesday. Dr Brown aware. Continue to monitor for d/c needs.
--- NOTE | 2020-05-04 11:19 | PM.CCPN ---
Subjective Subjective Date of Service: 05/04/20 Interval History: Mrs. Medina was admitted to ICU Apr 27 with acute respiratory failure and septic shock 2? to what appears to be straighfwd aspiration pneumonia. The patient is a 54 yo woman who is a resident of [facility]. 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 Her PMHx, by report, is as follows: Subarachnoid hemorrhage Metabolic encephalopathy Seizure Dysphagia Pneumonia Sepsis VRE (vancomycin-resistant Enterococci) Diabetes Hypernatremia Hypokalemia Nephrolithiasis s/p Lap band surgery (for morbid obesity) about ten years ago (? at [facility]) I spoke with the patient's daughter at length this afternoon - Yvrose Medina ([phone]). Altho I don?t have the medical records, from what the daughter told me, it sounds like in December,, the patient suffered a ruptured cerebral aneurysm. She was taken to [facility] and then transferred to [facility] that same day, where she underwent what sounds like a decompressive craniectomy. She was in [facility] from December to February,, and during that stay had a tracheostomy, PEG, and MAINTENANCE OF WAY CLERK shunt placed. The daughter was also told that she has a second aneurysm that was not addressed. (Again, this all what I surmise from my conversation with the daughter, I can?t be certain without the medical records.) From [facility] she went to [facility]. She was decannulated after approximately 1 month, and her PEG was pulled at some point. She was at [facility] until Jul, 2019, at which time she was discharged home, and was walking and talking. According to the daughter, the part of her skull that was removed got spoiled so was unable to be replaced, and she was wearing a helmet. In October, she went back to [facility] for an implant to replace the cranial portion removed. Unfortunately she bled postoperatively and suffered neurologic deterioration. Ultimately she was discharged to rehab for a month, and then from there to [facility]. Since that surgery, she has not been able to walk, and her speech has been significantly impaired. The staff at [facility] says that she talks a little, but gets winded from long conversation. The patient?s daughter says that she has full conversations with her mother on the telephone. From what the daughter tells me, it also sounds like since the surgery, the patient exhibits echolalia. (The patient grew up speaking Tongan. She?ll respond to an Tongan speaker in Scottish, and respond to a Scottish speaker in Tongan.) The daughter also indicated to me that her mother has lost about 30 lbs since October. HISTORY OF PRESENT ILLNESS: The patient was reportedly recently hospitalized at [facility] for pneumonia and was just discharged back to [facility] on Tuesday, Apr 26. The patient was BIBA from [facility] yest morning (04/27) bec of fairly rapid onset of resp distress. On EMS arrival there, the patient had frothy sputum, Sat 60% on room air. She was thought to be in pulmon edema. She was given Lasix and CPAP and tx to the ED. On arrival to the ED, Saturation was still low on BiPAP and she was therefore intubated. She required pressors (? 2? intubation) so a CVL was placed and she was started on Levophed, along with abx. CT scan showed that her right lower lobe was socked in with pneumonia. There was no evidence of pulmonary edema. She was admitted to ICU early Apr 27, where she was put on Unasyn. In the ICU she was initially hypotensive, despite for fluids. My bedside echo on Apr 27 showed: 1. At least mild, if not moderate LVH. 2. LV cavity size is normal, with hyperdynamic LV fxn, EF 70+%, no RWMA. 3. RV size normal or small. 4. Both atria prob normal sized. 5. AoV morphologically normal. Unable to Doppler. 6. MV morphologically normal with trace MR by color chris. 7. TV morphologically normal with 1+ TR by color chris, with CWD jet measuring 1.2 m/sec, or calculated gradient 6mm. 8. IVC normal size (1.4 cm). Minimally inspiratory collapse on PPV. Estimated CVP 5-8cm. She was given more colloid and crystalloid, her BP came up, and she came off the Levophed. The propofol was turned off the next morning (Apr 28) and it took a few hours for her to come around but by about 11am she was clearly fully awake and starting to be more interactive and exhibit consistent tracking. She responded to simple commands. She was therefore extubated without incident. On room air, she was maintaining a Sat in the mid 90s all day into the early evening. Over that day, she got to the point where she was able to verbally answer simple questions with a yes or no. About 21:00 that night, she had what appears to have been sudden onset of tachypnea, hypoxemia, and tachycardia and hypertension. She was treated with Lasix, but undoubtedly, had recurrent aspiration. Ultimately just past midnight, she required re-intubation. I spoke eric Frances, her daughter ([phone]) and we discussed that it was now certain that her mother needed a tracheostomy and PEG. I also discussed that with Dr. Jones from Bariatrics and we concluded that we should do an EGD to check the lap band before the tracheostomy and PEG. We also did an EEG on Apr 29 bec of shivering/?seizures. The EEG was markedly abnormal due to severe diffuse background slowing as well as bifrontal, left greater than right sharp and slow wave discharges, that Dr. Rayo said could be indicative of a seizure focus in the frontal region. Dr. Rayo said that there were no actual seizures, but we should optimize her valproate level, which came back at 90. The EGD was done Apr 30 and showed the Lap band in good position. Dr. Jones deflated the lap band and indicated that there would be no problem doing the PEG. The percutaneous tracheostomy and PEG were done yesterday (May 01), without incident. The next morning (May 02) we turned the propofol off and switched her over to pressure support ventilation. She went onto trach collar later that day, Sat?ing up to 100% on 30% FiO2. Over the day yesterday and today however, her FiO2 requirement has increased, and she is putting out copious sethi tracheal secretions, req freq suctioning. On HFNC 50L/50% connected to her trach, RR is 25 with good excursion, Sat is 100%. CVBG this morning showed 7.45/36/+1. HR is 61, BP is 102/63 (on midodrine). She remains afebrile. Her eyes are open, but she?s only inconsistently tracking and she?s not interactive. Her affect is completely flat. Breathing easy with no access muscles. Chest is moderately rhonchorous , with a normal exp phase. Her abdomen is benign. She has no peripheral edema. Her right hand is somewhat clawed. She does not move her right side at all to command; she appears to be hemiplegic. LABORATORY DATA: As below. Notably, white count is still normal. MICROBIOLOGY: Sputum Gram stain from today shows 3+ polys with 2+ Gram-positive cocci. CHEST X-RAY this afternoon shows worse bibasilar opacities (atelectasis, pneumonia, or effusions). IMPRESSION: 1. S/p massive left aneurysmal bleed in Dec, 2018, requiring decompressive craniectomy. Made a miraculous recovery, but then had catastrophic complications from the attempt to close her craniectomy in Oct, 2019. 2. Wt loss 30 lbs. My suspicion is that she had dysphagia and was unable to swallow the food bulk necessary to get enough calories. Subsequent events noted above prove that she needed a PEG. 3. Acute resp failure 2? recurrent aspiration. It?s clear that she is unable to control her airway and needed the tracheostomy and PEG. Her daughter Yvrose made the decision to proceed. She?s doing well from a ventilatory point of view, but now has increasing secretions and FiO2 requirement, with predominant organism on gram stain. It?s possible that she has a new pneumonia, altho she?s afebrile and has normal WBC. 4. Septic shock. Resolved. 5. ID: Positive blood cultures from admission were a contaminant. She had an excellent response to the Unasyn we gave her in terms of her fever, white count, and clinical pneumonia. The Unasyn was d/c?d after a four-day course. Bec of the secretions and Gram stain, I?ve started her on linezolid, in case she has VRE. 6. Bradycardia. Likely 2? increased vagal tone. The question is why. No evidence of any new neurologic problem. If the problem persists, I would consider a head CT. 7. Hypotension. Partly 2? bradycardia. Mostly resolved with midodrine. No evidence of organ hypoperfusion. 8. Hypokalemia. Replaced. 9. S/p lap band surgery ten years ago. She has no further need for the lap band. Dr. Jones deflated it on Apr 30. It may be removed in the future if her situation warrants. 10. ?Seizures. Discussed with Dr. Rayo. In his opinion, the EEG does not show seizure activity. For now, she continues on valproate at a good therapeutic level. 11. Hypernatremia. Resolved with D5W. 12. Metabolic alkalosis. Resolved w Diamox. 13. Nutrition. Up to goal rate on tube feeds. I had a discussion on the with the patient's daughter Yvrose about her mother?s condition and end-of-life wishes. She made the decision to go ahead with the tracheostomy and PEG, with the option to d/c supportive care if her mother?s condition hasn?t improved within a few months. The patient?s situation was futher d/w case mgmnt. She?s ready to go to [facility] when they have a bed. Critical care time: 50 min. Physical Exam Vital Signs: Vital Signs: Last Vital Signs Temp 99.0 F 05/04/20 11:00 Pulse 85 05/04/20 11:00 Resp 25 H 05/04/20 11:00 BP 80/54 L 05/04/20 11:00 Pulse Ox 95 05/04/20 11:00 Body Mass Index 22.6 Objective Data Labs CBC & Chem 7: 05/04/20 05:26 05/04/20 05:26 Labs: Laboratory Results - last 24 hr 05/03/20 05/03/20 05/03/20 08:30 12:06 13:26 WBC RBC Hgb Hct MCV MCH MCHC RDW Plt Count MPV Immature Gran % (Auto) Neut % (Auto) Lymph % (Auto) [place] % (Auto) Eos % (Auto) Baso % (Auto) Lymph # (Auto) [place] # (Auto) Eos # (Auto) Baso # (Auto) Abs Immat Gran (auto) Absolute Neuts (auto) Absolute Nucleated RBC Nucleated RBC % (auto) VBG pH VBG pCO2 VBG pO2 VBG HCO3 VBG O2 Saturation VBG Base Excess Sodium Potassium Chloride Carbon Dioxide Anion Gap BUN Creatinine Estim Creat Clear Calc Estimated GFR POC Glucose 70 64 Random Glucose Calcium Phosphorus Magnesium Albumin C. difficile Toxin A&B Negative C. difficile Antigen Negative C. difficile Interpret SEE NOTE 05/03/20 05/04/20 05/04/20 16:08 05:26 05:26 WBC 6.3 RBC 2.75 L Hgb 7.8 L Hct 24.6 L MCV 89.5 MCH 28.4 MCHC 31.7 RDW 21.5 H Plt Count 430 H MPV 9.0 L Immature Gran % (Auto) 4.5 H Neut % (Auto) 62.7 Lymph % (Auto) 24.6 [place] % (Auto) 6.1 Eos % (Auto) 1.6 Baso % (Auto) 0.5 Lymph # (Auto) 1.5 [place] # (Auto) 0.4 Eos # (Auto) 0.1 Baso # (Auto) 0.0 Abs Immat Gran (auto) 0.28 H Absolute Neuts (auto) 3.9 Absolute Nucleated RBC 0.000 Nucleated RBC % (auto) 0.0 VBG pH VBG pCO2 VBG pO2 VBG HCO3 VBG O2 Saturation VBG Base Excess Sodium 140 Potassium 3.8 Chloride 108 Carbon Dioxide 25 Anion Gap 11 L BUN 8 L Creatinine 0.51 Estim Creat Clear Calc 100.4 Estimated GFR > 60 POC Glucose 107 Random Glucose 95 Calcium 7.9 L Phosphorus 2.7 Magnesium 2.4 Albumin 2.6 L D C. difficile Toxin A&B C. difficile Antigen C. difficile Interpret 05/04/20 05:26 WBC RBC Hgb Hct MCV MCH MCHC RDW Plt Count MPV Immature Gran % (Auto) Neut % (Auto) Lymph % (Auto) [place] % (Auto) Eos % (Auto) Baso % (Auto) Lymph # (Auto) [place] # (Auto) Eos # (Auto) Baso # (Auto) Abs Immat Gran (auto) Absolute Neuts (auto) Absolute Nucleated RBC Nucleated RBC % (auto) VBG pH 7.45 H VBG pCO2 36 VBG pO2 62 VBG HCO3 25 VBG O2 Saturation 89.0 VBG Base Excess 1.6 Sodium Potassium Chloride Carbon Dioxide Anion Gap BUN Creatinine Estim Creat Clear Calc Estimated GFR POC Glucose Random Glucose Calcium Phosphorus Magnesium Albumin C. difficile Toxin A&B C. difficile Antigen C. difficile Interpret Microbiology Microbiology Results: Microbiology 04/29/20 06:07 Blood - Venous Blood Culture - Final No growth after 5 days. 04/29/20 05:52 Blood - Venous Blood Culture - Final No growth after 5 days. 04/27/20 Unknown Blood - Venous Blood Culture - Final Staphylococcus epidermidis Coag negative Staphylococcus 04/27/20 Unknown Blood - Venous Blood Culture - Final Staphylococcus epidermidis Staphylococcus hominis ssp enrique 04/27/20 Unknown Urine Catheterized - Straight Catheter Urine Culture - Final Enterococcus faecalis Pseudomonas aeruginosa 04/27/20 05:52 Sputum - Suctioned Gram Stain - Final 04/27/20 05:52 Sputum - Suctioned Sputum Culture - Final Progress Note: A&P Time Spent With Patient Time: Total time spent is greater than 50% in coordination of care (as documented) at patient's floor/unit and/or counseling patient: Total time spent with greater than 50% in coordination of care (as documented) at patient's floor/unit and/or counseling patient:: 0 Critical Care Time Critical Care Time (minutes): 60
[2020-05-04 12:36] LABS: Glucose Urine UA NEG (NEG); Leukocyte Esterase Urine NEG (NEG); Nitrite Urine NEG (NEG); Specific Gravity - Urine <= 1.005 (1.005-1.025); Urine Blood 1+ (NEG); Urine Ketones NEG (NEG); Urine Protein NEG (NEG-TRACE)
[2020-05-04 12:38] LABS: Appearance Urine CLEAR; Color Urine STRAW
[2020-05-04 12:49] LABS: Mucus Urine TRACE /LPF; WBC Urine 0 /HPF (0-4)
--- NOTE | 2020-05-04 14:50 | PC.NURSE ---
Patient frequently coughing up large amounts of clear to cream secretions via trach. Requiring suctioning around every hour by RN and RT. At times patient desatting into mid 80s until suctioning is done. MD made aware of increase in frequency of suctioning and patient desatting. RT at bedside to lavage. Sputum culture previously collected. New order for CXR and medication per Dr. Brown. High flow setting increased to 65 L / 55 % by RT. Left upper load diminished, MD aware.
[2020-05-04] MEDS: Glycopyrrolate 0.2 MG/ML VIAL 0.1 MG IVPUSH (15:05)
[2020-05-04] MEDS: Linezolid/D5W 600 MG/300 ML PIGGYBACK 300 MG IV (16:47)
[2020-05-04 17:01] LABS: Glucose, Whole Blood 85 mg/dL (60-115)
[2020-05-04] MEDS: Potassium Chloride Packet 20 MEQ PACKET 40 MEQ G-TUBE (17:45)
[2020-05-04 21:10] LABS: Glucose, Whole Blood 89 mg/dL (60-115)
[2020-05-04] MEDS: Enoxaparin Sodium 40 MG/0.4 ML SYRINGE SUBCUT (21:17)
[2020-05-05] VITALS (34 sets, daily range): BP systolic 93–133; BP diastolic 61–95; PULSE 59–101; RESP 18–45; TEMP 36.8–37.4; O2SAT 90–100; BMI 22.8
[2020-05-05 01:17] LABS: Glucose, Whole Blood 90 mg/dL (60-115)
[2020-05-05] MEDS: Linezolid/D5W 600 MG/300 ML PIGGYBACK 300 MG IV (03:52)
[2020-05-05 05:39] LABS: Hematocrit 24.3 % (37-47); Hemoglobin 7.6 g/dl (12.0-16.0); Mean Corpuscular HGB Conc 31.3 g/dl (31.0-35.0); Mean Corpuscular Hemoglobin 28.5 pg (27.0-33.0); Mean Platelet Volume 8.6 fL (9.4-12.3); Platelet Count 396 X10*3/uL (160-400); Red Blood Count 2.67 X10*6/uL (4.20-5.50); Red Cell Distribution Width 21.5 % (11.0-16.0); White Blood Count 7.8 X10*3/uL (4.8-10.8)
[2020-05-05 05:45] LABS: pH VBG 7.44 (7.32-7.43)
[2020-05-05 05:46] LABS: HCO3 VBG 23 mmol/L; PCO2 VBG 34 mmHg; PO2 VBG 48 mmHg
[2020-05-05 06:02] LABS: Atypical Lymph Absolute Manual 0.2 x10*3/uL; Atypical Lymphs Percent Manual 2 % (0-6); Band Neutrophils Percent 1 % (3-5); Basophils Abs Manual 0.2 X10*3/uL (0.0-0.3); Basophils Percent Manual 2 % (0-1); Eosinophils Absolute Manual 0.1 X10*3/UL (0.0-0.8); Eosinophils Percent Manual 1 % (0-4); Lymphocytes Absolute Manual 2.4 X10*3/uL (0.6-4.8); Lymphocytes Percent Manual 31 % (20-40); Metamyelocytes Absolute 0.3 X10*3/uL; Metamyelocytes Percent 4 %; Monocytes Absolute Manual 0.4 X10*3/uL (0.0-1.2); Monocytes Percent Manual 5 % (2-11); Neutrophils Absolute Manual 4.3 X10*3/uL (2.2-7.9); Neutrophils Percent Manual 54 % (45-73)
[2020-05-05 06:04] LABS: Anion Gap 10 (12-20); Blood Urea Nitrogen 8 mg/dL (9-16); Carbon Dioxide 24 mmol/L (22-29); Chloride 108 mmol/L (96-108); Creatinine Clr Calc Pharmacy 90.9; Estimated Glomerular Filt Rate > 60; Glucose Random 88 mg/dL (60-115); Macrocytosis 1+; Ovalocytes 1+; Platelet Estimate NORMAL (NORMAL); Platelet Morphology Comment NORMAL; Potassium 4.1 mmol/L (3.3-5.1); RBC Morphology NOTED; Sodium 138 mmol/L (135-145)
[2020-05-05] MEDS: Midodrine HCl 10 MG TABLET G-TUBE ×3 (08:12→21:11)
--- NOTE | 2020-05-05 09:02 | MHC.CLN ---
F/U RECOMMEND INCREASING TF GLUCERNA AT MAX GOAL RATE 55CC/HR WITH 120CC FREE WATER FLUSHES Q 4 HRS TO PROVIDE 1320KCALS (25KCALS/KG), 55G PROTEIN (1.0G/KG), 1606CC TOTAL WATER FROM FORMULA AND FLUSHES (30CC/KG) MONITOR TOLERANCE, RESIDUALS AND LYTES
--- NOTE | 2020-05-05 12:19 | MHC.SLORD ---
Per medical chart review, patient switched from trach collar to high flow nasal cannula. Patient is on tube feeds. Per RN note, patient required frequent suctioning by RN and RT yesterday large amounts of clear to cream secretions via trach. Patient was suctioned every hour and reportedly desatted into mid 80s until suctioning was done. Patient's chest x-ray yesterday showed, bibasilar opacities, could be related to atelectasis, pneumonia, or aspiration. Suspected small bilateral effusions. Per MD note, patient is ready to go to [facility] when they have a bed. At this time, due to respiratory needs and frequent suctioning, patient does not appear to be appropriate for dysphagia evaluation. Please re-refer to speech when needed. Name: Asha Medina Date of : 1965 Age: 54 Date of Registration: 04/27/20 Speech Language Pathology Order Status:
--- NOTE | 2020-05-05 12:41 | MHC.CM.PN ---
Pt is medically ready to transfer to [facility] for LTAC level of care, however, both [facility] facilities do not have bed availability and have a wait list for admissions. Will re - assess LTAC towards the end of the week In anticipation of [facility] not having bed availability in the near future, referrals will be sent to [facility] centers that have trach care capability. The barrier for an expedient d/c will be the need for pts trach to mature x 30 days. ICU MD and RN updated on above
--- NOTE | 2020-05-05 12:46 | PM.CCPN ---
Subjective Subjective Date of Service: 05/05/20 Interval History: 54-year-old feed status post subarachnoid hemorrhage with clipping of aneurysm with residual right hemiparesis presented with an acute aspiration mechanism due to dysphagia with pneumonia and acute hypoxic respiratory failure now post extubation on persistent high flow and status post tracheostomy and PEG tube feeding which she is tolerating does not have carbon dioxide retention but does have bilateral residual lung opacities probably in large part atelectasis/effusions with marginal oxygen saturations who remains lethargic but responsive and does have a cognitive function in so far as she tracks and seems to pay attention to conversation and follow some simple commands without evidence of any cardiovascular disease normal laboratory work including renal and hepatic function stable degree of anemia Physical Exam Vital Signs: Vital Signs: Last Vital Signs Temp 98.3 F 05/05/20 11:53 Pulse 82 05/05/20 11:53 Resp 26 H 05/05/20 11:53 BP 99/67 05/05/20 11:53 Pulse Ox 99 05/05/20 11:53 Body Mass Index 22.8 Const: Other: Arousable though lethargic with right hemiparesis spontaneous movement which is appropriate noted on the left side Normal sinus rhythm blood pressure 100/67 with a mean of 75 has good bilateral carotid upstrokes no bruits no gallops no neck vein distension and CVP reading of 2 Lungs with rhonchi bilaterally due to upper airway secretions Abdomen soft no again a megaly good bowel sounds Skin with a healing grade 2 presacral decubitus Objective Data Labs CBC & Chem 7: 05/05/20 05:30 05/05/20 05:30 Labs: Laboratory Results - last 24 hr 05/04/20 05/04/20 05/04/20 12:03 16:58 21:04 WBC RBC Hgb Hct MCV MCH MCHC RDW Plt Count MPV Immature Gran % (Auto) Neut % (Auto) Lymph % (Auto) [place] % (Auto) Eos % (Auto) Baso % (Auto) Lymph # (Auto) [place] # (Auto) Eos # (Auto) Baso # (Auto) Abs Immat Gran (auto) Absolute Neuts (auto) Absolute Nucleated RBC Nucleated RBC % (auto) Neutrophils % (Manual) Band Neutrophils % Lymphocytes % (Manual) Atypical Lymphs % (Man) Monocytes % (Manual) Eosinophils % (Manual) Basophils % (Manual) Metamyelocytes % Abs Neuts (Manual) Lymphocytes # (Manual) Atyp Lymphs # (Manual) Monocytes # (Manual) Eosinophils # (Manual) Basophils # (Manual) Metamyelocytes # Platelet Estimate Plt Morphology Comment RBC Morphology Macrocytosis Ovalocytes VBG pH VBG pCO2 VBG pO2 VBG HCO3 VBG O2 Saturation VBG Base Excess Sodium Potassium Chloride Carbon Dioxide Anion Gap BUN Creatinine Estim Creat Clear Calc Estimated GFR POC Glucose 85 89 Random Glucose Calcium Urine RBC 1-4 Urine WBC 0 Ur Squamous Epith Cells NONE Urine Bacteria NONE Urine Mucus TRACE 05/05/20 05/05/20 05/05/20 01:13 05:30 05:30 WBC 7.8 RBC 2.67 L Hgb 7.6 L Hct 24.3 L MCV 91.0 MCH 28.5 MCHC 31.3 RDW 21.5 H Plt Count 396 MPV 8.6 L Immature Gran % (Auto) Cancelled Neut % (Auto) Cancelled Lymph % (Auto) Cancelled [place] % (Auto) Cancelled Eos % (Auto) Cancelled Baso % (Auto) Cancelled Lymph # (Auto) Cancelled [place] # (Auto) Cancelled Eos # (Auto) Cancelled Baso # (Auto) Cancelled Abs Immat Gran (auto) Cancelled Absolute Neuts (auto) Cancelled Absolute Nucleated RBC 0.000 Nucleated RBC % (auto) 0.0 Neutrophils % (Manual) 54 Band Neutrophils % 1 L Lymphocytes % (Manual) 31 Atypical Lymphs % (Man) 2 Monocytes % (Manual) 5 Eosinophils % (Manual) 1 Basophils % (Manual) 2 H Metamyelocytes % 4 Abs Neuts (Manual) 4.3 Lymphocytes # (Manual) 2.4 Atyp Lymphs # (Manual) 0.2 Monocytes # (Manual) 0.4 Eosinophils # (Manual) 0.1 Basophils # (Manual) 0.2 Metamyelocytes # 0.3 Platelet Estimate NORMAL Plt Morphology Comment NORMAL RBC Morphology NOTED Macrocytosis 1+ Ovalocytes 1+ VBG pH VBG pCO2 VBG pO2 VBG HCO3 VBG O2 Saturation VBG Base Excess Sodium 138 Potassium 4.1 Chloride 108 Carbon Dioxide 24 Anion Gap 10 L BUN 8 L Creatinine 0.52 Estim Creat Clear Calc 90.9 Estimated GFR > 60 POC Glucose 90 Random Glucose 88 Calcium 8.0 L Urine RBC Urine WBC Ur Squamous Epith Cells Urine Bacteria Urine Mucus 05/05/20 05:30 WBC RBC Hgb Hct MCV MCH MCHC RDW Plt Count MPV Immature Gran % (Auto) Neut % (Auto) Lymph % (Auto) [place] % (Auto) Eos % (Auto) Baso % (Auto) Lymph # (Auto) [place] # (Auto) Eos # (Auto) Baso # (Auto) Abs Immat Gran (auto) Absolute Neuts (auto) Absolute Nucleated RBC Nucleated RBC % (auto) Neutrophils % (Manual) Band Neutrophils % Lymphocytes % (Manual) Atypical Lymphs % (Man) Monocytes % (Manual) Eosinophils % (Manual) Basophils % (Manual) Metamyelocytes % Abs Neuts (Manual) Lymphocytes # (Manual) Atyp Lymphs # (Manual) Monocytes # (Manual) Eosinophils # (Manual) Basophils # (Manual) Metamyelocytes # Platelet Estimate Plt Morphology Comment RBC Morphology Macrocytosis Ovalocytes VBG pH 7.44 H VBG pCO2 34 VBG pO2 48 VBG HCO3 23 VBG O2 Saturation 81.0 VBG Base Excess 0.0 Sodium Potassium Chloride Carbon Dioxide Anion Gap BUN Creatinine Estim Creat Clear Calc Estimated GFR POC Glucose Random Glucose Calcium Urine RBC Urine WBC Ur Squamous Epith Cells Urine Bacteria Urine Mucus Microbiology Microbiology Results: Microbiology 05/04/20 12:03 Sputum - Suctioned Gram Stain - Final 05/04/20 12:03 Sputum - Suctioned Sputum Culture - Preliminary Normal so far. 04/29/20 06:07 Blood - Venous Blood Culture - Final No growth after 5 days. 04/29/20 05:52 Blood - Venous Blood Culture - Final No growth after 5 days. 04/27/20 Unknown Blood - Venous Blood Culture - Final Staphylococcus epidermidis Coag negative Staphylococcus 04/27/20 Unknown Blood - Venous Blood Culture - Final Staphylococcus epidermidis Staphylococcus hominis ssp enrique 04/27/20 Unknown Urine Catheterized - Straight Catheter Urine Culture - Final Enterococcus faecalis Pseudomonas aeruginosa 04/27/20 05:52 Sputum - Suctioned Gram Stain - Final 04/27/20 05:52 Sputum - Suctioned Sputum Culture - Final Progress Note: A&P Assessment and plan (1) Seizure: Status: Acute (2) CVA (cerebral vascular accident): Status: Acute (3) Dysphagia: Status: Acute (4) Buttock wound: Problem details: Buttock wound is very superficial and 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 Apparently she also has had several neurological events in the past and was treat and PEG did so we know that she has multiple comorbidities to put her at risk for further pressure ulcers. Status: Acute (5) History of laparoscopic adjustable gastric banding: Problem details: 2008 Status: Acute (6) Septic shock: Status: Acute (7) Elevated lactic acid level: Status: Acute (8) Hypotension: Status: Acute (9) Aspiration pneumonia: Status: Acute (10) Acute respiratory failure with hypoxia: Status: Acute (11) Respiratory failure: Status: Acute (12) Pneumonia: Status: Acute (13) Demand ischemia: Status: Acute Assessment and Plan: The plan for today given the combined VRE and Pseudomonas with insufficient colony counts is to simply remove the Chau catheter use a pure wake and stop the linezolid antibiotic at this point and with her negative sputum cultures will continue sputum surveillance and vigorous pulmonary toileting and DVT prophylaxis possibly arrange for long-term acute care Time Spent With Patient Time: Total time spent is greater than 50% in coordination of care (as documented) at patient's floor/unit and/or counseling patient: Total time spent with greater than 50% in coordination of care (as documented) at patient's floor/unit and/or counseling patient:: 30
--- NOTE | 2020-05-05 14:34 | P.CNID_ITS ---
History of Present Illness Data of Consult Service Date: 05/05/20 Requesting physician: Ok Hebert Primary Care Provider: Unknown Physician HPI Reason for consult: VRE urine She presents with shortness of breath from [facility] She was hypoxic and is on oxygen She has trach She has had VRE urine ,now 10,000 to [address]21 and had last month as well Review of Systems Review of Systems: Yes Unobtainable due to mental status PMFSH Past Medical History Medical History (Updated 05/05/20 @ 14:45 by Sheela Stringer MD) Asthma CVA (cerebral vascular accident) Diabetes Dysphagia History of gastrostomy tube placement Hypernatremia Hypokalemia Metabolic encephalopathy Nephrolithiasis Pneumonia Seizure Sepsis Subarachnoid hemorrhage VRE (vancomycin resistant enterococcus) culture positive VRE (vancomycin-resistant Enterococci) Family History Family History Mother Stroke Father No problems noted. Brother No problems noted. Sister No problems noted. Daughter No problems noted. Daughter No problems noted. Surgical History Surgical History History of bunionectomy of both great toes History of hysterectomy History of laparoscopic adjustable gastric banding History of tracheostomy S/P clamping of cerebral aneurysm Social History Social History Household Members: Unknown / Unable to assess Housing: Longterm Unable to assess alcohol history related to: Unable to respond Alcohol intake: unknown Smoking Status: Unknown if ever smoked Use of substances other than those prescribed or required for medical reasons: Unable to respond Currently Displaying Signs/Symptoms of Drug Intoxication Withdrawal: No Advance Directives: No Advance Directives Information Provided: No Do you have thoughts of harming others: None Do you have a plan to hurt others: No Plan service: No Current occupational status: employed Meds Allergies Allergy/AdvReac Type Severity Reaction Status Date / Time No Known Allergies Allergy Verified 04/30/20 10:00 Active Medications: Current Medications Generic Name Dose Route Start Last Admin Trade Name Freq PRN Reason Stop Dose Admin Chlorhexidine Gluconate 15 ml 04/27/20 01:30 05/05/20 07:40 Chlorhexidine Gluc Oral Rinse 15 Ml Mouthwash BUCCAL Not Given Q8H ROSALINE Enoxaparin Sodium 40 mg 04/27/20 02:00 05/04/20 21:17 Enoxaparin Sodium 40 Mg/0.4 Ml Syringe SUBCUT 40 mg BEDTIME ROSALINE Administration Midodrine 10 mg 05/01/20 08:39 05/05/20 14:28 Midodrine Hcl 10 Mg Tablet G-TUBE 10 mg TID ROSALINE Administration Valproic Acid 375 mg 04/29/20 15:00 05/05/20 14:27 Valproic Acid (As Sodium Salt) 250 Mg/5 Ml Solution G-TUBE 375 mg TID ROSALINE Administration Home Medications Medication Instructions Recorded Confirmed Last Taken Type albuterol sulfate [ProAir HFA] 2 puff INHALATION Q4H PRN 04/28/20 04/28/20 Unknown History amlodipine 5 mg PO DAILY 04/28/20 04/28/20 Unknown History carboxymethylcellulose sodium 1 drp OPHTHALMIC (EYE) TID PRN 04/28/20 04/28/20 Unknown History [Refresh Celluvisc] divalproex [Depakote Sprinkles] 375 mg PO TID 04/28/20 04/28/20 Unknown History dronabinol [Marinol] 2.5 mg PO BIDAC 04/28/20 04/28/20 Unknown History heparin (porcine) 5,000 unit SUBCUT Q8H 04/28/20 04/28/20 Unknown History hypromellose [Gonak] 1 drp OPHTHALMIC (EYE) BID 04/28/20 04/28/20 Unknown History mirtazapine 15 mg PO BEDTIME 04/28/20 04/28/20 Unknown History multivitamin 1 tab PO DAILY 04/28/20 04/28/20 Unknown History polyvinyl alcohol-povidone 1 drp OPHTHALMIC (EYE) TID PRN 04/28/20 04/28/20 Unkn own History Physical Exam Vital Signs: Vital Signs: Last Vital Signs Temp 98.3 F 05/05/20 11:53 Pulse 67 05/05/20 14:28 Resp 30 H 05/05/20 13:55 BP 117/81 05/05/20 14:28 Pulse Ox 93 05/05/20 13:55 Body Mass Index 22.8 Const: General: cooperative Orientation/consciousness: patient oriented x3 HENMT: Head: Yes normal to inspection Mouth: Normal oral and palatal mucosa present Eyes: General: appearance normal, both eyes and all related structures Resp: Effort & Inspection: normal respiratory effort Cardio: Rate: regular rate Rhythm: regular rhythm GI: Palpation (GI): Soft to palpation and nontender : General: Yes no CVA tenderness Back/Spine/Pelvis: Back: no CVA tenderness Skin: General skin exam: no rashes or lesions noted Neuro: General: patient oriented x3 Results Labs CBC & Chem 7: 05/05/20 05:30 05/05/20 05:30 Labs: Short CBC 05/05/20 Range/Units 05:30 WBC 7.8 (4.8-10.8) X10*3/uL Hgb 7.6 L (12.0-16.0) g/dl Hct 24.3 L (37-47) % Plt Count 396 (160-400) X10*3/uL BMP 05/05/20 05:30 Sodium 138 Potassium 4.1 Chloride 108 Carbon Dioxide 24 BUN 8 L Creatinine 0.52 Calcium 8.0 L Microbiology Microbiology Results: Microbiology 05/04/20 12:03 Sputum - Suctioned Gram Stain - Final 05/04/20 12:03 Sputum - Suctioned Sputum Culture - Preliminary Normal so far. 04/29/20 06:07 Blood - Venous Blood Culture - Final No growth after 5 days. 04/29/20 05:52 Blood - Venous Blood Culture - Final No growth after 5 days. 04/27/20 Unknown Blood - Venous Blood Culture - Final Staphylococcus epidermidis Coag negative Staphylococcus 04/27/20 Unknown Blood - Venous Blood Culture - Final Staphylococcus epidermidis Staphylococcus hominis ssp enrique 04/27/20 Unknown Urine Catheterized - Straight Catheter Urine Culture - Final Enterococcus faecalis Pseudomonas aeruginosa 04/27/20 05:52 Sputum - Suctioned Gram Stain - Final 04/27/20 05:52 Sputum - Suctioned Sputum Culture - Final Assessment and Plan (1) Seizure: Status: Acute (2) CVA (cerebral vascular accident): Status: Acute (3) Dysphagia: Status: Acute (4) VRE (vancomycin resistant enterococcus) culture positive: Problem details: She has likely colonization as VRE present earlier and now is present in lower dose There is no signs of bacterial sepsis at this time Status: Acute
--- NOTE | 2020-05-05 18:56 | PC.NURSE ---
Assumed care at 15:00. Patient is unable to reply to questions. Some tracking apparent. Positive cough. Patient did follow two commands; to open mouth for oral care, as well as to lift her head. Patient also lifted her left hand independently. Patient is afebrile. Patient with large amount of thick clear secretions to tracheostomy and large amount of thin clear oral secretions; suctioned 8 times this 4 hours at tracheostomy, and oral care provided per protocol; questioned whether patient needs scopalamine patch, and MD indicated patient possible urinary retention is contraindication. Lung sounds with inspiratory and expiratory rhonchi. Patient with purewick in place, checked placement with loan assistant, and noted no urine output; bladder scanned for 450 ccs retained urine at 17:05 as this was 6 hours from removal of teixeira catheter, and reported this to MD, and MD asks to give patient about 3 more hours to assess whether void; no incontinence. TF well tolerated: 5 ccs residual. 120 ccs H2O per orders.
[2020-05-05] MEDS: Enoxaparin Sodium 40 MG/0.4 ML SYRINGE SUBCUT (21:09)
[2020-05-06] VITALS (33 sets, daily range): BP systolic 91–140; BP diastolic 59–91; PULSE 56–99; RESP 18–37; TEMP 36.3–37.1; O2SAT 93–100; BMI 23.0
[2020-05-06 05:49] LABS: NRBC Pct Auto 0.4 /100WBC (0.0-0.2); PLT CLUMP 1
[2020-05-06 05:50] LABS: Base Excess VBG -0.4 mmol/L; HCO3 VBG 23 mmol/L; PCO2 VBG 33 mmHg; PO2 VBG 113 mmHg; pH VBG 7.44 (7.32-7.43)
[2020-05-06 05:51] LABS: Hematocrit 28.2 % (37-47); Hemoglobin 8.7 g/dl (12.0-16.0); Mean Corpuscular HGB Conc 30.9 g/dl (31.0-35.0); Mean Corpuscular Hemoglobin 28.6 pg (27.0-33.0); Mean Corpuscular Volume 92.8 fL (80-98); Mean Platelet Volume 9.9 fL (9.4-12.3); Red Blood Count 3.04 X10*6/uL (4.20-5.50); Red Cell Distribution Width 22.2 % (11.0-16.0); White Blood Count 7.5 X10*3/uL (4.8-10.8)
--- NOTE | 2020-05-06 05:53 | PC.NURSE ---
pt has periods of awakefullness. elicits occular tracking and focusing with gaze preference to the left. does not follow command. nonverbal. residual right sided hemiplegia is present. complexion pale/sallow. hands edematous. #8.0 portex tracheostomy tube midline and sututred in place. attached to high flow oxygen setup fio2 65% flow 45 lpm. breath sounds congested with i/e rhonchi throughout lung dupree. excessive oral and tracheal secreations encountered. suctioned approximately every 30-60 minutes for copious amounts of thick clear secreations. heart tones distant s1s2. ecg displays sr. afebrile. abdomen benign. peg intact and attached to feeding pump infusing glucerna at 55ml/hr. q 6hr 120 ml h20 boluses given. [place] urinary diversion system in place drained approximately 700 ml of dilute urine.
[2020-05-06 06:13] LABS: Band Neutrophils Percent 6 % (3-5); Eosinophils Absolute Manual 0.1 X10*3/UL (0.0-0.8); Eosinophils Percent Manual 1 % (0-4); Lymphocytes Percent Manual 27 % (20-40); Metamyelocytes Absolute 0.2 X10*3/uL; Metamyelocytes Percent 3 %; Monocytes Absolute Manual 0.4 X10*3/uL (0.0-1.2); Monocytes Percent Manual 5 % (2-11); Myelocytes Absolute 0.2 X10*/uL; Myelocytes Percent 2 %; Neutrophils Absolute Manual 4.7 X10*3/uL (2.2-7.9); Neutrophils Percent Manual 56 % (45-73)
[2020-05-06 06:14] LABS: Nucleated Red Blood Cells 1 /100WBC (0-0)
[2020-05-06 06:17] LABS: Acanthocytes 1+; Macrocytosis 1+; Microcytosis 1+; Ovalocytes 1+; Platelet Estimate NORMAL (NORMAL); Polychromasia 1+; RBC Morphology NOTED; Toxic Vacuolation PRESENT
[2020-05-06 06:18] LABS: Platelet Morphology Comment NORM
[2020-05-06 06:21] LABS: Anion Gap 12 (12-20); Blood Urea Nitrogen 10 mg/dL (9-16); Calcium 8.3 mg/dL (8.4-10.2); Carbon Dioxide 22 mmol/L (22-29); Chloride 108 mmol/L (96-108); Creatinine Clr Calc Pharmacy 89.2; Estimated Glomerular Filt Rate > 60; Glucose Random 84 mg/dL (60-115); Potassium 4.5 mmol/L (3.3-5.1); Sodium 137 mmol/L (135-145)
[2020-05-06] MEDS: Chlorhexidine Gluc Oral Rinse 15 ML MOUTHWASH BUCCAL ×2 (08:46→17:29)
[2020-05-06] MEDS: Midodrine HCl 10 MG TABLET G-TUBE ×3 (08:46→22:22)
--- NOTE | 2020-05-06 11:09 | P.PNCC_ITS ---
Subjective Subjective Date of Service: 05/06/20 Interval History: 54-year-old female status post subarachnoid hemorrhage and then subsequent aneurysm clipping with persistent right hemiparesis and seemingly a little bit more lethargic even though she has some features of cognitive function arousable to a degree and for that and will check a level of valproic acid along with an ammonia level Status post intubation for acute hypoxemic respiratory failure due to aspiration pneumonitis with dysphagia and inability to handle secretions Physical Exam Vital Signs: Vital Signs: Last Vital Signs Temp 98.0 F 05/06/20 08:00 Pulse 56 05/06/20 10:00 Resp 23 H 05/06/20 10:00 BP 117/78 05/06/20 10:00 Pulse Ox 97 05/06/20 10:00 Body Mass Index 23.0 Const: Other: She is awake lethargic but arousable with verbal stimuli and right hemiparesis unchanged No neck vein distension and good bilateral carotid upstrokes and no gallops Chest mild bibasilar rales otherwise no adventitious sounds Abdomen benign no bruits no tenderness no organomegaly Objective Data Labs CBC & Chem 7: 05/06/20 05:42 05/06/20 05:42 Labs: Laboratory Results - last 24 hr 05/06/20 05/06/20 05/06/20 05:42 05:42 05:42 WBC 7.5 RBC 3.04 L Hgb 8.7 L Hct 28.2 L MCV 92.8 MCH 28.6 MCHC 30.9 L RDW 22.2 H Plt Count TNP MPV 9.9 Immature Gran % (Auto) Cancelled Neut % (Auto) Cancelled Lymph % (Auto) Cancelled Caroline % (Auto) Cancelled Eos % (Auto) Cancelled Baso % (Auto) Cancelled Lymph # (Auto) Cancelled Caroline # (Auto) Cancelled Eos # (Auto) Cancelled Baso # (Auto) Cancelled Abs Immat Gran (auto) Cancelled Absolute Neuts (auto) Cancelled Absolute Nucleated RBC 0.030 H Nucleated RBC % (auto) 0.4 H Neutrophils % (Manual) 56 Band Neutrophils % 6 H Lymphocytes % (Manual) 27 Monocytes % (Manual) 5 Eosinophils % (Manual) 1 Metamyelocytes % 3 Myelocytes % 2 Abs Neuts (Manual) 4.7 Lymphocytes # (Manual) 2.0 Monocytes # (Manual) 0.4 Eosinophils # (Manual) 0.1 Metamyelocytes # 0.2 Myelocytes # 0.2 Nucleated RBCs 1 H Toxic Vacuolation PRESENT Platelet Estimate NORMAL Plt Morphology Comment NORM RBC Morphology NOTED Polychromasia 1+ Microcytosis 1+ Macrocytosis 1+ Ovalocytes 1+ Acanthocytes (Spur) 1+ VBG pH 7.44 H VBG pCO2 33 VBG pO2 113 VBG HCO3 23 VBG O2 Saturation 98.0 VBG Base Excess -0.4 Sodium 137 Potassium 4.5 Chloride 108 Carbon Dioxide 22 Anion Gap 12 BUN 10 Creatinine 0.53 Estim Creat Clear Calc 89.2 Estimated GFR > 60 Random Glucose 84 Calcium 8.3 L Microbiology Microbiology Results: Microbiology 05/04/20 12:03 Sputum - Suctioned Gram Stain - Final 05/04/20 12:03 Sputum - Suctioned Sputum Culture - Preliminary Normal so far. 04/29/20 06:07 Blood - Venous Blood Culture - Final No growth after 5 days. 04/29/20 05:52 Blood - Venous Blood Culture - Final No growth after 5 days. 04/27/20 Unknown Blood - Venous Blood Culture - Final Staphylococcus epidermidis Coag negative Staphylococcus 04/27/20 Unknown Blood - Venous Blood Culture - Final Staphylococcus epidermidis Staphylococcus hominis ssp enrique 04/27/20 Unknown Urine Catheterized - Straight Catheter Urine Culture - Final Enterococcus faecalis Pseudomonas aeruginosa 04/27/20 05:52 Sputum - Suctioned Gram Stain - Final 04/27/20 05:52 Sputum - Suctioned Sputum Culture - Final Progress Note: A&P Assessment and plan (1) VRE (vancomycin resistant enterococcus) culture positive: Problem details: She has likely colonization as VRE present earlier and now is present in lower dose There is no signs of bacterial sepsis at this time Status: Acute (2) Seizure: Status: Acute (3) Buttock wound: Problem details: Buttock wound is very superficial and 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 Apparently she also has had several neurological events in the past and was treat and PEG did so we know that she has multiple comorbidities to put her at risk for further pressure ulcers. Status: Acute (4) History of laparoscopic adjustable gastric banding: Problem details: 2008 Status: Acute (5) Elevated lactic acid level: Status: Acute (6) Septic shock: Status: Acute (7) Aspiration pneumonia: Status: Acute (8) Hypotension: Status: Acute (9) Acute respiratory failure with hypoxia: Status: Acute (10) Pneumonia: Status: Acute (11) Demand ischemia: Status: Acute Assessment and Plan: Compensated blood gas but copious lung secretions and clearly that needs frequent suctioning and no evidence of nosocomial infection at this point and for the sake of mental status I will do check valproic acid level as well as ammonia level Time Spent With Patient Time: Total time spent is greater than 50% in coordination of care (as documented) at patient's floor/unit and/or counseling patient: Total time spent with greater than 50% in coordination of care (as documented) at patient's floor/unit and/or counseling patient:: 35
[2020-05-06 11:15] LABS: Ammonia 66 umol/L (13-55)
[2020-05-06] MEDS: Albuterol/Iprat 2.5/0.5MG 3 ML AMPUL.NEB INHALE ×3 (11:15→20:38)
[2020-05-06 11:49] LABS: Valproate 70.9 mcg/mL (50.0-100.0)
[2020-05-06] MEDS: Lactulose 20 GM/30 ML SOLUTION PO (12:56)
--- NOTE | 2020-05-06 14:19 | PC.NURSE ---
Pt spontaneously opens eyes, able to open mouth by verbal command and squeeze left hand by verbal command. Tracks with eyes, prefers left gaze. right hemiparesis. Pupils PERRLA 5mm Able to cough independently and clear secretions from trach at times. On highflow FiO2 65% at 45L/min via #8 portex trach, sutures intact, stoma pink with scant crusted blood, cleaned with saline/peroxide. Frequent suctioning q1-2hr for large amounts of clear secretions #14 [place] through trach. Tachypneic at 29 br/min, lung sounds dim, SaO2 mostly 98%, dipped as low as 88%, improved with repo and suctioning. Pt NSR/SBRAD, BP low at times, low of 91/59 (MAP 69). Making urine through purewick. 1+ pitting edema to bilat hand. Skin intact, old healed pressure injury near coccyx, peeling skin superficial underlying skin is pink and healed. Barrier cream applied and q2h repo. Glucerna running at 55ml/hr, minimal residuals, 10ml. Valproic acid dose decreased to BID, lab libia and WNL. Ammonia level elevated to 65, lactulose 20g given, no BM yet this shift. Will continue to monitor. Bed locked and in lowest position, call ames in reach.
[2020-05-06] MEDS: Enoxaparin Sodium 40 MG/0.4 ML SYRINGE SUBCUT (22:22)
[2020-05-07] VITALS (34 sets, daily range): BP systolic 87–146; BP diastolic 33–89; PULSE 67–104; RESP 20–46; TEMP 36.4–37; O2SAT 92–100; BMI 23.3
[2020-05-07] MEDS: Chlorhexidine Gluc Oral Rinse 15 ML MOUTHWASH BUCCAL ×3 (00:34→17:55)
--- NOTE | 2020-05-07 02:43 | PC.NURSE ---
PT IS LETHARGIC BUT IS RESPONSIVE WHEN NAME IS CALLED. WILL TRACK AND FOLLOW WITH HER EYES. WILL SQUEEZE WITH HER LEFT HAND ON COMMAND MOST TIMES BUT NOT ALWAYS. RIGHT SIDE IS PARALYZED. MOVES LEFT ARM FREELY. IS CALM. NO RESP DISTRESS NOTED. HIGH FLOW O2 ON VIA TRACH COLLAR AT 50% AND 45L. FREQUENT TRACH SUCTIONING REQUIRED. PT HAS A STRONG COUGH AND COUGHS A GOOD AMOUNT OF CLEAR SPUTUM HERSELF BUT STILL REQUIRES SUCTIONING. VITALS STABLE. AFEBRILE. TURNED AND REPOS Q2H. INCONTINENT OF URINE. PUREWICK IN PLACE AND WORKING WELL BUT PT HAS ALSO BEEN INCONTINENT OF STOOL PREVENTING THE PUREWICK FROM WORKING AT THESE TIMES. SKIN IS INTACT. SLIGHT REDNESS OF BUTTOCKS NOTED. BARRIER CREAM APPLIED. TOLERATING TUBE FEEDINGS ORDERED.
[2020-05-07 05:33] LABS: MANUAL DIFF FLAG NO
[2020-05-07 05:46] LABS: Base Excess VBG 0.8 mmol/L; HCO3 VBG 24 mmol/L; PCO2 VBG 33 mmHg; PO2 VBG 49 mmHg; pH VBG 7.46 (7.32-7.43)
[2020-05-07 05:58] LABS: Basophils Absolute Auto 0.1 X10*3/uL (0.0-0.2); Basophils Percent Auto 0.6 % (0-2); Eosinophils Absolute Auto 0.1 X10*3/uL (0.0-0.4); Eosinophils Percent Auto 0.8 % (0-4); Hematocrit 27.7 % (37-47); Hemoglobin 8.7 g/dl (12.0-16.0); Imm Gran Abs Auto 0.38 X10*3/uL (0.00-0.03); Imm Gran Pct Auto 4.5 % (0.0-0.4); Lymphocytes Absolute Auto 2.2 X10*3/uL (1.2-4.9); Lymphocytes Percent Auto 25.4 % (20-40); Mean Corpuscular HGB Conc 31.4 g/dl (31.0-35.0); Mean Corpuscular Hemoglobin 28.7 pg (27.0-33.0); Mean Corpuscular Volume 91.4 fL (80-98); Mean Platelet Volume 8.8 fL (9.4-12.3); Monocytes Absolute Auto 0.8 X10*3/uL (0.1-1.2); Monocytes Percent Auto 9.6 % (2-11); NRBC Pct Auto 0.4 /100WBC (0.0-0.2); Neutrophils Percent Auto 59.1 % (45-73); Platelet Count 414 X10*3/uL (160-400); Red Blood Count 3.03 X10*6/uL (4.20-5.50); Red Cell Distribution Width 21.9 % (11.0-16.0); White Blood Count 8.5 X10*3/uL (4.8-10.8)
[2020-05-07 06:00] LABS: Ammonia 44 umol/L (13-55)
[2020-05-07 06:08] LABS: Anion Gap 11 (12-20); Blood Urea Nitrogen 11 mg/dL (9-16); Calcium 8.5 mg/dL (8.4-10.2); Carbon Dioxide 24 mmol/L (22-29); Chloride 107 mmol/L (96-108); Creatinine Clr Calc Pharmacy 89.2; Estimated Glomerular Filt Rate > 60; Glucose Random 94 mg/dL (60-115); Magnesium 2.3 mg/dL (1.6-2.6); Potassium 4.2 mmol/L (3.3-5.1); Sodium 138 mmol/L (135-145)
[2020-05-07] MEDS: Albuterol/Iprat 2.5/0.5MG 3 ML AMPUL.NEB INHALE ×4 (07:54→20:13)
[2020-05-07] MEDS: Lactulose 20 GM/30 ML SOLUTION PO ×2 (08:22→22:28)
[2020-05-07] MEDS: Midodrine HCl 10 MG TABLET G-TUBE ×3 (08:22→22:27)
--- NOTE | 2020-05-07 10:29 | MHC.CLN ---
F/U PT RECEIVING TF GLUCERNA AT MAX GOAL RATE 55CC/HR WITH 120CC FREE WATER FLUSHES Q 4 HRS TO PROVIDE 1320KCALS (25KCALS/KG), 55G PROTEIN (1.0G/KG), 1606CC TOTAL WATER FROM FORMULA AND FLUSHES (30CC/KG) TOELRATING WITH LOW RESIDUALS PER NSG NOTED WOUND IMPROVED MONITOR TOLERANCE, RESIDUALS AND LYTES
--- NOTE | 2020-05-07 11:06 | P.PNCC_ITS ---
Subjective Subjective Date of Service: 05/07/20 Interval History: 54-year-old female status post subarachnoid hemorrhage with aneurysm clipping and residual right hemiparesis presented due to dysphagia with a large bilateral aspiration pneumonitis and hypoxic respiratory failure intubated and now tracheostomy and PEG tube also somewhat the obtunded and because of seizure history her valproic acid level was somewhat high it was reduced her ammonia level was high it was treated with lactulose and she is awake and alert with much better cognitive function Requires hourly suctioning to prevent desaturation but she is beginning to develop a little bit more of her own cough and both L flow and FiO2 have been considerably weaned indicating methodist of pulmonary reserve Physical Exam Vital Signs: Vital Signs: Last Vital Signs Temp 97.8 F 05/07/20 08:00 Pulse 78 05/07/20 10:00 Resp 31 H 05/07/20 10:00 BP 87/61 L 05/07/20 10:00 Pulse Ox 98 05/07/20 10:00 Body Mass Index 23.3 Const: Other: More alert good cognitive function understands and follows commands appropriately and is persistent right hemiparesis Normal sinus rhythm excellent vitals no neck vein distension and good bilateral carotid upstrokes and no bruits Chest without adventitious sounds just occasionally some coarse upper airway rhonchi Abdomen benign soft with good bowel sounds no again a megaly Objective Data Labs CBC & Chem 7: 05/07/20 05:23 05/07/20 05:23 Labs: Laboratory Results - last 24 hr 05/06/20 05/06/20 05/07/20 10:23 10:23 05:23 WBC RBC Hgb Hct MCV MCH MCHC RDW Plt Count MPV Immature Gran % (Auto) Neut % (Auto) Lymph % (Auto) Morrison % (Auto) Eos % (Auto) Baso % (Auto) Lymph # (Auto) Morrison # (Auto) Eos # (Auto) Baso # (Auto) Abs Immat Gran (auto) Absolute Neuts (auto) Absolute Nucleated RBC Nucleated RBC % (auto) VBG pH VBG pCO2 VBG pO2 VBG HCO3 VBG O2 Saturation VBG Base Excess Sodium 138 Potassium 4.2 Chloride 107 Carbon Dioxide 24 Anion Gap 11 L BUN 11 Creatinine 0.53 Estim Creat Clear Calc 89.2 Estimated GFR > 60 Random Glucose 94 Calcium 8.5 Magnesium 2.3 Ammonia 66 H Valproic Acid 70.9 05/07/20 05/07/20 05/07/20 05:23 05:23 05:23 WBC 8.5 RBC 3.03 L Hgb 8.7 L Hct 27.7 L MCV 91.4 MCH 28.7 MCHC 31.4 RDW 21.9 H Plt Count 414 H MPV 8.8 L Immature Gran % (Auto) 4.5 H Neut % (Auto) 59.1 Lymph % (Auto) 25.4 Morrison % (Auto) 9.6 Eos % (Auto) 0.8 Baso % (Auto) 0.6 Lymph # (Auto) 2.2 Morrison # (Auto) 0.8 Eos # (Auto) 0.1 Baso # (Auto) 0.1 Abs Immat Gran (auto) 0.38 H Absolute Neuts (auto) 5.0 Absolute Nucleated RBC 0.030 H Nucleated RBC % (auto) 0.4 H VBG pH 7.46 H VBG pCO2 33 VBG pO2 49 VBG HCO3 24 VBG O2 Saturation 79.0 VBG Base Excess 0.8 Sodium Potassium Chloride Carbon Dioxide Anion Gap BUN Creatinine Estim Creat Clear Calc Estimated GFR Random Glucose Calcium Magnesium Ammonia 44 Valproic Acid Microbiology Microbiology Results: Microbiology 05/04/20 12:03 Sputum - Suctioned Gram Stain - Final 05/04/20 12:03 Sputum - Suctioned Sputum Culture - Final 04/29/20 06:07 Blood - Venous Blood Culture - Final No growth after 5 days. 04/29/20 05:52 Blood - Venous Blood Culture - Final No growth after 5 days. 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 Apparently she also has had several neurological events in the past and was treat and PEG did so we know that she has multiple comorbidities to put her at risk for further pressure ulcers. Status: Acute (6) History of laparoscopic adjustable gastric banding: Problem details: 2008 Status: Acute (7) Septic shock: Status: Acute (8) Elevated lactic acid level: Status: Acute (9) Hypotension: Status: Acute (10) Aspiration pneumonia: Status: Acute (11) Acute respiratory failure with hypoxia: Status: Acute (12) Respiratory failure: Status: Acute (13) Pneumonia: Status: Acute (14) Demand ischemia: Status: Acute Assessment and Plan: Still has very frequent need for pulmonary toileting therefore unable to transfe r to lower level of care but all lab work in all systems appear to be stable Time Spent With Patient Time: Total time spent is greater than 50% in coordination of care (as documented) at patient's floor/unit and/or counseling patient: Total time spent with greater than 50% in coordination of care (as documented) at patient's floor/unit and/or counseling patient:: 30
--- NOTE | 2020-05-07 14:17 | PC.NURSE ---
Addendum entered by Del Hollis RN 05/07/20 15:47: 1510 Pt SaO2 dropped to 78%, suctioned through trach x2, SaO2 would briefly improve to 94%, then drop to 82%. RT called. Bagged per RT and sucitoned, SaO2 up to 100%. FiO2 increased to 50%. Pt is left side laying, left lung sound were very dim/close to absent prior to bagging, after bagging, airflow auscultated. SaO2 currently 100%. Original Note: Pt more alert today. Eye tracking is much more responsive and obeys commands such as opening mouth and squeezing with left hand. Pt is able to cough up some secretions and clear them through the trach independently, however, does fall asleep and SaO2 dips down into 83% without initiation of cough. SaO2 up to 99% after suctioning thin clear large amt secretions. Lung sounds inspiratory and expiratory rhonchi all lobes. Highflow through trach settings decreased to FiO2 35% and 40L/min, SaO2 97%. Pt NSR 70-80BPM, BP stable. Nonpitting edema hands bilat. Ammonia level normalized, continues on lactulose 20G BID. No BM this shift. Purewick draining clear yellow urine. Glucerna running at 55ml/hr, no residuals. Free water flush 120ml given at 1200. Bed locked and in lowest position.
--- NOTE | 2020-05-07 15:16 | MHC.CM.PN ---
Referral updated to include [facility] for LT care. Pt is not medically ready for transfer per ICU MD d/t need for 1-2 hourly pulmonary toileting to keep O2 sats in the 90's. CM to continue to follow for d/c needs
[2020-05-07] MEDS: Acetylcysteine 10 % 400 MG/4 ML VIAL INHALE (20:13)
[2020-05-07] MEDS: Enoxaparin Sodium 40 MG/0.4 ML SYRINGE SUBCUT (22:26)
[2020-05-07] MEDS: Acetaminophen Oral Liquid 650 MG/20.3 ML SOLUTION PO (22:44)
[2020-05-08] VITALS (35 sets, daily range): BP systolic 78–134; BP diastolic 52–92; PULSE 68–104; RESP 17–39; TEMP 36.2–36.6; O2SAT 88–100; BMI 23.2
[2020-05-08] MEDS: Chlorhexidine Gluc Oral Rinse 15 ML MOUTHWASH BUCCAL (02:54)
--- NOTE | 2020-05-08 03:21 | PC.NURSE ---
PT REMAINS ON HIGH FLOW O2 VIA TRACH COLLAR AT 50L AND 50%. REQUIRES FREQUENT SUCTIONING FOR MOD TO LARGE AMT OFTHIN WHITE SPUTUM. PT HAS A STRONG COUGH AND IS ABLE TO COUGH UP A LOT OF SPUTUM ON HER OWN BUT STILL NEEDS SUCTIONING. RECEIVED MUCOMYST TREATMENT BY RESP THERAPIST. PT IS AWAKE AND FOLLOWS SOME SIMPLE COMMANDS. SHE WILL TRACK AND FOLLOW WITH HER EYES. ABLE TO MOVE LEFT ARM AND WILL SQUEEZE ON COMMAND. NOTICED TO BE GRIMACING IF IN PAIN. BOTTOM LIP WAS QUIVERING. CIRILO FRAGOSO AT BEDSIDE. TYLENOL ORDERED AND GIVEN. PT FELL ASLEEP. TURNED AND REPOS Q2H. TOLERATING TUBE FEEDS ORDERED VIA PEG. PEG INSERTION SITE IS CLEAN AND DRY. NO REDNESS. PUREWICK IN PLACE DRAINING HEATHER COLORED URINE.
[2020-05-08 05:41] LABS: Basophils Percent Auto 0.4 % (0-2); Eosinophils Absolute Auto 0.1 X10*3/uL (0.0-0.4); Eosinophils Percent Auto 1.2 % (0-4); Hematocrit 24.7 % (37-47); Hemoglobin 7.8 g/dl (12.0-16.0); Imm Gran Abs Auto 0.18 X10*3/uL (0.00-0.03); Imm Gran Pct Auto 2.5 % (0.0-0.4); Lymphocytes Absolute Auto 2.1 X10*3/uL (1.2-4.9); Lymphocytes Percent Auto 29.1 % (20-40); MANUAL DIFF FLAG NO; Mean Corpuscular HGB Conc 31.6 g/dl (31.0-35.0); Mean Corpuscular Hemoglobin 28.8 pg (27.0-33.0); Mean Corpuscular Volume 91.1 fL (80-98); Mean Platelet Volume 8.3 fL (9.4-12.3); Monocytes Absolute Auto 0.7 X10*3/uL (0.1-1.2); Monocytes Percent Auto 9.8 % (2-11); NRBC Pct Auto 0.6 /100WBC (0.0-0.2); Neutrophils Absolute Auto 4.1 X10*3/uL (2.0-8.3); Platelet Count 329 X10*3/uL (160-400); Red Blood Count 2.71 X10*6/uL (4.20-5.50); White Blood Count 7.3 X10*3/uL (4.8-10.8)
[2020-05-08 05:52] LABS: Base Excess VBG 3.5 mmol/L; HCO3 VBG 26 mmol/L; PCO2 VBG 33 mmHg; PO2 VBG 116 mmHg; pH VBG 7.51 (7.32-7.43)
[2020-05-08] MEDS: Lactated Ringers 500 ML 999 ML IV (06:44)
[2020-05-08 06:57] LABS: Blood Urea Nitrogen 11 mg/dL (9-16); Calcium 8.4 mg/dL (8.4-10.2); Carbon Dioxide 24 mmol/L (22-29); Creatinine Clr Calc Pharmacy 90.9; Estimated Glomerular Filt Rate > 60; Glucose Random 93 mg/dL (60-115); Magnesium 2.1 mg/dL (1.6-2.6); Phosphorus 3.1 mg/dL (2.7-4.5)
[2020-05-08] MEDS: Albuterol/Iprat 2.5/0.5MG 3 ML AMPUL.NEB INHALE ×4 (07:27→19:51)
[2020-05-08 07:55] LABS: Anion Gap 11 (12-20); Chloride 106 mmol/L (96-108); Potassium 4.2 mmol/L (3.3-5.1); Sodium 137 mmol/L (135-145)
[2020-05-08] MEDS: Lactulose 20 GM/30 ML SOLUTION PO (07:58)
[2020-05-08] MEDS: Midodrine HCl 10 MG TABLET G-TUBE ×3 (07:58→21:28)
--- NOTE | 2020-05-08 11:25 | PM.CCPN ---
Subjective Subjective Date of Service: 05/08/20 Interval History: 54-year-old female a year and half status post subarachnoid hemorrhage followed by clipped aneurysm with residual right hemiparesis but also some supranuclear palsy with dysphagia came in with acute hypoxic respiratory failure from large aspiration now has tracheostomy doing well still producing copious secretions Physical Exam Vital Signs: Vital Signs: Last Vital Signs Temp 97.8 F 05/08/20 08:00 Pulse 90 05/08/20 11:00 Resp 39 H 05/08/20 11:00 BP 107/75 05/08/20 11:00 Pulse Ox 90 L 05/08/20 11:00 Body Mass Index 23.2 Const: Other: More alert with good cognitive function and persistent right hemiparesis Cardiac exam with no gallops no murmurs no rubs Bibasilar diminished breath sounds Abdomen with no organomegaly Objective Data Labs CBC & Chem 7: 05/08/20 05:29 05/08/20 05:29 Labs: Laboratory Results - last 24 hr 05/06/20 05/08/20 05/08/20 05:42 05:29 05:29 WBC 7.3 RBC 2.71 L Hgb 7.8 L Hct 24.7 L MCV 91.1 MCH 28.8 MCHC 31.6 RDW 22.0 H Plt Count 329 MPV 8.3 L Immature Gran % (Auto) 2.5 H Neut % (Auto) 57.0 Lymph % (Auto) 29.1 [place] % (Auto) 9.8 Eos % (Auto) 1.2 Baso % (Auto) 0.4 Lymph # (Auto) 2.1 [place] # (Auto) 0.7 Eos # (Auto) 0.1 Baso # (Auto) 0.0 Abs Immat Gran (auto) 0.18 H Absolute Neuts (auto) 4.1 Absolute Nucleated RBC 0.040 H Nucleated RBC % (auto) 0.6 H Smear Path Review SEE NOTE VBG pH VBG pCO2 VBG pO2 VBG HCO3 VBG O2 Saturation VBG Base Excess Sodium 137 Potassium 4.2 Chloride 106 Carbon Dioxide 24 Anion Gap 11 L BUN 11 Creatinine 0.52 Estim Creat Clear Calc 90.9 Estimated GFR > 60 Random Glucose 93 Calcium 8.4 Phosphorus 3.1 Magnesium 2.1 05/08/20 05:29 WBC RBC Hgb Hct MCV MCH MCHC RDW Plt Count MPV Immature Gran % (Auto) Neut % (Auto) Lymph % (Auto) [place] % (Auto) Eos % (Auto) Baso % (Auto) Lymph # (Auto) [place] # (Auto) Eos # (Auto) Baso # (Auto) Abs Immat Gran (auto) Absolute Neuts (auto) Absolute Nucleated RBC Nucleated RBC % (auto) Smear Path Review VBG pH 7.51 H VBG pCO2 33 VBG pO2 116 VBG HCO3 26 VBG O2 Saturation 99.0 VBG Base Excess 3.5 Sodium Potassium Chloride Carbon Dioxide Anion Gap BUN Creatinine Estim Creat Clear Calc Estimated GFR Random Glucose Calcium Phosphorus Magnesium Microbiology Microbiology Results: Microbiology 05/04/20 12:03 Sputum - Suctioned Gram Stain - Final 05/04/20 12:03 Sputum - Suctioned Sputum Culture - Final 04/29/20 06:07 Blood - Venous Blood Culture - Final No growth after 5 days. 04/29/20 05:52 Blood - Venous Blood Culture - Final No growth after 5 days. 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 Apparently she also has had several neurological events in the past and was treat and PEG did so we know that she has multiple comorbidities to put her at risk for further pressure ulcers. Status: Acute (6) History of laparoscopic adjustable gastric banding: Problem details: 2008 Status: Acute (7) Septic shock: Status: Acute (8) Elevated lactic acid level: Status: Acute (9) Hypotension: Status: Acute (10) Aspiration pneumonia: Status: Acute (11) Acute respiratory failure with hypoxia: Status: Acute (12) Respiratory failure: Status: Acute (13) Pneumonia: Status: Acute (14) Demand ischemia: Status: Acute Assessment and Plan: Basically status quo but still developed extensive secretions bronchial plugging and significant desaturation requiring very frequent even hourly pulmonary toileting exercises Time Spent With Patient Time: Total time spent is greater than 50% in coordination of care (as documented) at patient's floor/unit and/or counseling patient: Total time spent with greater than 50% in coordination of care (as documented) at patient's floor/unit and/or counseling patient:: 25
--- NOTE | 2020-05-08 13:32 | PC.NURSE ---
While providing care at 1320 patient began to have sudden onset of seizure like activity. Patient noted to have a blank stare with both eyes deviating to the right. Unable to follow commands. Left upper extremity tremors also noted shortly after. Heart rate up to 160s with some artifact on telemetry. Respiratory rate in the 40s. Tube feed placed on hold. Remained with patient for safety. Dr. Hebert notified. MD at bedside to assess. Administered ordered STAT 3 mg IV Versed. Seizure activity appeared to end around 1325. No obvious injuries noted. Post seizure VS: HR 99, RR 34, BP 90/64, o2 sat 91% on 40% 50L highflow via trach. Patient currently on scheduled valproic acidMD to review/adjust medications. Seizure precautions remain in place.
[2020-05-08] MEDS: levETIRAcetam in NaCl (iso-os) 500 MG/100 ML PIGGYBACK 400 MG IV (14:28)
[2020-05-08] MEDS: Enoxaparin Sodium 40 MG/0.4 ML SYRINGE SUBCUT (21:35)
[2020-05-09] VITALS (32 sets, daily range): BP systolic 91–135; BP diastolic 49–86; PULSE 63–95; RESP 16–36; TEMP 36.7–37.1; O2SAT 90–100; BMI 23.5
[2020-05-09] MEDS: Chlorhexidine Gluc Oral Rinse 15 ML MOUTHWASH BUCCAL (02:16)
[2020-05-09] MEDS: levETIRAcetam in NaCl (iso-os) 500 MG/100 ML PIGGYBACK 400 MG IV ×2 (02:16→15:25)
[2020-05-09 06:18] LABS: MANUAL DIFF FLAG NO
[2020-05-09 06:20] LABS: VBG Base Excess 3.1 mmol/L; VBG HCO3 26 mmol/L; VBG pCO2 32 mmHg; VBG pO2 63 mmHg
[2020-05-09 06:43] LABS: Basophils Percent Auto 0.4 % (0-2); Eosinophils Absolute Auto 0.1 X10*3/uL (0.0-0.4); Hemoglobin 8.1 g/dl (12.0-16.0); Imm Gran Abs Auto 0.11 X10*3/uL (0.00-0.03); Imm Gran Pct Auto 1.5 % (0.0-0.4); Lymphocytes Absolute Auto 1.6 X10*3/uL (1.2-4.9); Lymphocytes Percent Auto 22.1 % (20-40); Mean Corpuscular HGB Conc 31.2 g/dl (31.0-35.0); Mean Corpuscular Volume 93.2 fL (80-98); Mean Platelet Volume 8.7 fL (9.4-12.3); Monocytes Absolute Auto 0.7 X10*3/uL (0.1-1.2); Monocytes Percent Auto 9.9 % (2-11); NRBC Pct Auto 0.3 /100WBC (0.0-0.2); Neutrophils Absolute Auto 4.7 X10*3/uL (2.0-8.3); Neutrophils Percent Auto 65.1 % (45-73); Platelet Count 342 X10*3/uL (160-400); Red Blood Count 2.79 X10*6/uL (4.20-5.50); Red Cell Distribution Width 22.1 % (11.0-16.0); White Blood Count 7.2 X10*3/uL (4.8-10.8)
[2020-05-09 06:54] LABS: Anion Gap 15 (12-20); Blood Urea Nitrogen 10 mg/dL (9-16); Calcium 8.6 mg/dL (8.4-10.2); Carbon Dioxide 22 mmol/L (22-29); Chloride 107 mmol/L (96-108); Creatinine Clr Calc Pharmacy 102.7; Estimated Glomerular Filt Rate > 60; Glucose Random 86 mg/dL (60-115); Magnesium 2.1 mg/dL (1.6-2.6); Phosphorus 3.3 mg/dL (2.7-4.5); Potassium 4.9 mmol/L (3.3-5.1); Sodium 139 mmol/L (135-145)
[2020-05-09 07:11] LABS: Venous Blood Gas Refer to POC result
[2020-05-09] MEDS: Albuterol/Iprat 2.5/0.5MG 3 ML AMPUL.NEB INHALE ×4 (07:40→19:07)
[2020-05-09] MEDS: Midodrine HCl 10 MG TABLET G-TUBE ×3 (09:22→20:34)
--- NOTE | 2020-05-09 10:06 | MHC.CLN ---
F/U PT RECEIVING TF GLUCERNA AT MAX GOAL RATE 55CC/HR WITH 120CC FREE WATER FLUSHES Q 6 HRS TO PROVIDE 1320KCALS (25KCALS/KG), 55G PROTEIN (1.0G/KG), 1606CC TOTAL WATER FROM FORMULA AND FLUSHES (30CC/KG) TOLERATING WITH LOW RESIDUALS PER NSG MONITOR TOLERANCE, RESIDUALS AND LYTES
--- NOTE | 2020-05-09 16:04 | PM.CCPN ---
Subjective Subjective Date of Service: 05/09/20 Interval History: 54-year-old female with remote subarachnoid hemorrhage and intracranial aneurysm clipping with residual right hemiparesis and seizure disorder who had a breakthrough seizure yesterday Keppra was added again and she has been controlled for 24 hours Secretions in her respiratory tract seem to be diminishing and we have a maturing tracheostomy which is greater than 1 week in in age and awaiting a bed at an LTAC Physical Exam Vital Signs: Vital Signs: Last Vital Signs Temp 98.3 F 05/09/20 15:00 Pulse 89 05/09/20 15:25 Resp 18 05/09/20 15:17 BP 118/77 05/09/20 15:25 Pulse Ox 93 05/09/20 15:00 Body Mass Index 23.5 Const: Other: Awake and following commands and tracking so there appears to be restored cognitive function Lab work remains excellent Cardiac exam within normal limits no gallops no neck vein distension Chest with scattered upper airway rhonchi Abdomen shows feedings being tolerated with good bowel sounds no organomegaly and nontender Objective Data Labs CBC & Chem 7: 05/09/20 05:58 05/09/20 05:58 Labs: Laboratory Results - last 24 hr 05/09/20 05/09/20 05/09/20 05:58 05:58 06:14 WBC 7.2 RBC 2.79 L Hgb 8.1 L Hct 26.0 L MCV 93.2 MCH 29.0 MCHC 31.2 RDW 22.1 H Plt Count 342 MPV 8.7 L Immature Gran % (Auto) 1.5 H Neut % (Auto) 65.1 Lymph % (Auto) 22.1 [place] % (Auto) 9.9 Eos % (Auto) 1.0 Baso % (Auto) 0.4 Lymph # (Auto) 1.6 [place] # (Auto) 0.7 Eos # (Auto) 0.1 Baso # (Auto) 0.0 Abs Immat Gran (auto) 0.11 H Absolute Neuts (auto) 4.7 Absolute Nucleated RBC 0.020 H Nucleated RBC % (auto) 0.3 H VBG pH 7.50 H VBG pCO2 32 VBG pO2 63 VBG HCO3 26 VBG O2 Saturation 91.0 VBG Base Excess 3.1 Sodium 139 Potassium 4.9 Chloride 107 Carbon Dioxide 22 Anion Gap 15 BUN 10 Creatinine 0.46 L Estim Creat Clear Calc 102.7 Estimated GFR > 60 Random Glucose 86 Calcium 8.6 Phosphorus 3.3 Magnesium 2.1 Microbiology Microbiology Results: Microbiology 05/04/20 12:03 Sputum - Suctioned Gram Stain - Final 05/04/20 12:03 Sputum - Suctioned Sputum Culture - Final 04/29/20 06:07 Blood - Venous Blood Culture - Final No growth after 5 days. 04/29/20 05:52 Blood - Venous Blood Culture - Final No growth after 5 days. 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 Apparently she also has had several neurological events in the past and was treat and PEG did so we know that she has multiple comorbidities to put her at risk for further pressure ulcers. Status: Acute (6) History of laparoscopic adjustable gastric banding: Problem details: 2008 Status: Acute (7) Septic shock: Status: Acute (8) Elevated lactic acid level: Status: Acute (9) Hypotension: Status: Acute (10) Acute respiratory failure with hypoxia: Status: Acute (11) Respiratory failure: Status: Acute (12) Pneumonia: Status: Acute (13) Demand ischemia: Status: Acute Assessment and Plan: Comfortable status quo with diminishing need for suctioning and toileting and cough is improving and mental status comfortably repairing since we treated the ammonia level and decrease the valproic acid dose Will continue to follow for any signs of nosocomial infection Time Spent With Patient Time: Total time spent is greater than 50% in coordination of care (as documented) at patient's floor/unit and/or counseling patient: Total time spent with greater than 50% in coordination of care (as documented) at patient's floor/unit and/or counseling patient:: 25
[2020-05-09] MEDS: Enoxaparin Sodium 40 MG/0.4 ML SYRINGE SUBCUT (20:34)
[2020-05-10] VITALS (37 sets, daily range): BP systolic 88–127; BP diastolic 54–83; PULSE 56–104; RESP 18–31; TEMP 36.3–37; O2SAT 90–100; BMI 23.3
[2020-05-10] MEDS: levETIRAcetam in NaCl (iso-os) 500 MG/100 ML PIGGYBACK 400 MG IV ×2 (02:28→14:42)
[2020-05-10 05:24] LABS: MANUAL DIFF FLAG NO
[2020-05-10 05:25] LABS: Basophils Percent Auto 0.4 % (0-2); Eosinophils Absolute Auto 0.1 X10*3/uL (0.0-0.4); Eosinophils Percent Auto 0.6 % (0-4); Hematocrit 25.4 % (37-47); Imm Gran Abs Auto 0.06 X10*3/uL (0.00-0.03); Imm Gran Pct Auto 0.7 % (0.0-0.4); Lymphocytes Absolute Auto 1.7 X10*3/uL (1.2-4.9); Lymphocytes Percent Auto 21.5 % (20-40); Mean Corpuscular HGB Conc 31.5 g/dl (31.0-35.0); Mean Corpuscular Hemoglobin 29.1 pg (27.0-33.0); Mean Corpuscular Volume 92.4 fL (80-98); Mean Platelet Volume 8.4 fL (9.4-12.3); Monocytes Absolute Auto 0.6 X10*3/uL (0.1-1.2); Monocytes Percent Auto 6.8 % (2-11); Neutrophils Absolute Auto 5.6 X10*3/uL (2.0-8.3); Platelet Count 345 X10*3/uL (160-400); Red Blood Count 2.75 X10*6/uL (4.20-5.50); Red Cell Distribution Width 21.8 % (11.0-16.0)
[2020-05-10 05:31] LABS: VBG Base Excess 4.5 mmol/L; VBG HCO3 27 mmol/L (22-26); VBG pCO2 36 mmHg; VBG pH 7.49 (7.32-7.43); VBG pO2 102 mmHg
[2020-05-10 05:35] LABS: Venous Blood Gas Refer to POC result
[2020-05-10 05:56] LABS: Anion Gap 11 (12-20); Blood Urea Nitrogen 10 mg/dL (9-16); Calcium 8.5 mg/dL (8.4-10.2); Carbon Dioxide 27 mmol/L (22-29); Chloride 106 mmol/L (96-108); Creatinine Clr Calc Pharmacy 94.5; Estimated Glomerular Filt Rate > 60; Glucose Random 98 mg/dL (60-115); Phosphorus 3.2 mg/dL (2.7-4.5); Potassium 4.4 mmol/L (3.3-5.1); Sodium 140 mmol/L (135-145)
[2020-05-10] MEDS: Albuterol/Iprat 2.5/0.5MG 3 ML AMPUL.NEB INHALE ×4 (07:16→20:11)
[2020-05-10] MEDS: Midodrine HCl 10 MG TABLET G-TUBE ×3 (07:23→21:12)
--- NOTE | 2020-05-10 17:13 | P.PNCC_ITS ---
Subjective Subjective Date of Service: 05/10/20 Interval History: 54-year-old female status post subarachnoid hemorrhage and clipping of aneurysm with residual right hemiparesis and dysphagia who had large aspiration pneumonia with acute hypoxic respiratory failure requiring intubation and because of the chronic issue had tracheostomy and PEG tube placed tolerating feedings diminishing secretions no further episodes of hypoxia currently remains on a gradually weaning amount of high-flow oxygen and doing well with restored mental status currently on low doses of valproic acid and Keppra for control of her recurrent seizure activity Physical Exam Vital Signs: Vital Signs: Last Vital Signs Temp 98.1 F 05/10/20 15:47 Pulse 65 05/10/20 16:54 Resp 22 H 05/10/20 16:54 BP 106/61 05/10/20 16:54 Pulse Ox 100 05/10/20 16:54 Body Mass Index 23.3 Const: Other: She is awake with good cognitive function Normal cardiac exam no gallops no neck vein distension Respiratory still has some upper airway rhonchi bilaterally Abdomen tolerating feedings soft nontender good bowel sounds no organomegaly Skin is intact Objective Data Labs CBC & Chem 7: 05/10/20 05:13 05/10/20 05:13 Labs: Laboratory Results - last 24 hr 05/10/20 05/10/20 05/10/20 05:13 05:13 05:25 WBC 8.0 RBC 2.75 L Hgb 8.0 L Hct 25.4 L MCV 92.4 MCH 29.1 MCHC 31.5 RDW 21.8 H Plt Count 345 MPV 8.4 L Immature Gran % (Auto) 0.7 H Neut % (Auto) 70.0 Lymph % (Auto) 21.5 [place] % (Auto) 6.8 Eos % (Auto) 0.6 Baso % (Auto) 0.4 Lymph # (Auto) 1.7 [place] # (Auto) 0.6 Eos # (Auto) 0.1 Baso # (Auto) 0.0 Abs Immat Gran (auto) 0.06 H Absolute Neuts (auto) 5.6 Absolute Nucleated RBC 0.000 Nucleated RBC % (auto) 0.0 VBG pH 7.49 H VBG pCO2 36 VBG pO2 102 VBG HCO3 27 H VBG O2 Saturation 98.0 VBG Base Excess 4.5 Sodium 140 Potassium 4.4 Chloride 106 Carbon Dioxide 27 Anion Gap 11 L BUN 10 Creatinine 0.50 Estim Creat Clear Calc 94.5 Estimated GFR > 60 Random Glucose 98 Calcium 8.5 Phosphorus 3.2 Magnesium 2.0 Microbiology Microbiology Results: Microbiology 05/04/20 12:03 Sputum - Suctioned Gram Stain - Final 05/04/20 12:03 Sputum - Suctioned Sputum Culture - Final 04/29/20 06:07 Blood - Venous Blood Culture - Final No growth after 5 days. 04/29/20 05:52 Blood - Venous Blood Culture - Final No growth after 5 days. 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 Apparently she also has had several neurological events in the past and was treat and PEG did so we know that she has multiple comorbidities to put her at risk for further pressure ulcers. Status: Acute (6) Septic shock: Status: Acute (7) History of laparoscopic adjustable gastric banding: Problem details: 2008 Status: Acute (8) Elevated lactic acid level: Status: Acute (9) Hypotension: Status: Acute (10) Aspiration pneumonia: Status: Acute (11) Acute respiratory failure with hypoxia: Status: Acute (12) Respiratory failure: Status: Acute (13) Pneumonia: Status: Acute (14) Demand ischemia: Status: Acute Assessment and Plan: Will continue to monitor in the ICU until her suctioning requirements diminish and will probably repeat another chest x-ray to see if there is improvement in atelectasis otherwise continue support as above and await tracheostomy to mature Time Spent With Patient Time: Total time spent is greater than 50% in coordination of care (as documented) at patient's floor/unit and/or counseling patient: Total time spent with greater than 50% in coordination of care (as documented) at patient's floor/unit and/or counseling patient:: 25
[2020-05-10] MEDS: Enoxaparin Sodium 40 MG/0.4 ML SYRINGE SUBCUT (21:13)
[2020-05-11] VITALS (22 sets, daily range): BP systolic 103–141; BP diastolic 45–99; PULSE 67–115; RESP 16–31; TEMP 36.2–37.3; O2SAT 91–100; BMI 23.3
[2020-05-11] MEDS: levETIRAcetam in NaCl (iso-os) 500 MG/100 ML PIGGYBACK 400 MG IV ×2 (03:00→14:46)
[2020-05-11 04:48] LABS: MANUAL DIFF FLAG NO
[2020-05-11 04:49] LABS: Venous Blood Gas Refer to POC result
[2020-05-11 04:50] LABS: Basophils Percent Auto 0.3 % (0-2); Eosinophils Absolute Auto 0.1 X10*3/uL (0.0-0.4); Eosinophils Percent Auto 0.8 % (0-4); Hematocrit 24.9 % (37-47); Hemoglobin 7.8 g/dl (12.0-16.0); Imm Gran Abs Auto 0.04 X10*3/uL (0.00-0.03); Imm Gran Pct Auto 0.5 % (0.0-0.4); Lymphocytes Absolute Auto 1.8 X10*3/uL (1.2-4.9); Lymphocytes Percent Auto 24.5 % (20-40); Mean Corpuscular HGB Conc 31.3 g/dl (31.0-35.0); Mean Corpuscular Hemoglobin 29.1 pg (27.0-33.0); Mean Corpuscular Volume 92.9 fL (80-98); Mean Platelet Volume 8.6 fL (9.4-12.3); Monocytes Absolute Auto 0.6 X10*3/uL (0.1-1.2); Monocytes Percent Auto 7.9 % (2-11); NRBC Pct Auto 0.3 /100WBC (0.0-0.2); Neutrophils Absolute Auto 4.9 X10*3/uL (2.0-8.3); Platelet Count 340 X10*3/uL (160-400); Red Blood Count 2.68 X10*6/uL (4.20-5.50); Red Cell Distribution Width 21.4 % (11.0-16.0); White Blood Count 7.4 X10*3/uL (4.8-10.8)
[2020-05-11 04:52] LABS: VBG Base Excess 4.2 mmol/L; VBG HCO3 27 mmol/L (22-26); VBG pCO2 35 mmHg; VBG pH 7.49 (7.32-7.43); VBG pO2 98 mmHg
[2020-05-11 05:11] LABS: Blood Urea Nitrogen 11 mg/dL (9-16); Calcium 8.6 mg/dL (8.4-10.2); Carbon Dioxide 25 mmol/L (22-29); Creatinine Clr Calc Pharmacy 98.4; Estimated Glomerular Filt Rate > 60; Glucose Random 96 mg/dL (60-115); Phosphorus 3.3 mg/dL (2.7-4.5)
[2020-05-11 05:18] LABS: Anion Gap 12 (12-20); Chloride 108 mmol/L (96-108); Potassium 4.5 mmol/L (3.3-5.1); Sodium 141 mmol/L (135-145)
[2020-05-11] MEDS: Albuterol/Iprat 2.5/0.5MG 3 ML AMPUL.NEB INHALE ×4 (07:32→19:33)
[2020-05-11] MEDS: Midodrine HCl 10 MG TABLET G-TUBE ×2 (08:59→20:11)
--- NOTE | 2020-05-11 15:02 | P.PNCC_ITS ---
Subjective Subjective Date of Service: 05/11/20 Interval History: 54-year-old female who had a subarachnoid hemorrhage and then subsequent aneurysm clipping and residual right hemiparesis and dysphagia who had a large volume aspiration with acute hypoxic respiratory failure status post intubation and then placement of tracheostomy and PEG tube for permanent feeding and were about 10 days into the maturation of the tracheostomy and she is awaiting a bed in an LTAC on waiting list and they simply want her to stay until the permanent trach is placed and she remains here because of the frequency of suctioning required in 0 4 her significant secretions but no longer has any sign of active infection all labs and examinations have been stable Physical Exam Vital Signs: Vital Signs: Last Vital Signs Temp 98.2 F 05/11/20 12:00 Pulse 115 H 05/11/20 12:00 Resp 17 05/11/20 12:00 BP 141/99 H 05/11/20 12:00 Pulse Ox 99 05/11/20 12:00 Body Mass Index 23.3 Const: Other: She is alert with good cognitive function and right hemiparesis Skin is intact no livedo no acrocyanosis Abdomen benign and tolerating feedings with no organomegaly Chest still with coarse upper airway rhonchi Cardiac exam normal with no gallops or murmurs Objective Data Labs CBC & Chem 7: 05/11/20 04:38 05/11/20 04:38 Labs: Laboratory Results - last 24 hr 05/11/20 05/11/20 05/11/20 04:38 04:38 04:46 WBC 7.4 RBC 2.68 L Hgb 7.8 L Hct 24.9 L MCV 92.9 MCH 29.1 MCHC 31.3 RDW 21.4 H Plt Count 340 MPV 8.6 L Immature Gran % (Auto) 0.5 H Neut % (Auto) 66.0 Lymph % (Auto) 24.5 [place] % (Auto) 7.9 Eos % (Auto) 0.8 Baso % (Auto) 0.3 Lymph # (Auto) 1.8 [place] # (Auto) 0.6 Eos # (Auto) 0.1 Baso # (Auto) 0.0 Abs Immat Gran (auto) 0.04 H Absolute Neuts (auto) 4.9 Absolute Nucleated RBC 0.020 H Nucleated RBC % (auto) 0.3 H VBG pH 7.49 H VBG pCO2 35 VBG pO2 98 VBG HCO3 27 H VBG O2 Saturation 98.0 VBG Base Excess 4.2 Sodium 141 Potassium 4.5 Chloride 108 Carbon Dioxide 25 Anion Gap 12 BUN 11 Creatinine 0.48 L Estim Creat Clear Calc 98.4 Estimated GFR > 60 Random Glucose 96 Calcium 8.6 Phosphorus 3.3 Magnesium 2.0 Microbiology Microbiology Results: Microbiology 05/04/20 12:03 Sputum - Suctioned Gram Stain - Final 05/04/20 12:03 Sputum - Suctioned Sputum Culture - Final 04/29/20 06:07 Blood - Venous Blood Culture - Final No growth after 5 days. 04/29/20 05:52 Blood - Venous Blood Culture - Final No growth after 5 days. 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 Apparently she also has had several neurological events in the past and was treat and PEG did so we know that she has multiple comorbidities to put her at risk for further pressure ulcers. Status: Acute (6) History of laparoscopic adjustable gastric banding: Problem details: 2008 Status: Acute (7) Septic shock: Status: Acute (8) Elevated lactic acid level: Status: Acute (9) Hypotension: Status: Acute (10) Aspiration pneumonia: Status: Acute (11) Acute respiratory failure with hypoxia: Status: Acute (12) Respiratory failure: Status: Acute (13) Pneumonia: Status: Acute (14) Demand ischemia: Status: Acute Assessment and Plan: Still requires fairly aggressive pulmonary toileting but has been relatively stable and we have about 2 and half more weeks left before the changing of the tracheostomy and hopefully the LTAC bed Time Spent With Patient Time: Total time spent is greater than 50% in coordination of care (as documented) at patient's floor/unit and/or counseling patient: Total time spent with greater than 50% in coordination of care (as documented) at patient's floor/unit and/or counseling patient:: 25
[2020-05-11] MEDS: Enoxaparin Sodium 40 MG/0.4 ML SYRINGE SUBCUT (20:11)
[2020-05-12] VITALS (11 sets, daily range): BP systolic 106–146; BP diastolic 63–88; PULSE 90–118; RESP 16–26; TEMP 36.1–36.8; O2SAT 90–100; BMI 23.3
[2020-05-12] MEDS: levETIRAcetam in NaCl (iso-os) 500 MG/100 ML PIGGYBACK 400 MG IV ×2 (01:09→14:24)
[2020-05-12 06:38] LABS: MANUAL DIFF FLAG NO
[2020-05-12 06:57] LABS: Basophils Percent Auto 0.5 % (0-2); Eosinophils Absolute Auto 0.1 X10*3/uL (0.0-0.4); Eosinophils Percent Auto 0.6 % (0-4); Hematocrit 28.1 % (37-47); Hemoglobin 8.7 g/dl (12.0-16.0); Imm Gran Abs Auto 0.05 X10*3/uL (0.00-0.03); Imm Gran Pct Auto 0.6 % (0.0-0.4); Lymphocytes Absolute Auto 1.6 X10*3/uL (1.2-4.9); Lymphocytes Percent Auto 20.3 % (20-40); Mean Corpuscular Hemoglobin 28.6 pg (27.0-33.0); Mean Corpuscular Volume 92.4 fL (80-98); Mean Platelet Volume 8.8 fL (9.4-12.3); Monocytes Absolute Auto 0.7 X10*3/uL (0.1-1.2); Monocytes Percent Auto 9.1 % (2-11); Neutrophils Absolute Auto 5.4 X10*3/uL (2.0-8.3); Neutrophils Percent Auto 68.9 % (45-73); Platelet Count 384 X10*3/uL (160-400); Red Blood Count 3.04 X10*6/uL (4.20-5.50); Red Cell Distribution Width 20.2 % (11.0-16.0); White Blood Count 7.8 X10*3/uL (4.8-10.8)
[2020-05-12 07:14] LABS: Anion Gap 12 (12-20); Blood Urea Nitrogen 11 mg/dL (9-16); Calcium 8.9 mg/dL (8.4-10.2); Carbon Dioxide 26 mmol/L (22-29); Chloride 108 mmol/L (96-108); Creatinine Clr Calc Pharmacy 100.6; Estimated Glomerular Filt Rate > 60; Glucose Random 90 mg/dL (60-115); Phosphorus 3.4 mg/dL (2.7-4.5); Potassium 4.4 mmol/L (3.3-5.1); Sodium 142 mmol/L (135-145)
[2020-05-12] MEDS: Albuterol/Iprat 2.5/0.5MG 3 ML AMPUL.NEB INHALE ×4 (07:24→20:55)
[2020-05-12] MEDS: Midodrine HCl 10 MG TABLET G-TUBE ×3 (07:50→19:57)
--- NOTE | 2020-05-12 09:56 | HO.PM.IMPN ---
Subjective Subjective Date of Service: 05/12/20 Interval History: comfortable Cardiovascular Cardiovascular: Reports no additional cardiovascular complaints Gastrointestinal Gastrointestinal: Reports no additional gastrointestinal complaints Physical Exam Vital Signs: Vital Signs: Last Vital Signs Temp 97.9 F 05/12/20 07:45 Pulse 95 05/12/20 07:50 Resp 20 05/12/20 07:45 BP 106/75 05/12/20 07:50 Pulse Ox 99 05/12/20 07:45 Body Mass Index 23.3 General: AO X 3, no acute distress, trache and peg in place Resp: rhonchi CVS: S1,S2,RRR GI: soft, non tender, non distended Neuro: right hemiparesis Psych: appropriate affect Objective Data Current Medications Generic Name Dose Route Start Last Admin Trade Name Jrq PRN Reason Stop Dose Admin Albuterol/Ipratropium 3 ml 05/06/20 12:00 05/12/20 07:24 Albuterol/Iprat 2.5/0.5mg 3 Ml Ampul.Neb INHALE 3 ml RQ4H WHILE AWAKE ROSALINE Administration Enoxaparin Sodium 40 mg 04/27/20 02:00 05/11/20 20:11 Enoxaparin Sodium 40 Mg/0.4 Ml Syringe SUBCUT 40 mg BEDTIME ROSALINE Administration Levetiracetam 500 mg in 100 mls @ 400 mls/hr 05/08/20 14:00 05/12/20 01:23 Keppra IV Infused Q12H ROSALINE Infusion Midodrine 10 mg 05/01/20 08:39 05/12/20 07:50 Midodrine Hcl 10 Mg Tablet G-TUBE 10 mg TID ROSALINE Administration Valproic Acid 375 mg 05/06/20 21:00 05/12/20 07:49 Valproic Acid (As Sodium Salt) 250 Mg/5 Ml Solution G-TUBE 375 mg BID ROSALINE Administration Labs CBC & Chem 7: 05/12/20 06:20 05/12/20 06:20 Microbiology Microbiology Results: Microbiology 05/04/20 12:03 Sputum - Suctioned Gram Stain - Final 05/04/20 12:03 Sputum - Suctioned Sputum Culture - Final 04/29/20 06:07 Blood - Venous Blood Culture - Final No growth after 5 days. 04/29/20 05:52 Blood - Venous Blood Culture - Final No growth after 5 days. 04/27/20 Unknown Blood - Venous Blood Culture - Final Staphylococcus epidermidis Coag negative Staphylococcus 04/27/20 Unknown Blood - Venous Blood Culture - Final Staphylococcus epidermidis Staphylococcus hominis ssp enrique 04/27/20 Unknown Urine Catheterized - Straight Catheter Urine Culture - Final Enterococcus faecalis Pseudomonas aeruginosa 04/27/20 05:52 Sputum - Suctioned Gram Stain - Final 04/27/20 05:52 Sputum - Suctioned Sputum Culture - Final Assessment and Plan (1) Acute respiratory failure with hypoxia: Status: Acute (2) Aspiration pneumonia: Status: Acute Assessment and Plan: 54-year-old female with history of subarachnoid hemorrhage and then subsequent aneurysm clipping and residual right hemiparesis and dysphagia presented 04/26/20 with respiratory distress requiring intubation due to large volume aspiration with acute hypoxic respiratory failure. she was unable to be weaned and due to ongoing respiratory compromise tracheostomy was preformed as well as PEG on 05/01/2020. she is awaiting a bed in an LTAC on waiting list and they simply want her to stay until the permanent trach is placed at about day 30 of maturation. she remains inpatient because of the frequency of suctioning required due to her significant secretions but no longer has any sign of active infection all labs and examinations have been stable acute hypoxic respiratory failure secondary to aspiratoin pneumonia completed antibiotcs POD 11 s/p trache/peg pulmonary toilet once mature plan to change to permanent trach and discharge to LTAC when bed available hisotry of SAH, seizures continue keppra buttock wound off loading
--- NOTE | 2020-05-12 11:36 | MHC.CLN ---
F/U PT RECEIVING TF GLUCERNA AT MAX GOAL RATE 55CC/HR WITH 120CC FREE WATER FLUSHES Q 6 HRS TO PROVIDE 1320KCALS (25KCALS/KG), 55G PROTEIN (1.0G/KG), 1606CC TOTAL WATER FROM FORMULA AND FLUSHES (30CC/KG) MONITOR TOLERANCE, RESIDUALS AND LYTES
[2020-05-12] MEDS: Enoxaparin Sodium 40 MG/0.4 ML SYRINGE SUBCUT (19:55)
[2020-05-13] VITALS (10 sets, daily range): BP systolic 100–117; BP diastolic 59–80; PULSE 74–110; RESP 18–32; TEMP 35.8–37.1; O2SAT 96–100
[2020-05-13] MEDS: levETIRAcetam in NaCl (iso-os) 500 MG/100 ML PIGGYBACK 400 MG IV ×2 (01:13→14:22)
[2020-05-13 06:56] LABS: Phosphorus 3.7 mg/dL (2.7-4.5)
[2020-05-13] MEDS: Albuterol/Iprat 2.5/0.5MG 3 ML AMPUL.NEB INHALE ×2 (07:26→11:03)
[2020-05-13] MEDS: Midodrine HCl 10 MG TABLET G-TUBE ×3 (09:42→21:24)
--- NOTE | 2020-05-13 11:05 | HO.PM.IMPN ---
Subjective Subjective Date of Service: 05/13/20 Interval History: Seen in f/u for acute resp failure that required mechanical ventilation now PEG and trach and awaiting LTAC placement Review of Systems No fever, no confusion Cardiovascular Cardiovascular: Reports no additional cardiovascular complaints Gastrointestinal Gastrointestinal: Reports no additional gastrointestinal complaints Physical Exam Vital Signs: Vital Signs: Last Vital Signs Temp 96.7 F L 05/13/20 07:49 Pulse 100 05/13/20 09:42 Resp 18 05/13/20 07:49 BP 117/59 L 05/13/20 09:42 Pulse Ox 100 05/13/20 07:49 Body Mass Index 23.3 Const: Orientation/consciousness: patient oriented x3 HENMT: Mouth: Normal oral and palatal mucosa present Eyes: General: appearance normal, both eyes and all related structures Sclerae: sclerae normal EOM: EOMs intact bilaterally Neck: Other: Well-healed anterior transverse surgical scar consistent with previous tracheostomy Neck: Yes trachea midline (Tracheostomy on tracheal collar) Resp: Effort & Inspection: normal respiratory effort and no respiratory distress GI: Other: Soft nondistended nontender. Well-healed midline surgical scar without evidence of hernia. Subcutaneous gastric band port palpated to the right of the umbilicus and superior to the umbilicus. Inspection: Yes other (Parenteral gastrostomy) Palpation (GI): Soft to palpation, nontender and Other GI palpation findings present ( Nontender) Auscultation: normal bowel sounds Neuro: General: patient oriented x3 Extrem: Other: Bilateral lower extremities flaccid. No edema. There appears to be footdrop bilaterally. General: No clubbing and No cyanosis Objective Data Current Medications Generic Name Dose Route Start Last Admin Trade Name Jrq PRN Reason Stop Dose Admin Albuterol/Ipratropium 3 ml 05/06/20 12:00 05/13/20 11:03 Albuterol/Iprat 2.5/0.5mg 3 Ml Ampul.Neb INHALE 3 ml RQ4H WHILE AWAKE ROSALINE Administration Enoxaparin Sodium 40 mg 04/27/20 02:00 05/12/20 19:55 Enoxaparin Sodium 40 Mg/0.4 Ml Syringe SUBCUT 40 mg BEDTIME ROSALINE Administration Levetiracetam 500 mg in 100 mls @ 400 mls/hr 05/08/20 14:00 05/13/20 02:15 Keppra IV Infused Q12H ROSALINE Infusion Midodrine 10 mg 05/01/20 08:39 05/13/20 09:42 Midodrine Hcl 10 Mg Tablet G-TUBE 10 mg TID ROSALINE Administration Valproic Acid 375 mg 05/06/20 21:00 05/13/20 09:42 Valproic Acid (As Sodium Salt) 250 Mg/5 Ml Solution G-TUBE 375 mg BID ROSALINE Administration Labs CBC & Chem 7: 05/12/20 06:20 05/12/20 06:20 Microbiology Microbiology Results: Microbiology 05/04/20 12:03 Sputum - Suctioned Gram Stain - Final 05/04/20 12:03 Sputum - Suctioned Sputum Culture - Final 04/29/20 06:07 Blood - Venous Blood Culture - Final No growth after 5 days. 04/29/20 05:52 Blood - Venous Blood Culture - Final No growth after 5 days. 04/27/20 Unknown Blood - Venous Blood Culture - Final Staphylococcus epidermidis Coag negative Staphylococcus 04/27/20 Unknown Blood - Venous Blood Culture - Final Staphylococcus epidermidis Staphylococcus hominis ssp enrique 04/27/20 Unknown Urine Catheterized - Straight Catheter Urine Culture - Final Enterococcus faecalis Pseudomonas aeruginosa 04/27/20 05:52 Sputum - Suctioned Gram Stain - Final 04/27/20 05:52 Sputum - Suctioned Sputum Culture - Final Assessment and Plan (1) Acute respiratory failure with hypoxia: Status: Acute (2) Aspiration pneumonia: Status: Acute Assessment and Plan: 54-year-old female with history of subarachnoid hemorrhage and 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 she was unable to be weaned and due to ongoing respiratory compromise tracheostomy was preformed as well as PEG on 05/01/2020. she is awaiting a bed in an LTAC on waiting list and they simply want her to stay until the permanent trach is placed at about day 30 of maturation. she remains inpatient because of the frequency of suctioning required due to her significant secretions but no longer has any sign of active infection all labs and examinations have been stable acute hypoxic respiratory failure secondary to aspiratoin pneumonia completed antibiotcs POD 12 s/p trache/peg pulmonary toilet once mature plan to change to permanent trach and discharge to LTAC when bed available hisotry of SAH, seizures continue keppra Buttock pressure ulcer--barrier cream to the area and foam dressing, continue to offload and rotate and reposition frequently special air mattress, careful with moving pt in regards to dragging across sheet.
[2020-05-13] MEDS: Enoxaparin Sodium 40 MG/0.4 ML SYRINGE SUBCUT (21:24)
[2020-05-14] VITALS: BP 126/77; PULSE 102; RESP 20; TEMP 36.7; O2SAT 99
[2020-05-14] MEDS: levETIRAcetam in NaCl (iso-os) 500 MG/100 ML PIGGYBACK 400 MG IV ×2 (01:02→14:03)
[2020-05-14 04:00] VITALS: BP 124/86; PULSE 100; RESP 18; TEMP 36.6; O2SAT 99
[2020-05-14 06:00] VITALS: BMI 22.5
[2020-05-14 08:00] VITALS: BP 127/82; PULSE 104; RESP 25; TEMP 36.4; O2SAT 100
[2020-05-14] MEDS: Midodrine HCl 10 MG TABLET G-TUBE ×3 (08:36→20:55)
--- NOTE | 2020-05-14 10:42 | HO.PM.IMPN ---
Subjective Subjective Date of Service: 05/14/20 Interval History: Seen in f/u for acute resp failure that required mechanical ventilation now PEG and trach and awaiting LTAC placement Review of Systems wasn't saying much Review of Systems: Yes Unobtainable due to mental status Physical Exam Vital Signs: Vital Signs: Last Vital Signs Temp 97.5 F 05/14/20 08:00 Pulse 104 H 05/14/20 08:00 Resp 25 H 05/14/20 08:00 BP 127/82 05/14/20 08:00 Pulse Ox 100 05/14/20 08:00 Body Mass Index 22.5 HENMT: Mouth: Normal oral and palatal mucosa present Eyes: General: appearance normal, both eyes and all related structures Sclerae: sclerae normal EOM: EOMs intact bilaterally Neck: Other: Well-healed anterior transverse surgical scar consistent with previous tracheostomy Neck: Yes trachea midline (Tracheostomy on tracheal collar) Resp: Effort & Inspection: normal respiratory effort and no respiratory distress GI: Other: Soft nondistended nontender. Well-healed midline surgical scar without evidence of hernia. Subcutaneous gastric band port palpated to the right of the umbilicus and superior to the umbilicus. Inspection: Yes other (Parenteral gastrostomy) Palpation (GI): Soft to palpation, nontender and Other GI palpation findings present ( Nontender) Auscultation: normal bowel sounds Extrem: Other: Bilateral lower extremities flaccid. No edema. There appears to be footdrop bilaterally. Not talking at the moment General: No clubbing and No cyanosis Objective Data Current Medications Generic Name Dose Route Start Last Admin Trade Name Freq PRN Reason Stop Dose Admin Enoxaparin Sodium 40 mg 04/27/20 02:00 05/13/20 21:24 Enoxaparin Sodium 40 Mg/0.4 Ml Syringe SUBCUT 40 mg BEDTIME ROSALINE Administration Levetiracetam 500 mg in 100 mls @ 400 mls/hr 05/08/20 14:00 05/14/20 05:30 Keppra IV Infused Q12H ROSALINE Infusion Midodrine 10 mg 05/01/20 08:39 05/14/20 08:36 Midodrine Hcl 10 Mg Tablet G-TUBE 10 mg TID ROSALINE Administration Valproic Acid 375 mg 05/06/20 21:00 05/14/20 08:36 Valproic Acid (As Sodium Salt) 250 Mg/5 Ml Solution G-TUBE 375 mg BID ROSALINE Administration Labs CBC & Chem 7: 05/12/20 06:20 05/12/20 06:20 Microbiology Microbiology Results: Microbiology 05/04/20 12:03 Sputum - Suctioned Gram Stain - Final 05/04/20 12:03 Sputum - Suctioned Sputum Culture - Final 04/29/20 06:07 Blood - Venous Blood Culture - Final No growth after 5 days. 04/29/20 05:52 Blood - Venous Blood Culture - Final No growth after 5 days. 04/27/20 Unknown Blood - Venous Blood Culture - Final Staphylococcus epidermidis Coag negative Staphylococcus 04/27/20 Unknown Blood - Venous Blood Culture - Final Staphylococcus epidermidis Staphylococcus hominis ssp enrique 04/27/20 Unknown Urine Catheterized - Straight Catheter Urine Culture - Final Enterococcus faecalis Pseudomonas aeruginosa 04/27/20 05:52 Sputum - Suctioned Gram Stain - Final 04/27/20 05:52 Sputum - Suctioned Sputum Culture - Final Assessment and Plan (1) Acute respiratory failure with hypoxia: Status: Acute (2) Aspiration pneumonia: Status: Acute Assessment and Plan: 54-year-old female with history of subarachnoid hemorrhage and 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 she was unable to be weaned and due to ongoing respiratory compromise tracheostomy was preformed as well as PEG on 05/01/2020. she is awaiting a bed in an LTAC on waiting list and they simply want her to stay until the permanent trach is placed at about day 30 of maturation. she remains inpatient because of the frequency of suctioning required due to her significant secretions but no longer has any sign of active infection all labs and examinations have been stable acute hypoxic respiratory failure secondary to aspiratoin pneumonia completed antibiotcs POD 14 s/p trache/peg pulmonary toilet once mature plan to change to permanent trach and discharge to LTAC when bed available hisotry of SAH, seizures continue keppra Buttock pressure ulcer--barrier cream to the area and foam dressing, continue to offload and rotate and reposition frequently special air mattress, careful with moving pt in regards to dragging across sheet.
[2020-05-14 11:42] VITALS: BP 132/85; PULSE 115; RESP 25; TEMP 36.5; O2SAT 98
--- NOTE | 2020-05-14 12:10 | MHC.CLN ---
F/U PT CONTINUES WITH TF GLUCERNA AT MAX GOAL RATE 55CC/HR WITH 120CC FREE WATER FLUSHES Q 6 HRS TO PROVIDE 1320KCALS (25KCALS/KG), 55G PROTEIN (1.0G/KG), 1606CC TOTAL WATER FROM FORMULA AND FLUSHES (30CC/KG) MONITOR TOLERANCE, RESIDUALS AND LYTES
--- NOTE | 2020-05-14 13:36 | MHC.CM.PN ---
DP Female 54 DX Aspiration PNA new trach and Peg. The Pt is on a wait list for [facility]. The Patient will DC to the LTAC once a bed is available. If 30 days pass with no bed offer, the Pt will dc to SNF. SNFs require maturation of 30 days before they will accept a trach. CM will follow.
[2020-05-14 15:23] VITALS: BP 144/87; PULSE 95; RESP 19; TEMP 36.4; O2SAT 100
[2020-05-14 19:18] VITALS: BP 106/73; PULSE 98; RESP 18; TEMP 36.2; O2SAT 97
[2020-05-14] MEDS: Enoxaparin Sodium 40 MG/0.4 ML SYRINGE SUBCUT (20:55)
[2020-05-15] VITALS (11 sets, daily range): BP systolic 115–145; BP diastolic 79–97; PULSE 69–105; RESP 16–25; TEMP 36.4–37.2; O2SAT 94–100; BMI 23.3
[2020-05-15] MEDS: levETIRAcetam in NaCl (iso-os) 500 MG/100 ML PIGGYBACK 400 MG IV ×2 (02:03→14:35)
--- NOTE | 2020-05-15 09:14 | MHC.CM.PN ---
DP Clinical info requested by [facility] has been sent. A new referral via [employer] has been sent to [facility]. [facility] is a [facility]. The Pt can not return until trach>30days. Requested info on admission criteria for [facility]. CM will continue to follow.
[2020-05-15] MEDS: Midodrine HCl 10 MG TABLET G-TUBE ×3 (10:17→21:17)
--- NOTE | 2020-05-15 10:51 | HO.PM.IMPN ---
Subjective Subjective Date of Service: 05/15/20 Interval History: Seen in f/u for acute resp failure that required mechanical ventilation now PEG and trach and awaiting LTAC placement. No new issues Review of Systems wasn't saying much Review of Systems: Yes Unobtainable due to mental status Physical Exam Vital Signs: Vital Signs: Last Vital Signs Temp 98.3 F 05/15/20 08:00 Pulse 92 05/15/20 10:17 Resp 25 H 05/15/20 08:00 BP 145/97 H 05/15/20 10:17 Pulse Ox 99 05/15/20 08:09 Body Mass Index 23.3 HENMT: Mouth: Normal oral and palatal mucosa present Eyes: General: appearance normal, both eyes and all related structures Sclerae: sclerae normal EOM: EOMs intact bilaterally Neck: Other: Well-healed anterior transverse surgical scar consistent with previous tracheostomy Neck: Yes trachea midline (Tracheostomy on tracheal collar) Resp: Effort & Inspection: normal respiratory effort and no respiratory distress GI: Other: Soft nondistended nontender. Well-healed midline surgical scar without evidence of hernia. Subcutaneous gastric band port palpated to the right of the umbilicus and superior to the umbilicus. Inspection: Yes other (Parenteral gastrostomy) Palpation (GI): Soft to palpation, nontender and Other GI palpation findings present ( Nontender) Auscultation: normal bowel sounds Extrem: Other: Bilateral lower extremities flaccid. No edema. There appears to be footdrop bilaterally. Not talking at the moment General: No clubbing and No cyanosis Objective Data Current Medications Generic Name Dose Route Start Last Admin Trade Name Michael PRN Reason Stop Dose Admin Enoxaparin Sodium 40 mg 04/27/20 02:00 05/14/20 20:55 Enoxaparin Sodium 40 Mg/0.4 Ml Syringe SUBCUT 40 mg BEDTIME ROSALINE Administration Levetiracetam 500 mg in 100 mls @ 400 mls/hr 05/08/20 14:00 05/15/20 02:32 Keppra IV Infused Q12H ROSALINE Infusion Midodrine 10 mg 05/01/20 08:39 05/15/20 10:17 Midodrine Hcl 10 Mg Tablet G-TUBE 10 mg TID ROSALINE Administration Valproic Acid 375 mg 05/06/20 21:00 05/15/20 10:17 Valproic Acid (As Sodium Salt) 250 Mg/5 Ml Solution G-TUBE 375 mg BID ROSALINE Administration Labs CBC & Chem 7: 05/12/20 06:20 05/12/20 06:20 Microbiology Microbiology Results: Microbiology 05/04/20 12:03 Sputum - Suctioned Gram Stain - Final 05/04/20 12:03 Sputum - Suctioned Sputum Culture - Final 04/29/20 06:07 Blood - Venous Blood Culture - Final No growth after 5 days. 04/29/20 05:52 Blood - Venous Blood Culture - Final No growth after 5 days. 04/27/20 Unknown Blood - Venous Blood Culture - Final Staphylococcus epidermidis Coag negative Staphylococcus 04/27/20 Unknown Blood - Venous Blood Culture - Final Staphylococcus epidermidis Staphylococcus hominis ssp enrique 04/27/20 Unknown Urine Catheterized - Straight Catheter Urine Culture - Final Enterococcus faecalis Pseudomonas aeruginosa 04/27/20 05:52 Sputum - Suctioned Gram Stain - Final 04/27/20 05:52 Sputum - Suctioned Sputum Culture - Final Assessment and Plan (1) Acute respiratory failure with hypoxia: Status: Acute (2) Aspiration pneumonia: Status: Acute Assessment and Plan: 54-year-old female with history of subarachnoid hemorrhage and 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 she was unable to be weaned and due to ongoing respiratory compromise tracheostomy was preformed as well as PEG on 05/01/2020. she is awaiting a bed in an LTAC on waiting list and they simply want her to stay until the permanent trach is placed at about day 30 of maturation. she remains inpatient because of the frequency of suctioning required due to her significant secretions but no longer has any sign of active infection all labs and examinations have been stable acute hypoxic respiratory failure secondary to aspiratoin pneumonia completed antibiotcs POD 15 s/p trache/peg pulmonary toileting once mature plan to change to permanent trach and discharge to LTAC when bed available hisotry of SAH, seizures continue keppra Buttock pressure ulcer--barrier cream to the area and foam dressing, continue to offload and rotate and reposition frequently special air mattress, careful with moving pt in regards to dragging across sheet. Tube feed, check labs tomorrow
[2020-05-15] MEDS: Enoxaparin Sodium 40 MG/0.4 ML SYRINGE SUBCUT (21:19)
[2020-05-16] VITALS (9 sets, daily range): BP systolic 98–126; BP diastolic 64–81; PULSE 68–116; RESP 12–22; TEMP 36–37.5; O2SAT 96–100; BMI 23.6
[2020-05-16] MEDS: levETIRAcetam in NaCl (iso-os) 500 MG/100 ML PIGGYBACK 400 MG IV ×2 (02:04→13:39)
[2020-05-16] MEDS: Midodrine HCl 10 MG TABLET G-TUBE ×3 (10:06→20:24)
--- NOTE | 2020-05-16 11:06 | MHC.CLN ---
F/U PT CONTINUES WITH TF GLUCERNA AT MAX GOAL RATE 55CC/HR WITH 120CC FREE WATER FLUSHES Q 4 HRS TO PROVIDE 1320KCALS (25KCALS/KG), 55G PROTEIN (1.0G/KG), 1846CC TOTAL WATER FROM FORMULA AND FLUSHES (35CC/KG) MONITOR TOLERANCE, RESIDUALS AND LYTES
--- NOTE | 2020-05-16 14:11 | MHC.CM.PN ---
FEMALE 54 DX ASP PNA TRACH AND PEG BOTH NEW A REFERRAL HAS BEEN SENT TO [facility]. iNFOMATION HAS BEEN SENT. tHE pT IS IN REVIEW. THE DETERMINATION IS EXPECTED TUESDAY/TUESDAY. OSMANY AOKES DTR/HCP IS IN AGREEMENT WITH [facility]. CM WILL CONTINUE TO FOLLOW.
--- NOTE | 2020-05-16 14:12 | P.PNIM_ITS ---
Subjective Subjective Date of Service: 05/16/20 Interval History: Seen in f/u for acute resp failure that required mechanical ventilation now PEG and trach and awaiting LTAC placement. No new issues. Tolerating feed. No new issues Physical Exam Vital Signs: Vital Signs: Last Vital Signs Temp 97.9 F 05/16/20 07:53 Pulse 116 H 05/16/20 12:00 Resp 22 H 05/16/20 12:00 BP 124/75 05/16/20 12:00 Pulse Ox 96 05/16/20 12:00 Body Mass Index 23.6 Objective Data Current Medications Generic Name Dose Route Start Last Admin Trade Name Freq PRN Reason Stop Dose Admin Enoxaparin Sodium 40 mg 04/27/20 02:00 05/15/20 21:19 Enoxaparin Sodium 40 Mg/0.4 Ml Syringe SUBCUT 40 mg BEDTIME ROSALINE Administration Levetiracetam 500 mg in 100 mls @ 400 mls/hr 05/08/20 14:00 05/16/20 14:03 Keppra IV Infused Q12H ROSALINE Infusion Midodrine 10 mg 05/01/20 08:39 05/16/20 10:06 Midodrine Hcl 10 Mg Tablet G-TUBE 10 mg TID ROSALINE Administration Valproic Acid 375 mg 05/06/20 21:00 05/16/20 10:06 Valproic Acid (As Sodium Salt) 250 Mg/5 Ml Solution G-TUBE 375 mg BID ROSALINE Administration Labs CBC & Chem 7: 05/12/20 06:20 05/12/20 06:20 Microbiology Microbiology Results: Microbiology 05/04/20 12:03 Sputum - Suctioned Gram Stain - Final 05/04/20 12:03 Sputum - Suctioned Sputum Culture - Final 04/29/20 06:07 Blood - Venous Blood Culture - Final No growth after 5 days. 04/29/20 05:52 Blood - Venous Blood Culture - Final No growth after 5 days. 04/27/20 Unknown Blood - Venous Blood Culture - Final Staphylococcus epidermidis Coag negative Staphylococcus 04/27/20 Unknown Blood - Venous Blood Culture - Final Staphylococcus epidermidis Staphylococcus hominis ssp enrique 04/27/20 Unknown Urine Catheterized - Straight Catheter Urine Culture - Final Enterococcus faecalis Pseudomonas aeruginosa 04/27/20 05:52 Sputum - Suctioned Gram Stain - Final 04/27/20 05:52 Sputum - Suctioned Sputum Culture - Final Assessment and Plan (1) Acute respiratory failure with hypoxia: Status: Acute (2) Aspiration pneumonia: Status: Acute Assessment and Plan: 54-year-old female with history of subarachnoid hemorrhage and 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 she was unable to be weaned and due to ongoing respiratory compromise tracheostomy was preformed as well as PEG on 05/01/2020. she is awaiting a bed in an LTAC on waiting list and they simply want her to stay until the permanent trach is placed at about day 30 of maturation. she remains inpatient because of the frequency of suctioning required due to her significant secretions but no longer has any sign of active infection all labs and examinations have been stable acute hypoxic respiratory failure secondary to aspiratoin pneumonia completed antibiotcs POD 15 s/p trache/peg pulmonary toileting once mature plan to change to permanent trach and discharge to LTAC when bed available hisotry of SAH, seizures continue keppra Buttock pressure ulcer--barrier cream to the area and foam dressing, continue to offload and rotate and reposition frequently special air mattress, careful with moving pt in regards to dragging across sheet. Tube feed, check labs tomorrow [facility] considering for retirement care
[2020-05-16] MEDS: Enoxaparin Sodium 40 MG/0.4 ML SYRINGE SUBCUT (20:22)
[2020-05-17] VITALS (7 sets, daily range): BP systolic 91–109; BP diastolic 56–77; PULSE 90–104; RESP 18–24; TEMP 36–37.1; O2SAT 94–100; BMI 25.0
[2020-05-17] MEDS: levETIRAcetam in NaCl (iso-os) 500 MG/100 ML PIGGYBACK 400 MG IV ×2 (03:19→13:44)
[2020-05-17] MEDS: Midodrine HCl 10 MG TABLET G-TUBE ×2 (09:02→20:50)
--- NOTE | 2020-05-17 11:22 | HO.PM.IMPN ---
Subjective Subjective Date of Service: 05/17/20 Interval History: Seen in f/u for acute resp failure that required mechanical ventilation now PEG and trach and awaiting LTAC placement. No new issues. She seems confortable. Review of Systems no fever no new neuro changes Physical Exam Vital Signs: Vital Signs: Last Vital Signs Temp 98.7 F 05/17/20 03:18 Pulse 98 05/17/20 09:02 Resp 18 05/17/20 03:18 BP 91/56 L 05/17/20 09:02 Pulse Ox 99 05/17/20 03:18 Body Mass Index 25.0 Const: Other: General: she is alert, no talking but nods with her responses, no distress and seem comfortable Resp: normal respiratory effort CVS: S1,S2,RRR GI: +BS, NT, no distention Skin: No rash, buttock pressure ulcer noted Neuro: motor grossly intact Psych: appropriate affect Objective Data Current Medications Generic Name Dose Route Start Last Admin Trade Name Freq PRN Reason Stop Dose Admin Enoxaparin Sodium 40 mg 04/27/20 02:00 05/16/20 20:22 Enoxaparin Sodium 40 Mg/0.4 Ml Syringe SUBCUT 40 mg BEDTIME ROSALINE Administration Levetiracetam 500 mg in 100 mls @ 400 mls/hr 05/08/20 14:00 05/17/20 03:50 Keppra IV Infused Q12H ROSALINE Infusion Midodrine 10 mg 05/01/20 08:39 05/17/20 09:02 Midodrine Hcl 10 Mg Tablet G-TUBE 10 mg TID ROSALINE Administration Valproic Acid 375 mg 05/06/20 21:00 05/17/20 09:03 Valproic Acid (As Sodium Salt) 250 Mg/5 Ml Solution G-TUBE 375 mg BID ROSALINE Administration Labs CBC & Chem 7: 05/12/20 06:20 05/12/20 06:20 Microbiology Microbiology Results: Microbiology 05/04/20 12:03 Sputum - Suctioned Gram Stain - Final 05/04/20 12:03 Sputum - Suctioned Sputum Culture - Final 04/29/20 06:07 Blood - Venous Blood Culture - Final No growth after 5 days. 04/29/20 05:52 Blood - Venous Blood Culture - Final No growth after 5 days. 04/27/20 Unknown Blood - Venous Blood Culture - Final Staphylococcus epidermidis Coag negative Staphylococcus 04/27/20 Unknown Blood - Venous Blood Culture - Final Staphylococcus epidermidis Staphylococcus hominis ssp enrique 04/27/20 Unknown Urine Catheterized - Straight Catheter Urine Culture - Final Enterococcus faecalis Pseudomonas aeruginosa 04/27/20 05:52 Sputum - Suctioned Gram Stain - Final 04/27/20 05:52 Sputum - Suctioned Sputum Culture - Final Assessment and Plan (1) Acute respiratory failure with hypoxia: Status: Acute (2) Aspiration pneumonia: Status: Acute Assessment and Plan: 54-year-old female with history of subarachnoid hemorrhage and 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 she was unable to be weaned and due to ongoing respiratory compromise tracheostomy was preformed as well as PEG on 05/01/2020. she is awaiting a bed in an LTAC on waiting list and they simply want her to stay until the permanent trach is placed at about day 30 of maturation. she remains inpatient because of the frequency of suctioning required due to her significant secretions but no longer has any sign of active infection all labs and examinations have been stable acute hypoxic respiratory failure secondary to aspiratoin pneumonia completed antibiotcs Trach and PEG on 05/01 pulmonary toileting once mature plan to change to permanent trach and discharge to LTAC when bed available hisotry of SAH, seizures continue keppra Buttock pressure ulcer--barrier cream to the area and foam dressing, continue to offload and rotate and reposition frequently special air mattress, careful with moving pt in regards to dragging across sheet. Tube feed, check labs tomorrow [facility] considering for retirement care, care discuss with nurse
[2020-05-17] MEDS: Enoxaparin Sodium 40 MG/0.4 ML SYRINGE SUBCUT (20:49)
[2020-05-18] MEDS: levETIRAcetam in NaCl (iso-os) 500 MG/100 ML PIGGYBACK 400 MG IV ×2 (01:03→14:32)
[2020-05-18 04:00] VITALS: BP 110/76; PULSE 93; RESP 18; TEMP 37.1; O2SAT 99
[2020-05-18 06:00] VITALS: BMI 25.7
[2020-05-18 08:00] VITALS: BP 101/67; PULSE 77; RESP 18; TEMP 36.5; O2SAT 100
--- NOTE | 2020-05-18 08:44 | P.PNIM_ITS ---
Subjective Subjective Date of Service: 05/18/20 Interval History: Seen in f/u for acute resp failure that required mechanical ventilation now PEG and trach and awaiting LTAC placement. Comfortable, no new issues Physical Exam Vital Signs: Vital Signs: Last Vital Signs Temp 97.7 F 05/18/20 08:00 Pulse 77 05/18/20 08:00 Resp 18 05/18/20 08:00 BP 101/67 05/18/20 08:00 Pulse Ox 100 05/18/20 08:00 Body Mass Index 25.7 Const: Other: General: she is alert, no talking but nods with her responses, no distress and seem comfortable Resp: normal respiratory effort CVS: S1,S2,RRR GI: +BS, NT, no distention Skin: No rash, buttock pressure ulcer noted Neuro: motor grossly intact Psych: appropriate affect Objective Data Current Medications Generic Name Dose Route Start Last Admin Trade Name Freq PRN Reason Stop Dose Admin Enoxaparin Sodium 40 mg 04/27/20 02:00 05/17/20 20:49 Enoxaparin Sodium 40 Mg/0.4 Ml Syringe SUBCUT 40 mg BEDTIME ROSALINE Administration Levetiracetam 500 mg in 100 mls @ 400 mls/hr 05/08/20 14:00 05/18/20 01:03 Keppra IV 400 mls/hr Q12H ROSALINE Administration Midodrine 10 mg 05/01/20 08:39 05/17/20 20:50 Midodrine Hcl 10 Mg Tablet G-TUBE 10 mg TID ROSALINE Administration Valproic Acid 375 mg 05/06/20 21:00 05/17/20 20:50 Valproic Acid (As Sodium Salt) 250 Mg/5 Ml Solution G-TUBE 375 mg BID ROSALINE Administration Labs CBC & Chem 7: 05/18/20 09:43 05/18/20 09:43 Microbiology Microbiology Results: Microbiology 05/04/20 12:03 Sputum - Suctioned Gram Stain - Final 05/04/20 12:03 Sputum - Suctioned Sputum Culture - Final 04/29/20 06:07 Blood - Venous Blood Culture - Final No growth after 5 days. 04/29/20 05:52 Blood - Venous Blood Culture - Final No growth after 5 days. 04/27/20 Unknown Blood - Venous Blood Culture - Final Staphylococcus epidermidis Coag negative Staphylococcus 04/27/20 Unknown Blood - Venous Blood Culture - Final Staphylococcus epidermidis Staphylococcus hominis ssp enrique 04/27/20 Unknown Urine Catheterized - Straight Catheter Urine Culture - Final Enterococcus faecalis Pseudomonas aeruginosa 04/27/20 05:52 Sputum - Suctioned Gram Stain - Final 04/27/20 05:52 Sputum - Suctioned Sputum Culture - Final Assessment and Plan (1) Acute respiratory failure with hypoxia: Status: Acute (2) Aspiration pneumonia: Status: Acute Assessment and Plan: 54-year-old female with history of subarachnoid hemorrhage and 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 she was unable to be weaned and due to ongoing respiratory compromise tracheostomy was preformed as well as PEG on 05/01/2020. she is awaiting a bed in an LTAC on waiting list and they simply want her to stay until the permanent trach is placed at about day 30 of maturation. she remains inpatient because of the frequency of suctioning required due to her significant secretions but no longer has any sign of active infection all labs and examinations have been stable Acute hypoxic respiratory failure secondary to aspiratoin pneumonia completed antibiotcs Trach and PEG on 05/01 pulmonary toileting once trach is mature, plan to change to permanent trach and discharge to LTAC when bed available, however as of recent [place] has been considering taken when before trach is mature--we will learn more on Tuesday or tuesday this coming week Hisotry of SAH complicated by seizures--no seizures continue keppra Buttock pressure ulcer--barrier cream to the area and foam dressing, continue to offload and rotate and reposition frequently special air mattress, careful with moving pt in regards to dragging across sheet. Tube feed, check labs tomorrow [facility] considering for residential care, care discuss with nurse
[2020-05-18 10:14] LABS: Hematocrit 26.4 % (37-47); Hemoglobin 7.9 g/dl (12.0-16.0); Mean Corpuscular HGB Conc 29.9 g/dl (31.0-35.0); Mean Corpuscular Hemoglobin 28.1 pg (27.0-33.0); Platelet Count 533 X10*3/uL (160-400); Red Blood Count 2.81 X10*6/uL (4.20-5.50); White Blood Count 6.5 X10*3/uL (4.8-10.8)
[2020-05-18 10:39] LABS: Anion Gap 11 (12-20); Blood Urea Nitrogen 13 mg/dL (9-16); Calcium 8.8 mg/dL (8.4-10.2); Carbon Dioxide 29 mmol/L (22-29); Chloride 106 mmol/L (96-108); Creatinine Clr Calc Pharmacy 113.3; Estimated Glomerular Filt Rate > 60; Glucose Random 96 mg/dL (60-115); Potassium 4.3 mmol/L (3.3-5.1); Sodium 142 mmol/L (135-145)
[2020-05-18] MEDS: Midodrine HCl 10 MG TABLET G-TUBE ×3 (11:33→21:26)
[2020-05-18 11:34] VITALS: BP 97/59; PULSE 85; RESP 18; TEMP 36.4; O2SAT 100
[2020-05-18 15:47] VITALS: BP 124/89; PULSE 58; RESP 18; TEMP 36.6; O2SAT 100
[2020-05-18 19:30] VITALS: BP 106/76; PULSE 104; RESP 18; TEMP 22.3; O2SAT 98
[2020-05-18] MEDS: Enoxaparin Sodium 40 MG/0.4 ML SYRINGE SUBCUT (21:22)
[2020-05-18 21:26] VITALS: BP 106/76; PULSE 100
[2020-05-19] VITALS (7 sets, daily range): BP systolic 110–126; BP diastolic 55–82; PULSE 86–109; RESP 16–20; TEMP 36.3–37.1; O2SAT 97–100; BMI 24.6
[2020-05-19] MEDS: levETIRAcetam in NaCl (iso-os) 500 MG/100 ML PIGGYBACK 400 MG IV (01:53)
[2020-05-19] MEDS: Midodrine HCl 10 MG TABLET G-TUBE ×3 (10:05→20:24)
--- NOTE | 2020-05-19 11:30 | MHC.CLN ---
F/U GLUCERNA TF CURRENTLY UNAVAILBALE RECOMMEND CHANGE IN FORMULA TO TF PROMOTE AT MAX GOAL RATE 55CC/HR WITH 120CC FREE WATER FLUSHES Q 4 HRS TO PROVIDE 1320KCALS (25KCALS/KG), 82.5G PROTEIN (1.6G/KG),27 TOTAL WATER FROM FORMULA AND FLUSHES (34CC/KG) MONITOR TOLERANCE, RESIDUALS AND LYTES
--- NOTE | 2020-05-19 12:32 | MHC.CM.PN ---
per pt yumi for dc call placed message left for evelyn in admissions at [facility] awaIT call back
--- NOTE | 2020-05-19 15:59 | HO.PM.IMPN ---
Subjective Subjective Date of Service: 05/19/20 Interval History: no new issues awaiting LTACH placement Physical Exam Vital Signs: Vital Signs: Last Vital Signs Temp 97.3 F 05/19/20 15:16 Pulse 86 05/19/20 15:16 Resp 18 05/19/20 15:16 BP 126/77 05/19/20 15:16 Pulse Ox 100 05/19/20 15:16 Body Mass Index 24.6 Gen: in no acute distress HEENT: sclera anicteric, moist mucus membranes Neck: trach to collar Lungs: clear to auscultation bilaterally Heart: regular rate and rhythm, no murmurs Abd: soft, non-tender, non-distended, PEG in place Ext: no edema Skin: warm/well-perfused; sacral pressure ulcer Neuro: alert, nonverbal, R hemiplegia Psych: restricted affect Objective Data Current Medications Generic Name Dose Route Start Last Admin Trade Name Freq PRN Reason Stop Dose Admin Enoxaparin Sodium 40 mg 04/27/20 02:00 05/18/20 21:22 Enoxaparin Sodium 40 Mg/0.4 Ml Syringe SUBCUT 40 mg BEDTIME ROSALINE Administration Levetiracetam 500 mg 05/19/20 21:00 Levetiracetam 500 Mg Tablet G-TUBE BID ROSALINE Midodrine 10 mg 05/01/20 08:39 05/19/20 13:52 Midodrine Hcl 10 Mg Tablet G-TUBE 10 mg TID ROSALINE Administration Valproic Acid 375 mg 05/06/20 21:00 05/19/20 10:05 Valproic Acid (As Sodium Salt) 250 Mg/5 Ml Solution G-TUBE 375 mg BID ROSALINE Administration Labs CBC & Chem 7: 05/18/20 09:43 05/18/20 09:43 Microbiology Microbiology Results: Microbiology 05/04/20 12:03 Sputum - Suctioned Gram Stain - Final 05/04/20 12:03 Sputum - Suctioned Sputum Culture - Final 04/29/20 06:07 Blood - Venous Blood Culture - Final No growth after 5 days. 04/29/20 05:52 Blood - Venous Blood Culture - Final No growth after 5 days. 04/27/20 Unknown Blood - Venous Blood Culture - Final Staphylococcus epidermidis Coag negative Staphylococcus 04/27/20 Unknown Blood - Venous Blood Culture - Final Staphylococcus epidermidis Staphylococcus hominis ssp enrique 04/27/20 Unknown Urine Catheterized - Straight Catheter Urine Culture - Final Enterococcus faecalis Pseudomonas aeruginosa 04/27/20 05:52 Sputum - Suctioned Gram Stain - Final 04/27/20 05:52 Sputum - Suctioned Sputum Culture - Final Assessment and Plan (1) Acute respiratory failure with hypoxia: Status: Acute (2) Aspiration pneumonia: Status: Acute Assessment and Plan: hospital d#23 54yo F with hx SAH/aneurysm clipping with residual R hemiparesis + dysphagia intubated and admitted to ICU 04/26/20 with acute hypoxic respiratory failure due to large-volume aspiration extubated but then aspirated and re-intubated 04/28/20 underwent trach + PEG 05/01/20 now awaiting LTACH bed # acute hypoxic respiratory failure due to aspiration pneumonia - s/p antibiotics, trach/PEG # tracheostomy dependence - frequent suctioning - awaiting maturation 30d p placement then change to permanent tracheostomy # tube feeding diet - continue tube feeds Promote 55 mL/hr + H20 120 mL q4h # hx SAH complicated by sz - no sz on current admission. continue levetiracetam- change IV to GT. continue VPA. # pressure ulcer of buttocks - barrier cream, foam dressing, offload/rotate/reposition, air loss mattress, careful moving pt # dispo - awaiting maturation of tracheostomy/bed at [facility] # VTE ppx - LMWH
[2020-05-19] MEDS: levETIRAcetam 500 MG TABLET G-TUBE (20:02)
[2020-05-19] MEDS: Enoxaparin Sodium 40 MG/0.4 ML SYRINGE SUBCUT (20:02)
[2020-05-20] VITALS (8 sets, daily range): BP systolic 113–139; BP diastolic 74–85; PULSE 71–109; RESP 18–23; TEMP 36.2–36.9; O2SAT 94–100; BMI 23.8
[2020-05-20 06:13] LABS: MANUAL DIFF FLAG NO
[2020-05-20 06:18] LABS: Basophils Percent Auto 0.5 % (0-2); Eosinophils Absolute Auto 0.1 X10*3/uL (0.0-0.4); Eosinophils Percent Auto 1.5 % (0-4); Hematocrit 27.8 % (37-47); Hemoglobin 8.3 g/dl (12.0-16.0); Imm Gran Abs Auto 0.03 X10*3/uL (0.00-0.03); Imm Gran Pct Auto 0.4 % (0.0-0.4); Lymphocytes Absolute Auto 1.8 X10*3/uL (1.2-4.9); Lymphocytes Percent Auto 23.4 % (20-40); Mean Corpuscular HGB Conc 29.9 g/dl (31.0-35.0); Mean Corpuscular Hemoglobin 27.3 pg (27.0-33.0); Mean Corpuscular Volume 91.4 fL (80-98); Mean Platelet Volume 8.9 fL (9.4-12.3); Monocytes Absolute Auto 0.7 X10*3/uL (0.1-1.2); Monocytes Percent Auto 8.8 % (2-11); Neutrophils Absolute Auto 4.9 X10*3/uL (2.0-8.3); Neutrophils Percent Auto 65.4 % (45-73); Platelet Count 597 X10*3/uL (160-400); Red Blood Count 3.04 X10*6/uL (4.20-5.50); Red Cell Distribution Width 17.7 % (11.0-16.0); White Blood Count 7.5 X10*3/uL (4.8-10.8)
[2020-05-20 06:53] LABS: Immature Retic Fraction 25.3 % (3.0-15.9); Retic HGB Equivalent 21.2 pg (30.0-35.0); Reticulocytes Absolute 0.171 X10*6/uL (0.026-0.095)
[2020-05-20 06:54] LABS: Reticulocyte Percent 5.7 % (0.5-1.8)
[2020-05-20 06:59] LABS: Alanine Aminotransferase < 6 U/L (0-31); Albumin Level 3.1 g/dL (3.5-5.0); Alkaline Phosphatase 60 U/L (39-117); Anion Gap 13 (12-20); Aspartate Amino Transferase 9 U/L (5-31); Bilirubin Total 0.4 mg/dL (0.0-1.0); Blood Urea Nitrogen 11 mg/dL (9-16); Carbon Dioxide 28 mmol/L (22-29); Chloride 105 mmol/L (96-108); Creatinine Clr Calc Pharmacy 109.1; Estimated Glomerular Filt Rate > 60; Glucose Random 91 mg/dL (60-115); Iron 22 mcg/dL (30-160); Percent Iron Saturation 7 % (15-50); Potassium 4.2 mmol/L (3.3-5.1); Sodium 142 mmol/L (135-145); Total Iron Binding Capacity 332 mcg/dL (228-428); Total Protein 6.5 g/dL (6.5-8.0); Unsaturated Iron Binding 310 ug/dL
[2020-05-20 07:55] LABS: Ferritin 16 ng/mL (10-250)
[2020-05-20 08:39] LABS: Folate 9.4 ng/mL (> or = 4.0); Vitamin B12 860 pg/mL (200-900)
[2020-05-20 10:11] LABS: Alanine Aminotransferase 6 U/L (0-31); Albumin Level 3.2 g/dL (3.5-5.0); Alkaline Phosphatase 67 U/L (39-117); Aspartate Amino Transferase 12 U/L (5-31); Bilirubin Direct < 0.2 mg/dL (0.0-0.5); Bilirubin Total 0.4 mg/dL (0.0-1.0); Lactate Dehydrogenase 208 U/L (122-220); Total Protein 6.9 g/dL (6.5-8.0)
[2020-05-20] MEDS: Midodrine HCl 10 MG TABLET G-TUBE ×3 (10:16→21:11)
[2020-05-20] MEDS: levETIRAcetam 500 MG TABLET G-TUBE ×2 (10:16→21:11)
[2020-05-20 12:12] LABS: Fibrinogen 640 MG/DL (259-690); INTERNATIONAL NORM RATIO 1.1 (0.9-1.1); Prothrombin Time 12.6 SEC (10.8-13.0)
[2020-05-20 12:15] LABS: Partial Thromboplastin Time 33.4 SEC (24.1-38.0)
[2020-05-20 12:17] LABS: D Dimer < 200 NG/ML
--- NOTE | 2020-05-20 15:41 | P.PNIM_ITS ---
Subjective Subjective Date of Service: 05/20/20 Interval History: not verbal and as such unable to obtain ROS anemia workup shows retics elevated, AMY+ Physical Exam Vital Signs: Vital Signs: Last Vital Signs Temp 97.2 F 05/20/20 11:26 Pulse 86 05/20/20 11:26 Resp 18 05/20/20 11:26 BP 119/85 05/20/20 11:26 Pulse Ox 100 05/20/20 11:26 Body Mass Index 23.8 Gen: in no acute distress HEENT: sclera anicteric, moist mucus membranes Neck: trach to collar Lungs: clear to auscultation bilaterally Heart: regular rate and rhythm, no murmurs Abd: soft, non-tender, non-distended, PEG in place Ext: no edema Skin: warm/well-perfused; sacral pressure ulcer Neuro: alert, nonverbal, R hemiplegia Psych: restricted affect Objective Data Current Medications Generic Name Dose Route Start Last Admin Trade Name Freq PRN Reason Stop Dose Admin Enoxaparin Sodium 40 mg 04/27/20 02:00 05/19/20 20:02 Enoxaparin Sodium 40 Mg/0.4 Ml Syringe SUBCUT 40 mg BEDTIME ROSALINE Administration Levetiracetam 500 mg 05/19/20 21:00 05/20/20 10:16 Levetiracetam 500 Mg Tablet G-TUBE 500 mg BID ROSALINE Administration Midodrine 10 mg 05/01/20 08:39 05/20/20 10:16 Midodrine Hcl 10 Mg Tablet G-TUBE 10 mg TID ROSALINE Administration Valproic Acid 375 mg 05/06/20 21:00 05/20/20 10:16 Valproic Acid (As Sodium Salt) 250 Mg/5 Ml Solution G-TUBE 375 mg BID ROSALINE Administration Labs CBC & Chem 7: 05/20/20 05:29 05/20/20 05:29 Microbiology Microbiology Results: Microbiology 05/04/20 12:03 Sputum - Suctioned Gram Stain - Final 05/04/20 12:03 Sputum - Suctioned Sputum Culture - Final 04/29/20 06:07 Blood - Venous Blood Culture - Final No growth after 5 days. 04/29/20 05:52 Blood - Venous Blood Culture - Final No growth after 5 days. 04/27/20 Unknown Blood - Venous Blood Culture - Final Staphylococcus epidermidis Coag negative Staphylococcus 04/27/20 Unknown Blood - Venous Blood Culture - Final Staphylococcus epidermidis Staphylococcus hominis ssp enrique 04/27/20 Unknown Urine Catheterized - Straight Catheter Urine Culture - Final Enterococcus faecalis Pseudomonas aeruginosa 04/27/20 05:52 Sputum - Suctioned Gram Stain - Final 04/27/20 05:52 Sputum - Suctioned Sputum Culture - Final Assessment and Plan (1) Acute respiratory failure with hypoxia: Status: Acute (2) Aspiration pneumonia: Status: Acute Assessment and Plan: hospital d#23 54yo F with hx SAH/aneurysm clipping/decompressive craniectomy with catastrophic bleeding/neurological deterioration after craniectomy closure resulting in residual R hemiparesis + dysphagia intubated and admitted to ICU 04/26/20 with acute hypoxic respiratory failure due to large-volume aspiration extubated but then aspirated and re-intubated 04/28/20 lap band deflated 04/30/20 underwent trach + PEG 05/01/20 now awaiting LTACH bed # autoimmune hemolytic anemia - AMY+. DIC screen negative. Hb stable since 04/28. consult Heme/Onc. pathology review slide # acute hypoxic respiratory failure due to aspiration pneumonia - s/p antibiotics, trach/PEG # tracheostomy dependence - frequent suctioning - awaiting maturation 30d p placement then change to permanent tracheostomy # tube feeding diet - continue tube feeds Promote 55 mL/hr + H20 120 mL q4h # hx SAH complicated by sz - no sz on current admission. continue levetiracetam- changed IV to GT. contin ue VPA. # septic shock - resolved, off norepi, remains on midodrine # hyperNa - resolved # metabolic alkalosis - resolved # pressure ulcer of buttocks - barrier cream, foam dressing, offload/rotate/reposition, air loss mattress, careful moving pt # dispo - awaiting maturation of tracheostomy/bed at [facility] # VTE ppx - LMWH
[2020-05-20] MEDS: Enoxaparin Sodium 40 MG/0.4 ML SYRINGE SUBCUT (21:10)
[2020-05-21] VITALS (9 sets, daily range): BP systolic 107–137; BP diastolic 58–86; PULSE 83–109; RESP 18–20; TEMP 36–37.2; O2SAT 96–100; BMI 23.3
[2020-05-21 06:10] LABS: MANUAL DIFF FLAG NO
[2020-05-21 06:14] LABS: Basophils Percent Auto 0.4 % (0-2); Eosinophils Absolute Auto 0.1 X10*3/uL (0.0-0.4); Eosinophils Percent Auto 1.5 % (0-4); Hematocrit 28.1 % (37-47); Hemoglobin 8.3 g/dl (12.0-16.0); Imm Gran Abs Auto 0.05 X10*3/uL (0.00-0.03); Imm Gran Pct Auto 0.6 % (0.0-0.4); Lymphocytes Absolute Auto 1.6 X10*3/uL (1.2-4.9); Lymphocytes Percent Auto 18.4 % (20-40); Mean Corpuscular HGB Conc 29.5 g/dl (31.0-35.0); Mean Corpuscular Hemoglobin 26.9 pg (27.0-33.0); Mean Corpuscular Volume 91.2 fL (80-98); Mean Platelet Volume 8.9 fL (9.4-12.3); Monocytes Absolute Auto 0.9 X10*3/uL (0.1-1.2); Monocytes Percent Auto 10.1 % (2-11); Neutrophils Absolute Auto 5.9 X10*3/uL (2.0-8.3); Platelet Count 625 X10*3/uL (160-400); Red Blood Count 3.08 X10*6/uL (4.20-5.50); Red Cell Distribution Width 17.7 % (11.0-16.0); White Blood Count 8.5 X10*3/uL (4.8-10.8)
--- NOTE | 2020-05-21 10:02 | MHC.CLN ---
F/U PT CAN RESUME WITH TF GLUCERNA AT MAX GOAL RATE 55CC/HR WITH 120CC FREE WATER FLUSHES Q 4 HRS TO PROVIDE 1320KCALS (25KCALS/KG), 55G PROTEIN (1.0G/KG), 1846CC TOTAL WATER FROM FORMULA AND FLUSHES (35CC/KG) MONITOR TOLERANCE, RESIDUALS AND LYTES
--- NOTE | 2020-05-21 10:47 | PM.HEMONCCN ---
Subjective - Subjective Chief complaint: None Patient: new to practice Consult date: 05/21/20 Requesting Physician: Dr. Lindquist Primary Care Provider: Unknown Physician HPI - Consult Narrative Reason for consult: Ina positive anemia Narrative: Asha Medina is a 54 year old female who has been [place] [facility] [place] 27 for aspiration pneumonia, acute hypoxic respiratory failure. She was in the ICU intubated for several days, received IV antibiotics and underwent tracheostomy and PEG tube placement. She has a history of subarachnoid hemorrhage, aneurysm clipping, decompressive craniectomy all done at outside hospital. She developed bleeding in her brain and neurological deterioration after craniectomy closure resulting in right hemiparesis and dysphagia. She has been treated with Unasyn. In March her hemoglobin was 13 gram/dL. Since admission her hemoglobin has been around 8 gram/dL. Workup for anemia revealed positivity for direct Ina test as well as iron deficiency. [facility] Medical History: Medical History (Last Updated 05/05/20 @ 14:43 by Sheela Stringer MD) Asthma CVA (cerebral vascular accident) Diabetes Dysphagia History of gastrostomy tube placement Hypernatremia Hypokalemia Metabolic encephalopathy Nephrolithiasis Pneumonia Seizure Sepsis Subarachnoid hemorrhage VRE (vancomycin resistant enterococcus) culture positive VRE (vancomycin-resistant Enterococci) Family History: Family History (Last Reviewed 05/05/20 @ 14:36 by Sheela Stringer MD) Mother Stroke Father No problems noted. Brother No problems noted. Sister No problems noted. Daughter No problems noted. Daughter No problems noted. Surgical History: Surgical History (Last Reviewed 05/05/20 @ 14:36 by Sheela Stringer MD) History of bunionectomy of both great toes History of hysterectomy History of laparoscopic adjustable gastric banding History of tracheostomy S/P clamping of cerebral aneurysm Social History: Social History (Last Reviewed 05/05/20 @ 14:36 by Sheela Stringer MD) Living Situation History: Household Members: Unknown / Unable to asses Housing: Alf Alcohol History: Unable to assess alcohol history related to: Unable to respond Alcohol intake: unknown Tobacco History: Smoking Status: Unknown if ever smoked Substance Use History: Use of substances other than those prescribed or required for medical reasons: Unable to respond Currently Displaying Signs/Symptoms of Drug Intoxication Withdrawal: No Advance Directives: Advance Directives: No Advance Directives Information Provided: No Homicidal Assessment: Do you have thoughts of harming others: None Do you have a plan to hurt others: No Plan Nutrition Assessment: Patient : No Occupation Assessmet: service: No Current occupational status: employed Smoking status: Unknown if ever smoked Home Medications and Allergies Current Medications: Current Medications Generic Name Dose Route Start Last Admin Trade Name Freq PRN Reason Stop Dose Admin Enoxaparin Sodium 40 mg 04/27/20 02:00 05/20/20 21:10 Enoxaparin Sodium 40 Mg/0.4 Ml Syringe SUBCUT 40 mg BEDTIME ROSALINE Administration Levetiracetam 500 mg 05/19/20 21:00 05/20/20 21:11 Levetiracetam 500 Mg Tablet G-TUBE 500 mg BID ROSALINE Administration Midodrine 10 mg 05/01/20 08:39 05/20/20 21:11 Midodrine Hcl 10 Mg Tablet G-TUBE 10 mg TID ROSALINE Administration Valproic Acid 375 mg 05/06/20 21:00 05/20/20 21:11 Valproic Acid (As Sodium Salt) 250 Mg/5 Ml Solution G-TUBE 375 mg BID ROSALINE Administration Home Medications Medication Instructions Recorded Confirmed Type albuterol sulfate [ProAir HFA] 2 puff INHALATION Q4H PRN 04/28/20 04/28/20 History amlodipine 5 mg PO DAILY 04/28/20 04/28/20 History divalproex [Depakote Sprinkles] 375 mg PO TID 04/28/20 04/28/20 History dronabinol [Marinol] 2.5 mg PO BIDAC 04/28/20 04/28/20 History heparin (porcine) 5,000 unit SUBCUT Q8H 04/28/20 04/28/20 History hypromellose [Gonak] 1 drp OPHTHALMIC (EYE) BID 04/28/20 04/28/20 History mirtazapine 15 mg PO BEDTIME 04/28/20 04/28/20 History multivitamin 1 tab PO DAILY 04/28/20 04/28/20 History polyvinyl alcohol-povidone 1 drp OPHTHALMIC (EYE) TID PRN 04/28/20 04/28/20 History carboxymethylcellulose sodium 1 drp OPHTHALMIC (EYE) TID PRN 05/09/20 05/09/20 History [Refresh Celluvisc] Allergies Allergy/AdvReac Type Severity Reaction Status Date / Time No Known Allergies Allergy Verified 04/30/20 10:00 Physical Exam Vital signs: Vital Signs Temp 97.2 F 05/21/20 07:50 Pulse 109 H 05/21/20 07:50 Resp 20 05/21/20 07:50 BP 118/69 05/21/20 07:50 Pulse Ox 100 05/21/20 07:50 Intake & Output 05/20/20 05/21/20 05/21/20 18:59 06:59 18:59 Output Total 300 / 1000 700 / 1000 Balance -300 / -1000 -700 / -1000 Urine Output (Average ml/kg/hr) 0.45 1.08 Output: Output, Urine Amount 300 / 600 300 / 600 Output, Urine Amount (Catheter) 400 / 400 Female External 400 / 400 Other: Number of Incontinent Voids 1 Urine Color Yellow Last Bowel Movement 05/21/20 Weight 54.1 kg Weight in Grams 10095 Weight 54.1 kg - Constitutional Present: no acute distress, chronically ill appearing Comments: Patient is nonverbal. She has a tracheostomy in place. - Routine Respiratory Exam Absent: respiratory distress - Routine Cardiovascular Exam Cardiovascular: Present: S1, S2 - Routine Abdominal Exam Present: soft Hem/Onc Consult Result - Labs CBC & Chem 7: 05/21/20 05:32 05/20/20 05:29 Labs: Short CBC 05/21/20 Range/Units 05:32 WBC 8.5 (4.8-10.8) X10*3/uL Hgb 8.3 L (12.0-16.0) g/dl Hct 28.1 L (37-47) % Plt Count 625 H (160-400) X10*3/uL Assessment and Plan (1) Anemia Status: Acute 1. This is a 54-year-old woman with multiple medical problems as detailed above now diagnosed with Ian positive anemia. Patient had a normal hemoglobin of 13 gram/dL in March 2020. Since admission her hemoglobin has been around 8 gram/dL without significant fluctuation. Workup on 05/20/2020 reveals positivity for direct Ina test as well as iron deficiency. She has reticulocytosis but no elevation in LDH or bilirubin. Her anemia is multifactorial. She would benefit from parenteral iron therapy. Although she does have reticulocytosis and positive Ina test, she does not appear to have significant hemolysis as her hemoglobin has remained relatively stable. Haptoglobin is pending. She received ampicillin which could be associated with Ina positive hemolytic anemia. Other causes such as lymphoma, rheumatological conditions are in the differential diagnosis. Submit serum protein electrophoresis, immunofixation, MIKKI. For now I would recommend Ferrlecit 125 mg IV daily x5 to see for anemia improves. Depending on her response to iron therapy and haptoglobin level, she may or may not require a course of steroids. 2. Worsening thrombocytosis, probably reactive secondary to iron deficiency.
[2020-05-21] MEDS: levETIRAcetam 500 MG TABLET G-TUBE ×2 (11:08→20:33)
[2020-05-21] MEDS: Midodrine HCl 10 MG TABLET G-TUBE ×3 (11:08→20:32)
--- NOTE | 2020-05-21 11:49 | MHC.CM.PN ---
spoke with Gogo kelly at [facility], [place]/admissions [phone] who reports that respiratory will be reviewing pts medical record and will be doing an onsite visit with pt ..expect call back with date and time of that visit
[2020-05-21] MEDS: Sodium Ferric Gluconat/Sucrose 125 MG in 0.9 % Sodium Chloride 100 ML 100 MG IV (13:35)
--- NOTE | 2020-05-21 15:50 | P.PNIM_ITS ---
Subjective Subjective Date of Service: 05/21/20 Interval History: not verbalizing, unable to obtain ROS appears to be in NAD Physical Exam Vital Signs: Vital Signs: Last Vital Signs Temp 97.0 F 05/21/20 15:09 Pulse 102 H 05/21/20 15:45 Resp 19 05/21/20 15:09 BP 113/79 05/21/20 15:45 Pulse Ox 100 05/21/20 15:09 Body Mass Index 23.3 Gen: in no acute distress Neck: trach to collar Lungs: clear to auscultation bilaterally Heart: regular rate and rhythm, no murmurs Abd: soft, non-tender, non-distended, PEG in place Ext: no edema Skin: warm/well-perfused; sacral pressure ulcer Neuro: alert, nonverbal, R hemiplegia Psych: restricted affect Objective Data Current Medications Generic Name Dose Route Start Last Admin Trade Name Freq PRN Reason Stop Dose Admin Enoxaparin Sodium 40 mg 04/27/20 02:00 05/20/20 21:10 Enoxaparin Sodium 40 Mg/0.4 Ml Syringe SUBCUT 40 mg BEDTIME ROSALINE Administration Ferric Sodium Gluconate 110 mls @ 100 mls/hr 05/21/20 12:55 05/21/20 14:41 Complex 125 mg/ Sodium IV 05/25/20 10:05 Infused Chloride DAILY ROSALINE Infusion Levetiracetam 500 mg 05/19/20 21:00 05/21/20 11:08 Levetiracetam 500 Mg Tablet G-TUBE 500 mg BID ROSALINE Administration Midodrine 10 mg 05/01/20 08:39 05/21/20 15:45 Midodrine Hcl 10 Mg Tablet G-TUBE 10 mg TID ROSALINE Administration Valproic Acid 375 mg 05/06/20 21:00 05/21/20 11:08 Valproic Acid (As Sodium Salt) 250 Mg/5 Ml Solution G-TUBE 375 mg BID ROSALINE Administration Labs CBC & Chem 7: 05/21/20 05:32 05/20/20 05:29 Labs: Laboratory Results - last 24 hr 05/20/20 05/21/20 05/21/20 05:29 05:32 05:32 WBC 8.5 RBC 3.08 L Hgb 8.3 L Hct 28.1 L MCV 91.2 MCH 26.9 L MCHC 29.5 L RDW 17.7 H Plt Count 625 H MPV 8.9 L Immature Gran % (Auto) 0.6 H Neut % (Auto) 69.0 Lymph % (Auto) 18.4 L Bailey % (Auto) 10.1 Eos % (Auto) 1.5 Baso % (Auto) 0.4 Lymph # (Auto) 1.6 Bailey # (Auto) 0.9 Eos # (Auto) 0.1 Baso # (Auto) 0.0 Abs Immat Gran (auto) 0.05 H Absolute Neuts (auto) 5.9 Absolute Nucleated RBC 0.000 Nucleated RBC % (auto) 0.0 Smear Path Review SEE NOTE Blood Type O Positive Antibody Screen NEGATIVE Microbiology Microbiology Results: Microbiology 05/04/20 12:03 Sputum - Suctioned Gram Stain - Final 05/04/20 12:03 Sputum - Suctioned Sputum Culture - Final 04/29/20 06:07 Blood - Venous Blood Culture - Final No growth after 5 days. 04/29/20 05:52 Blood - Venous Blood Culture - Final No growth after 5 days. 04/27/20 Unknown Blood - Venous Blood Culture - Final Staphylococcus epidermidis Coag negative Staphylococcus 04/27/20 Unknown Blood - Venous Blood Culture - Final Staphylococcus epidermidis Staphylococcus hominis ssp enrique 04/27/20 Unknown Urine Catheterized - Straight Catheter Urine Culture - Final Enterococcus faecalis Pseudomonas aeruginosa 04/27/20 05:52 Sputum - Suctioned Gram Stain - Final 04/27/20 05:52 Sputum - Suctioned Sputum Culture - Final Assessment and Plan (1) Acute respiratory failure with hypoxia: Status: Acute (2) Aspiration pneumonia: Status: Acute Assessment and Plan: hospital d#24 54yo F with hx SAH/aneurysm clipping/decompressive craniectomy with catastrophic bleeding/neurological deterioration after craniectomy closure resulting in residual R hemiparesis + dysphagia intubated and admitted to ICU 04/26/20 with acute hypoxic respiratory failure due to large-volume aspiration extubated but then aspirated and re-intubated 04/28/20 lap band deflated 04/30/20 underwent trach + PEG 05/01/20 now awaiting LTACH bed 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 appreciate Heme/Onc consult. could be due to ampicillin he received in ICU. will give IV iron. check SPEP/WOLF/MIKKI # thrombocytosis - likely due to SARBJIT # acute hypoxic respiratory failure due to aspiration pneumonia - s/p antibiotics, trach/PEG # tracheostomy dependence - frequent suctioning - awaiting maturation 30d p placement then change to permanent tracheostomy # tube feeding diet - continue tube feeds Promote 55 mL/hr + H20 120 mL q4h - per [employer]EL[employer]: pureed solids and thin liquids for pleasure feeds only # hx SAH complicated by sz - no sz on current admission. continue levetiracetam- changed IV to GT. con tinue VPA. # septic shock - resolved, off norepi, remains on midodrine # hyperNa - resolved # metabolic alkalosis - resolved # pressure ulcer of buttocks - barrier cream, foam dressing, offload/rotate/reposition, air loss mattress, careful moving pt # dispo - awaiting maturation of tracheostomy/bed at [facility] # VTE ppx - LMWH
[2020-05-21] MEDS: Enoxaparin Sodium 40 MG/0.4 ML SYRINGE SUBCUT (20:33)
[2020-05-22] VITALS (7 sets, daily range): BP systolic 108–133; BP diastolic 64–91; PULSE 82–112; RESP 16–18; TEMP 36.2–36.9; O2SAT 99–100; BMI 24.0
[2020-05-22 06:17] LABS: MANUAL DIFF FLAG NO
[2020-05-22 06:48] LABS: Basophils Absolute Auto 0.1 X10*3/uL (0.0-0.2); Basophils Percent Auto 0.7 % (0-2); Eosinophils Absolute Auto 0.2 X10*3/uL (0.0-0.4); Eosinophils Percent Auto 2.4 % (0-4); Hematocrit 26.8 % (37-47); Hemoglobin 8.1 g/dl (12.0-16.0); Imm Gran Abs Auto 0.04 X10*3/uL (0.00-0.03); Imm Gran Pct Auto 0.5 % (0.0-0.4); Lymphocytes Absolute Auto 1.8 X10*3/uL (1.2-4.9); Lymphocytes Percent Auto 24.3 % (20-40); Mean Corpuscular HGB Conc 30.2 g/dl (31.0-35.0); Mean Corpuscular Hemoglobin 27.6 pg (27.0-33.0); Mean Corpuscular Volume 91.5 fL (80-98); Mean Platelet Volume 9.2 fL (9.4-12.3); Monocytes Absolute Auto 0.9 X10*3/uL (0.1-1.2); Neutrophils Absolute Auto 4.6 X10*3/uL (2.0-8.3); Neutrophils Percent Auto 60.1 % (45-73); Platelet Count 596 X10*3/uL (160-400); Red Blood Count 2.93 X10*6/uL (4.20-5.50); Red Cell Distribution Width 17.6 % (11.0-16.0); White Blood Count 7.6 X10*3/uL (4.8-10.8)
[2020-05-22] MEDS: Midodrine HCl 10 MG TABLET G-TUBE ×3 (08:14→20:39)
[2020-05-22] MEDS: levETIRAcetam 500 MG TABLET G-TUBE ×2 (08:15→20:39)
[2020-05-22] MEDS: Sodium Ferric Gluconat/Sucrose 125 MG in 0.9 % Sodium Chloride 100 ML 100 MG IV (11:46)
--- NOTE | 2020-05-22 11:52 | PC.NURSE ---
trach care given, inner cannula changed. Moderate amount of clear sputum noted in old cannula. Patient tolerated well. O2 remained at 90% while giving trach care. Dressing D and I. RR 16. No distress noted. Repositioning q2 hrs. Foam dressing to Stage 2 on coccyx applied. Wound to coccyx 3x3, appeared white/pink no drainage noted, surrounding skin intact.
--- NOTE | 2020-05-22 13:07 | HO.PM.IMPN ---
Subjective Subjective Date of Service: 05/22/20 Interval History: non-verbal no new events Physical Exam Vital Signs: Vital Signs: Last Vital Signs Temp 97.2 F 05/22/20 11:26 Pulse 108 H 05/22/20 11:26 Resp 18 05/22/20 11:26 BP 133/91 H 05/22/20 11:26 Pulse Ox 100 05/22/20 11:26 Body Mass Index 24.0 Gen: in no acute distress Neck: trach to collar Lungs: clear to auscultation bilaterally Heart: regular rate and rhythm, no murmurs Abd: soft, non-tender, non-distended, PEG in place Ext: no edema Skin: warm/well-perfused; sacral pressure ulcer Neuro: alert, nonverbal, R hemiplegia Psych: restricted affect Objective Data Current Medications Generic Name Dose Route Start Last Admin Trade Name Freq PRN Reason Stop Dose Admin Enoxaparin Sodium 40 mg 04/27/20 02:00 05/21/20 20:33 Enoxaparin Sodium 40 Mg/0.4 Ml Syringe SUBCUT 40 mg BEDTIME ROSALINE Administration Ferric Sodium Gluconate 110 mls @ 100 mls/hr 05/21/20 12:55 05/22/20 11:46 Complex 125 mg/ Sodium IV 05/25/20 10:05 100 mls/hr Chloride DAILY ROSALINE Administration Levetiracetam 500 mg 05/19/20 21:00 05/22/20 08:15 Levetiracetam 500 Mg Tablet G-TUBE 500 mg BID ROSALINE Administration Midodrine 10 mg 05/01/20 08:39 05/22/20 08:14 Midodrine Hcl 10 Mg Tablet G-TUBE 10 mg TID ROSALINE Administration Valproic Acid 375 mg 05/06/20 21:00 05/22/20 08:15 Valproic Acid (As Sodium Salt) 250 Mg/5 Ml Solution G-TUBE 375 mg BID ROSALINE Administration Labs CBC & Chem 7: 05/22/20 05:19 05/20/20 05:29 Labs: Laboratory Results - last 24 hr 05/22/20 05:19 WBC 7.6 RBC 2.93 L Hgb 8.1 L Hct 26.8 L MCV 91.5 MCH 27.6 MCHC 30.2 L RDW 17.6 H Plt Count 596 H MPV 9.2 L Immature Gran % (Auto) 0.5 H Neut % (Auto) 60.1 Lymph % (Auto) 24.3 [place] % (Auto) 12.0 H Eos % (Auto) 2.4 Baso % (Auto) 0.7 Lymph # (Auto) 1.8 [place] # (Auto) 0.9 Eos # (Auto) 0.2 Baso # (Auto) 0.1 Abs Immat Gran (auto) 0.04 H Absolute Neuts (auto) 4.6 Absolute Nucleated RBC 0.000 Nucleated RBC % (auto) 0.0 Microbiology Microbiology Results: Microbiology 05/04/20 12:03 Sputum - Suctioned Gram Stain - Final 05/04/20 12:03 Sputum - Suctioned Sputum Culture - Final 04/29/20 06:07 Blood - Venous Blood Culture - Final No growth after 5 days. 04/29/20 05:52 Blood - Venous Blood Culture - Final No growth after 5 days. 04/27/20 Unknown Blood - Venous Blood Culture - Final Staphylococcus epidermidis Coag negative Staphylococcus 04/27/20 Unknown Blood - Venous Blood Culture - Final Staphylococcus epidermidis Staphylococcus hominis ssp enrique 04/27/20 Unknown Urine Catheterized - Straight Catheter Urine Culture - Final Enterococcus faecalis Pseudomonas aeruginosa 04/27/20 05:52 Sputum - Suctioned Gram Stain - Final 04/27/20 05:52 Sputum - Suctioned Sputum Culture - Final Assessment and Plan (1) Acute respiratory failure with hypoxia: Status: Acute (2) Aspiration pneumonia: Status: Acute Assessment and Plan: hospital d#25 54yo F with hx SAH/aneurysm clipping/decompressive craniectomy with catastrophic bleeding/neurological deterioration after craniectomy closure resulting in residual R hemiparesis + dysphagia intubated and admitted to ICU 04/26/20 with acute hypoxic respiratory failure due to large-volume aspiration extubated but then aspirated and re-intubated 04/28/20 lap band deflated 04/30/20 underwent trach + PEG 05/01/20 now awaiting LTACH bed 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 appreciate Heme/Onc consult. could be due to ampicillin he received in ICU. on IV iron gluconate, d#04/11. SPEP/WOLF/MIKKI pending. # thrombocytosis - likely due to SARBJIT # acute hypoxic respiratory failure due to aspiration pneumonia - s/p antibiotics, trach/PEG # tracheostomy dependence - frequent suctioning - awaiting maturation 30d p placement then change to permanent tracheostomy # tube feeding diet - continue tube feeds Promote 55 mL/hr + H20 120 mL q4h - per PRECINCT POLICE SERGEANT: pureed solids and thin liquids for pleasure feeds only # hx SAH complicated by sz - no sz on current admission. continue levetiracetam- changed IV to GT. continue VPA. # septic shock - resolved, off norepi, remains on midodrine # hyperNa - resolved # metabolic alkalosis - resolved # pressure ulcer of buttocks - barrier cream, foam dressing, offload/rotate/reposition, air loss mattress, careful moving pt # dispo - awaiting maturation of tracheostomy/bed at [facility] - seen by PT, not participating/following commands # VTE ppx - LMWH
[2020-05-22 13:16] LABS: Prot Elec - Albumin 2.7 g/dL (3.8-4.8); Prot Elec - Alpha1 0.4 g/dL (0.2-0.3); Prot Elec - Alpha2 0.9 g/dL (0.5-0.9); Prot Elec - Beta 1 0.6 g/dL (0.4-0.6); Prot Elec - Beta 2 0.6 g/dL (0.2-0.5); Prot Elec - Gamma 1.3 g/dL (0.8-1.7); Prot Elec - Total Protein 6.5 g/dL (6.1-8.1)
--- NOTE | 2020-05-22 18:08 | PC.NURSE ---
PT MOVED TO MED SURG IN BED BY THIS RN AND MACHINE MOLDER , PT WASHED UP ON ARRIVAL TO UNIT AND REPOSTIONED , STAGE 2 TO COCCYX - FOAM INTACT , PT APPEARS COMFORTABLE VSS, TUBE FEED RUNNING WITH NO DIFFICULTY .
[2020-05-22] MEDS: Enoxaparin Sodium 40 MG/0.4 ML SYRINGE SUBCUT (20:38)
[2020-05-23] VITALS (8 sets, daily range): BP systolic 91–136; BP diastolic 61–85; PULSE 73–114; RESP 16–25; TEMP 36–36.8; O2SAT 98–100; BMI 24.9
--- NOTE | 2020-05-23 04:21 | PC.NURSE ---
suctioned pt at 0400 with good effect.
[2020-05-23 06:46] LABS: MANUAL DIFF FLAG NO
[2020-05-23 06:53] LABS: Hemoglobin 8.5 g/dl (12.0-16.0); Red Blood Count 3.14 X10*6/uL (4.20-5.50); White Blood Count 8.1 X10*3/uL (4.8-10.8)
[2020-05-23 06:54] LABS: Basophils Percent Auto 0.5 % (0-2); Eosinophils Absolute Auto 0.2 X10*3/uL (0.0-0.4); Eosinophils Percent Auto 2.2 % (0-4); Imm Gran Abs Auto 0.13 X10*3/uL (0.00-0.03); Imm Gran Pct Auto 1.6 % (0.0-0.4); Lymphocytes Percent Auto 24.5 % (20-40); Mean Corpuscular HGB Conc 29.3 g/dl (31.0-35.0); Mean Corpuscular Hemoglobin 27.1 pg (27.0-33.0); Mean Corpuscular Volume 92.4 fL (80-98); Mean Platelet Volume 8.9 fL (9.4-12.3); Monocytes Absolute Auto 0.8 X10*3/uL (0.1-1.2); Monocytes Percent Auto 10.3 % (2-11); Neutrophils Absolute Auto 4.9 X10*3/uL (2.0-8.3); Neutrophils Percent Auto 60.9 % (45-73); Platelet Count 618 X10*3/uL (160-400); Red Cell Distribution Width 18.3 % (11.0-16.0)
[2020-05-23] MEDS: levETIRAcetam 500 MG TABLET G-TUBE ×2 (09:46→21:10)
[2020-05-23] MEDS: Midodrine HCl 10 MG TABLET G-TUBE ×3 (09:46→21:10)
--- NOTE | 2020-05-23 10:10 | MHC.SLORD ---
BLIND SLAT STAPLING MACHINE OPERATOR attempted to see pt for PO trials this morning. Per RN, pt required suctioning around 0400 this morning, otherwise pt is tolerating deflated cuff. Upon BLIND SLAT STAPLING MACHINE OPERATOR's arrival, pt observed to have moderate amount of secretions pooling out of trach. BLIND SLAT STAPLING MACHINE OPERATOR notified RN. No PO trials were administered. BLIND SLAT STAPLING MACHINE OPERATOR will continue to follow for PO trials as appropriate. Name: Asha Medina Date of : 1965 Age: 54 Date of Registration: 04/27/20 Speech Language Pathology Order Status:
[2020-05-23] MEDS: Sodium Ferric Gluconat/Sucrose 125 MG in 0.9 % Sodium Chloride 100 ML 100 MG IV (10:11)
--- NOTE | 2020-05-23 11:33 | HO.PM.IMPN ---
Subjective Subjective Date of Service: 05/23/20 Interval History: non-verbal, though alert and tracking with eyes unable to obtain ROS Physical Exam Vital Signs: Vital Signs: Last Vital Signs Temp 97.9 F 05/23/20 07:54 Pulse 100 05/23/20 07:54 Resp 25 H 05/23/20 07:54 BP 131/74 05/23/20 07:54 Pulse Ox 99 05/23/20 07:54 Body Mass Index 24.9 Gen: in no acute distress Neck: trach to collar @ 4 Lpm Lungs: clear to auscultation bilaterally Heart: regular rate and rhythm, no murmurs Abd: soft, non-tender, non-distended, PEG in place Ext: no edema Skin: warm/well-perfused; sacral pressure ulcer Neuro: alert, nonverbal, R hemiplegia Psych: restricted affect Objective Data Current Medications Generic Name Dose Route Start Last Admin Trade Name Freq PRN Reason Stop Dose Admin Enoxaparin Sodium 40 mg 04/27/20 02:00 05/22/20 20:38 Enoxaparin Sodium 40 Mg/0.4 Ml Syringe SUBCUT 40 mg BEDTIME ROSALINE Administration Ferric Sodium Gluconate 110 mls @ 100 mls/hr 05/21/20 12:55 05/23/20 11:19 Complex 125 mg/ Sodium IV 05/25/20 10:05 Infused Chloride DAILY ROSALINE Infusion Levetiracetam 500 mg 05/19/20 21:00 05/23/20 09:46 Levetiracetam 500 Mg Tablet G-TUBE 500 mg BID ROSALINE Administration Midodrine 10 mg 05/01/20 08:39 05/23/20 09:46 Midodrine Hcl 10 Mg Tablet G-TUBE 10 mg TID ROSALINE Administration Valproic Acid 375 mg 05/06/20 21:00 05/23/20 09:46 Valproic Acid (As Sodium Salt) 250 Mg/5 Ml Solution G-TUBE 375 mg BID ROSALINE Administration Labs CBC & Chem 7: 05/23/20 06:29 05/20/20 05:29 Labs: Laboratory Results - last 24 hr 05/21/20 05/23/20 13:05 06:29 WBC 8.1 RBC 3.14 L Hgb 8.5 L Hct 29.0 L MCV 92.4 MCH 27.1 MCHC 29.3 L RDW 18.3 H Plt Count 618 H MPV 8.9 L Immature Gran % (Auto) 1.6 H Neut % (Auto) 60.9 Lymph % (Auto) 24.5 [place] % (Auto) 10.3 Eos % (Auto) 2.2 Baso % (Auto) 0.5 Lymph # (Auto) 2.0 [place] # (Auto) 0.8 Eos # (Auto) 0.2 Baso # (Auto) 0.0 Abs Immat Gran (auto) 0.13 H Absolute Neuts (auto) 4.9 Absolute Nucleated RBC 0.000 Nucleated RBC % (auto) 0.0 Total Protein (PEP) 6.5 Albumin (PEP) 2.7 L Gagbc-2-Pevlpijao 0.4 H Qzfnw-8-Gmsfppcsh 0.9 Ypkj-0-Uywvlkqs 0.6 Gzwh-3-Mvvtgdjb 0.6 H Gamma Globulins 1.3 PEP Interpretation SEE NOTE Microbiology Microbiology Results: Microbiology 05/04/20 12:03 Sputum - Suctioned Gram Stain - Final 05/04/20 12:03 Sputum - Suctioned Sputum Culture - Final 04/29/20 06:07 Blood - Venous Blood Culture - Final No growth after 5 days. 04/29/20 05:52 Blood - Venous Blood Culture - Final No growth after 5 days. 04/27/20 Unknown Blood - Venous Blood Culture - Final Staphylococcus epidermidis Coag negative Staphylococcus 04/27/20 Unknown Blood - Venous Blood Culture - Final Staphylococcus epidermidis Staphylococcus hominis ssp enrique 04/27/20 Unknown Urine Catheterized - Straight Catheter Urine Culture - Final Enterococcus faecalis Pseudomonas aeruginosa 04/27/20 05:52 Sputum - Suctioned Gram Stain - Final 04/27/20 05:52 Sputum - Suctioned Sputum Culture - Final Assessment and Plan (1) Acute respiratory failure with hypoxia: Status: Acute (2) Aspiration pneumonia: Status: Acute Assessment and Plan: hospital d#26 54yo F with hx SAH/aneurysm clipping/decompressive craniectomy with catastrophic bleeding/neurological deterioration after craniectomy closure resulting in residual R hemiparesis + dysphagia intubated and admitted to ICU 04/26/20 with acute hypoxic respiratory failure due to large-volume aspiration extubated but then aspirated and re-intubated 04/28/20 lap band deflated 04/30/20 underwent trach + PEG 05/01/20 now awaiting LTACH bed 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 appreciate Heme/Onc consult. could be due to ampicillin he received in ICU. on IV iron gluconate, d#3/. SPEP/WOLF/MIKKI pending. # thrombocytosis - likely due to SARBJIT # acute hypoxic respiratory failure due to aspiration pneumonia - s/p antibiotics, trach/PEG # tracheostomy dependence - frequent suctioning - awaiting maturation 30d p placement then change to permanent tracheostomy # tube feeding diet - continue tube feeds Promote 55 mL/hr + H20 120 mL q4h - per FRUIT AND VEGETABLE PACKER, NPO # hx SAH complicated by sz - no sz on current admission. continue levetiracetam- changed IV to GT. continue VPA. # septic shock - resolved, off norepi, remains on midodrine # hyperNa - resolved # metabolic alkalosis - resolved # pressure ulcer of buttocks - barrier cream, foam dressing, offload/rotate/reposition, air loss mattress, careful moving pt # VTE ppx - LMWH # dispo - awaiting maturation of tracheostomy/bed at [facility]; they will come evaluate pt for txfer there - seen by PT, not participating/following commands
[2020-05-23 12:21] LABS: Haptoglobin 352 mg/dL (43-212)
[2020-05-23 13:57] LABS: Anti Nuclear Antibody Screen NEGATIVE (NEGATIVE)
[2020-05-23 15:37] LABS: Prot Elec - Albumin 2.7 g/dL (3.8-4.8); Prot Elec - Alpha1 0.5 g/dL (0.2-0.3); Prot Elec - Alpha2 0.9 g/dL (0.5-0.9); Prot Elec - Beta 1 0.6 g/dL (0.4-0.6); Prot Elec - Beta 2 0.6 g/dL (0.2-0.5); Prot Elec - Gamma 1.3 g/dL (0.8-1.7); Prot Elec - Total Protein 6.5 g/dL (6.1-8.1)
[2020-05-23 20:41] LABS: Glucose, Whole Blood 86 mg/dL (60-115)
[2020-05-23] MEDS: Enoxaparin Sodium 40 MG/0.4 ML SYRINGE SUBCUT (21:09)
[2020-05-24] VITALS (7 sets, daily range): BP systolic 104–126; BP diastolic 64–94; PULSE 70–98; RESP 16–19; TEMP 36.2–36.9; O2SAT 99–100; BMI 23.5
[2020-05-24 06:30] LABS: Basophils Percent Auto 0.4 % (0-2); Eosinophils Absolute Auto 0.2 X10*3/uL (0.0-0.4); Eosinophils Percent Auto 1.9 % (0-4); Hematocrit 29.1 % (37-47); Hemoglobin 8.8 g/dl (12.0-16.0); Imm Gran Abs Auto 0.09 X10*3/uL (0.00-0.03); Imm Gran Pct Auto 0.9 % (0.0-0.4); Lymphocytes Absolute Auto 2.1 X10*3/uL (1.2-4.9); Mean Corpuscular HGB Conc 30.2 g/dl (31.0-35.0); Mean Corpuscular Hemoglobin 27.6 pg (27.0-33.0); Mean Corpuscular Volume 91.2 fL (80-98); Mean Platelet Volume 10.8 fL (9.4-12.3); Monocytes Absolute Auto 0.8 X10*3/uL (0.1-1.2); Monocytes Percent Auto 8.2 % (2-11); Neutrophils Absolute Auto 6.4 X10*3/uL (2.0-8.3); Neutrophils Percent Auto 66.6 % (45-73); PLT CLUMP 1; Red Blood Count 3.19 X10*6/uL (4.20-5.50); Red Cell Distribution Width 18.6 % (11.0-16.0); SCAN SMEAR FLAG 1
[2020-05-24 06:48] LABS: MANUAL DIFF FLAG NO; Platelet Count 416 X10*3/uL (160-400)
[2020-05-24] MEDS: levETIRAcetam 500 MG TABLET G-TUBE ×2 (09:25→20:38)
[2020-05-24] MEDS: Midodrine HCl 10 MG TABLET 5 MG G-TUBE ×3 (09:25→20:37)
[2020-05-24] MEDS: Sodium Ferric Gluconat/Sucrose 125 MG in 0.9 % Sodium Chloride 100 ML 100 MG IV (09:36)
--- NOTE | 2020-05-24 10:18 | MHC.CM.PN ---
MESSAGE LEFT FOR NONI MARTINEZ OF [facility] @ [phone]. CASE MANAGEMENT INQUIRING ABOUT PROGRESS TOWARDS A VISIT FROM FACILITY FOR POTENTIAL BED OFFER
--- NOTE | 2020-05-24 11:36 | P.PNIM_ITS ---
Subjective Subjective Date of Service: 05/24/20 Interval History: non-verbal ex- visiting and pt not verbal with him either, though awake and tracking unable to obtain ROS Physical Exam Vital Signs: Vital Signs: Last Vital Signs Temp 97.2 F 05/24/20 07:41 Pulse 98 05/24/20 07:41 Resp 16 05/24/20 07:41 BP 123/90 H 05/24/20 07:41 Pulse Ox 100 05/24/20 07:41 Body Mass Index 23.5 Gen: in no acute distress Neck: trach to collar @ 4 Lpm Lungs: clear to auscultation bilaterally Heart: regular rate and rhythm, no murmurs Abd: soft, non-tender, non-distended, PEG in place Ext: no edema Skin: warm/well-perfused; sacral pressure ulcer Neuro: alert, nonverbal, R hemiplegia Psych: restricted affect Objective Data Current Medications Generic Name Dose Route Start Last Admin Trade Name Freq PRN Reason Stop Dose Admin Enoxaparin Sodium 40 mg 04/27/20 02:00 05/23/20 21:09 Enoxaparin Sodium 40 Mg/0.4 Ml Syringe SUBCUT 40 mg BEDTIME ROSALINE Administration Ferric Sodium Gluconate 110 mls @ 100 mls/hr 05/21/20 12:55 05/24/20 10:52 Complex 125 mg/ Sodium IV 05/25/20 10:05 Infused Chloride DAILY ROSALINE Infusion Levetiracetam 500 mg 05/19/20 21:00 05/24/20 09:25 Levetiracetam 500 Mg Tablet G-TUBE 500 mg BID ROSALINE Administration Midodrine 5 mg 05/24/20 09:00 05/24/20 09:25 Midodrine Hcl 10 Mg Tablet G-TUBE 5 mg TID ROSALINE Administration Valproic Acid 375 mg 05/06/20 21:00 05/24/20 09:25 Valproic Acid (As Sodium Salt) 250 Mg/5 Ml Solution G-TUBE 375 mg BID ROSALINE Administration Labs CBC & Chem 7: 05/24/20 05:42 05/20/20 05:29 Microbiology Microbiology Results: Microbiology 05/04/20 12:03 Sputum - Suctioned Gram Stain - Final 05/04/20 12:03 Sputum - Suctioned Sputum Culture - Final 04/29/20 06:07 Blood - Venous Blood Culture - Final No growth after 5 days. 04/29/20 05:52 Blood - Venous Blood Culture - Final No growth after 5 days. 04/27/20 Unknown Blood - Venous Blood Culture - Final Staphylococcus epidermidis Coag negative Staphylococcus 04/27/20 Unknown Blood - Venous Blood Culture - Final Staphylococcus epidermidis Staphylococcus hominis ssp enrique 04/27/20 Unknown Urine Catheterized - Straight Catheter Urine Culture - Final Enterococcus faecalis Pseudomonas aeruginosa 04/27/20 05:52 Sputum - Suctioned Gram Stain - Final 04/27/20 05:52 Sputum - Suctioned Sputum Culture - Final Assessment and Plan (1) Acute respiratory failure with hypoxia: Status: Acute (2) Aspiration pneumonia: Status: Acute Assessment and Plan: hospital d#27 54yo F with hx SAH/aneurysm clipping/decompressive craniectomy with catastrophic bleeding/neurological deterioration after craniectomy closure resulting in residual R hemiparesis + dysphagia intubated and admitted to ICU 04/26/20 with acute hypoxic respiratory failure due to large-volume aspiration extubated but then aspirated and re-intubated 04/28/20 lap band deflated 04/30/20 underwent trach + PEG 05/01/20 now awaiting LTACH bed 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 appreciate Heme/Onc consult. could be due to ampicillin he received in ICU. on IV iron gluconate, d#45 and Hb is gradually increasing. SPEP + MIKKI negative; WOLF pending # thrombocytosis - likely due to SARBJIT # acute hypoxic respiratory failure due to aspiration pneumonia - s/p antibiotics, trach/PEG # tracheostomy dependence - frequent suctioning - awaiting maturation 30d p placement then change to permanent tracheostomy # tube feeding diet - continue tube feeds Promote 55 mL/hr + H20 120 mL q4h - per GLAZIER SUPERVISOR, NPO # hx SAH complicated by sz - no sz on current admission. continue levetiracetam- changed IV to GT. continue VPA. # septic shock - resolved, off norepi, remains on midodrine but will wean down # hyperNa - resolved # metabolic alkalosis - resolved # pressure ulcer of buttocks - barrier cream, foam dressing, offload/rotate/reposition, air loss mattress, careful moving pt # VTE ppx - LMWH # dispo - awaiting maturation of tracheostomy (30d post-placement is 05/31/20) and bed at [facility]; their evaluation is pending - seen by PT, not participating/following commands
[2020-05-24] MEDS: Enoxaparin Sodium 40 MG/0.4 ML SYRINGE SUBCUT (20:37)
[2020-05-25] VITALS (7 sets, daily range): BP systolic 101–130; BP diastolic 65–85; PULSE 80–103; RESP 16–18; TEMP 36.2–36.6; O2SAT 95–100
[2020-05-25 07:49] LABS: MANUAL DIFF FLAG NO
[2020-05-25 07:54] LABS: Basophils Percent Auto 0.4 % (0-2); Eosinophils Absolute Auto 0.1 X10*3/uL (0.0-0.4); Eosinophils Percent Auto 1.6 % (0-4); Hematocrit 30.8 % (37-47); Hemoglobin 9.3 g/dl (12.0-16.0); Imm Gran Abs Auto 0.07 X10*3/uL (0.00-0.03); Imm Gran Pct Auto 0.8 % (0.0-0.4); Lymphocytes Absolute Auto 1.7 X10*3/uL (1.2-4.9); Lymphocytes Percent Auto 20.3 % (20-40); Mean Corpuscular HGB Conc 30.2 g/dl (31.0-35.0); Mean Corpuscular Hemoglobin 28.1 pg (27.0-33.0); Mean Corpuscular Volume 93.1 fL (80-98); Mean Platelet Volume 8.9 fL (9.4-12.3); Monocytes Absolute Auto 0.7 X10*3/uL (0.1-1.2); Monocytes Percent Auto 8.1 % (2-11); NRBC Pct Auto 0.2 /100WBC (0.0-0.2); Neutrophils Absolute Auto 5.7 X10*3/uL (2.0-8.3); Neutrophils Percent Auto 68.8 % (45-73); Platelet Count 596 X10*3/uL (160-400); Red Blood Count 3.31 X10*6/uL (4.20-5.50); Red Cell Distribution Width 19.6 % (11.0-16.0); White Blood Count 8.3 X10*3/uL (4.8-10.8)
[2020-05-25] MEDS: Sodium Ferric Gluconat/Sucrose 125 MG in 0.9 % Sodium Chloride 100 ML 100 MG IV (09:22)
[2020-05-25] MEDS: Midodrine HCl 10 MG TABLET 5 MG G-TUBE ×3 (09:53→21:36)
[2020-05-25] MEDS: levETIRAcetam 500 MG TABLET G-TUBE ×2 (09:54→21:38)
--- NOTE | 2020-05-25 10:21 | HO.PM.IMPN ---
Subjective Subjective Date of Service: 05/25/20 Interval History: no new events unable to obtain ROS, as pt is nonverbal Physical Exam Vital Signs: Vital Signs: Last Vital Signs Temp 97.8 F 05/25/20 08:00 Pulse 98 05/25/20 08:00 Resp 18 05/25/20 08:00 BP 101/65 05/25/20 08:00 Pulse Ox 99 05/25/20 08:00 Body Mass Index 23.5 Gen: in no acute distress Neck: trach to collar @ 4 Lpm Lungs: clear to auscultation bilaterally Heart: regular rate and rhythm, no murmurs Abd: soft, non-tender, non-distended, PEG in place Ext: no edema Skin: warm/well-perfused; sacral pressure ulcer Neuro: nonverbal, R hemiplegia Psych: restricted affect Objective Data Current Medications Generic Name Dose Route Start Last Admin Trade Name Freq PRN Reason Stop Dose Admin Enoxaparin Sodium 40 mg 04/27/20 02:00 05/24/20 20:37 Enoxaparin Sodium 40 Mg/0.4 Ml Syringe SUBCUT 40 mg BEDTIME ROSALINE Administration Levetiracetam 500 mg 05/19/20 21:00 05/25/20 09:54 Levetiracetam 500 Mg Tablet G-TUBE 500 mg BID ROSALINE Administration Midodrine 5 mg 05/24/20 09:00 05/25/20 09:53 Midodrine Hcl 10 Mg Tablet G-TUBE 5 mg TID ROSALINE Administration Valproic Acid 375 mg 05/06/20 21:00 05/25/20 09:54 Valproic Acid (As Sodium Salt) 250 Mg/5 Ml Solution G-TUBE 375 mg BID ROSALINE Administration Labs CBC & Chem 7: 05/25/20 07:36 05/20/20 05:29 Microbiology Microbiology Results: Microbiology 05/04/20 12:03 Sputum - Suctioned Gram Stain - Final 05/04/20 12:03 Sputum - Suctioned Sputum Culture - Final 04/29/20 06:07 Blood - Venous Blood Culture - Final No growth after 5 days. 04/29/20 05:52 Blood - Venous Blood Culture - Final No growth after 5 days. 04/27/20 Unknown Blood - Venous Blood Culture - Final Staphylococcus epidermidis Coag negative Staphylococcus 04/27/20 Unknown Blood - Venous Blood Culture - Final Staphylococcus epidermidis Staphylococcus hominis ssp enrique 04/27/20 Unknown Urine Catheterized - Straight Catheter Urine Culture - Final Enterococcus faecalis Pseudomonas aeruginosa 04/27/20 05:52 Sputum - Suctioned Gram Stain - Final 04/27/20 05:52 Sputum - Suctioned Sputum Culture - Final Assessment and Plan (1) Acute respiratory failure with hypoxia: Status: Acute (2) Aspiration pneumonia: Status: Acute Assessment and Plan: hospital d#29 54yo F with hx SAH/aneurysm clipping/decompressive craniectomy with catastrophic bleeding/neurological deterioration after craniectomy closure resulting in residual R hemiparesis + dysphagia intubated and admitted to ICU 04/26/20 with acute hypoxic respiratory failure due to large-volume aspiration extubated but then aspirated and was re-intubated 04/28/20 lap band was deflated 04/30/20 underwent trach + PEG 05/01/20 now awaiting LTACH bed 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 AIHA could be due to ampicillin she received in ICU. - IV iron gluconate, d#/ as recommended by Heme/Onc - Hb increasing, recheck tomorrow - SPEP + MIKKI negative; WOLF pending # thrombocytosis - likely due to SARBJIT # acute hypoxic respiratory failure due to aspiration pneumonia - resolved - s/p antibiotics, trach/PEG # tracheostomy dependence - frequent suctioning - awaiting maturation 30d postop then change to permanent tracheostomy (earliest 05/31/20) # tube feeding diet - continue tube feeds Promote 55 mL/hr + H20 120 mL q4h - per METALS ANALYST, NPO # hx SAH complicated by sz - no sz on current admission. continue levetiracetam- changed IV to GT. continue VPA. # septic shock - resolved, off norepi, gradually wean midodrine # hyperNa - resolved # metabolic alkalosis - resolved # sacral pressure ulcer - barrier cream, foam dressing, offload/rotate/reposition, air loss mattress, careful moving pt # VTE ppx - LMWH # dispo - awaiting maturation of tracheostomy and bed at [facility]; their evaluation is pending - seen by PT, not participating/following commands - updated daughter Yvrose Medina [phone]
[2020-05-25 14:11] LABS: IgA 442 mg/dL (47-310); IgG 1462 mg/dL (600-1640); IgM 173 mg/dL (50-300)
[2020-05-25] MEDS: Enoxaparin Sodium 40 MG/0.4 ML SYRINGE SUBCUT (21:35)
[2020-05-26] VITALS (9 sets, daily range): BP systolic 96–140; BP diastolic 56–87; PULSE 72–99; RESP 18–20; TEMP 36.1–37.3; O2SAT 98–100
[2020-05-26 06:38] LABS: OBS Int Ctl Valid YES; OBS1 NEGATIVE (NEGATIVE)
[2020-05-26 06:47] LABS: MANUAL DIFF FLAG NO
[2020-05-26 06:50] LABS: Basophils Percent Auto 0.5 % (0-2); Eosinophils Absolute Auto 0.1 X10*3/uL (0.0-0.4); Eosinophils Percent Auto 1.5 % (0-4); Hematocrit 34.3 % (37-47); Hemoglobin 9.9 g/dl (12.0-16.0); Imm Gran Abs Auto 0.05 X10*3/uL (0.00-0.03); Imm Gran Pct Auto 0.6 % (0.0-0.4); Lymphocytes Percent Auto 22.6 % (20-40); Mean Corpuscular HGB Conc 28.9 g/dl (31.0-35.0); Mean Corpuscular Hemoglobin 27.3 pg (27.0-33.0); Mean Corpuscular Volume 94.8 fL (80-98); Mean Platelet Volume 8.9 fL (9.4-12.3); Monocytes Absolute Auto 0.7 X10*3/uL (0.1-1.2); Monocytes Percent Auto 7.5 % (2-11); Neutrophils Absolute Auto 5.9 X10*3/uL (2.0-8.3); Neutrophils Percent Auto 67.3 % (45-73); Platelet Count 540 X10*3/uL (160-400); Red Blood Count 3.62 X10*6/uL (4.20-5.50); Red Cell Distribution Width 19.9 % (11.0-16.0); White Blood Count 8.8 X10*3/uL (4.8-10.8)
[2020-05-26] MEDS: Midodrine HCl 10 MG TABLET 5 MG G-TUBE ×3 (08:04→20:38)
[2020-05-26] MEDS: levETIRAcetam 500 MG TABLET G-TUBE ×2 (08:04→20:38)
--- NOTE | 2020-05-26 09:38 | MHC.SLORD ---
OUTSIDE PLANT CABLE ENGINEER attempted to see pt for PO trials this morning. MD at bedside upon OUTSIDE PLANT CABLE ENGINEER's arrival. Pt had thick secretions around trach collar. Pt remains nonverbal and does not follow directions. Pt not appropriate for PO trials due to decreased secretion awareness. RN and updated. Name: Asha Medina Date of : 1965 Age: 54 Date of Registration: 04/27/20 Speech Language Pathology Order Status:
--- NOTE | 2020-05-26 11:25 | HO.PM.IMPN ---
Subjective Subjective Date of Service: 05/26/20 Interval History: The patient was seen and evaluated this morning Laying in bed, not interactive, trach in place with thick secretions noted. no reported fever, chills or shortness of breath No reported other overnight events. Systemic review: non verbal Physical Exam Vital Signs: Vital Signs: Last Vital Signs Temp 97.8 F 05/26/20 07:13 Pulse 99 05/26/20 08:04 Resp 18 05/26/20 07:13 BP 115/77 05/26/20 08:04 Pulse Ox 98 05/26/20 07:13 Body Mass Index 23.5 Const: Other: Constitutional : Alert, not in distress, looking around and making eye contact, folllowing commands Neck : Normal inspection, Supple Cardiovascular : RRR, S1 S2, no lower extremity edema Respiratory : fair bilateral air entry, no crackles, wheezes or rhonchi, trach to collar @ 4 Lpm Gastrointestinal: soft, lax, Normal bowel sounds, Non tender, PEG tube in place Skin : Warm/Dry, No rash, sacral pressure ulcer Neurological : Alert, nonverbal, R hemiplegia, No other focal deficit Objective Data Current Medications Generic Name Dose Route Start Last Admin Trade Name Freq PRN Reason Stop Dose Admin Enoxaparin Sodium 40 mg 04/27/20 02:00 05/25/20 21:35 Enoxaparin Sodium 40 Mg/0.4 Ml Syringe SUBCUT 40 mg BEDTIME ROSALINE Administration Levetiracetam 500 mg 05/19/20 21:00 05/26/20 08:04 Levetiracetam 500 Mg Tablet G-TUBE 500 mg BID ROSALINE Administration Midodrine 5 mg 05/24/20 09:00 05/26/20 08:04 Midodrine Hcl 10 Mg Tablet G-TUBE 5 mg TID ROSALINE Administration Valproic Acid 375 mg 05/06/20 21:00 05/26/20 08:03 Valproic Acid (As Sodium Salt) 250 Mg/5 Ml Solution G-TUBE 375 mg BID ROSALINE Administration Labs CBC & Chem 7: 05/26/20 06:40 05/20/20 05:29 Microbiology Microbiology Results: Microbiology 05/04/20 12:03 Sputum - Suctioned Gram Stain - Final 05/04/20 12:03 Sputum - Suctioned Sputum Culture - Final 04/29/20 06:07 Blood - Venous Blood Culture - Final No growth after 5 days. 04/29/20 05:52 Blood - Venous Blood Culture - Final No growth after 5 days. 04/27/20 Unknown Blood - Venous Blood Culture - Final Staphylococcus epidermidis Coag negative Staphylococcus 04/27/20 Unknown Blood - Venous Blood Culture - Final Staphylococcus epidermidis Staphylococcus hominis ssp enrique 04/27/20 Unknown Urine Catheterized - Straight Catheter Urine Culture - Final Enterococcus faecalis Pseudomonas aeruginosa 04/27/20 05:52 Sputum - Suctioned Gram Stain - Final 04/27/20 05:52 Sputum - Suctioned Sputum Culture - Final Assessment and Plan (1) Acute respiratory failure with hypoxia: Status: Acute (2) Aspiration pneumonia: Status: Acute Assessment and Plan: hospital d#30 54yo F with hx SAH/aneurysm clipping/decompressive craniectomy with catastrophic bleeding/neurological deterioration after craniectomy closure resulting in residual R hemiparesis + dysphagia intubated and admitted to ICU 04/26/20 with acute hypoxic respiratory failure due to large-volume aspiration extubated but then aspirated and was re-intubated 04/28/20 lap band was deflated 04/30/20 underwent trach + PEG 05/01/20 now awaiting LTACH bed 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 AIHA could be due to ampicillin she received in ICU. IV iron gluconate, d#5/5 as recommended by Heme/Onc Hb increasing,9.9 todau SPEP + MIKKI negative; WOLF pending thrombocytosis likely due to SARBJIT acute hypoxic respiratory failure due to aspiration pneumonia resolved s/p antibiotics, trach/PEG tracheostomy dependence frequent suctioning awaiting maturation 30d postop then change to permanent tracheostomy (earliest 05/31/20) to get Pulmonology eval tube feeding diet continue tube feeds Promote 55 mL/hr + H20 120 mL q4h per CHILD CARE CENTER ADMINISTRATOR, NPO hx SAH complicated by sz no sz on current admission. continue levetiracetam- changed IV to GT. continue VPA. septic shock resolved, off norepi, gradually wean midodrine hyperNa resolved metabolic alkalosis resolved sacral pressure ulcer barrier cream, foam dressing, offload/rotate/reposition, air loss mattress, careful moving pt VTE ppx LMWH # dispo - awaiting maturation of tracheostomy and bed at [facility]; their evaluation is pending - seen by PT, not participating/following commands - updated daughter Yvrose Medina [phone]
[2020-05-26 12:36] LABS: IgA 427 mg/dL (47-310); IgG 1415 mg/dL (600-1640); IgM 169 mg/dL (50-300)
--- NOTE | 2020-05-26 14:14 | MHC.CLN ---
F/U PT TOELRATING TF GLUCERNA AT MAX GOAL RATE 55CC/HR WITH 120CC FREE WATER FLUSHES Q 4 HRS TO PROVIDE 1320KCALS (25KCALS/KG), 55G PROTEIN (1.0G/KG), 1846CC TOTAL WATER FROM FORMULA AND FLUSHES (35CC/KG) MONITOR TOLERANCE, RESIDUALS AND LYTES
--- NOTE | 2020-05-26 14:33 | CONS_ITS ---
DATE OF SERVICE: 05/26/2020 REFERRING PHYSICIAN: Kelsy Mercado MD REASON FOR CONSULTATION: Trach dependent. Information was gathered from the chart. The patient is currently nonverbal and not able to give any further history. HISTORY OF PRESENT ILLNESS: The patient is a 54-year-old woman with a known history of CVA, diabetes, dysphagia, metabolic encephalopathy, pneumonia, seizures, and subarachnoid hemorrhage, who apparently presented with worsening shortness of breath and altered mental status. She had been treated at [facility] prior to that due to pneumonia. The patient arrived to the ER and decompensated. She was found to have acute respiratory failure with respiratory distress. She has significant frothy sputum and saturating 60% on room air. She was initially placed on BiPAP, however, subsequently intubated. The patient was transferred to the ICU. While in the ICU, the patient was maintained on the ventilator, treated for aspiration pneumonia, felt to be high risk for re-aspiration and dysphagia, and she was evaluated from a surgical standpoint and she underwent a tracheostomy placement in the OR without any apparent complications. A PEG was also placed. Currently, she has #8 DIC Portex cuffed trach, that was placed at the time. The patient was stabilized and she was able to tolerate trach collar and subsequently transferred outside of the unit trach collar without any respiratory issues. Again, she cannot give us any further information. At this point, the patient has been stabilized from respiratory conditions and looking to be sent to rehabilitation. At this point, she still has a cuffed trach, which we have to be downsized to an uncuffed trach prior to her leaving. REVIEW OF SYSTEMS: Unable to be obtained. The patient has altered mental status and is nonverbal with a trach. I did occlude the trach to see if she could speak and she was still nonverbal due to her other medical issues. PAST MEDICAL HISTORY: Anemia, VRE, seizure disorder, CVA, dysphagia, decubitus ulcers, history of septic shock, pneumonia, demand ischemia, among others. ALLERGIES: PLEASE REFER TO THE MAR. NONE NOTED. MEDICATIONS: Please refer to the MAR. Lovenox, valproic acid, Keppra, and midodrine. SOCIAL HISTORY: The patient cannot give any details. Currently, she appears to be in a vegetative state. Would need 24-hour care. FAMILY HISTORY: . PHYSICAL EXAMINATION: VITAL SIGNS: Stable. On trach collar 5 L, 100%. GENERAL: Comfortable lady, does not follow any commands. HEENT: She did open her eyes to touching of her feet, but she then closed them again. Trach has a #[address]. Midline sutures are still in. NECK: Supple. I did occlude the trach. No evidence of stridor. However, she did not try to speak. LUNGS: Diminished. CARDIAC: Regular rhythm, regular rate. ABDOMEN: Positive bowel sounds. Soft. EXTREMITIES: No clubbing or cyanosis. LABORATORY DATA: White count is normal, hemoglobin 9.9, platelet count is 540, normal shift. Microbiology: She had positive enterococcus faecalis and Pseudomonas, both in the urine and also had Staph aureus epidermidis and coag-negative staph in the blood. Enterococcus faecalis VRE in this urine. IMAGING STUDIES: Last chest x-ray from 05/07/2020 demonstrating bilateral small effusions and atelectasis. Trach is in place. ASSESSMENT: Ms. Medina is a 54-year-old woman with a significant history of CVA and subarachnoid bleed, now presenting with aspiration pneumonia and sepsis, requiring PEG and trach, now hemodynamically stable and doing well from respiratory status. IMPRESSION: 1. Trach dependent. The patient has had aspiration risk provide suctioning and clearing of secretions. At this point, the patient does not appear to be needing the tracheostomy to breathe as she tolerates 100% occlusion, which is reassuring. 2. Aspiration pneumonia secondary to her altered mental status and comorbidities. RECOMMENDATIONS: 1. At this point, we can downsize her trach to more of a permanent inner cannula such as a Shiley #6, which should be a little smaller than that one, but close to the same size. It will be uncuffed. Therefore, she is going to have a more permanent tracheostomy at this point for airway protection. 2. CPT to help with her secretions. 3. Consider chlorhexidine mouthwash to minimize microaspiration and infection. We will go ahead and change the trach once the trach is available. Further recommendations based on forthcoming data. MD RANDY Moore/CIPRIANO / [phone]
--- NOTE | 2020-05-26 14:43 | MHC.CM.PN ---
nurse floor care technician note patient transferred from icu to medical surgical unit. per documentation patient has history of cva, diabetes, dysphasia, metabolic encephalopathy, pneumonia, seizures and subarachnoid hemorrhage, now n admission worsening shortness of breath. and altered mental status qwhie her s/p acute respiratory failure with respiratory distress,, s/p 05/01 peg and trach placed seen by pulmonary today presently she has a cuffed trach which will need to be downsized to uncuff trach prior to leaving the hospital, rehab, patient requires frequent suctioning,awaiting trach maturation 30 days pos op this will be on 05/31/28 continue with tube feeds promote 55ml and h2o 120 ml q4hrs per speech npo and non verbal floor care technician to continue to follow for discharge need [facility] (on waiting list vs [facility] vs at trach maturity she would be eligible for str at [facility] facility
[2020-05-26 17:22] LABS: Anti Nuclear Antibody Screen NEGATIVE (NEGATIVE)
[2020-05-26] MEDS: Enoxaparin Sodium 40 MG/0.4 ML SYRINGE SUBCUT (20:39)
[2020-05-26] MEDS: Chlorhexidine Gluc Oral Rinse 15 ML MOUTHWASH BUCCAL (20:39)
[2020-05-27] VITALS (9 sets, daily range): BP systolic 103–123; BP diastolic 64–78; PULSE 75–88; RESP 16–20; TEMP 36.2–36.9; O2SAT 96–100; BMI 28.4
[2020-05-27] MEDS: Midodrine HCl 10 MG TABLET 5 MG G-TUBE ×3 (09:12→20:55)
[2020-05-27] MEDS: Chlorhexidine Gluc Oral Rinse 15 ML MOUTHWASH BUCCAL ×2 (09:13→20:54)
[2020-05-27] MEDS: levETIRAcetam 500 MG TABLET G-TUBE ×2 (09:13→20:54)
--- NOTE | 2020-05-27 09:28 | PM.PNPUL ---
Subjective Subjective Date of Service: 05/27/20 Interval history: The patient was seen and examined. She is more awake this am. I removed her sutures and downsized her tracheostomy to #6DIC at the bedside without complications. She did have some thick secretions upon changing it, but able to cough them out. Objective Data Labs CBC & Chem 7: 05/26/20 06:40 05/20/20 05:29 Labs: Laboratory Results - last 24 hr 05/21/20 05/21/20 05/21/20 12:03 13:05 13:05 Abnorm Protein Band 1 TNP Abnorm Protein Band 2 TNP Abnorm Protein Band 3 TNP IgG Total 1415 IgA Total 427 H IgM 169 WOLF Interpretation MIKKI Screen NEGATIVE MIKIK Titer TNP MIKKI Titer 2 TNP MIKKI Titer 3 TNP MIKKI Pattern TNP MIKKI Pattern 2 TNP MIKKI Pattern 3 TNP Microbiology Microbiology Results: Microbiology 05/04/20 12:03 Sputum - Suctioned Gram Stain - Final 05/04/20 12:03 Sputum - Suctioned Sputum Culture - Final 04/29/20 06:07 Blood - Venous Blood Culture - Final No growth after 5 days. 04/29/20 05:52 Blood - Venous Blood Culture - Final No growth after 5 days. 04/27/20 Unknown Blood - Venous Blood Culture - Final Staphylococcus epidermidis Coag negative Staphylococcus 04/27/20 Unknown Blood - Venous Blood Culture - Final Staphylococcus epidermidis Staphylococcus hominis ssp enrique 04/27/20 Unknown Urine Catheterized - Straight Catheter Urine Culture - Final Enterococcus faecalis Pseudomonas aeruginosa 04/27/20 05:52 Sputum - Suctioned Gram Stain - Final 04/27/20 05:52 Sputum - Suctioned Sputum Culture - Final Review of Systems Review of Systems Yes Unobtainable due to mental condition Physical Exam Vital Signs: Vital Signs: Last Vital Signs Temp 98.5 F 05/27/20 07:12 Pulse 87 05/27/20 07:12 Resp 17 05/27/20 07:12 BP 110/64 05/27/20 09:12 Pulse Ox 100 05/27/20 07:12 Body Mass Index 28.4 Const: General: alert Eyes: Pupils: Equal, round and reactive pupils present Neck: Neck: Yes normal visual inspection, Yes full ROM, Yes no lymphadenopathy and Yes other (tracheostomy midline) Chest: Chest palpation & inspection: normal inspection of the chest Resp: Auscultation: diminished lung sounds Cardio: Rate: regular rate Rhythm: regular rhythm Heart sounds: S1 normal heart sound present and S2 normal heart sound present GI: Palpation (GI): Soft to palpation and nontender Auscultation: normal bowel sounds : General: Yes no CVA tenderness Back/Spine/Pelvis: Back: no CVA tenderness Skin: General skin exam: rashes and/or lesions noted Neuro: Cranial nerves: Yes Equal, round and reactive pupils present Assessment and Plan Assessment and plan (1) Tracheostomy dependent: Status: Acute (2) Acute respiratory failure with hypoxia: Status: Acute (3) Pneumonia: Status: Acute (4) Dysphagia: Status: Acute Assessment and Plan: Tolerated changing her trach at the bedside, now with #6DIC portex uncuffed Consider trying PMV during the day Continue CPT Trach care OK to go to LTAC Time Spent With Patient Time: Total time spent is greater than 50% in coordination of care (as documented) at patient's floor/unit and/or counseling patient: Time with patient: 15 - 24 minutes
--- NOTE | 2020-05-27 10:41 | MHC.SLORD ---
ENGRAVER [employer] attempted to see pt for PO trials this morning. Pt remains nonverbal. Pt repositioned upright and oral care was provided. Pt noted to have saliva pooling in right cheek which subsequently dripped out of oral cavity when pt opened mouth. When cued to swallow saliva, pt produced immediate cough. Pt not appropriate for PO trials. Recommend remain NPO. Name: Asha Medina Date of : 1965 Age: 54 Date of Registration: 04/27/20 Speech Language Pathology Order Status:
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
--- NOTE | 2020-05-27 13:59 | MHC.CM.PN ---
SNF/LTAC REFERRALS UPDATED, JULIO SPOKE W/LIASON FROM [facility] AT 1:45PM ([phone]) AND SHE REPORTED NONE OF THEIR FACILITIES IN [facility] HAVE AVAILABILITY AT THIS TIME.
[2020-05-27] MEDS: Enoxaparin Sodium 40 MG/0.4 ML SYRINGE SUBCUT (20:54)
[2020-05-28 03:29] VITALS: BP 114/84; PULSE 100; RESP 18; TEMP 36.1; O2SAT 99
[2020-05-28 07:52] VITALS: BP 135/74; PULSE 104; RESP 17; TEMP 37.1; O2SAT 96
--- NOTE | 2020-05-28 09:38 | PM.PNPUL ---
Subjective Subjective Date of Service: 05/28/20 Interval history: The patient was seen and examined. She is nonverbal. She had her tracheostomy downsized yesterday to a 6 Portex DIC uncuffed. She is breathing comfortably with a trach collar at 5 L. I did try to occluded trach and she does have some back pressure suggesting the possibility of some tracheal stenosis or malacia.. She likely will tolerate a Passy Verenice valve but not complete occlusion of the tracheostomy at this time. This point the patient is awaiting a bed at [facility] for long-term care the patient will leave with the current tracheostomy to be changed every 4 weeks. The patient is currently receiving tracheostomy care and continues with the trach collar tolerating it well. The patient does have a strong cough and is able to expel secretions herself. She does not require frequent suctioning at this time.. Objective Data Labs CBC & Chem 7: 05/26/20 06:40 05/20/20 05:29 Microbiology Microbiology Results: Microbiology 05/04/20 12:03 Sputum - Suctioned Gram Stain - Final 05/04/20 12:03 Sputum - Suctioned Sputum Culture - Final 04/29/20 06:07 Blood - Venous Blood Culture - Final No growth after 5 days. 04/29/20 05:52 Blood - Venous Blood Culture - Final No growth after 5 days. 04/27/20 Unknown Blood - Venous Blood Culture - Final Staphylococcus epidermidis Coag negative Staphylococcus 04/27/20 Unknown Blood - Venous Blood Culture - Final Staphylococcus epidermidis Staphylococcus hominis ssp enrique 04/27/20 Unknown Urine Catheterized - Straight Catheter Urine Culture - Final Enterococcus faecalis Pseudomonas aeruginosa 04/27/20 05:52 Sputum - Suctioned Gram Stain - Final 04/27/20 05:52 Sputum - Suctioned Sputum Culture - Final Review of Systems Review of Systems Yes Unobtainable due to mental condition Physical Exam Vital Signs: Vital Signs: Last Vital Signs Temp 98.7 F 05/28/20 07:52 Pulse 104 H 05/28/20 07:52 Resp 17 05/28/20 07:52 BP 135/74 05/28/20 07:52 Pulse Ox 96 05/28/20 07:52 Body Mass Index 28.4 Const: General: alert Neck: Neck: Yes normal visual inspection, Yes full ROM, Yes no lymphadenopathy and Yes other (Tracheostomy midline does not tolerate occlusion of the tracheostomy) Chest: Chest palpation & inspection: normal inspection of the chest Resp: Auscultation: diminished lung sounds Cardio: Rate: regular rate Rhythm: regular rhythm Heart sounds: S1 normal heart sound present and S2 normal heart sound present GI: Palpation (GI): Soft to palpation and nontender Auscultation: normal bowel sounds Skin: General skin exam: rashes and/or lesions noted Assessment and Plan Assessment and plan (1) Tracheostomy dependent: Status: Acute (2) Dysphagia: Status: Acute (3) Respiratory failure: Status: Acute (4) Pneumonia: Status: Acute Assessment and Plan: The patient is okay to be discharged to [facility] with the current tracheostomy, #6 Portex DIC or uncuffed tracheostomy Continue with trach care May want to try Passy Verenice valve along with trach collar during the daytime CPT Time Spent With Patient Time: Total time spent is greater than 50% in coordination of care (as documented) at patient's floor/unit and/or counseling patient: Time with patient: 15 - 24 minutes
[2020-05-28] MEDS: levETIRAcetam 500 MG TABLET G-TUBE ×2 (11:02→20:31)
[2020-05-28] MEDS: Midodrine HCl 10 MG TABLET 5 MG G-TUBE ×3 (11:02→20:32)
[2020-05-28] MEDS: Chlorhexidine Gluc Oral Rinse 15 ML MOUTHWASH BUCCAL ×2 (11:02→20:31)
[2020-05-28 12:00] VITALS: BP 134/82; PULSE 87; RESP 16; TEMP 36.8; O2SAT 99
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
[2020-05-28 14:49] VITALS: BP 110/78; PULSE 90; RESP 16; TEMP 36.6; O2SAT 99
--- NOTE | 2020-05-28 15:04 | MHC.CLN ---
RE: CONSULT RECOMMEND ADDING PROSOURCE 30ML PER DAY VIA GTUBE TO PROMOTE WOUND HEALING
[2020-05-28 19:45] VITALS: BP 120/80; PULSE 95; RESP 18; TEMP 36.2; O2SAT 97
[2020-05-28] MEDS: Enoxaparin Sodium 40 MG/0.4 ML SYRINGE SUBCUT (20:31)
[2020-05-28 20:32] VITALS: BP 120/80; PULSE 95
[2020-05-28 23:02] LABS: Kappa, Serum 387 mg/dL (176-443); Kappa/Lambda Ratio, Serum 1.49 (1.29-2.55); Lambda, Serum 259 mg/dL (91-240)
[2020-05-29] VITALS (10 sets, daily range): BP systolic 111–155; BP diastolic 72–101; PULSE 74–103; RESP 16–18; TEMP 36–37.1; O2SAT 98–105; BMI 29.5
[2020-05-29] MEDS: Chlorhexidine Gluc Oral Rinse 15 ML MOUTHWASH BUCCAL ×2 (07:29→21:17)
[2020-05-29] MEDS: levETIRAcetam 500 MG TABLET G-TUBE ×2 (07:31→21:20)
[2020-05-29] MEDS: Midodrine HCl 10 MG TABLET 5 MG G-TUBE ×3 (07:33→21:18)
--- NOTE | 2020-05-29 13:35 | HO.PM.IMPN ---
Subjective Subjective Date of Service: 05/29/20 Interval History: The patient was seen and evaluated this morning Laying in bed, more sleepy today and not interactive Trach changed 05/27/20 no reported fever, chills or shortness of breath No reported other overnight events. Systemic review: non verbal Physical Exam Vital Signs: Vital Signs: Last Vital Signs Temp 97.1 F 05/29/20 11:32 Pulse 95 05/29/20 11:32 Resp 16 05/29/20 11:32 BP 133/90 H 05/29/20 11:32 Pulse Ox 98 05/29/20 11:32 Body Mass Index 29.5 Const: Other: Constitutional : Alert, not in distress Neck : Normal inspection, Supple Cardiovascular : RRR, S1 S2, no lower extremity edema Respiratory : fair bilateral air entry, no crackles, wheezes or rhonchi, trach to collar @ 4-5Lpm Gastrointestinal: soft, lax, Normal bowel sounds, Non tender, PEG tube in place Skin : Warm/Dry, No rash, sacral pressure ulcer Neurological : Alert, nonverbal, R hemiplegia, No other focal deficit Objective Data Current Medications Generic Name Dose Route Start Last Admin Trade Name Freq PRN Reason Stop Dose Admin Chlorhexidine Gluconate 15 ml 05/26/20 21:00 05/29/20 07:29 Chlorhexidine Gluc Oral Rinse 15 Ml Mouthwash BUCCAL 15 ml BID ROSALINE Administration Enoxaparin Sodium 40 mg 04/27/20 02:00 05/28/20 20:31 Enoxaparin Sodium 40 Mg/0.4 Ml Syringe SUBCUT 40 mg BEDTIME ROSALINE Administration Levetiracetam 500 mg 05/19/20 21:00 05/29/20 07:31 Levetiracetam 500 Mg Tablet G-TUBE 500 mg BID ROSALINE Administration Midodrine 5 mg 05/24/20 09:00 05/29/20 07:33 Midodrine Hcl 10 Mg Tablet G-TUBE 5 mg TID ROSALINE Administration Valproic Acid 375 mg 05/06/20 21:00 05/29/20 07:30 Valproic Acid (As Sodium Salt) 250 Mg/5 Ml Solution G-TUBE 375 mg BID ROSALINE Administration Labs CBC & Chem 7: 05/26/20 06:40 05/20/20 05:29 Microbiology Microbiology Results: Microbiology 05/04/20 12:03 Sputum - Suctioned Gram Stain - Final 05/04/20 12:03 Sputum - Suctioned Sputum Culture - Final 04/29/20 06:07 Blood - Venous Blood Culture - Final No growth after 5 days. 04/29/20 05:52 Blood - Venous Blood Culture - Final No growth after 5 days. 04/27/20 Unknown Blood - Venous Blood Culture - Final Staphylococcus epidermidis Coag negative Staphylococcus 04/27/20 Unknown Blood - Venous Blood Culture - Final Staphylococcus epidermidis Staphylococcus hominis ssp enrique 04/27/20 Unknown Urine Catheterized - Straight Catheter Urine Culture - Final Enterococcus faecalis Pseudomonas aeruginosa 04/27/20 05:52 Sputum - Suctioned Gram Stain - Final 04/27/20 05:52 Sputum - Suctioned Sputum Culture - Final Assessment and Plan (1) Acute respiratory failure with hypoxia: Status: Acute (2) Aspiration pneumonia: Status: Acute Assessment and Plan: hospital d#32 54yo F with hx SAH/aneurysm clipping/decompressive craniectomy with catastrophic bleeding/neurological deterioration after craniectomy closure resulting in residual R hemiparesis + dysphagia intubated and admitted to ICU 04/26/20 with acute hypoxic respiratory failure due to large-volume aspiration extubated but then aspirated and was re-intubated 04/28/20 lap band was deflated 04/30/20 underwent trach + PEG 05/01/20 now awaiting LTACH bed 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 AIHA could be due to ampicillin she received in ICU. IV iron gluconate, d#5/5 as recommended by Heme/Onc Hb improved and stable SPEP + MIKKI negative; WOLF pending thrombocytosis likely due to SARBJIT acute hypoxic respiratory failure due to aspiration pneumonia resolved s/p antibiotics, trach/PEG tracheostomy dependence frequent suctioning Downsized by pulmonology, they will follow as outpatient , ready to dc to moth exterminator care awaiting maturation 30d postop to mature tracheostomy tube feeding diet continue tube feeds Promote 55 mL/hr + H20 120 mL q4h per PROFESSIONAL ENGINEER, can start clear liquid diet hx SAH complicated by sz no sz on current admission. continue levetiracetam- changed IV to GT. continue VPA. septic shock resolved gradually wean midodrine hyperNa resolved metabolic alkalosis resolved sacral pressure ulcer stage 2 barrier cream, foam dressing, offload/rotate/reposition, air loss mattress, careful moving pt VTE ppx LMWH # dispo - awaiting maturation of tracheostomy - seen by PT, not participating/following commands - updated daughter Yvrose Medina [phone]
--- NOTE | 2020-05-29 17:57 | P.CONWO_ITS ---
History of Present Illness Data of Consult Service Date: 05/29/20 Requesting physician: Kelsy Mercado Primary Care Provider: Unknown Physician HPI Reason for consult: coccyx wound The patient is a 54-year-old female who has unfortunately history of a CVA requiring extensive neurological surgery with complications leaving her quite debilitated. She recently was admitted with pneumonia is and had to undergo tracheostomy as well as PEG tube placement and is currently getting tube feeds. She has not been completely alert oriented and cognitive lady responsible for her care and not moving around as much has developed this coccyx wound. Review of Systems Review of Systems: Yes all other systems are reviewed and are negative, unobtainable due to endotracheal tube, Unobtainable due to mental condition and Unobtainable due to mental status Cardiovascular: Cardiovascular: Reports no additional cardiovascular complaints Gastrointestinal: Gastrointestinal: Reports no additional gastrointestinal complaints [facility] Medical History Asthma CVA (cerebral vascular accident) Diabetes Dysphagia History of gastrostomy tube placement Hypernatremia Hypokalemia Metabolic encephalopathy Nephrolithiasis Pneumonia Seizure Sepsis Subarachnoid hemorrhage Tracheostomy dependent VRE (vancomycin resistant enterococcus) culture positive VRE (vancomycin-resistant Enterococci) Family History Mother Stroke Father No problems noted. Brother No problems noted. Sister No problems noted. Daughter No problems noted. Daughter No problems noted. Surgical History (Updated 05/21/20 @ 11:11 by Charlotte Saunders MD) History of bunionectomy of both great toes History of hysterectomy History of laparoscopic adjustable gastric banding History of tracheostomy S/P clamping of cerebral aneurysm Social History Household Members: Unknown / Unable to assess Housing: Half-Way Unable to assess alcohol history related to: Unable to respond Alcohol intake: unknown Smoking Status: Unknown if ever smoked Use of substances other than those prescribed or required for medical reasons: Unable to respond Currently Displaying Signs/Symptoms of Drug Intoxication Withdrawal: No Advance Directives: No Advance Directives Information Provided: No Do you have thoughts of harming others: None Do you have a plan to hurt others: No Plan service: No Current occupational status: employed Meds Allergies Allergy/AdvReac Type Severity Reaction Status Date / Time No Known Allergies Allergy Verified 04/30/20 10:00 Active Medications: Current Medications Generic Name Dose Route Start Last Admin Trade Name Michael PRN Reason Stop Dose Admin Chlorhexidine Gluconate 15 ml 05/26/20 21:00 05/29/20 07:29 Chlorhexidine Gluc Oral Rinse 15 Ml Mouthwash BUCCAL 15 ml BID ROSALINE Administration Enoxaparin Sodium 40 mg 04/27/20 02:00 05/28/20 20:31 Enoxaparin Sodium 40 Mg/0.4 Ml Syringe SUBCUT 40 mg BEDTIME ROSALINE Administration Levetiracetam 500 mg 05/19/20 21:00 05/29/20 07:31 Levetiracetam 500 Mg Tablet G-TUBE 500 mg BID ROSALINE Administration Midodrine 5 mg 05/24/20 09:00 05/29/20 15:01 Midodrine Hcl 10 Mg Tablet G-TUBE 5 mg TID ROSALINE Administration Valproic Acid 375 mg 05/06/20 21:00 05/29/20 07:30 Valproic Acid (As Sodium Salt) 250 Mg/5 Ml Solution G-TUBE 375 mg BID ROSALINE Administration Zinc Oxide 1 appl 05/30/20 09:00 Zinc Oxide 20% Ointment 28.35 Gm Tube TOPICAL DAILY [facility] Protocol Home Medications Medication Instructions Recorded Confirmed Last Taken Type albuterol sulfate [ProAir HFA] 2 puff INHALATION Q4H PRN 04/28/20 04/28/20 Unknown History amlodipine 5 mg PO DAILY 04/28/20 04/28/20 Unknown History divalproex [Depakote Sprinkles] 375 mg PO TID 04/28/20 04/28/20 Unknown History dronabinol [Marinol] 2.5 mg PO BIDAC 04/28/20 04/28/20 Unknown History heparin (porcine) 5,000 unit SUBCUT Q8H 04/28/20 04/28/20 Unknown History hypromellose [[place]] 1 drp OPHTHALMIC (EYE) BID 04/28/20 04/28/20 Unknown History mirtazapine 15 mg PO BEDTIME 04/28/20 04/28/20 Unknown History multivitamin 1 tab PO DAILY 04/28/20 04/28/20 Unknown History polyvinyl alcohol-povidone 1 drp OPHTHALMIC (EYE) TID PRN 04/28/20 04/28/20 Unknown History carboxymethylcellulose sodium 1 drp OPHTHALMIC (EYE) TID PRN 05/09/20 05/09/20 Unknown History [Refresh Celluvisc] Physical Exam Vital Signs and Narrative: Vital Signs: Last Vital Signs Temp 96.8 F 05/29/20 15:43 Pulse 74 05/29/20 15:43 Resp 18 05/29/20 15:43 BP 127/84 05/29/20 15:43 Pulse Ox 100 05/29/20 15:43 Body Mass Index 29.5 Const: Other: Neurological : Alert, nonverbal, R hemiplegia, No other focal deficit GI: Palpation (GI): nontender and Other GI palpation findings present ( Nontender) Skin: Other: The patient awake ends and partially response to have verbal commands. On rolling her over she has very thin and on the coccyx sacral area there is some stage II skin breakdown with a small area of stage III which has fatty tissue exposed. There is no evidence of infection no evidence of muscle or bone exposed Results Labs CBC and Chem 7: 05/26/20 06:40 05/20/20 05:29 Labs: Laboratory Results - last 24 hr 05/21/20 13:05 [place]/Lambda Ratio 1.49 [place] Light Chain Anal 387 Lambda Light Chain Anal 259 H Assessment and Plan (1) Acute respiratory failure with hypoxia: Status: Acute (2) Aspiration pneumonia: Status: Acute hospital d#32 54yo F with hx SAH/aneurysm clipping/decompressive craniectomy with catastrophic bleeding/neurological deterioration after craniectomy closure resulting in residual R hemiparesis + dysphagia intubated and admitted to ICU 04/26/20 with acute hypoxic respiratory failure due to large-volume aspiration extubated but then aspirated and was re-intubated 04/28/20 lap band was deflated 04/30/20 underwent trach + PEG 05/01/20 now awaiting LTACH bed 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
[2020-05-29] MEDS: Enoxaparin Sodium 40 MG/0.4 ML SYRINGE SUBCUT (21:20)
[2020-05-30] VITALS (8 sets, daily range): BP systolic 113–135; BP diastolic 66–88; PULSE 87–108; RESP 16–19; TEMP 36.3–37.3; O2SAT 98–100; BMI 24.0
[2020-05-30] MEDS: Chlorhexidine Gluc Oral Rinse 15 ML MOUTHWASH BUCCAL ×2 (09:11→21:49)
[2020-05-30] MEDS: Midodrine HCl 10 MG TABLET 5 MG G-TUBE ×3 (09:12→21:50)
[2020-05-30] MEDS: levETIRAcetam 500 MG TABLET G-TUBE ×2 (09:13→21:49)
--- NOTE | 2020-05-30 11:28 | P.PNIM_ITS ---
Subjective Subjective Date of Service: 05/30/20 Interval History: The patient was seen and evaluated this morning Laying in bed, alert and interactive, not in distress Trach changed 05/27/20 no reported fever, chills or shortness of breath No reported other overnight events. Systemic review: non verbal Physical Exam Vital Signs: Vital Signs: Last Vital Signs Temp 98.1 F 05/30/20 08:00 Pulse 101 H 05/30/20 09:12 Resp 17 05/30/20 08:00 BP 113/66 05/30/20 09:12 Pulse Ox 100 05/30/20 08:00 Body Mass Index 24.0 Const: Other: Constitutional : Alert, not in distress Neck : Normal inspection, Supple Cardiovascular : RRR, S1 S2, no lower extremity edema Respiratory : fair bilateral air entry, no crackles, wheezes or rhonchi, trach to collar @ 4-5Lpm Gastrointestinal: soft, lax, Normal bowel sounds, Non tender, PEG tube in place Skin : Warm/Dry, No rash, sacral pressure ulcer Neurological : Alert, nonverbal, R hemiplegia, No other focal deficit Objective Data Current Medications Generic Name Dose Route Start Last Admin Trade Name Freq PRN Reason Stop Dose Admin Chlorhexidine Gluconate 15 ml 05/26/20 21:00 05/30/20 09:11 Chlorhexidine Gluc Oral Rinse 15 Ml Mouthwash BUCCAL 15 ml BID ROSALINE Administration Enoxaparin Sodium 40 mg 04/27/20 02:00 05/29/20 21:20 Enoxaparin Sodium 40 Mg/0.4 Ml Syringe SUBCUT 40 mg BEDTIME ROSALINE Administration Levetiracetam 500 mg 05/19/20 21:00 05/30/20 09:13 Levetiracetam 500 Mg Tablet G-TUBE 500 mg BID ROSALINE Administration Midodrine 5 mg 05/24/20 09:00 05/30/20 09:12 Midodrine Hcl 10 Mg Tablet G-TUBE 5 mg TID ROSALINE Administration Valproic Acid 375 mg 05/06/20 21:00 05/30/20 09:11 Valproic Acid (As Sodium Salt) 250 Mg/5 Ml Solution G-TUBE 375 mg BID ROSALINE Administration Zinc Oxide 1 appl 05/30/20 09:00 Zinc Oxide 20% Ointment 28.35 Gm Tube TOPICAL DAILY ROSALINE Protocol Labs CBC & Chem 7: 05/26/20 06:40 05/20/20 05:29 Microbiology Microbiology Results: Microbiology 05/04/20 12:03 Sputum - Suctioned Gram Stain - Final 05/04/20 12:03 Sputum - Suctioned Sputum Culture - Final 04/29/20 06:07 Blood - Venous Blood Culture - Final No growth after 5 days. 04/29/20 05:52 Blood - Venous Blood Culture - Final No growth after 5 days. 04/27/20 Unknown Blood - Venous Blood Culture - Final Staphylococcus epidermidis Coag negative Staphylococcus 04/27/20 Unknown Blood - Venous Blood Culture - Final Staphylococcus epidermidis Staphylococcus hominis ssp enrique 04/27/20 Unknown Urine Catheterized - Straight Catheter Urine Culture - Final Enterococcus faecalis Pseudomonas aeruginosa 04/27/20 05:52 Sputum - Suctioned Gram Stain - Final 04/27/20 05:52 Sputum - Suctioned Sputum Culture - Final Assessment and Plan (1) Acute respiratory failure with hypoxia: Status: Acute (2) Aspiration pneumonia: Status: Acute Assessment and Plan: hospital d#32 54yo F with hx SAH/aneurysm clipping/decompressive craniectomy with catastrophic bleeding/neurological deterioration after craniectomy closure resulting in resid ual R hemiparesis + dysphagia intubated and admitted to ICU 04/26/20 with acute hypoxic respiratory failure due to large-volume aspiration extubated but then aspirated and was re-intubated 04/28/20 lap band was deflated 04/30/20 underwent trach + PEG 05/01/20 now awaiting LTACH bed 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 AIHA could be due to ampicillin she received in ICU. IV iron gluconate, d#5/5 as recommended by Heme/Onc Hb improved and stable SPEP + MIKKI negative Immunofixation showing elevated IgA thrombocytosis likely due to SARBJIT acute hypoxic respiratory failure due to aspiration pneumonia resolved s/p antibiotics, trach/PEG tracheostomy dependence frequent suctioning Downsized by pulmonology, they will follow as outpatient , ready to dc to petroleum terminal plant operator care awaiting maturation 30d postop to mature tracheostomy tube feeding diet continue tube feeds Promote 55 mL/hr + H20 120 mL q4h per HEADING MACHINE OPERATOR, can start clear liquid diet hx SAH complicated by sz no sz on current admission. continue levetiracetam- changed IV to GT. continue VPA. septic shock resolved gradually wean midodrine hyperNa resolved metabolic alkalosis resolved sacral pressure ulcer stage 2 barrier cream, foam dressing, offload/rotate/reposition, air loss mattress, careful moving pt VTE ppx LMWH # dispo - awaiting maturation of tracheostomy - seen by PT, not participating/following commands - updated daughter Yvrose Medina [phone]
[2020-05-30] MEDS: Zinc Oxide 20% Ointment 28.35 GM TUBE 1 APPL TOPICAL (12:01)
--- NOTE | 2020-05-30 13:50 | MHC.CLN ---
F/U PT TO REMAIN ON TF GLUCERNA AT MAX GOAL RATE 55CC/HR WITH 120CC FREE WATER FLUSHES Q 6HR PROVIDES 1320KCALS, 55G PROTEIN, 1606CC TOTAL WATER FROM FORMULA AND FLUSHES NAVIGATING OFFICER REC 3/25 C/L DIET STAGE 3 BILAT BUTTOCK-ADDED PROSOURCE 30CC Q DAY VIA GTUBE TO INCREASE PO PROTEIN 70G TOTAL (1.3G/KG) MONITOR TOLERANCE, RESIDUALS AND LYTES FOLLOWING
--- NOTE | 2020-05-30 14:31 | MHC.CM.PN ---
Addendum entered by Donna Humphrey 05/30/20 16:31: HEMATOLOGY AND NEG COVID UPLOADED Original Note: CALL FROM [facility]. REQUEST FOR NEW H&H WELL A COVID SWAB. ONCE AVAILABLE, CASE MANAGEMENT CAN UPLOAD TO FACILITY. HOSPITALIST MADE AWARE OF REQUEST
[2020-05-30 15:44] LABS: Hematocrit 35.6 % (37-47); Hemoglobin 10.6 g/dl (12.0-16.0); Mean Corpuscular HGB Conc 29.8 g/dl (31.0-35.0); Mean Corpuscular Volume 93.9 fL (80-98); Platelet Count 527 X10*3/uL (160-400); Red Blood Count 3.79 X10*6/uL (4.20-5.50); Red Cell Distribution Width 19.2 % (11.0-16.0); White Blood Count 9.1 X10*3/uL (4.8-10.8)
[2020-05-30 16:09] LABS: COVID-19 Test Negative (Negative); IDNOW Serial# 9DD0AD1C
[2020-05-30] MEDS: Enoxaparin Sodium 40 MG/0.4 ML SYRINGE SUBCUT (21:49)
[2020-05-31] VITALS (9 sets, daily range): BP systolic 105–140; BP diastolic 62–87; PULSE 79–98; RESP 13–20; TEMP 35.5–36.7; O2SAT 98–100; BMI 24.0
[2020-05-31] MEDS: Chlorhexidine Gluc Oral Rinse 15 ML MOUTHWASH BUCCAL ×2 (08:16→21:13)
[2020-05-31] MEDS: Midodrine HCl 10 MG TABLET 5 MG G-TUBE ×3 (08:16→21:14)
[2020-05-31] MEDS: levETIRAcetam 500 MG TABLET G-TUBE ×2 (08:16→21:15)
[2020-05-31] MEDS: Zinc Oxide 20% Ointment 28.35 GM TUBE 1 APPL TOPICAL (08:18)
--- NOTE | 2020-05-31 11:23 | HO.PM.IMPN ---
Subjective Subjective Date of Service: 05/31/20 Interval History: The patient was seen and evaluated this morning Laying in bed, alert and interactive, not in distress Trach changed 05/27/20 On 4-5L of O2 no reported fever, chills or shortness of breath No reported other overnight events. Systemic review: non verbal Physical Exam Vital Signs: Vital Signs: Last Vital Signs Temp 96 F L 05/31/20 07:17 Pulse 83 05/31/20 08:16 Resp 20 05/31/20 07:17 BP 110/79 05/31/20 08:16 Pulse Ox 100 05/31/20 07:17 Body Mass Index 24.0 Const: Other: Constitutional : Alert, not in distress Neck : Normal inspection, Supple Cardiovascular : RRR, S1 S2, no lower extremity edema Respiratory : fair bilateral air entry, no crackles, wheezes or rhonchi, trach to collar @ 4-5Lpm Gastrointestinal: soft, lax, Normal bowel sounds, Non tender, PEG tube in place Skin : Warm/Dry, No rash, sacral pressure ulcer Neurological : Alert, nonverbal, R hemiplegia, No other focal deficit Objective Data Current Medications Generic Name Dose Route Start Last Admin Trade Name Freq PRN Reason Stop Dose Admin Chlorhexidine Gluconate 15 ml 05/26/20 21:00 05/31/20 08:16 Chlorhexidine Gluc Oral Rinse 15 Ml Mouthwash BUCCAL 15 ml BID ROSALINE Administration Enoxaparin Sodium 40 mg 04/27/20 02:00 05/30/20 21:49 Enoxaparin Sodium 40 Mg/0.4 Ml Syringe SUBCUT 40 mg BEDTIME ROSALINE Administration Levetiracetam 500 mg 05/19/20 21:00 05/31/20 08:16 Levetiracetam 500 Mg Tablet G-TUBE 500 mg BID ROSALINE Administration Midodrine 5 mg 05/24/20 09:00 05/31/20 08:16 Midodrine Hcl 10 Mg Tablet G-TUBE 5 mg TID ROSALINE Administration Valproic Acid 375 mg 05/06/20 21:00 05/31/20 08:17 Valproic Acid (As Sodium Salt) 250 Mg/5 Ml Solution G-TUBE 375 mg BID ROSALINE Administration Zinc Oxide 1 appl 05/30/20 09:00 05/31/20 08:18 Zinc Oxide 20% Ointment 28.35 Gm Tube TOPICAL 1 appl DAILY ROSALINE Administration Protocol Labs CBC & Chem 7: 05/30/20 15:35 05/20/20 05:29 Microbiology Microbiology Results: Microbiology 05/04/20 12:03 Sputum - Suctioned Gram Stain - Final 05/04/20 12:03 Sputum - Suctioned Sputum Culture - Final 04/29/20 06:07 Blood - Venous Blood Culture - Final No growth after 5 days. 04/29/20 05:52 Blood - Venous Blood Culture - Final No growth after 5 days. 04/27/20 Unknown Blood - Venous Blood Culture - Final Staphylococcus epidermidis Coag negative Staphylococcus 04/27/20 Unknown Blood - Venous Blood Culture - Final Staphylococcus epidermidis Staphylococcus hominis ssp enrique 04/27/20 Unknown Urine Catheterized - Straight Catheter Urine Culture - Final Enterococcus faecalis Pseudomonas aeruginosa 04/27/20 05:52 Sputum - Suctioned Gram Stain - Final 04/27/20 05:52 Sputum - Suctioned Sputum Culture - Final Assessment and Plan (1) Acute respiratory failure with hypoxia: Status: Acute (2) Aspiration pneumonia: Status: Acute Assessment and Plan: hospital d#32 54yo F with hx SAH/aneurysm clipping/decompressive craniectomy with catastrophic bleeding/neurological deterioration after craniectomy closure resulting in residual R hemiparesis + dysphagia intubated and admitted to ICU 04/26/20 with acute hypoxic respiratory failure due to large-volume aspiration extubated but then aspirated and was re-intubated 04/28/20 lap band was deflated 04/30/20 underwent trach + PEG 05/01/20 Trach changed 05/27/20 now awaiting LTACH bed 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 AIHA could be due to ampicillin she received in ICU. IV iron gluconate, d#5/5 as recommended by Heme/Onc Hb improved and stable SPEP + MIKKI negative Immunofixation showing elevated IgA thrombocytosis likely due to SARBJIT acute hypoxic respiratory failure due to aspiration pneumonia resolved s/p antibiotics, trach/PEG tracheostomy dependence frequent suctioning Downsized by pulmonology, they will follow as outpatient , ready to dc to senior care care awaiting maturation 30d postop to mature tracheostomy tube feeding diet continue tube feeds Promote 55 mL/hr + H20 120 mL q4h per PAPER MILL SUPERVISOR, can start clear liquid diet hx SAH complicated by sz no sz on current admission. continue levetiracetam- changed IV to GT. continue VPA. septic shock resolved gradually wean midodrine hyperNa resolved metabolic alkalosis resolved sacral pressure ulcer stage 2 barrier cream, foam dressing, offload/rotate/reposition, air loss mattress, careful moving pt VTE ppx LMWH # dispo - awaiting maturation of tracheostomy - seen by PT, not participating/following commands - updated daughter Yvrose Medina [phone]
--- NOTE | 2020-05-31 18:24 | PC.NURSE ---
Patient's dressing changed on coccyx, zinc oxide and foam dressing applied. Patient's inner cannula for trach changed. Patient suctioned. Trach removed by patient around 1330; reinserted by bridge tender, telesitter in place. Patient suctioned oropharyngeally x 2, orally with Y[place]aur x 2.
[2020-05-31] MEDS: Enoxaparin Sodium 40 MG/0.4 ML SYRINGE SUBCUT (21:13)
[2020-06-01] VITALS (8 sets, daily range): BP systolic 112–138; BP diastolic 64–86; PULSE 64–102; RESP 13–21; TEMP 35.8–36.6; O2SAT 94–100; BMI 24.3
[2020-06-01] MEDS: Midodrine HCl 10 MG TABLET 5 MG G-TUBE ×3 (08:40→20:58)
[2020-06-01] MEDS: levETIRAcetam 500 MG TABLET G-TUBE ×2 (08:40→20:55)
[2020-06-01] MEDS: Zinc Oxide 20% Ointment 28.35 GM TUBE 1 APPL TOPICAL (08:41)
[2020-06-01] MEDS: Chlorhexidine Gluc Oral Rinse 15 ML MOUTHWASH BUCCAL ×2 (08:41→20:54)
--- NOTE | 2020-06-01 12:16 | HO.PM.IMPN ---
Subjective Subjective Date of Service: 06/01/20 Interval History: The patient was seen and evaluated this morning Laying in bed, alert and interactive, not in distress Trach changed 05/27/20 On 4-5L of O2 , noticed to have secretions to be suctioned no reported fever, chills or shortness of breath No reported other overnight events. Systemic review: non verbal Physical Exam Vital Signs: Vital Signs: Last Vital Signs Temp 97.1 F 06/01/20 07:27 Pulse 88 06/01/20 07:27 Resp 18 06/01/20 07:27 BP 115/77 06/01/20 07:27 Pulse Ox 99 06/01/20 07:27 Body Mass Index 24.3 Const: Other: Constitutional : Alert, not in distress Neck : Normal inspection, Supple Cardiovascular : RRR, S1 S2, no lower extremity edema Respiratory : fair bilateral air entry, no crackles, wheezes or rhonchi, trach to collar @ 4-5Lpm Gastrointestinal: soft, lax, Normal bowel sounds, Non tender, PEG tube in place Skin : Warm/Dry, No rash, sacral pressure ulcer Neurological : Alert, nonverbal, R hemiplegia, No other focal deficit Objective Data Current Medications Generic Name Dose Route Start Last Admin Trade Name Freq PRN Reason Stop Dose Admin Chlorhexidine Gluconate 15 ml 05/26/20 21:00 06/01/20 08:41 Chlorhexidine Gluc Oral Rinse 15 Ml Mouthwash BUCCAL 15 ml BID ROSALINE Administration Enoxaparin Sodium 40 mg 04/27/20 02:00 05/31/20 21:13 Enoxaparin Sodium 40 Mg/0.4 Ml Syringe SUBCUT 40 mg BEDTIME ROSALINE Administration Levetiracetam 500 mg 05/19/20 21:00 06/01/20 08:40 Levetiracetam 500 Mg Tablet G-TUBE 500 mg BID ROSALINE Administration Midodrine 5 mg 05/24/20 09:00 06/01/20 08:40 Midodrine Hcl 10 Mg Tablet G-TUBE 5 mg TID ROSALINE Administration Valproic Acid 375 mg 05/06/20 21:00 06/01/20 08:41 Valproic Acid (As Sodium Salt) 250 Mg/5 Ml Solution G-TUBE 375 mg BID ROSALINE Administration Zinc Oxide 1 appl 05/30/20 09:00 06/01/20 08:41 Zinc Oxide 20% Ointment 28.35 Gm Tube TOPICAL 1 appl DAILY ROSALINE Administration Protocol Labs CBC & Chem 7: 05/30/20 15:35 05/20/20 05:29 Microbiology Microbiology Results: Microbiology 05/04/20 12:03 Sputum - Suctioned Gram Stain - Final 05/04/20 12:03 Sputum - Suctioned Sputum Culture - Final 04/29/20 06:07 Blood - Venous Blood Culture - Final No growth after 5 days. 04/29/20 05:52 Blood - Venous Blood Culture - Final No growth after 5 days. 04/27/20 Unknown Blood - Venous Blood Culture - Final Staphylococcus epidermidis Coag negative Staphylococcus 04/27/20 Unknown Blood - Venous Blood Culture - Final Staphylococcus epidermidis Staphylococcus hominis ssp enrique 04/27/20 Unknown Urine Catheterized - Straight Catheter Urine Culture - Final Enterococcus faecalis Pseudomonas aeruginosa 04/27/20 05:52 Sputum - Suctioned Gram Stain - Final 04/27/20 05:52 Sputum - Suctioned Sputum Culture - Final Assessment and Plan (1) Acute respiratory failure with hypoxia: Status: Acute (2) Aspiration pneumonia: Status: Acute Assessment and Plan: hospital d#33 54yo F with hx SAH/aneurysm clipping/decompressive craniectomy with catastrophic bleeding/neurological deterioration after craniectomy closure resulting in residual R hemiparesis + dysphagia intubated and admitted to ICU 04/26/20 with acute hypoxic respiratory failure due to large-volume aspiration extubated but then aspirated and was re-intubated 04/28/20 lap band was deflated 04/30/20 underwent trach + PEG 05/01/20 Trach changed 05/27/20 now awaiting LTACH bed 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 AIHA could be due to ampicillin she received in ICU. IV iron gluconate, d#5/ as recommended by Heme/Onc Hb improved and stable SPEP + MIKKI negative Immunofixation showing elevated IgA thrombocytosis likely due to SARBJIT acute hypoxic respiratory failure due to aspiration pneumonia resolved s/p antibiotics, trach/PEG tracheostomy dependence frequent suctioning Downsized by pulmonology, they will follow as outpatient , ready to dc to longterm care awaiting maturation 30d postop to mature tracheostomy tube feeding diet continue tube feeds Promote 55 mL/hr + H20 120 mL q4h per SHUTDOWN COORDINATOR, can start clear liquid diet hx SAH complicated by sz no sz on current admission. continue levetiracetam- changed IV to GT. continue VPA. septic shock resolved gradually wean midodrine hyperNa resolved metabolic alkalosis resolved sacral pressure ulcer stage 2 barrier cream, foam dressing, offload/rotate/reposition, air loss mattress, careful moving pt VTE ppx LMWH # dispo Plan to discharge to care next week - updated daughter Yvrose Medina [phone]
[2020-06-01] MEDS: Enoxaparin Sodium 40 MG/0.4 ML SYRINGE SUBCUT (20:55)
--- NOTE | 2020-06-01 21:13 | PM.PNPUL ---
Subjective Subjective Date of Service: 05/31/20 Interval history: The patient seen and examined. Her trach was completely out. She was breathing comfortably. The trach site cleared of debri and the same trach was able to be replaced with some pressure. Minimal bleeding noted. I was able to suction her afterwards. She did well. Objective Data Labs CBC & Chem 7: 05/30/20 15:35 05/20/20 05:29 Microbiology Microbiology Results: Microbiology 05/04/20 12:03 Sputum - Suctioned Gram Stain - Final 05/04/20 12:03 Sputum - Suctioned Sputum Culture - Final 04/29/20 06:07 Blood - Venous Blood Culture - Final No growth after 5 days. 04/29/20 05:52 Blood - Venous Blood Culture - Final No growth after 5 days. 04/27/20 Unknown Blood - Venous Blood Culture - Final Staphylococcus epidermidis Coag negative Staphylococcus 04/27/20 Unknown Blood - Venous Blood Culture - Final Staphylococcus epidermidis Staphylococcus hominis ssp enrique 04/27/20 Unknown Urine Catheterized - Straight Catheter Urine Culture - Final Enterococcus faecalis Pseudomonas aeruginosa 04/27/20 05:52 Sputum - Suctioned Gram Stain - Final 04/27/20 05:52 Sputum - Suctioned Sputum Culture - Final Review of Systems Review of Systems Yes Unobtainable due to mental condition Physical Exam Vital Signs: Vital Signs: Last Vital Signs Temp 96.5 F L 06/01/20 19:18 Pulse 84 06/01/20 20:58 Resp 14 06/01/20 19:18 BP 138/83 06/01/20 20:58 Pulse Ox 100 06/01/20 19:18 Body Mass Index 24.3 Const: General: alert HENMT: General nose exam: Abnormal external nose present and Nasal discharge present Neck: Neck: Yes normal visual inspection, Yes full ROM, Yes no lymphadenopathy and Yes other (trach site midline and secures with trach tie) Chest: Chest palpation & inspection: normal inspection of the chest Resp: Auscultation: diminished lung sounds Cardio: Rate: regular rate Rhythm: regular rhythm Heart sounds: S1 normal heart sound present and S2 normal heart sound present GI: Palpation (GI): Soft to palpation and nontender Skin: General skin exam: rashes and/or lesions noted Assessment and Plan Assessment and plan (1) Tracheostomy dependent: Status: Acute Assessment and Plan: Continue trach care Will secure her trach better PMV with intermittently with supervision Time Spent With Patient Time: Total time spent is greater than 50% in coordination of care (as documented) at patient's floor/unit and/or counseling patient: Time with patient: 15 - 24 minutes
[2020-06-02] VITALS (9 sets, daily range): BP systolic 101–125; BP diastolic 39–91; PULSE 73–97; RESP 16–19; TEMP 35.8–36.8; O2SAT 98–100; BMI 24.5
[2020-06-02] MEDS: Chlorhexidine Gluc Oral Rinse 15 ML MOUTHWASH BUCCAL ×2 (08:57→21:14)
[2020-06-02] MEDS: Zinc Oxide 20% Ointment 28.35 GM TUBE 1 APPL TOPICAL (08:58)
[2020-06-02] MEDS: Midodrine HCl 10 MG TABLET 5 MG G-TUBE ×3 (08:58→21:13)
[2020-06-02] MEDS: levETIRAcetam 500 MG TABLET G-TUBE ×2 (08:58→21:13)
--- NOTE | 2020-06-02 11:10 | MHC.CM.PN ---
Addendum entered by Ina Wilkins RN 06/03/20 09:50: PT RECEIVED MESSAGE TO CALL ADMISSIONS DARLENE GUTIERREZ BACK AT 11:28AM, CM CONTACTED DARLENE [phone] AND SET UP DISCHARGE TIME FOR 11AM ON 06/03/20, PER LIASON NURSE TO NURSE #[id number], DOC TO DOC NUMBER GUZMAN LEE AT [phone], NUMBER GIVEN TO NURSE AND HOSPITALIST ON 06/02/20, NURSING WAS GIVEN NUMBER FOR NURSE TO NURSE AT 7:55AM TODAY 06/03/20. Original Note: CM ATTEMPTED TO CALL ADMISSIONS DARLENE GUTIERREZ AT [facility] AT 11:05AM, MESSAGE WAS LEFT REGARDING PT BEING READY FOR D/C TODAY, CONTACT INFO WAS LEFT ON MESSAGE, CM WILL FOLLOW-UP IF NO RESPONSE.
--- NOTE | 2020-06-02 12:27 | HO.PM.IMPN ---
Subjective Subjective Date of Service: 06/02/20 Interval History: The patient was seen and evaluated this morning Laying in bed, alert and interactive, not in distress Trach changed 05/27/20 On 4-5L of O2 , noticed to have secretions to be suctioned no reported fever, chills or shortness of breath No reported other overnight events. Systemic review: non verbal Physical Exam Vital Signs: Vital Signs: Last Vital Signs Temp 97.2 F 06/02/20 11:16 Pulse 89 06/02/20 11:16 Resp 18 06/02/20 11:16 BP 124/91 H 06/02/20 11:16 Pulse Ox 100 06/02/20 11:16 Body Mass Index 24.5 Const: Other: Constitutional : Alert, not in distress Neck : Normal inspection, Supple Cardiovascular : RRR, S1 S2, no lower extremity edema Respiratory : fair bilateral air entry, no crackles, wheezes or rhonchi, trach to collar @ 4-5Lpm Gastrointestinal: soft, lax, Normal bowel sounds, Non tender, PEG tube in place Skin : Warm/Dry, No rash, sacral pressure ulcer Neurological : Alert, nonverbal, R hemiplegia, No other focal deficit Objective Data Current Medications Generic Name Dose Route Start Last Admin Trade Name Freq PRN Reason Stop Dose Admin Chlorhexidine Gluconate 15 ml 05/26/20 21:00 06/02/20 08:57 Chlorhexidine Gluc Oral Rinse 15 Ml Mouthwash BUCCAL 15 ml BID ROSALINE Administration Enoxaparin Sodium 40 mg 04/27/20 02:00 06/01/20 20:55 Enoxaparin Sodium 40 Mg/0.4 Ml Syringe SUBCUT 40 mg BEDTIME ROSALINE Administration Levetiracetam 500 mg 05/19/20 21:00 06/02/20 08:58 Levetiracetam 500 Mg Tablet G-TUBE 500 mg BID ROSALNIE Administration Midodrine 5 mg 05/24/20 09:00 06/02/20 08:58 Midodrine Hcl 10 Mg Tablet G-TUBE 5 mg TID ROSALINE Administration Valproic Acid 375 mg 05/06/20 21:00 06/02/20 08:57 Valproic Acid (As Sodium Salt) 250 Mg/5 Ml Solution G-TUBE 375 mg BID ROSALINE Administration Zinc Oxide 1 appl 05/30/20 09:00 06/02/20 08:58 Zinc Oxide 20% Ointment 28.35 Gm Tube TOPICAL 1 appl DAILY ROSALINE Administration Protocol Labs CBC & Chem 7: 05/30/20 15:35 05/20/20 05:29 Microbiology Microbiology Results: Microbiology 05/04/20 12:03 Sputum - Suctioned Gram Stain - Final 05/04/20 12:03 Sputum - Suctioned Sputum Culture - Final 04/29/20 06:07 Blood - Venous Blood Culture - Final No growth after 5 days. 04/29/20 05:52 Blood - Venous Blood Culture - Final No growth after 5 days. 04/27/20 Unknown Blood - Venous Blood Culture - Final Staphylococcus epidermidis Coag negative Staphylococcus 04/27/20 Unknown Blood - Venous Blood Culture - Final Staphylococcus epidermidis Staphylococcus hominis ssp enrique 04/27/20 Unknown Urine Catheterized - Straight Catheter Urine Culture - Final Enterococcus faecalis Pseudomonas aeruginosa 04/27/20 05:52 Sputum - Suctioned Gram Stain - Final 04/27/20 05:52 Sputum - Suctioned Sputum Culture - Final Assessment and Plan (1) Acute respiratory failure with hypoxia: Status: Acute (2) Aspiration pneumonia: Status: Acute Assessment and Plan: hospital d#34 54yo F with hx SAH/aneurysm clipping/decompressive craniectomy with catastrophic bleeding/neurological deterioration after craniectomy closure resulting in residual R hemiparesis + dysphagia intubated and admitted to ICU 04/26/20 with acute hypoxic respiratory failure due to large-volume aspiration extubated but then aspirated and was re-intubated 04/28/20 lap band was deflated 04/30/20 underwent trach + PEG 05/01/20 Trach changed 05/27/20 now awaiting LTACH bed 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 AIHA could be due to ampicillin she received in ICU. IV iron gluconate, d#5/5 as recommended by Heme/Onc Hb improved and stable SPEP + MIKKI negative Immunofixation showing elevated IgA thrombocytosis likely due to SARBJIT chronic hypoxic respiratory failure tracheostomy dependence frequent suctioning Downsized by pulmonology, they will follow as outpatient , ready to dc to foreign student adviser teacher care awaiting maturation 30d postop to mature tracheostomy tube feeding diet continue tube feeds Promote 55 mL/hr + H20 120 mL q4h per [place] [employer], can start clear liquid diet hx SAH complicated by sz no sz on current admission. continue levetiracetam- changed IV to GT. continue VPA. septic shock resolved gradually wean midodrine hyperNa resolved metabolic alkalosis resolved sacral pressure ulcer stage 2 barrier cream, foam dressing, offload/rotate/reposition, air loss mattress, careful moving pt VTE ppx LMWH # dispo Plan to discharge to care a tomorrow morning - updated daughter Yvrose Medina [phone]
--- NOTE | 2020-06-02 15:04 | MHC.CLN ---
F/U PT CONTINUES ON TF GLUCERNA AT MAX GOAL RATE 55CC/HR WITH 120CC FREE WATER FLUSHES Q 6HR AND 30CC PROSOURCE QD PROVIDES 1320KCALS, 70G PROTEIN (1.3G/KG) FOR WOUND, 1606CC TOTAL WATER FROM FORMULA AND FLUSHES TRAVEL TICKETING REVIEWER REC 3/25 C/L DIET MONITOR TOLERANCE, RESIDUALS AND LYTES FOLLOWING
[2020-06-02] MEDS: Enoxaparin Sodium 40 MG/0.4 ML SYRINGE SUBCUT (21:14)
[2020-06-03] VITALS: BP 119/85; RESP 16; TEMP 36.9; O2SAT 100
[2020-06-03 04:00] VITALS: BP 129/88; PULSE 82; RESP 18; TEMP 36.5; O2SAT 100
[2020-06-03 05:58] VITALS: BMI 24.4
[2020-06-03 08:00] VITALS: BP 117/78; PULSE 97; RESP 18; TEMP 36.5; O2SAT 100
[2020-06-03] MEDS: levETIRAcetam 500 MG TABLET G-TUBE (08:34)
[2020-06-03 08:35] VITALS: BP 117/78; PULSE 97
[2020-06-03] MEDS: Zinc Oxide 20% Ointment 28.35 GM TUBE 1 APPL TOPICAL (08:35)
[2020-06-03] MEDS: Midodrine HCl 10 MG TABLET 5 MG G-TUBE (08:35)
--- NOTE | 2020-06-03 10:25 | MHC.SLORD ---
BALANCE ASSEMBLER spoke to RN: pt planned for discharge at 11am today to LTC facility. Pt not accepting PO at this time. Pt continuing with PEG feedings. Name: Asha Medina Date of : 1965 Age: 54 Date of Registration: 04/27/20 Speech Language Pathology Order Status:
--- NOTE | 2020-06-03 10:56 | PM.DS ---
DS: Providers Provider Date of Service: 06/03/20 Date of admission: 04/27/20 01:20 Primary care physician: Mandeep Physician Consults: 05/01/20 14:54 Consult to Wound Care Routine Consulting Provider: Serina Morrison Reason for consultation: pressure injury buttocks 05/04/20 15:17 Consult to Infectious Diseases Routine Consulting Provider: Michael Brown Reason for consultation: ZYVOX USE FOR SUSPECTED VRE Has provider been notified: Yes 05/20/20 15:44 Consult to Hematology / Oncology [place] [facility] [place] Reason for consultation: AIHA 05/26/20 12:04 Consult to Pulmonology Routine Consulting Provider: Halley Dye Reason for consultation: Eval for permenant Trach placement. 05/28/20 13:08 Consult to Wound Care Routine Consulting Provider: Kalin Buck Reason for consultation: Pressure ulcer for your eval. 05/28/20 13:26 Consult to Wound Care Routine Consulting Provider: Serina Morrison Reason for consultation: pressure ulcer to coccyx Has provider been notified: Yes DS: Diagnosis Discharge Diagnosis (1) Acute respiratory failure with hypoxia: Status: Acute (2) Aspiration pneumonia: Status: Acute (3) Tracheostomy dependent: Status: Acute (4) Anemia: Status: Acute (5) VRE (vancomycin resistant enterococcus) culture positive: Status: Acute (6) Seizure: Status: Acute (7) CVA (cerebral vascular accident): Status: Acute (8) Dysphagia: Status: Acute (9) Buttock wound: Status: Acute (10) Septic shock: Status: Acute (11) Elevated lactic acid level: Status: Acute (12) Hypotension: Status: Acute DS: Medications Discharge Medications Home Medications: Home Medications Medication Instructions Recorded Confirmed Gonak 1 drp OPHTHALMIC (EYE) BID 04/28/20 04/28/20 albuterol sulfate [ProAir HFA] 2 puff INHALATION Q4H PRN 04/28/20 04/28/20 dronabinol [Marinol] 2.5 mg PO BIDAC 04/28/20 04/28/20 heparin (porcine) 5,000 unit SUBCUT Q8H 04/28/20 04/28/20 multivitamin 1 tab PO DAILY 04/28/20 04/28/20 polyvinyl alcohol-povidone 1 drp OPHTHALMIC (EYE) TID PRN 04/28/20 04/28/20 Refresh Celluvisc 1 drp OPHTHALMIC (EYE) TID PRN 05/09/20 05/09/20 Previous Rx's Medication Instructions Recorded chlorhexidine gluconate 15 ml BUCCAL BID 30 Days ml 06/03/20 levetiracetam 500 mg G-TUBE BID 30 Days #60 tab 06/03/20 midodrine 5 mg G-TUBE TID 30 Days #45 tab 06/03/20 valproic acid (as sodium salt) 375 mg G-TUBE BID 30 Days #450 ml 06/03/20 DS: Summary Hospital Course Hospital Course: Admission note HPI. ER admission note from Dr. Ahuja. Patient is brought by EMS from the [facility]. EMS called reporting that the patient was in pulmonary edema, 40 mg of Lasix were given prior to arrival. Patient does not have history of CHF. However, patient was discharged on April 22 from [facility] for pneumonia. The staff reports that the patient was doing well, within an hour she decompensated. Patient had significant shortness of breath, severe respiratory distress. When EMS arrived, the patient had frothy sputum, oxygen saturation 60% on room air. Patient was started on CPAP. On arrival, patient's oxygen saturation remained at 70% on BiPAP, patient was intubated. Hospital course The patient has prolonged hospital stay. For full details please returned to EMR. Primarily admitted from the emergency for septic shock secondary to aspiration pneumonia with persistent hypertension and acute hypoxemic respiratory failure the requiring intubation in ED. In summary, A 54yo F with hx SAH with catastrophic bleeding/neurological deterioration resulting in residual R hemiparesis + dysphagia years ago you presented to the hospital in septic shock secondary to aspiration pneumonia. intubated and admitted to ICU 04/26/20 with acute hypoxic respiratory failure due to large-volume aspiration extubated but then aspirated and was re-intubated 04/28/20 For chief has a history of lap band almost 10 years ago was deflated 04/30/20 by surgical team who reported weight loss and decreased oral intake. underwent tracheostomy placement + PEG tube placement 05/01/20. Tolerated diet and oxygen wean down to 5 L only. Trach changed 05/27/[address] Fajardo Plan for LTACH bed for chronic hypoxic respiratory failure on 5 L oxygen. Noticed to have a drop in your hemoglobin level requiring evaluation by Hematology who recommended treatment with IV iron as it seems more of iron deficiency anemia and possible mild autoimmune hemolytic anemia during the hospital stay. No transfusion needed. tube feeding diet Tolerating tube feed. Promote 55 mL/hr + H20 120 mL q4h per SET UP MECHANIC STAMPING MACHINES, can start clear liquid diet and pureed as tolerated and when requested by the patient only. hx SAH complicated by seizures no seizure on current admission. Medications changed to Keppra and valproic acid to be given through the G-tube. sacral pressure ulcer, stage 2 barrier cream, foam dressing, offload/rotate/reposition, air loss mattress, careful moving pt Time Spent with Patient Time attestation: Total time spent providing and/or coordinating discharge services: Discharge coordination time: Greater than 30 minutes Physical Exam Vital Signs: Vital Signs: Last Vital Signs Temp 97.7 F 06/03/20 08:00 Pulse 97 06/03/20 08:35 Resp 18 06/03/20 08:00 BP 117/78 06/03/20 08:35 Pulse Ox 100 06/03/20 08:00 Body Mass Index 24.4 Const: Other: Constitutional : Alert, not in distress Neck : Normal inspection, Supple Cardiovascular : RRR, S1 S2, no lower extremity edema Respiratory : fair bilateral air entry, no crackles, wheezes or rhonchi, trach to collar @ 4-5Lpm Gastrointestinal: soft, lax, Normal bowel sounds, Non tender, PEG tube in place Skin : Warm/Dry, No rash, stage 2 sacral pressure ulcer covered with dressing Neurological : Alert, nonverbal, R hemiplegia, No other focal deficit DS: Data Data Completed and Pending Completed studies during hospitalization [Text1]: Pending at discharge 04/30/20 12:52 Surgical [PTH] Routine Discharge Plan Discharge Patient Disposition: [facility] Referrals: [facility] [Outside] Physician,Unknown [Primary Care Provider] - Discharge Medications: New levetiracetam 500 mg Tablet 500 mg G-tube BID 30 Days Qty: 60 RF: 0 midodrine 10 mg Tablet 5 mg G-tube TID 30 Days Qty: 45 RF: 0 chlorhexidine gluconate 0.12 % Mouthwash 15 ml buccal BID 30 Days RF: 0 valproic acid (as sodium salt) 250 mg/5 mL (5 mL) Solution 375 mg G-tube BID 30 Days Qty: 450 RF: 0 Continued multivitamin Tablet 1 tab PO DAILY RF: 0 dronabinol [Marinol] 2.5 mg Capsule 2.5 mg PO BIDAC RF: 0 albuterol sulfate [ProAir HFA] 90 mcg/actuation Hfa Aerosol Inhaler 2 puff INHALATION Q4H PRN (Reason: Shortness Of Breath) RF: 0 heparin (porcine) 5,000 unit/mL Solution 5,000 unit SUBCUT Q8H RF: 0 Gonak 2.5 % Drops 1 drp OPHTHALMIC (EYE) BID RF: 0 polyvinyl alcohol-povidone 0.5-0.6 % Drops 1 drp OPHTHALMIC (EYE) TID PRN (Reason: Dry Eye(S)) RF: 0 Refresh Celluvisc 1 % Dropperette,Gel 1 drp OPHTHALMIC (EYE) TID PRN (Reason: Dry Eye(S)) RF: 0 Discontinued amlodipine 5 mg Tablet 5 mg PO DAILY RF: 0 mirtazapine 15 mg Tablet 15 mg PO BEDTIME RF: 0 divalproex [Depakote Sprinkles] 125 mg Capsule, Delayed Rel Sprinkle 375 mg PO TID RF: 0 Discharge Orders: Discharge Order (Routine); Ordered 06/03/20 Ordered By: Kelsy Mercado Diet: other Activity on Discharge: As tolerated Stand Alone Forms: Patient Portal Discharge page Care Plan Goals: Read below Health Concerns: Read below Plan of Treatment: You were admitted to ICU for neurological deterioration after having a massive brain bleed. You were intubated on 2 separate occasion and ended up requiring a long-term tracheostomy placement. You were treated for pneumonia with good response over the course of hospital stay as you have been stable on 5 L of oxygen all the time. Evaluated by speech therapist and started on oral diet as tolerated. Started on tube feeding after placing a gastric tube. To be discharged to Nursing Facility
== END 2020-06-03 12:00 | disposition skilled nursing facility (03) | DRG 4 ==
LOC: HO.ED 04-27 01:25 → HO.ICU 04-27 02:02 → HO.IMC 05-12 04:49 → HO.S3 05-22 15:09
PROVIDERS: Anesthesiology; Family Medicine; Internal Medicine; Internal Medicine Cardiovascular Disease; Internal Medicine Pulmonary Disease; Physician Assistant; Physician Assistant Medical; Surgery; Admitting Provider Registered Nurse Community Health; Emergency Provider Emergency Medicine; PCP Internal Medicine; Visit Provider Student in an Organized Health Care Education/Training Program
PROC: 0DJ08ZZ Inspection of Upper Intestinal Tract, Via Natural or Artificial Opening Endoscopic (ICD-10-PCS; CPT 43235; principal; 2020-04-30 10:50)
PROC: 0B113F4 Bypass Trachea to Cutaneous with Tracheostomy Device, Percutaneous Approach (ICD-10-PCS; principal; 2020-05-01 14:00)
PROC: 0DH63UZ Insertion of Feeding Device into Stomach, Percutaneous Approach (ICD-10-PCS; CPT 43246; 2020-05-01 14:00)
DX: A41.9 Sepsis, unspecified organism (principal); R65.21 Severe sepsis with septic shock; J69.0 Pneumonitis due to inhalation of food and vomit; L89.152 Pressure ulcer of sacral region, stage 2; E87.3 Alkalosis; E87.2 Acidosis; I95.9 Hypotension, unspecified; D59.10 Autoimmune hemolytic anemia, unspecified; I69.051 Hemiplegia and hemiparesis following nontraumatic subarachnoid hemorrhage affecting right dominant side; I69.098 Other sequelae following nontraumatic subarachnoid hemorrhage; Z98.84 Bariatric surgery status; R13.10 Dysphagia, unspecified; D47.3 Essential (hemorrhagic) thrombocythemia; G40.909 Epilepsy, unspecified, not intractable, without status epilepticus; B95.2 Enterococcus as the cause of diseases classified elsewhere; K44.9 Diaphragmatic hernia without obstruction or gangrene; Z16.21 Resistance to vancomycin; J96.01 Acute respiratory failure with hypoxia; E87.6 Hypokalemia; Z20.822 Contact with and (suspected) exposure to COVID-19; Z79.899 Other long term (current) drug therapy
CPT/HCPCS: 0241U; 36415; 36600; 71045; 71250; 71275; 80048; 80053; 80076; 80164; 81001; 81003; 82040; 82140; 82272; 82607; 82728; 82746; 82784; 82803; 82947; 83010; 83540; 83605; 83615; 83690; 83735; 83880; 83883; 84100; 84145; 84155; 84165; 84300; 84484; 85007; 85025; 85027; 85045; 85060; 85379; 85384; 85610; 85730; 86038; 86039; 86334; 86850; 86880; 86900; 87040; 87070; 87077; 87086; 87088; 87147; 87186; 87205; 87324; 87449; 87635; 88305; 88342; 89055; 92610; 93005; 93306; 94002; 94003; 94640; 94644; 94664; 95816; 96361; 96365; 96367; 96374; 96375; 97162; 99285; J0295; J0461; J1265; J1650; J1940; J1953; J1956; J2020; J2250; J2370; J2543; J2916; J3010; J3475; P9047; Q9967

== ENCOUNTER 2020-12-17 12:38 | Day surgery (SDC) | payer MEDICAID, SELFPAY ==
--- NOTE | ~2020-12-17 | IR_ITS ---
EXAMINATION: G-TUBE EXCHANGE CLINICAL INFORMATION: New type of G-tube requested. History of stroke. COMPARISON: Previous chest x-ray April [address] April 2020 TECHNIQUE: Procedure and risks and benefits were discussed with the patient's healthcare proxy, her daughter including bleeding, infection and injury to the stomach and informed consent was obtained. The upper midline abdomen over the G-tube was prepped and draped in the usual sterile fashion. The skin and soft tissues at the G-tube site was anesthetized with 1% lidocaine plain. Lidocaine jelly was also applied to the skin. A fiscal economist film was obtained. G-tube was injected with Omnipaque 300 contrast. An Amplatz wire was advanced through the existing G-tube into the stomach. The existing G-tube was removed and a new 18 [place] angled through the feeding gastrostomy tube was advanced over the guidewire into the stomach. The balloon was inflated with 20 mL of saline. This was injected with Omnipaque 300 contrast confirming adequate placement in the stomach. Fluoroscopy time 4.5 minutes. DAP 3 7 CG Y per centimeter squared. The patient received 2 mg of intravenous morphine during the procedure. FINDINGS: Existing image demonstrates a G-tube in the stomach. Final images demonstrate a new G-tube in the stomach with tip directed toward the distal stomach. No leak or free air is seen. There is a catheter seen in the abdomen likely representing a HAIR SALON MANAGER shunt catheter. IR/IR replace tube gastr,ceco,oth IMPRESSION: G-tube exchange for an 18-gauge caliber feeding gastrostomy tube.
[2020-12-17 13:24] VITALS: BMI 22.4
[2020-12-17 13:39] LABS: Glucose, Whole Blood 71 mg/dL (60-115)
[2020-12-17] MEDS: Lidocaine HCl 1 % MPF 5 ML VIAL SUBCUT (16:29)
[2020-12-17 16:35] VITALS: BP 124/83; PULSE 63; RESP 18; TEMP 36.3; O2SAT 100
--- NOTE | 2020-12-17 16:44 | HO.RADPN ---
RADIOLOGY Narrative Narrative: G tube exchanged for a 18 g Kangaroo g tube. Ballon inflated with 10ml saline.
[2020-12-17 16:50] VITALS: BP 139/82; PULSE 62; RESP 18; O2SAT 100
[2020-12-17 17:05] VITALS: BP 138/66; PULSE 66; RESP 18; O2SAT 98
[2020-12-17 17:16] VITALS: BP 143/90; PULSE 73; RESP 18; O2SAT 98
== END 2020-12-17 17:53 | disposition home or self-care (01) ==
PROVIDERS: Visit Provider Radiology Diagnostic Radiology
PROC: (CPT 43762; principal; 2020-12-17 14:00)
DX: Z43.1 Encounter for attention to gastrostomy (principal); I69.091 Dysphagia following nontraumatic subarachnoid hemorrhage; I69.059 Hemiplegia and hemiparesis following nontraumatic subarachnoid hemorrhage affecting unspecified side; I10 Essential (primary) hypertension; J45.909 Unspecified asthma, uncomplicated; E11.9 Type 2 diabetes mellitus without complications; Z79.899 Other long term (current) drug therapy
CPT/HCPCS: 49450; 49452; 82947; C1769; J2270; Q9967